=== PATIENT | male | born 1935 | race Caucasian/White ===

== ENCOUNTER → 2017-06-28 | Outpatient (CLI) | payer MEDICARE, BC ==
[2017-06-28 09:46] LABS: Blood Urea Nitrogen 25 mg/dL (9-20); Non-African American GFR(MDRD) 57 (>60 ml/min/1.73 sqM)
--- NOTE | 2017-06-28 11:33 | CT ---
EXAMINATION TYPE: CT abdomen pelvis w con DATE OF EXAM: 06/28/2017 COMPARISON: NONE HISTORY: Prostate cancer CT DLP: 738.1 mGycm Automated exposure control for dose reduction was used. TECHNIQUE: Helical acquisition of images from the lung bases through the pelvis have been completed. CONTRAST: Performed with Oral Contrast and with IV Contrast, patient injected with 80 mL of Visipaque 320. FINDINGS: The patient is post median sternotomy. Epicardial pacing leads are present. LUNG BASES: Interstitial changes are present at the right lung base greater than left.. AORTA: No significant abnormality is appreciated. LIVER/GB: No significant abnormality is appreciated within the liver. Difficult to exclude gallstone or sludge within the gallbladder. PANCREAS: No significant abnormality is seen. SPLEEN: No significant abnormality is seen. ADRENALS: No significant abnormality is seen. KIDNEYS: No significant abnormality is seen. Renal vein collar is noted. REPRODUCTIVE ORGANS: Prostate is enlarged. BOWEL: Some diverticular change noted in the sigmoid colon. FREE AIR: No Free Air visible. ASCITES: None visible. PELVIC ADENOPATHY: None visualized. RETROPERITONEAL ADENOPATHY: No Retroperitoneal Adenopathy visible. URINARY BLADDER: No significant abnormality is seen. OSSEOUS STRUCTURES: Degenerative disc changes are present within the visualized spine. There is asso ciated facet arthropathy present with some suspected spinal stenosis L4-5. Minimal anterolisthesis gr gabriella 1 L4-5. IMPRESSION: INTERSTITIAL LUNG DISEASE. Postop changes. Additional findings above.
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
== END | disposition home or self-care (01) ==
LOC: RADCTMAIN 09:06
PROVIDERS: ATTEND Urology
DX: C61 Malignant neoplasm of prostate (principal); R93.7 Abnormal findings on diagnostic imaging of other parts of musculoskeletal system; Z98.890 Other specified postprocedural states; Z88.2 Allergy status to sulfonamides
CPT/HCPCS: 82565; 84520; 74177; 36415; 78306; A9503; Q9967

== ENCOUNTER → 2019-12-04 | Outpatient (CLI) | payer MEDICARE, BC | END | disposition home or self-care (01) | CPT/HCPCS: 36415; 82565; 82947; 84520; 85027 ==

== ENCOUNTER 2019-12-06 09:44 | Day surgery (SDC) | payer MEDICARE, BC ==
[2019-12-04 11:59] VITALS: BMI 29.4
[~2019-12-06 09:44] MED LIST: ALPRAZolam 0.25 MG TAB PO PRN; ALPRAZolam 0.5 MG TAB PO PRN; ASPIRIN 325 MG TAB PO STA
[2019-12-06] MEDS ORDERED: SODIUM CHLORIDE 0.9% 1,000 ML in EMPTY BAG 1 BAG IV ONE (10:00)
[2019-12-06] MEDS ORDERED: VALSARTAN 160 MG TAB PO STA (10:15)
[2019-12-06 10:32] LABS: Glucose,Whole Blood 111 mg/dL (75-99)
[2019-12-06 11:10] LABS: Calcium 9.4 mg/dL (8.4-10.2); Potassium 4.4 mmol/L (3.5-5.1)
[2019-12-06] MEDS ORDERED: MIDAZOLAM 2 MG/2 ML VIAL IV ONE (12:22)
[2019-12-06] MEDS ORDERED: LIDOCAINE 1% INJ 10MG/ML (20 ML MDV) SQ ONE (12:24)
[2019-12-06] MEDS ORDERED: HEPARIN SODIUM 1,000 UN/ML (10ML VL) IV ONE (12:33)
[2019-12-06] MEDS ORDERED: CLOPIDOGREL 75 MG TAB PO ONE (12:48)
[2019-12-06] MEDS ORDERED: NITROGLYCERIN 1000MCG/10ML SYRINGE INTRAARTER ONE (13:14)
[2019-12-06] MEDS ORDERED: niCARdipine Syringe (1,000 mcg/10 mL) INTRAARTER ONE (13:14)
[2019-12-06] MEDS ORDERED: IOPAMIDOL-250 100ML BTL INTRAARTER ONE (13:23)
[2019-12-06] MEDS ORDERED: SODIUM CHLORIDE 0.9% 1,000 ML in EMPTY BAG 1 BAG IV SCH (13:30)
[2019-12-06] MEDS ORDERED: hydrALAZINE HCL 20 MG/ML 1 ML VIAL IVP PRN (13:33)
[2019-12-06] MEDS ORDERED: hydrALAZINE HCL 20 MG/ML 1 ML VIAL IV ONE (13:33)
--- NOTE | 2019-12-06 13:37 | P.PCN ---
Date of Procedure: 12/06/19 Operative Findings: PERCUTANEOUS PERIPHERAL ARTERIAL INTERVENTION Performing physician Osmel Lees MD, RPVI Procedure performed 1. Left lower extremity angiogram 2. 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 An atherectomy of the left popliteal using the orbital atherectomy device from [facility] 3. Balloon angioplasty of the left popliteal with inadequate angiographic results 4. Successful stenting of the left popliteal using 6.0 x 80 mm is Zilver PTX drug-coated stent with an excellent angiographic results 5. Selective right common femoral artery and Indication This is a pleasant 84-year-old gentleman who is in good physical and mental shape was experiencing bilateral lower extremities intermittent claudication and underwent an angiogram and that revealed occluded left popliteal as well as severe disease involving the right anterior tibial artery. He was brought today to undergo a HAND TRUCKER of the left popliteal Approach Right common femoral artery Complications None Level of sedation Moderate sedation length of 60 minutes Procedure description After obtaining an informed consent the patient was brought to the cardiac orthodontic lab technician. The right common femoral artery was cannulated using micropuncture technique, the micropuncture wire passed easily then I placed an 11 cm 6-Syrian sheath in the right common femoral artery. Anticoagulation at that point was initiated using heparin and the patient was given a weight-based heparin with continuous ACT monitoring throughout the procedure After that I did wire the left SFA using 5-Syrian rim catheter with 035 glide advantage wire. Subsequently I did exchange my 11 cm sheath into 70 cm 6-Syrian sheath using the 035 glide advantage wire. The sheath was advanced all the way to the distal left SFA and all the way to the hub. I did to cross the chronic total occlusion of the popliteal using 018 Gold tip Glidewire with a backup support of 018 CXI catheter. The wire was advanced all the way to the left peroneal artery. I did inject contrast through the catheter to prove that I was in the tubal lumen. After that I did exchange my 018 wire into 014 Viber wire preparing for rotational atherectomy. I did perform rotational atherectomy using 1.25 mm huy and I did atherectomy under local, medial, and high-speed. Subsequently balloon angioplasty was achieved with 4.0 x 60 mm balloon which was inflated under 16 melissa. The following angiogram showed inadequate angiographic results and because of that I decided to go with a stent. I deployed a 6.0 x 18 mm Zilver drug-coated stent where the stent was positioned under fluoroscopy guidance and deployed under fluoroscopy guidance. A postoperative the stent using 5 mm balloon. The final angiogram showed excellent angiographic results and the procedure was completed without any complications I did exchange my long sheath into short sheath using 035 glide advantage wire. By the end I did selective right common femoral artery angiogram. The procedure was completed without any complication Postprocedure management 1. Dual antiplatelet therapy 2. Risk factors modification 3. HAND TRUCKER of the right anterior tibial artery if the patient is symptomatic at the right leg 4. Follow-up with the patient
[2019-12-06 17:24] LABS: Glucose,Whole Blood 72 mg/dL (75-99)
[2019-12-06] MEDS: METOPROLOL TARTRATE 25 MG TAB PO SCH (20:34)
[2019-12-06 20:51] LABS: Glucose,Whole Blood 175 mg/dL (75-99)
[2019-12-06] MEDS: INSULIN ASPART (NovoLOG) 100 UNIT/ML VIAL SQ SCH (20:52)
[2019-12-07 06:03] LABS: Glucose,Whole Blood 151 mg/dL (75-99)
[2019-12-07] MEDS: INSULIN ASPART (NovoLOG) 100 UNIT/ML VIAL SQ SCH (06:14)
[2019-12-07 06:15] LABS: Basophils % (A) 1 %; Eosinophils # (A) 0.1 k/uL (0-0.7); Eosinophils % (A) 2 %; HCT 37.7 % (39.0-53.0); HGB 12.4 gm/dL (13.0-17.5); Lymphocytes # (A) 1.1 k/uL (1.0-4.8); Lymphocytes % (A) 21 %; MCH 32.1 pg (25.0-35.0); MCHC 32.8 g/dL (31.0-37.0); MCV 97.9 fL (80.0-100.0); Monocytes # (A) 0.3 k/uL (0-1.0); Monocytes % (A) 7 %; Neutrophils # (A) 3.5 k/uL (1.3-7.7); Neutrophils % (A) 68 %; Platelet Count 201 k/uL (150-450); RBC 3.85 m/uL (4.30-5.90); RDW 12.9 % (11.5-15.5); WBC 5.2 k/uL (3.8-10.6)
[2019-12-07 06:25] LABS: Calcium 8.5 mg/dL (8.4-10.2); Potassium 4.2 mmol/L (3.5-5.1)
--- NOTE | 2019-12-07 08:26 | IR ---
EXAMINATION TYPE: IR stent intravas non coronary DATE OF EXAM: 12/06/2019 CLINICAL HISTORY: Peripheral vascular disease. TECHNIQUE: Fluoroscopy. COMPARISON: None. FINDINGS: Fluoroscopic guidance was provided during left lower extremity angiogram procedure perform ed by Dr. Lees. A total of 15.3 minutes fluoroscopic time was utilized during the procedure and 9 c ine sequences are acquired. Images acquired show left lower extremity angiogram with subsequent stent placement popliteal level. IMPRESSION: As Above.
[2019-12-07] MEDS: METOPROLOL TARTRATE 25 MG TAB PO SCH (08:43)
[2019-12-07] MEDS ORDERED: VALSARTAN 160 MG TAB PO SCH (09:00)
[2019-12-07] MEDS ORDERED: ATORVASTATIN 80 MG TAB PO SCH (09:00)
[2019-12-07] MEDS ORDERED: CLOPIDOGREL 75 MG TAB PO SCH (09:00)
[2019-12-07] MEDS ORDERED: CALCIUM CARB-VIT D 500MG-200UN 1 EACH TAB PO SCH (09:00)
[2019-12-07] MEDS ORDERED: INSULIN DETEMIR (LEVEMIR) 100 UNIT/ML SYR SQ SCH (09:00)
[2019-12-07] MEDS ORDERED: ASPIRIN 81 MG PO SCH (09:00)
[2019-12-07 10:06] VITALS: BP 135/63; PULSE 55; RESP 16; TEMP 97.6
--- NOTE | 2019-12-07 11:56 | P.DS ---
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 He was seen this morning. The right groin is soft and nontender and without any bruises. The patient is going to be discharged home on dual antiplatelet therapy and I'll follow-up with the patient next week in the office Health Concerns: NEW PLAVIX Plan - Discharge Summary Discharge Rx Participant: No New Discharge Prescriptions: New Clopidogrel [Plavix] 75 mg PO DAILY #90 tab Continue Atorvastatin [Lipitor] 80 mg PO DAILY Aspirin [Adult Low Dose Aspirin EC] 81 mg PO DAILY Calcium Carbonate/Vitamin D3 [Calcium 600-Vit D3 400 Tablet] 1 each PO DAILY Insulin Detemir (Levemir) [Levemir] 18 unit SQ DAILY Valsartan 160 mg PO DAILY Metoprolol Tartrate [Lopressor] 25 mg PO BID Insulin Lispro Rx Scale Form [humaLOG Outpatient Scale Rx Form] 0 units SQ ACHS Discharge Medication List Aspirin [Adult Low Dose Aspirin EC] 81 mg PO DAILY 12/04/19 [History] Atorvastatin [Lipitor] 80 mg PO DAILY 12/04/19 [History] Calcium Carbonate/Vitamin D3 [Calcium 600-Vit D3 400 Tablet] 1 each PO DAILY 12/04/19 [History] Insulin Detemir (Levemir) [Levemir] 18 unit SQ DAILY 12/04/19 [History] Insulin Lispro Rx Scale Form [humaLOG Outpatient Scale Rx Form] 0 units SQ ACHS 12/04/19 [History] Metoprolol Tartrate [Lopressor] 25 mg PO BID 12/04/19 [History] Valsartan 160 mg PO DAILY 12/04/19 [History] Clopidogrel [Plavix] 75 mg PO DAILY #90 tab 12/07/19 [Rx] Follow up Appointment(s)/Referral(s): Osmel Lees MD [STAFF PHYSICIAN] - 1 Week Patient Instructions/Handouts: Heart Healthy Diet (DC), Peripheral Vascular Angioplasty (DC) Activity/Diet/Wound Care/Special Instructions: Peripheral vascular angioplasty: 1. Support your puncture site by applying firm, steady pressure whenever you cough, laugh, sneeze or bear down to have a bowel movement (2-day restriction). 2. Watch for any excessive bruising, active bleeding, a firm knot forming under your skin, extreme tenderness and signs of infection (redness, swelling, fever). 3. Shower daily, do not soak puncture in a tub bath, jacuzzi, pool, adan etc. for 1 week. This is to prevent risk of infection. 4. Drink plenty of fluids the day of and day after your procedure to flush con trast dye out of your kidneys. 5. Take all medications as directed. Never stop any new medication without your physicians OK. 6. No driving for 2 days after procedure. 7. 10- pound weight lifting restriction for 1 week. 8. Low sodium/low fat diet. 9. Activity limited until follow up appointment with your slp teacher. In case of any problems, please call [facility] [place] @ .
[2019-12-07 15:22] LABS: Hemoglobin A1C 7.7 % (4.0-6.0)
== END 2019-12-07 12:11 | disposition home or self-care (01) ==
LOC: CATHCVL 09:44 → 3SCARD 16:48 → CATHCVL 12-07 12:11
PROVIDERS: ATTEND Internal Medicine Interventional Cardiology
DX: E13.51 Other specified diabetes mellitus with diabetic peripheral angiopathy without gangrene (principal); I70.213 Atherosclerosis of native arteries of extremities with intermittent claudication, bilateral legs; I25.10 Atherosclerotic heart disease of native coronary artery without angina pectoris; I70.92 Chronic total occlusion of artery of the extremities; Z79.82 Long term (current) use of aspirin; Z79.4 Long term (current) use of insulin; Z79.899 Other long term (current) drug therapy; I10 Essential (primary) hypertension; E78.5 Hyperlipidemia, unspecified; Z95.1 Presence of aortocoronary bypass graft; Z79.84 Long term (current) use of oral hypoglycemic drugs; Z88.1 Allergy status to other antibiotic agents
CPT/HCPCS: 37227; 85347; 80048 ×2; 85025; 83036; C1894 ×2; C1769 ×7; C1714; C1725; C1753; C1874; J2250; J0360; J2001; J1644; Q9966

== ENCOUNTER 2020-02-29 16:56 | Inpatient (IN) | payer MEDICARE, BC ==
--- NOTE | 2020-02-29 18:00 | ED ---
Extremity Problem HPI <Hugo Olivarez - Last Filed: 02/29/20 18:24> - General Source: patient Mode of arrival: ambulatory Limitations: no limitations <Nereida Becker - Last Filed: 02/29/20 21:20> - General Chief complaint: Extremity Problem,Nontraumatic Stated complaint: Foot and ankle pain Time Seen by Provider: 02/29/20 17:09 - History of Present Illness Initial comments: 84-year-old male presents today for chief complaint of left ankle foot pain x 4- 5 days, decreased sensation. Patient states that he had a popliteal stent 12/[address] Marques. Patient states that after the surgery he was feeling much better than before the surgery where he frequently has numbness and pain in the foot. Patient states that he now has similar symptoms to prior to stent, decreased sensation of foot and pain from ankle to foot. Patient states appears more pale--left in comparison to right. patient has no additional complaints. Is on plavix and atorvastatin. Patient states he has been compliant. Pt sent from Dr. Marques office for evaluation. (Nereida Becker) - Related Data Home Medications Medication Instructions Recorded Confirmed Atorvastatin [Lipitor] 80 mg PO DAILY 12/04/19 02/29/20 Insulin Detemir (Levemir) [Levemir] 18 unit SQ DAILY 12/04/19 02/29/20 Metoprolol Tartrate [Lopressor] 25 mg PO BID-W/MEALS 12/04/19 02/29/20 Pioglitazone [Actos] 30 mg PO DAILY 02/29/20 02/29/20 Previous Rx's Medication Instructions Recorded Clopidogrel [Plavix] 75 mg PO DAILY #90 tab 12/07/19 Allergies Allergy/AdvReac Type Severity Reaction Status Date / Time No Known Allergies Allergy Verified 02/29/20 20:51 Review of Systems ROS Other: All systems not noted in ROS Statement are negative. <Hugo Olivarez - Last Filed: 02/29/20 18:24> ROS Other: All systems not noted in ROS Statement are negative. <Nereida Becker - Last Filed: 02/29/20 21:20> ROS Statement: Those systems with pertinent positive or pertinent negative responses have been documented in the HPI. 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 Prostate CA, gets injections. Has Constipation. Lt foot numbness. left femoral stent 12.06.2019 History of Any Multi-Drug Resistant Organisms: None Reported Past Surgical History: Coronary Bypass/CABG Additional Past Surgical History / Comment(s): "Heart surgery" Past Anesthesia/Blood Transfusion Reactions: No Reported Reaction Past Psychological History: No Psychological Hx Reported Smoking Status: Former smoker Past Drug Use History: None Reported - Past Family History Mother Family Medical History: No Reported History <Nereida Becker - Last Filed: 02/29/20 21:20> General Exam Limitations: no limitations <Nereida Becker - Last Filed: 02/29/20 21:20> - General Exam Comments Initial Comments: General: The patient is awake and alert, in no distress Eye: Pupils are equal, round and reactive to light, extra-ocular movements are intact. No nystagmus. There is normal conjunctiva bilaterally. No signs of icterus. Ears, nose, mouth and throat: There are moist mucous membranes and no oral lesions. Neck: The neck is supple, there is no tenderness or JVD. Cardiovascular: There is a regular rate and rhythm. No murmur, rub or gallop is appreciated. Respiratory: Lungs are clear to auscultation, respirations are non-labored, breath sounds are equal. No wheezes, stridor, rales, or rhonchi. Musculoskeletal: Normal ROM, no tenderness. Strength 5/5. Sensation intact proximal to mid calf, less sensation distal to mid calf of left foot. Radial pulses equal bilaterally 2+. Right DP and posterior tibial pulses present, left not palpable nor audible to doppler. Popliteal is thready but audible to auscultation with doppler. VERY sluggish capillary refill of left foot >1 min. Neurological: A&O x 3. CN II-XII intact grossly, There are no obvious motor or sensory deficits. Coordination appears grossly intact. Speech is normal. Skin: Skin is warm and dry and no rashes or lesions are noted. Psychiatric: Cooperative, appropriate mood & affect, normal judgment. (Nereida Becker) Course Vital Signs 02/29/20 02/29/20 17:16 18:37 Temperature 97.8 F Pulse Rate 60 86 Respiratory 16 16 Rate Blood Pressure 158/68 156/72 O2 Sat by Pulse 98 99 Oximetry Medical Decision Making - Lab Data Result diagrams: 02/29/20 17:52 <Hugo Olivarez - Last Filed: 02/29/20 18:24> - Lab Data Result diagrams: 02/29/20 17:52 02/29/20 17:52 <Nereida Becker - Last Filed: 02/29/20 21:20> - Medical Decision Making I, Jeison Olivarez, personally saw and examined the patient. I have reviewed and agree with the PA findings, including all diagnostic interpretations and treatment plans as written unless otherwise stated. I was present for the ferguson portions of any procedures performed and the inclusive time noted for any critical care statement. (Hugo Olivarez) Patient presents with concern for arterial occlusion. Physical exam suggestive of occlusion. Attending notified after evaluation of patient. Contacted surgeon Dr. Marques. He recommend CT, heparin and calling in livestock laborer for intervention. Patient denies blood or dark stool. Heparin initiated. Popliteal stent, SFA occluded. Patient transferred to livestock laborer for intervention. (Nereida Becker) - Lab Data Lab Results 02/29/20 02/29/20 02/29/20 Range/Units 17:52 17:52 17:52 WBC 4.5 (3.8-10.6) k/uL RBC 3.51 L (4.30-5.90) m/uL Hgb 11.1 L (13.0-17.5) gm/dL Hct 35.1 L (39.0-53.0) % MCV 100.2 H (80.0-100.0) fL MCH 31.6 (25.0-35.0) pg MCHC 31.6 (31.0-37.0) g/dL RDW 13.2 (11.5-15.5) % Plt Count 198 (150-450) k/uL Neutrophils % 63 % Lymphocytes % 26 % Monocytes % 7 % Eosinophils % 2 % Basophils % 1 % Neutrophils # 2.8 (1.3-7.7) k/uL Lymphocytes # 1.2 (1.0-4.8) k/uL Monocytes # 0.3 (0-1.0) k/uL Eosinophils # 0.1 (0-0.7) k/uL Basophils # 0.0 (0-0.2) k/uL PT 10.8 (9.0-12.0) sec INR 1.0 (<1.2) APTT 22.3 (22.0-30.0) sec Sodium 138 (137-145) mmol/L Potassium 4.6 (3.5-5.1) mmol/L Chloride 103 (98-107) mmol/L Carbon Dioxide 29 (22-30) mmol/L Anion Gap 6 mmol/L BUN 25 H (9-20) mg/dL Creatinine 1.27 H (0.66-1.25) mg/dL Est GFR (CKD-EPI)AfAm 60 (>60 ml/min/1.73 sqM) Est GFR (CKD-EPI)NonAf 52 (>60 ml/min/1.73 sqM) Glucose 172 H (74-99) mg/dL Calcium 9.2 (8.4-10.2) mg/dL Total Bilirubin 0.3 (0.2-1.3) mg/dL AST 18 (17-59) U/L ALT 11 (4-49) U/L Alkaline Phosphatase 45 (38-126) U/L Total Protein 6.5 (6.3-8.2) g/dL Albumin 3.6 (3.5-5.0) g/dL Disposition <Hugo Olivarez - Last Filed: 02/29/20 18:24> Is patient prescribed a controlled substance at d/c from ED?: No Time of Disposition: 19:00 Decision to Admit Reason: Admit from EC Decision Date: 02/29/20 Decision Time: 19:00 <Nereida Becker - Last Filed: 02/29/20 21:20> Clinical Impression: Arterial occlusion, Left foot pain Disposition: ADMITTED IP TO THIS [facility] Condition: Serious
[2020-02-29] MEDS ORDERED: HEPARIN SODIUM,PORCINE 10,000 UNIT/ML 1 ML VIAL IV ONE (18:02)
[2020-02-29] MEDS ORDERED: HEPARIN SODIUM,PORCINE 5,000 UNIT/ML 1 ML VIAL IV PRN (18:02)
[2020-02-29 18:18] LABS: Basophils % (A) 1 %; Eosinophils # (A) 0.1 k/uL (0-0.7); Eosinophils % (A) 2 %; HCT 35.1 % (39.0-53.0); HGB 11.1 gm/dL (13.0-17.5); Lymphocytes # (A) 1.2 k/uL (1.0-4.8); Lymphocytes % (A) 26 %; MCH 31.6 pg (25.0-35.0); MCHC 31.6 g/dL (31.0-37.0); MCV 100.2 fL (80.0-100.0); Mean Platelet Volume 7.7; Monocytes # (A) 0.3 k/uL (0-1.0); Monocytes % (A) 7 %; Neutrophils # (A) 2.8 k/uL (1.3-7.7); Neutrophils % (A) 63 %; Platelet Count 198 k/uL (150-450); RBC 3.51 m/uL (4.30-5.90); RDW 13.2 % (11.5-15.5); WBC 4.5 k/uL (3.8-10.6)
[2020-02-29 18:27] LABS: Albumin 3.6 g/dL (3.5-5.0); Calcium 9.2 mg/dL (8.4-10.2); Potassium 4.6 mmol/L (3.5-5.1); Total Bilirubin 0.3 mg/dL (0.2-1.3); Total Protein 6.5 g/dL (6.3-8.2)
[2020-02-29] MEDS: HEPARIN SOD,PORK IN 0.45% NACL 25,000 UNIT in 0.45% NACL 1 250ML.BAG IV SCH (18:34)
[2020-02-29 18:37] LABS: Partial Thromboplastin Time 22.3 sec (22.0-30.0); Prothrombin Time 10.8 sec (9.0-12.0)
[2020-02-29] MEDS ORDERED: NALOXONE 0.4 MG/ML 1 ML VIAL IV PRN (19:11)
[2020-02-29] MEDS ORDERED: HYDROmorphone 0.5 MG/0.5 ML SYRINGE IVP PRN (19:11)
[2020-02-29] MEDS ORDERED: ALTEPLASE BOLUS 1 MG/1 ML SYRINGE IV STA (19:26)
--- NOTE | 2020-02-29 19:29 | CT ---
EXAMINATION TYPE: CT angio abd aorta w/Runoff with contrast and with 3-D reconstructions. DATE OF EXAM: 02/29/2020 COMPARISON: 06/28/2017 HISTORY: PULSELESS LEFT FOOT CT DLP: 2455 mGycm, Automated Exposure Control for Dose Reduction was Utilized. CONTRAST: CT scan of the abdomen and pelvis is performed with oral and without and with IV Contrast, patient injected with 80 mL of Isovue 370. FINDINGS: LUNG BASES: No significant abnormality is appreciated. LIVER/GB: No significant abnormality is appreciated. PANCREAS: No significant abnormality is seen. SPLEEN: No significant abnormality is seen. ADRENALS: No significant abnormality is seen. KIDNEYS: No significant abnormality is seen. BOWEL: No significant abnormality is seen. PROSTATE/SEMINAL VESICLES: No gross abnormality seen. LYMPH NODES: No greater than 1cm abdominal or pelvic lymph nodes are appreciated. OSSEOUS STRUCTURES: No significant abnormality is seen. VASCULATURE: The aortoiliac inflow is negative for flow-limiting stenoses. On the ipsilateral left, the left external iliac, ALARM INSTALLER, and SFApliteal are widely patent down to t he adductor canal where there is an abrupt cut off consistent with occlusion of the distal SFA and th e entirety of the left popliteal artery stent. The inferior margin of the stent appears to be at the level of the femoral tibial articulation. Immediately distal to the popliteal stent there is evidence of trickle flow, which is likely more robust than can be seen on the CTA - because at the level of t he origin of the anterior tibial artery there is contrast opacification for a 3 vessel runoff to the level of the ankle, where the anterior tibial becomes nonopacified and where the posterior tibial rem ains contrast opacified on into the foot. On the contralateral right, the external, ALARM INSTALLER and SFA are widely patent as is the popliteal and t here is a 3 vessel runoff with both the posterior tibial and anterior tibial/dorsalis pedis patent on into the foot. IMPRESSION: OCCLUDED DISTAL LEFT SFA/POPLITEAL ARTERY STENT. Results discussed with the receiving surgeon at approximately 7:10 PM.
[2020-02-29] MEDS ORDERED: LIDOCAINE 1% INJ 10MG/ML (20 ML MDV) SQ ONE (19:44)
[2020-02-29] MEDS ORDERED: MIDAZOLAM 2 MG/2 ML VIAL IVP ONE (19:44)
[2020-02-29] MEDS ORDERED: IV FLUID CONTINUATION 500 ML IV ONE (19:51)
[2020-02-29] MEDS ORDERED: SODIUM CHLORIDE 0.9% 1,000 ML in EMPTY BAG 1 BAG IV SCH (20:15)
[2020-02-29] MEDS: ALTEPLASE 10 MG in SODIUM CHLORIDE 0.9% 100 ML IA ONE (20:16)
[2020-02-29] MEDS ORDERED: IOPAMIDOL-250 100ML BTL INTRAARTER ONE (20:18)
--- NOTE | 2020-02-29 20:24 | P.CRDCN ---
History of Present Illness Consult date: 02/29/20 Chief complaint: Left foot discomfort History of present illness: This is a very pleasant 85-year-old gentleman with coronary artery disease and status post coronary artery bypass grafting, peripheral arterial disease and status post percutaneous peripheral intervention on the left popliteal was performed in November 2019, diabetes, hypertension, and dyslipidemia, presented to the emergency room complaining of left ankle/left foot discomfort. The patient was in his usual state of health but about 4-5 days ago when he started experiencing discomfort involving the left ankle associated with numbness involving the left foot. The patient called our office earlier today and we asked the patient to go to the emergency department. In the emergency department the patient was found to have an absence Doppler signal from the pedal pulse in the left foot. Subsequently we did perform a CTA of the abdomen, all this, and lower extremities and that revealed what it seems to be an acute total occlusion of the distal left SFA as well as left popliteal. Subsequently the patient was brought emergently to the cardiac calibration laboratory technician where I did perform selective left popliteal and left below the knee angiogram which revealed the occlusion of the distal left SFA as well as left popliteal and the arteries below the knee reconstitutes at the level of the tibial peroneal trunk. I performed successful placement of infusion catheter in the left popliteal and TPA was initiated in to be continued for 12 hours and the patient will be brought back tomorrow morning for second look. The patient tolerated the procedure very well. The procedure was performed from the right groin. TPA would be infused along with heparin and with continuous monitoring of the hemoglobin as well as a platelet overnight. Meanwhile I will continue dual antiplatelet therapy along with statin and continue following up with the patient. Please note that the patient stated that he was compliant with his dual antiplatelet therapy. 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 Prostate CA, gets injections. Has Constipation. Lt foot numbness. left femoral stent 12.06.2019 History of Any Multi-Drug Resistant Organisms: None Reported Past Surgical History: Coronary Bypass/CABG Additional Past Surgical History / Comment(s): "Heart surgery" Past Anesthesia/Blood Transfusion Reactions: No Reported Reaction Past Psychological History: No Psychological Hx Reported Smoking Status: Former smoker Past Drug Use History: None Reported - Past Family History Mother Family Medical History: No Reported History Medications and Allergies Home Medications Medication Instructions Recorded Confirmed Type Aspirin [Adult Low Dose Aspirin EC] 81 mg PO DAILY 12/04/19 12/06/19 History Atorvastatin [Lipitor] 80 mg PO DAILY 12/04/19 12/06/19 History Calcium Carbonate/Vitamin D3 1 each PO DAILY 12/04/19 12/06/19 History [Calcium 600-Vit D3 400 Tablet] Insulin Detemir (Levemir) [Levemir] 18 unit SQ DAILY 12/04/19 12/06/19 History Insulin Lispro Rx Scale Form 0 units SQ ACHS 12/04/19 12/06/19 History [humaLOG Outpatient Scale Rx Form] Metoprolol Tartrate [Lopressor] 25 mg PO BID 12/04/19 12/06/19 History Valsartan 160 mg PO DAILY 12/04/19 12/06/19 History Clopidogrel [Plavix] 75 mg PO DAILY #90 tab 12/07/19 Rx Allergies Allergy/AdvReac Type Severity Reaction Status Date / Time No Known Allergies Allergy Verified 02/29/20 19:14 Physical Exam Vitals: Vital Signs Temp Pulse Resp BP Pulse Ox 02/29/20 18:37 86 16 156/72 99 02/29/20 17:16 97.8 F 60 16 158/68 98 Intake and Output 02/29/20 02/29/20 02/29/20 06:59 14:59 22:59 Intake Total 100 Balance 100 Intake: IV 100 Other: Weight 81.647 kg - Constitutional General appearance: no acute distress - Respiratory Respiratory: bilateral: diminished - Cardiovascular Heart sounds: normal: S1, S2 Abnormal Heart Sounds: systolic murmur Results 02/29/20 17:52 02/29/20 17:52 Cardiac Enzymes 02/29/20 Range/Units 17:52 AST 18 (17-59) U/L Coagulation 02/29/20 Range/Units 17:52 PT 10.8 (9.0-12.0) sec APTT 22.3 (22.0-30.0) sec CBC 02/29/20 Range/Units 17:52 WBC 4.5 (3.8-10.6) k/uL RBC 3.51 L (4.30-5.90) m/uL Hgb 11.1 L (13.0-17.5) gm/dL Hct 35.1 L (39.0-53.0) % Plt Count 198 (150-450) k/uL Comprehensive Metabolic Panel 02/29/20 Range/Units 17:52 Sodium 138 (137-145) mmol/L Potassium 4.6 (3.5-5.1) mmol/L Chloride 103 (98-107) mmol/L Carbon Dioxide 29 (22-30) mmol/L BUN 25 H (9-20) mg/dL Creatinine 1.27 H (0.66-1.25) mg/dL Glucose 172 H (74-99) mg/dL Calcium 9.2 (8.4-10.2) mg/dL AST 18 (17-59) U/L ALT 11 (4-49) U/L Alkaline Phosphatase 45 (38-126) U/L Total Protein 6.5 (6.3-8.2) g/dL Albumin 3.6 (3.5-5.0) g/dL Current Medications Generic Name Dose Route Start Last Admin Trade Name Freq PRN Reason Stop Dose Admin Atorvastatin Calcium 80 mg 03/01/20 09:00 Lipitor PO DAILY [facility] Calcium Carbonate 1 each 03/01/20 09:00 Oscal 500+D PO DAILY [facility] Clopidogrel Bisulfate 75 mg 03/01/20 09:00 Plavix PO DAILY [facility] Heparin Sodium (Porcine) 0 unit 02/29/20 18:02 Heparin IV PER PROTOCOL PRN Low PTT Protocol Hydromorphone HCl 0.5 mg 02/29/20 19:11 Dilaudid IVP Q3HR PRN Moderate Pain Heparin Sodium/Sodium Chloride 250 mls @ 14.696 mls/hr 02/29/20 18:15 02/29/20 18:34 25,000 unit/ Sodium Chloride IV 18 units/kg/hr .Q17H1M PEEWEE 14.696 mls/hr Administration Protocol 18 UNITS/KG/HR Sodium Chloride 1,000 mls @ 75 mls/hr 02/29/20 19:15 Saline 0.9% IV .[id number] [facility] Alteplase, Recombinant 10 mg/ 100 mls @ 10 mls/hr 02/29/20 19:25 Sodium Chloride IA 03/01/20 05:24 .Q10H ONE Protocol 1 MG/HR Insulin Detemir 18 unit 03/01/20 07:00 Levemir SQ DAILY@0700 P[facility] Metoprolol Tartrate 25 mg 02/29/20 21:00 Lopressor PO BID [facility] Naloxone HCl 0.2 mg 02/29/20 19:11 Narcan IV Q2M PRN Opioid Reversal Valsartan 160 mg 03/01/20 09:00 Diovan PO DAILY P[facility]WEE Intake and Output 02/29/20 02/29/20 02/29/20 06:59 14:59 22:59 Intake Total 100 Balance 100 Intake: IV 100 Other: Weight 81.647 kg Patient Weight 03/01/20 06:59 Weight 81.647 kg 02/29/20 17:52 02/29/20 17:52 Assessment and Plan Assessment: Assessment #1 acute ischemia of the left leg #2 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
--- NOTE | 2020-02-29 20:29 | P.PCN ---
Date of Procedure: 02/29/20 Operative Findings: PERCUTANEOUS PERIPHERAL INTERVENTION Performing physician Osmel Lees MD, RPVI Procedure performed 1. Successful placement of infusion catheter in the left popliteal artery. The infusion catheter is for TPA 2. Selective left popliteal angiogram 3. Selective left below the knee angiogram Indication This is an 84-year-old gentleman was peripheral arterial disease who underwent in November 2019 successful crossing chronic total occlusion of the left popliteal along with successful stenting of the left popliteal using the silver PTX drug- coated stent with an excellent angiographic results by the end and without any complication and with a good flow. He presented to the hospital was few days discomfort involving the left foot associated with numbness. No Doppler signal was adhered from the pedal arteries in the left foot. Because of that CTA was performed and revealed acute total occlusion of the distal left SFA and left popliteal. Because of that the patient was brought to undergo selective angiogram and placement of infusion catheter. Complication None Level of sedation Moderate to sedation length of 25 minutes Procedure description After obtaining an informed consent the patient was brought to the cardiac earth science laboratory technician. The right common femoral artery was cannulated using micro-puncture technique, the micropuncture wire passed easily then I placed a 6-Lithuanian 11 cm sheath at the right common femoral artery. Subsequently I did selective left SFA using 035 glide advantage wire with a backup support of a 5-Lithuanian rim catheter. After that I did exchange my 11 cm 6-Lithuanian sheath into 70 cm 6-Lithuanian sheath using the glide advantage wire and the tip of the sheath was positioned in the distal left SFA. Subsequently I did selective left popliteal angiogram and selective left below the knee angiogram which revealed the acute total occlusion of the left popliteal. Subsequently I did wire the acute total occlusion and the wire was advanced all the way to the left peroneal artery. After that I advanced an infusion catheter which was 135 cm with an infusion length of 20 cm over the 035 wire into the left popliteal. Subsequently the wire was pulled out and after that I did contact the infusion catheter to the tubing to start TPA infusion through the catheter and heparin infusion through the sheath. The procedure was completed without any claudication Postprocedure management 1. Standard the groin care 2. Continue TPA along with heparin 3. Platelet monitoring 4. Follow-up with the patient
[2020-02-29 20:52] LABS: Glucose,Whole Blood 111 mg/dL (75-99)
[2020-02-29] MEDS: METOPROLOL TARTRATE 25 MG TAB PO SCH (21:16)
[2020-02-29] MEDS: SODIUM CHLORIDE 0.9% 1,000 ML IV SCH (23:08)
[2020-03-01] MEDS: hydrALAZINE HCL 20 MG/ML 1 ML VIAL IVP PRN ×2 (00:36→14:10)
[2020-03-01] MEDS: ALTEPLASE 10 MG in SODIUM CHLORIDE 0.9% 100 ML IA ONE (04:58)
[2020-03-01 05:22] LABS: Basophils % (A) 0 %; Eosinophils # (A) 0.2 k/uL (0-0.7); Eosinophils % (A) 2 %; HCT 35.4 % (39.0-53.0); HGB 11.1 gm/dL (13.0-17.5); Lymphocytes # (A) 1.5 k/uL (1.0-4.8); Lymphocytes % (A) 19 %; MCH 31.6 pg (25.0-35.0); MCHC 31.3 g/dL (31.0-37.0); Macrocytosis Slight; Monocytes # (A) 0.4 k/uL (0-1.0); Monocytes % (A) 5 %; Neutrophils % (A) 73 %; Platelet Count 179 k/uL (150-450); RDW 13.4 % (11.5-15.5); WBC 8.2 k/uL (3.8-10.6)
[2020-03-01] MEDS ORDERED: ALTEPLASE 10 MG in SODIUM CHLORIDE 0.9% 100 ML IA ONE (05:25)
[2020-03-01 05:36] LABS: Calcium 8.7 mg/dL (8.4-10.2)
[2020-03-01] MEDS: CALCIUM CARB-VIT D 500MG-200UN 1 EACH TAB PO SCH (06:37)
[2020-03-01] MEDS: METOPROLOL TARTRATE 25 MG TAB PO SCH ×2 (06:37→21:18)
[2020-03-01] MEDS: VALSARTAN 160 MG TAB PO SCH (06:37)
[2020-03-01] MEDS: ATORVASTATIN 80 MG TAB PO SCH (06:37)
[2020-03-01] MEDS: ASPIRIN 325 MG TAB PO SCH (06:37)
[2020-03-01] MEDS: SODIUM CHLORIDE 0.9% 1,000 ML IV SCH ×2 (06:42→14:09)
[2020-03-01 06:44] LABS: Glucose,Whole Blood 135 mg/dL (75-99)
[2020-03-01] MEDS: INSULIN DETEMIR (LEVEMIR) 100 UNIT/ML SYR SQ SCH (07:51)
[2020-03-01] MEDS ORDERED: CLOPIDOGREL 75 MG TAB PO SCH (09:00)
--- NOTE | 2020-03-01 11:07 | IR ---
Fluoroscopy HISTORY: Popliteal artery occlusion on the left 5.3 minutes fluoroscopy time supplied to the referring clinician. 119 intraoperative C-arm images do cument the procedure. See dictated report from cardiology.
[2020-03-01 12:04] LABS: Glucose,Whole Blood 122 mg/dL (75-99)
[2020-03-01] MEDS: MIDAZOLAM 2 MG/2 ML VIAL IV ONE ×2 (12:42→12:55)
[2020-03-01] MEDS ORDERED: IV FLUID CONTINUATION 900 ML IV ONE (12:43)
[2020-03-01] MEDS ORDERED: HYDROmorphone 1 MG/ML 1 ML SYRINGE IVP ONE (12:43)
[2020-03-01] MEDS ORDERED: ZOLPIDEM 5 MG TAB PO PRN (13:17)
[2020-03-01] MEDS ORDERED: NITROGLYCERIN SL TABS 0.4 MG TAB SUBLINGUAL PRN (13:17)
[2020-03-01] MEDS ORDERED: MAG HYDROX/AL HYDROX/SIMETH 30 ML CUP PO PRN (13:17)
[2020-03-01] MEDS ORDERED: ATROPINE SULFATE 0.1 MG/ML 10ML SYRINGE IV PRN (13:17)
[2020-03-01] MEDS ORDERED: RX INFO: IV CONTRAST WAS GIVEN 1 EACH MISC MISCELLANE PRN (13:17)
[2020-03-01] MEDS ORDERED: IOPAMIDOL-250 100ML BTL INTRAARTER ONE (13:22)
[2020-03-01] MEDS ORDERED: SODIUM CHLORIDE 0.9% 1,000 ML IV SCH (13:30)
[2020-03-01] MEDS: HEPARIN SOD,PORK IN 0.45% NACL 25,000 UNIT in 0.45% NACL 1 250ML.BAG IV SCH (13:45)
[2020-03-01 14:28] VITALS: BMI 29.1
[2020-03-01 17:15] LABS: Glucose,Whole Blood 102 mg/dL (75-99)
--- NOTE | 2020-03-01 17:43 | PCN ---
PROCEDURE NOTE DATE OF SERVICE: 03/01/2020 PERFORMING PHYSICIAN: Osmel Lees M.D. PROCEDURES PERFORMED: 1. Successful stenting of the distal left superficial femoral artery using a Viabahn covered stent, which was 7.0 x 18 mm, with excellent angiographic results. 2. Selective left superficial femoral artery, left popliteal, and left [id number] angiogram. 3. Selective right common femoral artery angiogram. 4. Cessation of tPA infusion and removal of infusion catheter. INDICATION: This is an 84-year-old gentleman who presented yesterday to the hospital with acute limb ischemia and underwent an angiogram which revealed the occlusion of the left popliteal and distal left SFA. A tPA infusion catheter was placed and the patient was dripped with tPA overnight and he was brought today to undergo a second look. APPROACH: Right common femoral artery. COMPLICATIONS: None. LEVEL OF SEDATION: Moderate, with sedation length of 34 minutes. PROCEDURE DESCRIPTION: After obtaining informed consent, the patient was brought to the cardiac label pinker. I did pull the infusion catheter out of the long sheath. Subsequently I did perform an angiogram which revealed clot in the distal left SFA and proximal left popliteal with patent stent in the left popliteal and patent anterior tibial and peroneal artery. I decided to cover the clot in the distal left SFA and proximal left using Viabahn covered stent. I did wire the lesion using 0.[address] wire. I did deploy Viabahn, which was a 7.0 x 18 mm stent, and the stent was positioned under fluoroscopic guidance and deployed under fluoroscopic guidance and I post-dilated the stent using a 6 mm balloon. The final angiogram showed excellent angiographic results with good flow below the knee and without any complication. POST-PROCEDURE MANAGEMENT: 1. Continue aspirin and stop Plavix. 2. Start the patient on Eliquis 2.5 mg p.o. b.i.d. 3. Follow up with the patient. MMODL / IJN: [id number] /
[2020-03-01 20:22] LABS: Glucose,Whole Blood 162 mg/dL (75-99)
[2020-03-01] MEDS: APIXABAN 2.5 MG TABLET PO SCH (21:18)
--- NOTE | 2020-03-01 23:28 | P.HPIM ---
History of Present Illness H&P Date: 03/01/20 Chief Complaint: left leg pain Patient is a 85-year-old man with a known history of coronary artery disease status post CABG, peripheral vascular disease with history of left popliteal stent on 12/06/2019, history of CVA/TIA, history of prostate cancer currently on immunotherapy, hypertension, osteoarthritis and hearing disorder came to ER with complaints of left lower extremity pain. Pain is mainly in the left foot and ankle. Patient has been having left ankle pain associated with numbness of the left foot for the past 4 to 5 days. 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 Patient was found to have absent pedal pulses in the left foot. Subsequently patient underwent CTA of the abdomen which revealed acute total occlusion of the distal left SFA as well as left popliteal. Patient was taken to cardiac Interactive Media Project Manager and successful placement of infusion catheter in the left popliteal vein TPA was initiated. Patient was continued on TPA along with heparin overnight and was again taken to the OR this morning. CT angiogram of the abdomen showed occluded distal left SFA/popliteal artery stent. Laboratory data showed WBC 4.5, hemoglobin 11.1, MCV 100.2 and platelets 198. BUN 25 and creatinine 1.27 Review of Systems Constitutional: Patient denies any fever or chills . No generalized weakness or weight loss. Abdomen: Patient denied nausea vomiting and diarrhea and abdominal pain. Cardiovascular: Patient denies any chest pain or short of breath no palpitations. Respiratory: patient denied any cough is from production. No shortness of breath Neurologic: Patient denied any numbness or tingling headache. Musculoskeletal: Patient denies any complaints of joint swelling or deformity. left foot pain. Skin: Negative Psychiatric: Negative Endocrine: No heat or cold intolerance. No recent weight gain. Genitourinary: No dysuria or hematuria. 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 Prostate CA, gets injections. Has Constipation. Lt foot numbness. left femoral stent 12.06.2019 History of Any Multi-Drug Resistant Organisms: None Reported Past Surgical History: Coronary Bypass/CABG Additional Past Surgical History / Comment(s): "Heart surgery" Past Anesthesia/Blood Transfusion Reactions: No Reported Reaction Past Psychological History: No Psychological Hx Reported Smoking Status: Former smoker Past Drug Use History: None Reported - Past Family History Mother Family Medical History: No Reported History Medications and Allergies Home Medications Medication Instructions Recorded Confirmed Type Atorvastatin [Lipitor] 80 mg PO DAILY 12/04/19 02/29/20 History Insulin Detemir (Levemir) [Levemir] 18 unit SQ DAILY 12/04/19 02/29/20 History Metoprolol Tartrate [Lopressor] 25 mg PO BID-W/MEALS 12/04/19 02/29/20 History Clopidogrel [Plavix] 75 mg PO DAILY #90 tab 12/07/19 02/29/20 Rx Pioglitazone [Actos] 30 mg PO DAILY 02/29/20 02/29/20 History Allergies Allergy/AdvReac Type Severity Reaction Status Date / Time No Known Allergies Allergy Verified 02/29/20 20:51 Physical Exam Vitals: Vital Signs Temp Pulse Resp BP Pulse Ox 03/01/20 11:10 12 03/01/20 11:00 46 L 12 150/58 93 L 03/01/20 10:00 48 L 21 155/63 97 03/01/20 09:00 46 L 19 151/66 94 L 03/01/20 08:00 98.6 F 46 L 18 167/74 94 L 03/01/20 07:50 21 03/01/20 07:00 51 L 11 L 159/71 95 03/01/20 06:00 55 L 15 153/59 94 L 03/01/20 05:00 55 L 21 154/65 95 03/01/20 04:00 98.1 F 54 L 21 149/64 95 03/01/20 03:00 53 L 19 153/64 95 03/01/20 02:00 54 L 20 146/65 96 03/01/20 01:00 61 10 L 171/71 96 03/01/20 00:00 98.3 F 46 L 13 163/77 97 02/29/20 23:09 46 L 16 153/66 96 02/29/20 23:00 48 L 16 153/66 97 02/29/20 22:00 61 14 150/70 95 02/29/20 21:00 97.8 F 53 L 12 177/72 98 02/29/20 20:48 55 L 21 98 02/29/20 18:37 86 16 156/72 99 02/29/20 17:16 97.8 F 60 16 158/68 98 Intake and Output 02/29/20 03/01/20 03/01/20 22:59 06:59 14:59 Intake Total 190 846.341 425 Output Total 300 655 745 Balance -110 191.341 -320 Intake: IV 105 340 Alteplase 10 mg In Sodium 40 Chloride 0.9% 100 ml @ 1 MG/HR 10 mls/hr IA .Q10H ONE Rx#:[id number] Sodium Chloride 0.9% 1, 300 000 ml @ 75 mls/hr IV . [id number] [facility] Rx#:[id number] Intake, IV Titration 85 846.341 85 Amount Alteplase 10 mg In Sodium 10 80 10 Chloride 0.9% 100 ml @ 1 MG/HR 10 mls/hr IA .Q10H [facility] Rx#:[id number] Heparin Sod,Pork in 0.45% 166.341 0 NaCl 25,000 unit In 0.45 % NaCl 1 250ml.bag @ 18 UNITS/KG/HR 14.696 mls/hr IV .Q17H1M [facility] Rx#: [id number] Sodium Chloride 0.9% 1, 75 600 75 000 ml In Empty Bag 1 bag @ 75 mls/hr IV .[id number] [facility] Rx#:[id number] Output: Urine 300 655 745 Other: Voiding Method Indwelling Catheter Indwelling Catheter Weight 81.647 kg 84.5 kg PHYSICAL EXAMINATION: Patient is lying in the bed comfortably, no acute distress, awake alert and oriented.hard of hearing. HEENT: Normocephalic. Neck is supple. Pupils reactive. Nostrils clear. Oral cavity is moist. Ears reveal no drainage. Neck reveals no JVD, carotid bruits, or thyromegaly. CHEST EXAMINATION: Trachea is central. Symmetrical expansion. Lung reyes clear to auscultation and percussion. CARDIAC: Normal S1, S2 with no gallops. No murmurs ABDOMEN: Soft. Bowel sounds normal. No organomegaly. No abdominal bruits. Extremities: reveal no edema. No clubbing or cyanosis. Rt femoral surgical site intact. Neurologically awake, alert, oriented x3 with well-coordinated movements. No focal deficits noted Skin: No rash or skin lesions. Psychiatric: Coperative. Nonsuicidal Musculoskeletal: No joint swelling or deformity. Normal range of motion. Results CBC & Chem 7: 03/01/20 04:24 03/01/20 04:24 Labs: Abnormal Lab Results - Last 24 Hours (Table) 02/29/20 02/29/20 02/29/20 Range/Units 17:52 17:52 20:50 RBC 3.51 L (4.30-5.90) m/uL Hgb 11.1 L (13.0-17.5) gm/dL Hct 35.1 L (39.0-53.0) % MCV 100.2 H (80.0-100.0) fL APTT (22.0-30.0) sec Sodium (137-145) mmol/L BUN 25 H (9-20) mg/dL Creatinine 1.27 H (0.66-1.25) mg/dL Glucose 172 H (74-99) mg/dL POC Glucose (mg/dL) 111 H (75-99) mg/dL 03/01/20 03/01/20 03/01/20 Range/Units 00:01 04:24 04:24 RBC 3.50 L (4.30-5.90) m/uL Hgb 11.1 L (13.0-17.5) gm/dL Hct 35.4 L (39.0-53.0) % MCV 101.0 H (80.0-100.0) fL APTT 70.9 H (22.0-30.0) sec Sodium 134 L (137-145) mmol/L BUN 22 H (9-20) mg/dL Creatinine (0.66-1.25) mg/dL Glucose 152 H (74-99) mg/dL POC Glucose (mg/dL) (75-99) mg/dL 03/01/20 03/01/20 Range/Units 04:24 06:42 RBC (4.30-5.90) m/uL Hgb (13.0-17.5) gm/dL Hct (39.0-53.0) % MCV (80.0-100.0) fL APTT 94.1 H (22.0-30.0) sec Sodium (137-145) mmol/L BUN (9-20) mg/dL Creatinine (0.66-1.25) mg/dL Glucose (74-99) mg/dL POC Glucose (mg/dL) 135 H (75-99) mg/dL Thrombosis Risk Factor Assmnt - DVT/VTE Prophylaxis DVT/VTE Prophylaxis: Pharmacologic Prophylaxis ordered - Choose All That Apply Any of the Below Risk Factors Present?: Yes Each Factor Represents 1 point: Medical pt on bed rest, Minor surgery planned, Obesity (BMI >25) Each Risk Factor Represents 2 Points: Patient confined to bed Each Risk Factor Represents 5 Points: Elective major lower extremity arthoplasty Thrombosis Risk Factor Assessment Total Risk Factor Score: 10 Thrombosis Risk Factor Assessment Level: High Risk Assessment and Plan Assessment: Acute left foot ischemia secondary to occluded left SFA/popliteal artery stent. Left foot pain and numbness improved. 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 Coronary artery disease with history of CABG Diabetes type 2 -insulin-dependent History of CVA/TIA Hypertension Hyperlipidemia Osteoarthritis History of prostate cancer currently on immunotherapy Previous history of smoking DVT prophylaxis patient is already on full anticoagulation Plan: Patient underwent successful placement of infusion catheter in the left popliteal artery and was again taken to the OR today for left lower extremity angiogram and stent placement. TPN heparin was infused for 12 hours and currently discontinued. Continue with wound care and continue with insulin sliding scale and home medications. Patient was on dual antiplatelet therapy at home which patient states he has been taking regularly. Currently patient was started on apixaban 2.5 mg twice daily and Plavix is discontinued.. Continue with pain management and follow-up closely. Cardiology is on board. Further recommendations based on the clinical course. Prognosis guarded. Time with Patient: Greater than 30
[2020-03-02 05:54] LABS: Basophils % (A) 0 %; Eosinophils # (A) 0.1 k/uL (0-0.7); Eosinophils % (A) 2 %; HCT 36.8 % (39.0-53.0); HGB 11.8 gm/dL (13.0-17.5); Lymphocytes # (A) 0.8 k/uL (1.0-4.8); Lymphocytes % (A) 8 %; MCH 32.3 pg (25.0-35.0); Mean Platelet Volume 7.8; Monocytes # (A) 0.5 k/uL (0-1.0); Monocytes % (A) 6 %; Neutrophils # (A) 7.8 k/uL (1.3-7.7); Neutrophils % (A) 84 %; Platelet Count 190 k/uL (150-450); RBC 3.65 m/uL (4.30-5.90); RDW 13.2 % (11.5-15.5); WBC 9.3 k/uL (3.8-10.6)
[2020-03-02 07:00] LABS: Glucose,Whole Blood 193 mg/dL (75-99)
[2020-03-02] MEDS: CALCIUM CARB-VIT D 500MG-200UN 1 EACH TAB PO SCH (09:42)
[2020-03-02] MEDS: APIXABAN 2.5 MG TABLET PO SCH ×2 (09:42→22:09)
[2020-03-02] MEDS: INSULIN DETEMIR (LEVEMIR) 100 UNIT/ML SYR SQ SCH (09:42)
[2020-03-02] MEDS: VALSARTAN 160 MG TAB PO SCH (09:43)
[2020-03-02] MEDS: METOPROLOL TARTRATE 25 MG TAB PO SCH ×2 (09:43→22:09)
[2020-03-02] MEDS: ATORVASTATIN 80 MG TAB PO SCH (09:46)
[2020-03-02] MEDS: ASPIRIN 325 MG TAB PO SCH (09:46)
--- NOTE | 2020-03-02 11:25 | PN ---
PROGRESS NOTE Mr. Gillis is an 84-year-old male who presented with an acute thrombotic occlusion of the left lower extremity, underwent revascularization after tPA infusion by Dr. Lees. He is doing well this morning. He is confused but has no pain in the left leg. He denies any chest pain. There is no dizziness or palpitation. He continues to be in sinus mechanism. He underwent stenting of the distal left SFA using a covered stent. Hemodynamically, he is stable. He continues to be on Eliquis 2.5 mg twice a day, aspirin once a day, Lipitor 80 mg daily, metoprolol tartrate 25 mg twice a day, Diovan 160 mg daily. PHYSICAL EXAMINATION: Blood pressure running in the 130s to 150 with a heart rate in the 80s. LUNGS: Clear. HEART: Regular rate and rhythm, S1, S2. No S3 with systolic murmur. No diastolic murmur. ABDOMEN: Soft, nontender. EXTREMITIES: Warm, no edema with good pulse. LAB DATA: Revealed a hemoglobin of a 11.8, platelet count of 190. IMPRESSION: 1. Status post thrombotic occlusion of the left SFA, status post tPA infusion and stenting. 2. History of hypertension. 3. History of hyperlipidemia. 4. History of coronary artery disease. 5. Diabetes mellitus. RECOMMENDATION: We will continue the present therapy, increase his activity, follow his renal function closely. If he remains stable I would expect he may be able to be discharged home in the next 24 hours. MMODL / IJN: [id number] /
[2020-03-02 11:43] LABS: Glucose,Whole Blood 242 mg/dL (75-99)
[2020-03-02 16:50] LABS: Glucose,Whole Blood 167 mg/dL (75-99)
[2020-03-02 20:05] LABS: Glucose,Whole Blood 131 mg/dL (75-99)
[2020-03-02] MEDS ORDERED: ONDANSETRON 4 MG/2 ML VIAL ONE (20:34)
[2020-03-02] MEDS ORDERED: ONDANSETRON 4 MG/2 ML VIAL IVP PRN (20:38)
[2020-03-02] MEDS: hydrALAZINE HCL 20 MG/ML 1 ML VIAL IVP PRN (21:02)
[2020-03-02 21:47] LABS: Albumin 3.6 g/dL (3.5-5.0); Calcium 8.9 mg/dL (8.4-10.2); Potassium 4.2 mmol/L (3.5-5.1); Total Bilirubin 0.7 mg/dL (0.2-1.3); Total Protein 6.5 g/dL (6.3-8.2)
[2020-03-02] MEDS ORDERED: Magnesium Replacement Protocol 1 EACH MISC MISCELLANE PRN (22:25)
[2020-03-02] MEDS: MAGNESIUM SULFATE-D5W PMX 1 GM in DEXTROSE/WATER 1 100ML.BAG IVPB SCH ×2 (22:42→23:44)
[2020-03-03 04:53] LABS: Calcium 8.9 mg/dL (8.4-10.2); Magnesium 2.3 mg/dL (1.6-2.3)
[2020-03-03 05:27] LABS: Basophils % (A) 0 %; Eosinophils % (A) 0 %; HCT 37.2 % (39.0-53.0); HGB 11.9 gm/dL (13.0-17.5); Hypochromasia Slight; Lymphocytes # (A) 0.7 k/uL (1.0-4.8); Lymphocytes % (A) 7 %; MCH 33.3 pg (25.0-35.0); MCV 104.2 fL (80.0-100.0); Macrocytosis Slight; Mean Platelet Volume 7.7; Monocytes # (A) 0.4 k/uL (0-1.0); Monocytes % (A) 4 %; Neutrophils # (A) 8.7 k/uL (1.3-7.7); Neutrophils % (A) 88 %; Platelet Count 138 k/uL (150-450); RBC 3.57 m/uL (4.30-5.90); RDW 13.1 % (11.5-15.5); WBC 9.9 k/uL (3.8-10.6)
[2020-03-03] MEDS: INSULIN DETEMIR (LEVEMIR) 100 UNIT/ML SYR SQ SCH (06:40)
[2020-03-03 06:42] LABS: Glucose,Whole Blood 183 mg/dL (75-99)
[2020-03-03 07:55] VITALS: RESP 18
[2020-03-03] MEDS: ASPIRIN 325 MG TAB PO SCH (07:56)
[2020-03-03] MEDS: ATORVASTATIN 80 MG TAB PO SCH (07:56)
[2020-03-03] MEDS: VALSARTAN 160 MG TAB PO SCH (07:56)
[2020-03-03] MEDS: METOPROLOL TARTRATE 25 MG TAB PO SCH (07:56)
[2020-03-03] MEDS: CALCIUM CARB-VIT D 500MG-200UN 1 EACH TAB PO SCH (07:56)
[2020-03-03] MEDS: APIXABAN 2.5 MG TABLET PO SCH (07:56)
--- NOTE | 2020-03-03 09:50 | PN ---
PROGRESS NOTE Mr. Gillis is an 84-year-old male who presented with acute limb ischemia with total occlusion. He underwent tPA infusion by Dr. Lees and subsequently stenting. He is doing well today. His breathing is stable. He denies dizziness. No palpitation. He denies any nausea. Hemodynamically, he is stable. He continues to be in sinus mechanism. He is on Eliquis 2.5 mg twice a day, Plavix 75 mg daily, aspirin daily, Lipitor 80 mg a day, insulin, metoprolol tartrate 25 mg twice a day, valsartan 160 mg daily. PHYSICAL EXAMINATION: Blood pressure running in the 130s to 150 with a heart rate in 60s. LUNGS: Clear. HEART: Regular rate and rhythm S1, S2. No S3 with systolic murmur. No diastolic murmur, no rub. ABDOMEN: Soft, nontender. EXTREMITIES: No significant edema. Warm extremities. Pulses noted. LAB DATA: Revealed BUN and creatinine 25 and 1.19, potassium 5.0, hemoglobin of 11.9. IMPRESSION: 1. Status post thrombotic occlusion of the left lower extremity status post tPA infusion and stenting. 2. History of hypertension. 3. Hyperlipidemia. 4. History of diabetes. 5. History of coronary artery disease with coronary artery bypass grafting. RECOMMENDATION: Patient should be able to be discharged home today and follow up as an outpatient with Dr. Lees for further evaluation. MMODL / IJN: [id number] /
--- NOTE | 2020-03-03 10:47 | P.PN ---
Subjective Progress Note Date: 03/02/20 Principal diagnosis: Acute left foot ischemia secondary to occluded left SFA/popliteal artery stent. Patient is a 85-year-old man with a known history of coronary artery disease s tatus post CABG, peripheral vascular disease with history of left popliteal stent on 12/06/2019, history of CVA/TIA, history of prostate cancer currently on immunotherapy, hypertension, osteoarthritis and hearing disorder came to ER with complaints of left lower extremity pain. Pain is mainly in the left foot and ankle. Patient has been having left ankle pain associated with numbness of the left foot for the past 4 to 5 days. Patient called his cnp office and was recommended to go to ER. Patient was found to have absent pedal pulses in the left foot. Subsequently patient underwent CTA of the abdomen which revealed acute total occlusion of the distal left SFA as well as left popliteal. Patient was taken to cardiac Supervisor Sunglasses and successful placement of infusion catheter in the left popliteal vein TPA was initiated. Patient was continued on TPA along with heparin overnight and was again taken to the OR this morning. CT angiogram of the abdomen showed occluded distal left SFA/popliteal artery stent. Laboratory data showed WBC 4.5, hemoglobin 11.1, MCV 100.2 and platelets 198. BUN 25 and creatinine 1.27 03/02/2020 patient underwent successful stenting of the distal left superficial femoral artery and selective left superficial femoral artery, left popliteal and left below knee angiogram. Selective right common femoral artery angiogram. TPA and heparin drip has been discontinued.Plavix has been stopped and was started on Eliquis. Continue with aspirin. Patient is currently sitting in the chair comfortably. Still complains of left leg pain but improved.laboratory data showed [id number]. Patient has been afebrile. No complaints of chest pain or shortness of breath. Tolerating oral diet. Patient is being continued on anticoagulation with Eliquis. Cardiology is on board. Current medications reviewed. Objective - Vital Signs Vital signs: Vital Signs Temp 98.7 F 03/02/20 21:00 Pulse 80 03/02/20 21:00 Resp 20 03/02/20 21:00 BP 191/78 03/02/20 21:00 Pulse Ox 95 03/02/20 21:00 Intake & Output 03/02/20 03/02/20 03/03/20 06:59 18:59 06:59 Intake Total 240 Output Total 450 300 800 Balance -210 -300 -800 Weight 82.3 kg Intake: Oral 240 Output: Urine 450 300 200 Emesis 600 Other: Voiding Method Urinal Urinal Urinal Diaper Diaper Diaper # Voids 2 1 ABP, PAP, CO, CI - Last Documented Arterial Blood Pressure 153/42 - Exam PHYSICAL EXAMINATION: Patient is lying in the bed comfortably, no acute distress, awake alert and oriented.hard of hearing. HEENT: Normocephalic. Neck is supple. Pupils reactive. Nostrils clear. Oral cavity is moist. Ears reveal no drainage. Neck reveals no JVD, carotid bruits, or thyromegaly. CHEST EXAMINATION: Trachea is central. Symmetrical expansion. Lung reyes clear to auscultation and percussion. CARDIAC: Normal S1, S2 with no gallops. No murmurs ABDOMEN: Soft. Bowel sounds normal. No organomegaly. No abdominal bruits. Extremities: reveal no edema. No clubbing or cyanosis. Rt femoral surgical site intact. Neurologically awake, alert, oriented x3 with well-coordinated movements. No focal deficits noted Skin: No rash or skin lesions. Psychiatric: Coperative. Nonsuicidal Musculoskeletal: No joint swelling or deformity. Normal range of motion. - Labs CBC & Chem 7: 03/03/20 03:45 03/03/20 03:45 Labs: Abnormal Lab Results - Last 24 Hours (Table) 03/02/20 03/02/20 03/02/20 Range/Units 05:28 06:59 11:41 RBC 3.65 L (4.30-5.90) m/uL Hgb 11.8 L (13.0-17.5) gm/dL Hct 36.8 L (39.0-53.0) % MCV 101.0 H (80.0-100.0) fL Neutrophils # 7.8 H (1.3-7.7) k/uL Lymphocytes # 0.8 L (1.0-4.8) k/uL Sodium (137-145) mmol/L BUN (9-20) mg/dL Glucose (74-99) mg/dL POC Glucose (mg/dL) 193 H 242 H (75-99) mg/dL 03/02/20 03/02/20 03/02/20 Range/Units 16:48 20:04 21:23 RBC (4.30-5.90) m/uL Hgb (13.0-17.5) gm/dL Hct (39.0-53.0) % MCV (80.0-100.0) fL Neutrophils # (1.3-7.7) k/uL Lymphocytes # (1.0-4.8) k/uL Sodium 135 L (137-145) mmol/L BUN 24 H (9-20) mg/dL Glucose 166 H (74-99) mg/dL POC Glucose (mg/dL) 167 H 131 H (75-99) mg/dL Assessment and Plan Assessment: Acute left foot ischemia secondary to occluded left SFA/popliteal artery stent. Left foot pain and numbness improved. Recent EXCELLENCE MANAGER of left popliteal artery. Coronary artery disease with history of CABG Diabetes type 2 -insulin-dependent History of CVA/TIA Hypertension Hyperlipidemia Osteoarthritis History of prostate cancer currently on immunotherapy Previous history of smoking DVT prophylaxis patient is already on full anticoagulation Plan: Patient underwent successful placement of infusion catheter in the left popliteal artery and was again taken to the OR today for left lower extremity angiogram and stent placement. TPN heparin was infused for 12 hours and currently discontinued. Continue with wound care and continue with insulin sliding scale and home medications. Patient was on dual antiplatelet therapy at home which patient states he has been taking regularly. Currently patient was started on apixaban 2.5 mg twice daily and Plavix is discontinued.. Continue with pain management and follow-up closely. Cardiology is on board. Further recommendations based on the clinical course. Prognosis guarded. Time with Patient: Greater than 30
[2020-03-03 11:50] LABS: Glucose,Whole Blood 175 mg/dL (75-99)
[2020-03-03 12:18] VITALS: BP 112/62; PULSE 73; TEMP 98.2
--- NOTE | 2020-03-04 13:35 | IR ---
Fluoroscopy HISTORY: Pain in left leg 6.3 minutes fluoroscopy time supplied to the referring clinician. 250 intraoperative C-arm images do cument the procedure. See dictated report from cardiology.
--- NOTE | 2020-03-12 02:04 | P.DS ---
Providers Date of admission: 02/29/20 18:30 Expected date of discharge: 03/03/20 Attending physician: Joyce Shore Consults: 02/29/20 19:11 Consult Physician Stat Consulting Provider: Osmel Lees Consult Reason/Comments: arterial occlusion suspect s/p popliteal stent Do you want consulting provider notified?: Already Contacted 03/01/20 13:17 Consult Physician Routine Consulting Provider: [facility] Consult Reason/Comments: Post Interventional patient Do you want consulting provider notified?: Already Contacted Primary care physician: Leatha Henao Hospital Course: Discharge diagnosis Acute left foot ischemia secondary to occluded left SFA/popliteal artery stent. Left foot pain and numbness improved. Recent STAFF NURSE of left popliteal artery. Coronary artery disease with history of CABG Diabetes type 2 -insulin-dependent History of CVA/TIA Hypertension Hyperlipidemia Osteoarthritis History of prostate cancer currently on immunotherapy Previous history of smoking DVT prophylaxis patient is already on full anticoagulation Hospital course Patient is a 85-year-old man with a known history of coronary artery disease status post CABG, peripheral vascular disease with history of left popliteal stent on 12/06/2019, history of CVA/TIA, history of prostate cancer currently on immunotherapy, hypertension, osteoarthritis and hearing disorder came to ER with complaints of left lower extremity pain. Pain is mainly in the left foot and ankle. Patient has been having left ankle pain associated with numbness of the left foot for the past 4 to 5 days. Patient called his county agent office and was recommended to go to ER. Patient was found to have absent pedal pulses in the left foot. Subsequently patient underwent CTA of the abdomen which revealed acute total occlusion of the distal left SFA as well as left popliteal. Patient was taken to cardiac Dynamometer Mechanic and successful placement of infusion catheter in the left popliteal vein TPA was initiated. Patient was continued on TPA along with heparin overnight and was again taken to the OR this morning. CT angiogram of the abdomen showed occluded distal left SFA/popliteal artery stent. Laboratory data showed WBC 4.5, hemoglobin 11.1, MCV 100.2 and platelets 198. BUN 25 and creatinine 1.27 03/02/2020 patient underwent successful stenting of the distal left superficial femoral artery and selective left superficial femoral artery, left popliteal and left below knee angiogram. Selective right common femoral artery angiogram. TPA and heparin drip has been discontinued.Plavix has been stopped and was started on Eliquis. Continue with aspirin. Patient is currently sitting in the chair comfortably. Still complains of left leg pain but improved.laboratory data showed [id number]. Patient has been afebrile. No complaints of chest pain or shortness of breath. Tolerating oral diet. Patient is being continued on anticoagulation with Eliquis. Cardiology is on board. 03/03/2020 Patient denied any complaints of chest pain or shortness of breath today. Feels better. Denied any left leg pain. Continues to be in sinus rhythm. Patient will be continued on Eliquis 2.5 mg twice daily along with aspirin. Continue blood pressure medications. Patient is cleared from cardiology standpoint. Follow-up with Dr. Marques as an outpatient. PHYSICAL EXAMINATION: Patient is lying in the bed comfortably, no acute distress, awake alert and oriented.hard of hearing. HEENT: Normocephalic. Neck is supple. Pupils reactive. Nostrils clear. Oral cavity is moist. Ears reveal no drainage. Neck reveals no JVD, carotid bruits, or thyromegaly. CHEST EXAMINATION: Trachea is central. Symmetrical expansion. Lung reyes clear to auscultation and percussion. CARDIAC: Normal S1, S2 with no gallops. No murmurs ABDOMEN: Soft. Bowel sounds normal. No organomegaly. No abdominal bruits. Extremities: reveal no edema. No clubbing or cyanosis. Rt femoral surgical site intact. Neurologically awake, alert, oriented x3 with well-coordinated movements. No focal deficits noted Skin: No rash or skin lesions. Psychiatric: Coperative. Nonsuicidal Musculoskeletal: No joint swelling or deformity. Normal range of motion. Discharge vitals reviewed. Blood pressure 112/62, heart rate 73, respiration 18 and saturating well on room air. Temperature 98.2. Patient Condition at Discharge: Serious Plan - Discharge Summary Discharge Rx Participant: No New Discharge Prescriptions: New Aspirin 81 mg PO DAILY #0 tab Valsartan [Diovan] 160 mg PO DAILY #90 tab Apixaban [Eliquis] 2.5 mg PO BID #180 tablet Continue Atorvastatin [Lipitor] 80 mg PO DAILY Insulin Detemir (Levemir) [Levemir] 18 unit SQ DAILY Metoprolol Tartrate [Lopressor] 25 mg PO BID-W/MEALS Pioglitazone [Actos] 30 mg PO DAILY Discontinued Clopidogrel [Plavix] 75 mg PO DAILY #90 tab Discharge Medication List Atorvastatin [Lipitor] 80 mg PO DAILY 12/04/19 [History] Insulin Detemir (Levemir) [Levemir] 18 unit SQ DAILY 12/04/19 [History] Metoprolol Tartrate [Lopressor] 25 mg PO BID-W/MEALS 12/04/19 [History] Pioglitazone [Actos] 30 mg PO DAILY 02/29/20 [History] Apixaban [Eliquis] 2.5 mg PO BID #180 tablet 03/03/20 [Rx] Aspirin 81 mg PO DAILY #0 tab 03/03/20 [Rx] Valsartan [Diovan] 160 mg PO DAILY #90 tab 03/03/20 [Rx] Follow up Appointment(s)/Referral(s): Osmel Lees MD [Family Provider] - 1 Week Leatha Henao MD [Primary Care Provider] - 1-2 days Patient Instructions/Handouts: Peripheral Vascular Stent Placement (DC), Peripheral Vascular Stent Placement (GEN) Discharge Disposition: HOME SELF-CARE
== END 2020-03-03 13:40 | disposition home or self-care (01) | DRG 253 ==
LOC: EC 16:56 → 3SCARD 18:30 → 2SICU 20:17 → 3SCARD 03-03 06:54
PROVIDERS: ADMIT Internal Medicine; ATTEND Internal Medicine
PROC: 3E05317 Introduction of Other Thrombolytic into Peripheral Artery, Percutaneous Approach (ICD-10-PCS; 2020-02-29 18:57)
PROC: 04HK33Z Insertion of Infusion Device into Right Femoral Artery, Percutaneous Approach (ICD-10-PCS; 2020-02-29 18:57)
PROC: 04PYX3Z Removal of Infusion Device from Lower Artery, External Approach (ICD-10-PCS; principal; 2020-03-01 08:20)
PROC: 047L3DZ Dilation of Left Femoral Artery with Intraluminal Device, Percutaneous Approach (ICD-10-PCS; principal; 2020-03-01 08:20)
PROC: B41F1ZZ Fluoroscopy of Right Lower Extremity Arteries using Low Osmolar Contrast (ICD-10-PCS; principal; 2020-03-01 08:20)
DX: T82.898A Other specified complication of vascular prosthetic devices, implants and grafts, initial encounter (principal); I70.92 Chronic total occlusion of artery of the extremities; M19.90 Unspecified osteoarthritis, unspecified site; I25.10 Atherosclerotic heart disease of native coronary artery without angina pectoris; I10 Essential (primary) hypertension; E11.51 Type 2 diabetes mellitus with diabetic peripheral angiopathy without gangrene; E78.5 Hyperlipidemia, unspecified; H91.90 Unspecified hearing loss, unspecified ear; Z79.82 Long term (current) use of aspirin; Z79.899 Other long term (current) drug therapy; Z85.46 Personal history of malignant neoplasm of prostate; Z79.4 Long term (current) use of insulin; Z79.02 Long term (current) use of antithrombotics/antiplatelets; Z79.01 Long term (current) use of anticoagulants; Z86.73 Personal history of transient ischemic attack (TIA), and cerebral infarction without residual deficits; Z95.1 Presence of aortocoronary bypass graft; Z87.891 Personal history of nicotine dependence
CPT/HCPCS: 36247; 36415; 37211; 37214; 37226; 75635; 75710; 80048; 80053; 82565; 83735; 84153; 84403; 85025; 85610; 85730; 96365; 96376; 99291

== ENCOUNTER 2020-03-12 16:09 | Inpatient (IN) | payer MEDICARE, BC ==
--- NOTE | 2020-03-12 17:15 | ED ---
Extremity Problem HPI - General Chief complaint: Extremity Problem,Nontraumatic Stated complaint: Cold foot, admit to check stent Time Seen by Provider: 03/12/20 16:20 Source: patient Mode of arrival: ambulatory Limitations: no limitations - History of Present Illness Initial comments: The patient is an 84-year-old male who presents to the emergency room and from Dr. Marques's office. Dr. Marques does called to the emergency room and reports that he is sending the patient in. He originally had a popliteal stent placed in his left leg in November. He then had reocclusion earlier this month for which he was taken to the [facility] on February 28 for angioplasty. He has been on Eliquis and aspirin at home for which he has not missed any doses. He followed up with Dr. Marques in office today and reported that he was having left foot pain. Pain is similar in nature to when he had his reocclusion. Dr. Marques did not feel pulses and therefore he recommended that the patient come into the hospital. I did get a call from Dr. Marques saying that he would like the patient placed on heparin in admitted for an observation stay with him on consult. States that he would take the patient for angioplasty tomorrow. No CT needed. Patient denies any injuries. He denies any chest pain or shortness of breath. States he has been taking his medication as directed. There are no other alleviating, precipitating or modifying factors - Related Data Home Medications Medication Instructions Recorded Confirmed Atorvastatin [Lipitor] 80 mg PO DAILY 12/04/19 03/12/20 Insulin Detemir (Levemir) [Levemir] 18 unit SQ DAILY 12/04/19 03/12/20 Metoprolol Tartrate [Lopressor] 25 mg PO BID-W/MEALS 12/04/19 03/12/20 Pioglitazone [Actos] 30 mg PO DAILY 02/29/20 03/12/20 Aspirin EC [Ecotrin Low Dose] 81 mg PO DAILY 03/12/20 03/12/20 Irbesartan [Avapro] 150 mg PO DAILY 03/12/20 03/12/20 Previous Rx's Medication Instructions Recorded Apixaban [Eliquis] 2.5 mg PO BID #180 tablet 03/03/20 ALPRAZolam [Xanax] 0.25 mg PO TID PRN #6 tab 03/18/20 Acetaminophen Tab [Tylenol] 650 mg PO Q6HR PRN tab 03/18/20 Folic Acid 1 mg PO DAILY@1200 tab 03/18/20 HYDROcodone/APAP 5-325MG [[place] 1 each PO Q6HR PRN #10 tab 03/18/20 5-325] INSULIN ASPART (NovoLOG) [NovoLOG 0 unit SQ ACHS vial 03/18/20 (formulary)] Multivitamins, Thera [Multivitamin 1 each PO DAILY@1200 tab 03/18/20 (formulary)] Pantoprazole [Protonix] 40 mg PO [id number] tablet. 03/18/20 Thiamine [Vitamin B-1] 100 mg PO DAILY@1200 tab 03/18/20 Allergies Allergy/AdvReac Type Severity Reaction Status Date / Time No Known Allergies Allergy Verified 03/12/20 22:35 Review of Systems ROS Statement: Those systems with pertinent positive or pertinent negative responses have been documented in the HPI. ROS Other: All systems not noted in ROS Statement are negative. 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 Prostate CA, gets injections. Lt foot numbness. left femoral stent 12.06.2019 History of Any Multi-Drug Resistant Organisms: None Reported Past Surgical History: Coronary Bypass/CABG Additional Past Surgical History / Comment(s): "Heart surgery" Past Anesthesia/Blood Transfusion Reactions: No Reported Reaction Past Psychological History: No Psychological Hx Reported Smoking Status: Former smoker Past Drug Use History: None Reported - Past Family History Mother Family Medical History: No Reported History General Exam Limitations: no limitations General appearance: alert, in no apparent distress Head exam: Present: atraumatic, normocephalic, normal inspection Eye exam: Present: normal appearance, PERRL, EOMI. Absent: scleral icterus, conjunctival injection, periorbital swelling ENT exam: Present: normal exam, mucous membranes moist Neck exam: Present: normal inspection. Absent: tenderness, meningismus, lymphadenopathy Respiratory exam: Present: normal lung sounds bilaterally. Absent: respiratory distress, wheezes, rales, rhonchi, stridor Cardiovascular Exam: Present: regular rate, normal rhythm, normal heart sounds. Absent: systolic murmur, diastolic murmur, rubs, gallop, clicks GI/Abdominal exam: Present: soft, normal bowel sounds. Absent: distended, tenderness, guarding, rebound, rigid Extremities exam: Present: full ROM, other (left foot has no palpable DP or PT pulse. I am unable to find using doppler as well. Cap refill slow, 5 seconds. foot cool to the touch. Compartments soft. patient has 5/5 muscle strength. Hygeine poor as bottom of both feet are soiled. Patient right foot cool to the touch however I am able to find pulse with doppler). Absent: tenderness, pedal edema, joint swelling, calf tenderness Back exam: Present: normal inspection Neurological exam: Present: alert, oriented X3, CN II-XII intact Psychiatric exam: Present: normal affect, normal mood Skin exam: Present: warm, dry, intact, normal color. Absent: rash Course Vital Signs 03/12/20 03/12/20 16:20 19:57 Temperature 98.4 F 98.0 F Pulse Rate 56 L 67 Respiratory 18 18 Rate Blood Pressure 148/71 124/59 O2 Sat by Pulse 99 95 Oximetry Medical Decision Making - Medical Decision Making Upon arrival the patient was placed into room 21. A thorough history and physical exam is performed. I am unable to find a pulse with palpation or Doppler on the patient's left foot. I did complete laboratory studies. The patient was initiated on heparin per Dr. Marques's recommendation. He'll be made nothing by mouth midnight. I also discussed the case with Dr. Reed. Patient was in agreement with this plan and he was transferred to the floor in stable c ondition - Lab Data Result diagrams: 03/18/20 06:45 03/18/20 06:45 Lab Results 03/12/20 03/12/20 03/12/20 Range/Units 17:27 17:27 17:27 WBC 5.9 (3.8-10.6) k/uL RBC 3.15 L (4.30-5.90) m/uL Hgb 9.9 L D (13.0-17.5) gm/dL Hct 31.6 L (39.0-53.0) % MCV 100.1 H (80.0-100.0) fL MCH 31.3 (25.0-35.0) pg MCHC 31.3 (31.0-37.0) g/dL RDW 13.0 (11.5-15.5) % Plt Count 386 D (150-450) k/uL Neutrophils % 74 % Lymphocytes % 17 % Monocytes % 5 % Eosinophils % 1 % Basophils % 0 % Neutrophils # 4.3 (1.3-7.7) k/uL Lymphocytes # 1.0 (1.0-4.8) k/uL Monocytes # 0.3 (0-1.0) k/uL Eosinophils # 0.1 (0-0.7) k/uL Basophils # 0.0 (0-0.2) k/uL Hypochromasia Macrocytosis PT (9.0-12.0) sec INR (<1.2) APTT (22.0-30.0) sec Sodium 136 L (137-145) mmol/L Potassium 5.5 H (3.5-5.1) mmol/L Chloride 102 (98-107) mmol/L Carbon Dioxide 27 (22-30) mmol/L Anion Gap 7 mmol/L BUN 28 H (9-20) mg/dL Creatinine 1.29 H (0.66-1.25) mg/dL Est GFR (CKD-EPI)AfAm 59 (>60 ml/min/1.73 sqM) Est GFR (CKD-EPI)NonAf 51 (>60 ml/min/1.73 sqM) Glucose 144 H (74-99) mg/dL POC Glucose (mg/dL) (75-99) mg/dL POC Glu Play Leader ID Plasma Lactic Acid Eladio 0.9 (0.7-2.0) mmol/L Calcium 9.5 (8.4-10.2) mg/dL Total Bilirubin 0.5 (0.2-1.3) mg/dL AST 25 (17-59) U/L ALT 15 (4-49) U/L Alkaline Phosphatase 58 (38-126) U/L Total Protein 6.6 (6.3-8.2) g/dL Albumin 3.4 L (3.5-5.0) g/dL Coronavirus (PCR) (Not Detected) 03/12/20 03/12/20 03/13/20 Range/Units 17:27 19:58 01:07 WBC (3.8-10.6) k/uL RBC (4.30-5.90) m/uL Hgb (13.0-17.5) gm/dL Hct (39.0-53.0) % MCV (80.0-100.0) fL MCH (25.0-35.0) pg MCHC (31.0-37.0) g/dL RDW (11.5-15.5) % Plt Count (150-450) k/uL Neutrophils % % Lymphocytes % % Monocytes % % Eosinophils % % Basophils % % Neutrophils # (1.3-7.7) k/uL Lymphocytes # (1.0-4.8) k/uL Monocytes # (0-1.0) k/uL Eosinophils # (0-0.7) k/uL Basophils # (0-0.2) k/uL Hypochromasia Macrocytosis PT 11.0 (9.0-12.0) sec INR 1.1 (<1.2) APTT 24.3 122.2 H* (22.0-30.0) sec Sodium (137-145) mmol/L Potassium (3.5-5.1) mmol/L Chloride (98-107) mmol/L Carbon Dioxide (22-30) mmol/L Anion Gap mmol/L BUN (9-20) mg/dL Creatinine (0.66-1.25) mg/dL Est GFR (CKD-EPI)AfAm (>60 ml/min/1.73 sqM) Est GFR (CKD-EPI)NonAf (>60 ml/min/1.73 sqM) Glucose (74-99) mg/dL POC Glucose (mg/dL) (75-99) mg/dL POC Glu Play Leader ID Plasma Lactic Acid Eladio (0.7-2.0) mmol/L Calcium (8.4-10.2) mg/dL Total Bilirubin (0.2-1.3) mg/dL AST (17-59) U/L ALT (4-49) U/L Alkaline Phosphatase (38-126) U/L Total Protein (6.3-8.2) g/dL Albumin (3.5-5.0) g/dL Coronavirus (PCR) Not Detected (Not Detected) 03/13/20 03/13/20 03/13/20 Range/Units 06:27 09:30 09:30 WBC 6.4 (3.8-10.6) k/uL RBC 3.08 L (4.30-5.90) m/uL Hgb 9.8 L (13.0-17.5) gm/dL Hct 31.4 L (39.0-53.0) % MCV 101.9 H (80.0-100.0) fL MCH 31.8 (25.0-35.0) pg MCHC 31.2 (31.0-37.0) g/dL RDW 13.0 (11.5-15.5) % Plt Count 340 (150-450) k/uL Neutrophils % 75 % Lymphocytes % 17 % Monocytes % 5 % Eosinophils % 2 % Basophils % 0 % Neutrophils # 4.8 (1.3-7.7) k/uL Lymphocytes # 1.1 (1.0-4.8) k/uL Monocytes # 0.3 (0-1.0) k/uL Eosinophils # 0.1 (0-0.7) k/uL Basophils # 0.0 (0-0.2) k/uL Hypochromasia Slight Macrocytosis Slight PT (9.0-12.0) sec INR (<1.2) APTT (22.0-30.0) sec Sodium 135 L (137-145) mmol/L Potassium 4.5 (3.5-5.1) mmol/L Chloride 104 (98-107) mmol/L Carbon Dioxide 24 (22-30) mmol/L Anion Gap 7 mmol/L BUN 27 H (9-20) mg/dL Creatinine 1.18 (0.66-1.25) mg/dL Est GFR (CKD-EPI)AfAm 66 (>60 ml/min/1.73 sqM) Est GFR (CKD-EPI)NonAf 57 (>60 ml/min/1.73 sqM) Glucose 153 H (74-99) mg/dL POC Glucose (mg/dL) 147 H (75-99) mg/dL POC Glu Play Leader Mary Grace Meza Plasma Lactic Acid Eladio (0.7-2.0) mmol/L Calcium 8.8 (8.4-10.2) mg/dL Total Bilirubin (0.2-1.3) mg/dL AST (17-59) U/L ALT (4-49) U/L Alkaline Phosphatase (38-126) U/L Total Protein (6.3-8.2) g/dL Albumin (3.5-5.0) g/dL Coronavirus (PCR) (Not Detected) 03/13/20 03/13/20 Range/Units 09:30 11:31 WBC (3.8-10.6) k/uL RBC (4.30-5.90) m/uL Hgb (13.0-17.5) gm/dL Hct (39.0-53.0) % MCV (80.0-100.0) fL MCH (25.0-35.0) pg MCHC (31.0-37.0) g/dL RDW (11.5-15.5) % Plt Count (150-450) k/uL Neutrophils % % Lymphocytes % % Monocytes % % Eosinophils % % Basophils % % Neutrophils # (1.3-7.7) k/uL Lymphocytes # (1.0-4.8) k/uL Monocytes # (0-1.0) k/uL Eosinophils # (0-0.7) k/uL Basophils # (0-0.2) k/uL Hypochromasia Macrocytosis PT (9.0-12.0) sec INR (<1.2) APTT 102.7 H* (22.0-30.0) sec Sodium (137-145) mmol/L Potassium (3.5-5.1) mmol/L Chloride (98-107) mmol/L Carbon Dioxide (22-30) mmol/L Anion Gap mmol/L BUN (9-20) mg/dL Creatinine (0.66-1.25) mg/dL Est GFR (CKD-EPI)AfAm (>60 ml/min/1.73 sqM) Est GFR (CKD-EPI)NonAf (>60 ml/min/1.73 sqM) Glucose (74-99) mg/dL POC Glucose (mg/dL) 173 H (75-99) mg/dL POC Glu Play Leader ID Jacqueline Kitchen Plasma Lactic Acid Eladio (0.7-2.0) mmol/L Calcium (8.4-10.2) mg/dL Total Bilirubin (0.2-1.3) mg/dL AST (17-59) U/L ALT (4-49) U/L Alkaline Phosphatase (38-126) U/L Total Protein (6.3-8.2) g/dL Albumin (3.5-5.0) g/dL Coronavirus (PCR) (Not Detected) - EKG Data EKG Comments: EKG demonstrates a sinus bradycardia with a ventricular rate of 53. CA interval 200. QRS E4. QTC of 424. No high degree block noted. Patient has J-point elevation which in comparison to his previous EKG is the same Critical Care Time Critical Care Time: Yes Critical Care Time: 32 minutes Disposition Clinical Impression: Arterial occlusion, Left foot pain Disposition: ADMITTED IP TO THIS [facility] Condition: Stable Is patient prescribed a controlled substance at d/c from ED?: No Decision to Admit Reason: Admit from EC Decision Date: 03/12/20 Decision Time: 17:30
[2020-03-12] MEDS ORDERED: HEPARIN SODIUM,PORCINE 5,000 UNIT/ML 1 ML VIAL IV PRN (17:28)
[2020-03-12] MEDS ORDERED: HEPARIN SODIUM,PORCINE 10,000 UNIT/ML 1 ML VIAL IV ONE (17:28)
[2020-03-12] MEDS ORDERED: ACETAMINOPHEN TAB 325 MG TAB PO PRN (17:30)
[2020-03-12] MEDS ORDERED: NALOXONE 0.4 MG/ML 1 ML VIAL IV PRN (17:30)
[2020-03-12 17:47] LABS: Basophils % (A) 0 %; Eosinophils # (A) 0.1 k/uL (0-0.7); Eosinophils % (A) 1 %; HCT 31.6 % (39.0-53.0); Lymphocytes % (A) 17 %; MCH 31.3 pg (25.0-35.0); MCHC 31.3 g/dL (31.0-37.0); MCV 100.1 fL (80.0-100.0); Mean Platelet Volume 7.6; Monocytes # (A) 0.3 k/uL (0-1.0); Monocytes % (A) 5 %; Neutrophils # (A) 4.3 k/uL (1.3-7.7); Neutrophils % (A) 74 %; RBC 3.15 m/uL (4.30-5.90); WBC 5.9 k/uL (3.8-10.6)
[2020-03-12 17:53] LABS: Albumin 3.4 g/dL (3.5-5.0); Calcium 9.5 mg/dL (8.4-10.2); Potassium 5.5 mmol/L (3.5-5.1); Total Bilirubin 0.5 mg/dL (0.2-1.3); Total Protein 6.6 g/dL (6.3-8.2)
[2020-03-12 18:10] LABS: INR 1.1 (<1.2); Partial Thromboplastin Time 24.3 sec (22.0-30.0)
[2020-03-12 18:11] LABS: HGB 9.9 gm/dL (13.0-17.5); Platelet Count 386 k/uL (150-450)
[2020-03-12] MEDS ORDERED: SODIUM CHLORIDE 0.9% 500 ML 500 ML IV ONE (18:29)
[2020-03-12] MEDS: HEPARIN SOD,PORK IN 0.45% NACL 25,000 UNIT in 0.45% NACL 1 250ML.BAG IV SCH (18:41)
[2020-03-12] MEDS ORDERED: ALPRAZolam 0.25 MG TAB PO PRN (22:45)
--- NOTE | 2020-03-13 00:43 | HP ---
HISTORY AND PHYSICAL DATE OF SERVICE: 03/12/2020 CHIEF COMPLAINT: Left cold foot and pain. HISTORY OF PRESENT ILLNESS: This 84-year-old gentleman with a past medical history of multiple medical problems including CAD, history of CVA, TIA, diabetes mellitus type 2, history of deafness, hypertension, hyperlipidemia, history of CVA, prostate cancer being followed by Dr. Henao and Dr. Lees in the outpatient setting was admitted with complaints of cold foot and lt foot pain. The patient is referred from Dr. Lees's office. The patient had a popliteal stent in the left leg in November. The patient had reocclusion angioplasty. The patient was being followed by Dr. Lees in the outpatient setting because of increasing pain and diminished pulses. The patient admitted for further evaluation and treatment at this time. Patient is on IV heparin currently. There is no history of any fever or rigors. No history of headache, loss of consciousness, chest pain, palpitation at this time. PAST MEDICAL HISTORY: History of CAD, CVA, TIA, diabetes, hearing defect, hypertension, DJD, history of prostate disorder, history of old CVA. MEDICATIONS: Medications prior to admission include: 1. Avapro 150 mg p.o. daily. 2. Actos 30 mg p.o. daily. 3. Lopressor 25 mg b.i.d. with meals. 4. Levemir 18 units subcu daily. 5. Lipitor 80 mg p.o. daily. 6. Ecotrin 81 mg p.o. daily. 7. Eliquis 2.5 mg b.i.d. ALLERGIES: None. FAMILY HISTORY: No history of heart disease or strokes in the family. SOCIAL HISTORY: Previous history of smoking. No history of alcohol intake. REVIEW OF SYSTEMS: ENT: No diminished vision. CARDIOVASCULAR SYSTEM: No angina. RESPIRATORY SYSTEM: No cough or hemoptysis. GI: No nausea, vomiting. : No dysuria. NERVOUS SYSTEM: No numbness or weakness. ALLERGY/IMMUNOLOGY: No asthma or hayfever. MUSCULOSKELETAL: As mentioned earlier. HEMATOLOGY: No history of anemia. ENDOCRINE: Diabetes mellitus. CONSTITUTIONAL: As mentioned earlier. DERMATOLOGY: Negative. RHEUMATOLOGY: Negative. PSYCHIATRY: As mentioned earlier. PHYSICAL EXAMINATION: Patient is alert and oriented x3. Pulse is 67, blood pressure 124/59, respiration 18, temperature 98 degrees, pulse ox 95% on room air. HEENT: Conjunctivae normal. Oral mucosa moist. NECK: No jugular venous distention. No carotid bruit. No lymph node enlargement. CARDIOVASCULAR: S1, S2 muffled. RESPIRATORY: Breath sounds diminished at the bases. A few scattered rhonchi. ABDOMEN: Soft. Nontender. No mass palpable. LEGS: Significant pain of the foot. Otherwise pulses are diminished. NERVOUS SYSTEM: Higher function as mentioned earlier. Moves all 4 limbs. No focal motor or sensory deficits. LYMPHATICS: No lymphadenopathy of the neck, axillae or groin. SKIN: As mentioned earlier. JOINTS: No active deforming arthropathy. Pulses are diminished on the left foot. LABS: WBC 5.2, hemoglobin 9.9, sodium 136, potassium 5.5 creatinine is 1.29. ASSESSMENT: 1. Severe left foot pain, possible peripheral vascular disease. 2. Hyponatremia. 3. Hyperkalemia. 4. Increased creatinine with possible acute renal failure acute tubular necrosis. 5. Anemia macrocytic, anemia of chronic disease. 6. History of coronary artery disease. 7. History of peripheral vascular disease, recent stent and angioplasty. 8. History of cerebrovascular accident, transient ischemic attack. 9. Diabetes mellitus type 2. 10.Hearing defects. 11.Hyperlipidemia. 12.Hypertension. 13.History of degenerative joint disease. 14.History of prostate disorder. 15.History of prostate cancer. 16.History of coronary artery disease, coronary artery bypass grafting. 17.FULL CODE. RECOMMENDATIONS AND DISCUSSION: This 84-year-old gentleman who presented with multiple complex medical issues, we will monitor the patient closely. Continue the current medications. Continue symptomatic treatment. Will initiate IV heparin drip. Symptomatic treatment for the pain. Consult Dr. Lees. Otherwise, resume the home medications. Prognosis guarded because of multiple complex medical issues. Further recommendations to follow. A copy of dictation forwarded to Dr. Henao who is the primary physician. MMODL / IJN: [id number] / [facility]
[2020-03-13 06:30] LABS: Glucose,Whole Blood 147 mg/dL (75-99)
[2020-03-13] MEDS ORDERED: SODIUM CHLORIDE 0.9% 1,000 ML IV STA (07:46)
[2020-03-13] MEDS: ASPIRIN 81 MG PO SCH (08:27)
[2020-03-13] MEDS: PANTOPRAZOLE 40 MG TABLET PO SCH (08:27)
[2020-03-13] MEDS: ATORVASTATIN 80 MG TAB PO SCH (08:27)
[2020-03-13] MEDS: INSULIN ASPART (NovoLOG) 100 UNIT/ML VIAL SQ SCH ×4 (08:27→22:17)
[2020-03-13] MEDS: METOPROLOL TARTRATE 25 MG TAB PO SCH ×2 (08:28→18:29)
[2020-03-13] MEDS: PIOGLITAZONE 30 MG TAB PO SCH (08:28)
[2020-03-13] MEDS ORDERED: LOSARTAN 50 MG TAB PO SCH (09:00)
[2020-03-13] MEDS: HYDROmorphone 0.5 MG/0.5 ML SYRINGE IVP PRN ×2 (09:34→23:44)
[2020-03-13] MEDS: INSULIN DETEMIR (LEVEMIR) 100 UNIT/ML SYR SQ SCH (10:05)
--- NOTE | 2020-03-13 10:08 | P.PN ---
Subjective This is a pleasant 84-year-old male past medical history significant for peripheral arterial disease status post recent angioplasty of the left popliteal and left SFA, hypertension, dyslipidemia, diabetes mellitus, coronary artery disease status post bypass grafting and history of CVA. He follows in the office with Dr. Lees. Initially in November he underwent lower extremity angiogram revealing a total occlusion of the left popliteal artery. He underwent atherectomy, balloon angioplasty and stenting of the left popliteal artery at that time. He then returned to the hospital in February with left foot numbness. He underwent repeat angiogram revealing an acute total occlusion of the left popliteal. TPA was administered at the site via direct catheter for 24 hours. He then underwent successful stenting of the distal left SFA with resolution of thrombus. He was discharged home in stable condition on anticoagulation. According to the son his father had been noncompliant and was not taking any of his medications at home. He presented to the office yesterday to see Dr. Lees again complaining of left foot pain. He appeared to have recurrent left limb ischemia. He has seen and examined this morning resting comfortably laying flat in bed in no acute distress. He continues to have pain and discomfort of the left lower extremity with dusky appearance to the left foot. Her unable to palpate a pulse or get a Doppler pedal pulse. He denies chest pain, shortness of breath, dizziness or palpitations. Blood pressure 171/85 heart rate 63 afebrile maintaining oxygen saturation on room air. Laboratory data reviewed, WBC 5.9, hemoglobin 9.9, platelets 386, sodium 136, potassium 5.5, creatinine 1.29 and GFR 51. On arrival he was initiated on heparin infusion. He also is on aspirin 81 mg daily, atorvastatin 80 mg daily, Lopressor 25 mg twice a day and was supposed to be on Eliquis 2.5 mg twice a day at home. GENERAL: Well-appearing, well-nourished and in no acute distress. NECK: Supple without JVD or thyromegaly. LUNGS: Breath sounds clear to auscultation bilaterally. Respiration equal and unlabored. No wheezes, rales or rhonchi. HEART: Regular rate and rhythm with systolic ejection murmur at the base, he rub s or gallops. S1 and S2 heard. EXTREMITIES: Normal range of motion, no edema, left foot dusky in color with no palpable or doppler pulse. ASSESSMENT Acute ischemia of the left leg Status post CREEL CLERK of the left popliteal artery as well as tPA infusion of the left lower extremity arterial thrombosis status post stenting of the distal left SFA Coronary artery disease status post bypass grafting Diabetes mellitus Hypertension Dyslipidemia Chronic kidney disease Noncompliance with taking daily medications. PLAN Continue heparin infusion I recommend proceeding with left lower extremity angiogram this afternoon. Patient will likely require subacute rehab upon discharge. Further recommendations to follow based upon clinical course. Nurse Practitioner note has been reviewed, I agree with a documented findings and plan of care. Patient was seen and examined. Objective - Vital Signs Vital signs: Vital Signs Temp 98.3 F 03/13/20 07:52 Pulse 97 03/13/20 07:52 Resp 18 03/13/20 07:52 BP 171/85 03/13/20 07:52 Pulse Ox 98 03/13/20 03:08 Intake & Output 03/12/20 03/13/20 03/13/20 18:59 06:59 18:59 Intake Total 107.281 Balance 107.281 Weight 81.647 kg 78.4 kg Intake: Intake, IV Titration 107.281 Amount Heparin Sod,Pork in 0.45% 107.281 NaCl 25,000 unit In 0.45 % NaCl 1 250ml.bag @ 18 UNITS/KG/HR 14.696 mls/hr IV .[id number] [facility] Rx#: [id number] Other: Voiding Method Urinal Urinal # Voids 2 2 - Labs CBC & Chem 7: 03/12/20 17:27 03/12/20 17:27 Labs: Abnormal Lab Results - Last 24 Hours (Table) 03/12/20 03/12/20 03/13/20 Range/Units 17:27 17:27 01:07 RBC 3.15 L (4.30-5.90) m/uL Hgb 9.9 L D (13.0-17.5) gm/dL Hct 31.6 L (39.0-53.0) % MCV 100.1 H (80.0-100.0) fL APTT 122.2 H* (22.0-30.0) sec Sodium 136 L (137-145) mmol/L Potassium 5.5 H (3.5-5.1) mmol/L BUN 28 H (9-20) mg/dL Creatinine 1.29 H (0.66-1.25) mg/dL Glucose 144 H (74-99) mg/dL POC Glucose (mg/dL) (75-99) mg/dL Albumin 3.4 L (3.5-5.0) g/dL 03/13/20 Range/Units 06:27 RBC (4.30-5.90) m/uL Hgb (13.0-17.5) gm/dL Hct (39.0-53.0) % MCV (80.0-100.0) fL APTT (22.0-30.0) sec Sodium (137-145) mmol/L Potassium (3.5-5.1) mmol/L BUN (9-20) mg/dL Creatinine (0.66-1.25) mg/dL Glucose (74-99) mg/dL POC Glucose (mg/dL) 147 H (75-99) mg/dL Albumin (3.5-5.0) g/dL
[2020-03-13 10:43] LABS: Basophils % (A) 0 %; Eosinophils # (A) 0.1 k/uL (0-0.7); Eosinophils % (A) 2 %; HCT 31.4 % (39.0-53.0); HGB 9.8 gm/dL (13.0-17.5); Hypochromasia Slight; Lymphocytes # (A) 1.1 k/uL (1.0-4.8); Lymphocytes % (A) 17 %; MCH 31.8 pg (25.0-35.0); MCHC 31.2 g/dL (31.0-37.0); MCV 101.9 fL (80.0-100.0); Macrocytosis Slight; Mean Platelet Volume 7.8; Monocytes # (A) 0.3 k/uL (0-1.0); Monocytes % (A) 5 %; Neutrophils # (A) 4.8 k/uL (1.3-7.7); Neutrophils % (A) 75 %; Platelet Count 340 k/uL (150-450); RBC 3.08 m/uL (4.30-5.90); WBC 6.4 k/uL (3.8-10.6)
[2020-03-13 11:22] LABS: Calcium 8.8 mg/dL (8.4-10.2); Potassium 4.5 mmol/L (3.5-5.1)
[2020-03-13 11:32] LABS: Glucose,Whole Blood 173 mg/dL (75-99)
[2020-03-13] MEDS ORDERED: SODIUM CHLORIDE 0.9% 1,000 ML IV ONE (12:09)
[2020-03-13] MEDS: HEPARIN SOD,PORK IN 0.45% NACL 25,000 UNIT in 0.45% NACL 1 250ML.BAG IV SCH (12:09)
[2020-03-13] MEDS ORDERED: LIDOCAINE 1% INJ 10MG/ML (20 ML MDV) SQ ONE (12:31)
[2020-03-13] MEDS ORDERED: MIDAZOLAM 2 MG/2 ML VIAL IVP ONE (12:31)
[2020-03-13] MEDS ORDERED: HEPARIN SODIUM 1,000 UN/ML (10ML VL) IV ONE (12:50)
[2020-03-13] MEDS ORDERED: ALTEPLASE BOLUS 1 MG/1 ML SYRINGE IV STA (12:53)
[2020-03-13] MEDS ORDERED: ALTEPLASE 10 MG in SODIUM CHLORIDE 0.9% 100 ML IA ONE (13:00)
[2020-03-13] MEDS ORDERED: HYDROmorphone 1 MG/ML 1 ML SYRINGE IVP ONE (13:33)
[2020-03-13] MEDS ORDERED: ALTEPLASE BOLUS 1 MG/1 ML SYRINGE IVP ONE (13:33)
[2020-03-13] MEDS ORDERED: hydrALAZINE HCL 20 MG/ML 1 ML VIAL ONE (14:01)
--- NOTE | 2020-03-13 14:53 | IR ---
EXAMINATION TYPE: IR transcath infusion therapy DATE OF EXAM: 03/13/2020 COMPARISON: NONE HISTORY: Fluoroscopy time. Fluoroscopy was provided to the referring clinician.
[2020-03-13 16:30] LABS: Glucose,Whole Blood 144 mg/dL (75-99)
[2020-03-13] MEDS: SODIUM CHLORIDE 0.9% 1,000 ML in EMPTY BAG 1 BAG IV SCH (18:10)
[2020-03-13] MEDS: hydrALAZINE HCL 20 MG/ML 1 ML VIAL IVP PRN (18:53)
[2020-03-13 22:17] LABS: Glucose,Whole Blood 177 mg/dL (75-99)
[2020-03-13] MEDS ORDERED: HALOPERIDOL LACTATE 5 MG/ML 1 ML VIAL IVP PRN (23:15)
[2020-03-13 23:24] LABS: Glucose,Whole Blood 194 mg/dL (75-99)
--- NOTE | 2020-03-14 02:53 | AN ---
ANGIOGRAPHY REPORT DATE OF SERVICE: March 12, 2020 PERFORMING PHYSICIAN: Osmel Lees MD. PROCEDURE PERFORMED: 1. Placement of infusion catheter in the left superficial femoral artery. 2. Left lower extremity angiogram. INDICATION: This is an 84-year-old gentleman who underwent recently an angioplasty of the left SFA in the setting of acute limb ischemia. The angioplasty was preceded by tPA infusion for acute limb ischemia. Unfortunately the patient discharged from the hospital and he did not take his anticoagulation. He was seen in the office yesterday complaining of left foot discomfort and there was no Doppler signal. He was admitted to the emergency department where he was started on heparin and was brought today for angiogram. APPROACH: Right common femoral artery. COMPLICATION: None. LEVEL OF SEDATION: Moderate with sedation length of 47 minutes. PROCEDURE DESCRIPTION: After obtaining an informed consent, the patient was brought to the cardiac laborer aquatic life. The right common femoral artery was cannulated using micropuncture technique, the micropuncture wire passed easily then I placed a 6-Afghan sheath 11 cm at the right common femoral artery. At that point, anticoagulation was initiated using heparin and the patient was given weight-based heparin. I did I after that select the left SFA using 0.035 Rim catheter with 0.035 [place] Advantage wire. Subsequently I did exchange my 11 cm sheath into 65 cm sheath, which was a 6-[place]ghan sheath using all 0.035 [place] Advantage wire. The sheath was advanced all the way to the proximal left SFA. Left lower extremity angiogram was performed and showed occluded left SFA, occluded left popliteal, and I can barely see the arteries below the knee on the left side. Large thrombus was possibly the cause. Subsequently, I did wire the left SFA, left popliteal, and I advanced the wire to the tibioperoneal trunk and that was a 0.035 stiff Glidewire. After that I advanced an infusion catheter which was 135 cm infusion catheter with 50 mm infusion length. The catheter was advanced over the 0.035 wire. Subsequently I did at that point, connect the catheter to the tPA and the patient will be dripped overnight. The catheter and the sheath were both secured very well. POSTPROCEDURE MANAGEMENT: 1. ICU admission. 2. TPA infusion. 3. Follow up with the patient. MMODL / IJN: [id number] /
[2020-03-14] MEDS: HYDROmorphone 0.5 MG/0.5 ML SYRINGE IVP PRN (04:50)
[2020-03-14 05:58] LABS: Basophils % (A) 0 %; Eosinophils # (A) 0.1 k/uL (0-0.7); Eosinophils % (A) 1 %; HCT 31.8 % (39.0-53.0); HGB 10.1 gm/dL (13.0-17.5); Hypochromasia Slight; Lymphocytes % (A) 22 %; MCH 32.6 pg (25.0-35.0); MCHC 31.8 g/dL (31.0-37.0); MCV 102.5 fL (80.0-100.0); Macrocytosis Slight; Mean Platelet Volume 7.6; Monocytes # (A) 0.4 k/uL (0-1.0); Monocytes % (A) 4 %; Neutrophils # (A) 6.6 k/uL (1.3-7.7); Neutrophils % (A) 72 %; Platelet Count 380 k/uL (150-450); RDW 12.9 % (11.5-15.5); WBC 9.2 k/uL (3.8-10.6)
[2020-03-14 06:20] LABS: Calcium 8.5 mg/dL (8.4-10.2)
[2020-03-14] MEDS: PANTOPRAZOLE 40 MG TABLET PO SCH (06:39)
[2020-03-14] MEDS: METOPROLOL TARTRATE 25 MG TAB PO SCH ×2 (06:39→17:45)
[2020-03-14 06:48] LABS: Glucose,Whole Blood 149 mg/dL (75-99)
[2020-03-14] MEDS: INSULIN ASPART (NovoLOG) 100 UNIT/ML VIAL SQ SCH ×4 (06:52→20:55)
--- NOTE | 2020-03-14 07:21 | PN ---
PROGRESS NOTE DATE OF SERVICE: 03/14/2020 This 84-year-old gentleman admitted with left foot pain, ischemic leg, underwent vascular procedure by Dr. Lees. The patient is being closely monitored in ICU. The patient is confused, caused by possible acute delirium. The patient is on IV heparin. The patient will be closely monitored. PAST MEDICAL HISTORY: Reviewed. REVIEW OF SYSTEMS: Could not be taken, the patient is confused. CURRENT MEDICATIONS: 1. Tylenol. 2. [place]. 3. Xanax. 4. Aspirin. 5. Lipitor. 6. Haldol. 7. Dilaudid. 8. NovoLog. 9. Lopressor. 10.Narcan. 11.Actos. Doses are reviewed. PHYSICAL EXAMINATION: Patient is conscious, confused. Pulse 70, blood pressure 135/47, respiration 20, temperature 98.8, pulse ox 92% on room air. HEENT: Conjunctivae normal. Oral mucosa moist. NECK: No jugular venous distention. No carotid bruit. No lymph node enlargement. CARDIOVASCULAR: S1, S2 muffled. RESPIRATORY: Breath sounds are diminished at the bases. A few scattered rhonchi and crackles. ABDOMEN: Soft, nontender. LEGS: No edema. No swelling. NERVOUS SYSTEM: No focal deficits. LABS: WBC 6.4, hemoglobin 9.8, sodium 135. Accu-Cheks are noted. ASSESSMENT: 1. Severe left foot pain with ischemic limb and peripheral vascular disease. 2. Hyponatremia. 3. Hyperkalemia. 4. Increased creatinine with possible acute renal failure acute tubular necrosis. 5. Anemia macrocytic anemia of chronic disease. 6. History of coronary artery disease. 7. History of peripheral vascular disease, recent stent and angioplasty. 8. History of cerebrovascular accident, transient ischemic attack. 9. Diabetes mellitus type 2. 10.History of hearing defects. 11.Hyperlipidemia. 12.Hypertension. 13.History of degenerative joint disease. 14.History of prostate disorder, prostate cancer. 15.History of coronary artery disease, coronary artery bypass grafting. 16.FULL CODE. RECOMMENDATIONS AND DISCUSSION: Recommend to continue current medications, continue symptomatic treatment. Otherwise at this time continue the heparin, continue Haldol. Continue rest of medications. Monitor blood sugars closely. Closely follow with Dr. Lees. Guarded prognosis because of multiple complex medical issues. Further recommendations to follow. MMODL / IJN: [id number] /
[2020-03-14] MEDS: ASPIRIN 81 MG PO SCH (08:53)
[2020-03-14] MEDS: ATORVASTATIN 80 MG TAB PO SCH (08:53)
[2020-03-14 09:12] LABS: INR 1.2 (<1.2); Prothrombin Time 11.8 sec (9.0-12.0)
[2020-03-14 09:27] LABS: Partial Thromboplastin Time 113.3 sec (22.0-30.0)
[2020-03-14] MEDS: hydrALAZINE HCL 20 MG/ML 1 ML VIAL IVP PRN (09:30)
[2020-03-14] MEDS ORDERED: SODIUM CHLORIDE 0.9% 1,000 ML IV ONE ×2 (10:34→11:53)
[2020-03-14] MEDS: HYDROmorphone 1 MG/ML 1 ML SYRINGE IVP ONE ×2 (10:49→10:54)
[2020-03-14] MEDS ORDERED: MIDAZOLAM 2 MG/2 ML VIAL IV ONE (10:53)
[2020-03-14] MEDS: fentaNYL (PF) 50 MCG/ML 2 ML AMP IV ONE ×2 (11:35→11:51)
[2020-03-14] MEDS ORDERED: IOPAMIDOL-250 100ML BTL INTRAARTER ONE (11:36)
[2020-03-14] MEDS ORDERED: SODIUM CHLORIDE 0.9% 1,000 ML in EMPTY BAG 1 BAG IV SCH (11:45)
[2020-03-14 12:41] LABS: Glucose,Whole Blood 138 mg/dL (75-99)
[2020-03-14 13:53] LABS: Glucose,Whole Blood 168 mg/dL (75-99)
[2020-03-14] MEDS ORDERED: ATROPINE SULFATE 0.1 MG/ML 10ML SYRINGE ONE (14:03)
[2020-03-14] MEDS: INSULIN DETEMIR (LEVEMIR) 100 UNIT/ML SYR SQ SCH (14:25)
[2020-03-14] MEDS: PIOGLITAZONE 30 MG TAB PO SCH (14:46)
[2020-03-14] MEDS ORDERED: HALOPERIDOL LACTATE 5 MG/ML 1 ML VIAL IVP PRN (15:13)
[2020-03-14] MEDS: APIXABAN 2.5 MG TABLET PO SCH (15:17)
[2020-03-14 17:41] LABS: Glucose,Whole Blood 271 mg/dL (75-99)
--- NOTE | 2020-03-14 19:22 | P.PCN ---
Date of Procedure: 03/14/20 Operative Findings: Percutaneous peripheral arterial intervention Performing physician Osmel Lees MD, [facility] Procedure performed 1. Mechanical thrombectomy of the left SFA and left popliteal using the Penumbra device 2. Removal of infusion catheter from the left SFA and left popliteal 3. Intravascular ultrasound of the left SFA and left popliteal and left tibial peroneal chunk 4. Successful balloon angioplasty of the left popliteal and left SFA 5. Cessation of TPA infusion 6. Left lower extremity angiogram Indication This is a pleasant 84-year-old gentleman who was admitted to the hospital the da y before yesterday was acute limb ischemia of the left leg. He underwent an angiogram and was found to have large clot involving the left SFA, left popliteal, and the infrapopliteal arteries on the left side. An infusion catheter was placed and TPA was drip overnight. He was brought today for a second look. Approach Right common femoral artery Complication None Level of sedation Moderate with a sedation length of 56 minutes Procedure description After obtaining an informed consent the patient was brought to the cardiac clinical laboratory medical director. The TPA was stopped just before the patient arrived to the Enterprise Project Manager. Subsequently I place an 035 wire inside the infusion catheter and then I pulled the infusion catheter out. Placing the wire was performed after I pulled blood and I was able to aspirate blood from the infusion catheter to make sure I did not push any clot distally. Subsequently I did left lower extremity angiogram which revealed patent anterior tibial with severe disease as well as patent peroneal was subtotally occluded left posterior tibial artery. Also the angiogram revealed a hazy area in the left SFA and left popliteal. At that point I placed an intravascular ultrasound catheter over an 04 wire. I did exchange my 035 wire into a 14 wire using an 035 catheter. Subsequently I did the intravascular ultrasound which revealed tight lesion involving the distal edge of the stent in the left popliteal as well as the junction between the distal edge of the stent as well as the yocha dehe artery. Beside that we found a clot involving the left SFA. Because of that I decided to do mechanical thrombectomy. I did do mechanical thrombectomy using the Penumbra device. The following procedure was an angioplasty of the stent in the left popliteal. I did that using 6 x 40 mm balloon. The balloon was inflated under 8 melissa for 1 minute. The following angiogram showed good angiographic results. After that I did balloon angioplasty of the mid left SFA using 7.0 x 80 mm drug-coated balloon which was inflated under 16 melissa for 30 minutes. The following angiogram showed excellent angiographic results and the procedure was completed without any complication After that I did exchange my long 6-Georgian sheath into short 6-Georgian sheath. Then I did selective right common femoral artery angiogram. The procedure was completed without any complications. Postprocedure management Restart the patient back on oral anticoagulation after hemostasis in the right groin ICU monitoring Discharge to extended care facility to make sure that the patient is taking his medications every day I did discuss the case with the son as well as and I did tell him about the importance of taking the medications every day
--- NOTE | 2020-03-14 20:10 | PN ---
PROGRESS NOTE DATE OF SERVICE: 03/14/2020 This 84-year-old gentleman who was admitted with significant severe left foot pain underwent angiography and tPA by Dr. Lees today with significant results. The pulse appears to be improving at this location and the coldness is also improving. The patient is sedated. The patient was restless and disoriented yesterday. Past medical history reviewed. Review of systems could not be taken currently; the patient is sedated postoperatively. CURRENT MEDICATIONS: Reviewed. They include: 1. Tylenol p.r.n. 2. [place] 5 mg q.6 p.r.n. 3. Xanax 0.25 t.i.d. 4. Eliquis 2.5 mg b.i.d. 5. Aspirin 81 mg daily. 6. Lipitor 80 mg daily. 7. Haldol p.r.n. 8. Apresoline. 9. Dilaudid. 10.NovoLog. 11.Levemir. 12.Lopressor. 13.Narcan. 14.Protonix. 15.Actos. PHYSICAL EXAMINATION: Patient is sedated. Pulse 86, blood pressure 148/59, respiration 11, temperature 98.6, pulse ox 94% on room air. HEENT: Conjunctivae normal. NECK: No jugular venous distention. CARDIOVASCULAR SYSTEM: S1, S2 muffled. RESPIRATORY SYSTEM: Breath sounds diminished at the bases. A few scattered rhonchi and crackles. ABDOMEN: Soft, non-tender. LEGS: No edema. No swelling. NERVOUS SYSTEM: No focal deficit. LABS: INR 1.2, hemoglobin 10.1. Other labs are noted. Sodium 133. ASSESSMENT: 1. Severe left foot pain, ischemic limb and peripheral vascular disease, status post angioplasty and infusion. 2. Hyponatremia. 3. Hyperkalemia. 4. Increased creatinine with possible acute renal failure, acute tubular necrosis, present on admission. 5. Macrocytic anemia of chronic disease. 6. Change in mental status, acute metabolic encephalopathy. 7. History of coronary artery disease. 8. History of peripheral vascular disease with recent stent and angioplasty. 9. History of cerebrovascular accident, transient ischemic attack. 10.Diabetes mellitus, type 2. 11.Gait dysfunction. 12.Hearing defects. 13.History of noncompliance. 14.Hyperlipidemia. 15.Hypertension. 16.History of degenerative joint disease. 17.History of prostate disorder and prostate cancer. 18.History of coronary artery disease, coronary artery bypass grafting. 19.FULL CODE. RECOMMENDATIONS AND DISCUSSION: I recommend to continue current medications, continue with the monitoring, symptomatic treatment. Follow closely. Dr. Lees recommends ECF rehab because of the history of noncompliance and other medical issues. We will continue to monitor. PT/OT evaluation. Possible ECF. Work with the case management team. Otherwise, continue the rest of the medications. See orders. Discussed with the staff at length. Further recommendations to follow. MMODL / IJN: [id number] /
[2020-03-14 20:48] LABS: Glucose,Whole Blood 226 mg/dL (75-99)
[2020-03-14] MEDS: HYDROcodone/APAP 5-325MG 1 EACH TAB PO PRN (21:12)
[2020-03-14] MEDS ORDERED: APIXABAN 2.5 MG TABLET PO ONE (22:00)
[2020-03-15 06:30] LABS: Calcium 7.8 mg/dL (8.4-10.2); Potassium 4.3 mmol/L (3.5-5.1)
[2020-03-15] MEDS: PANTOPRAZOLE 40 MG TABLET PO SCH (06:35)
[2020-03-15] MEDS: METOPROLOL TARTRATE 25 MG TAB PO SCH ×2 (06:35→17:30)
[2020-03-15 06:36] LABS: Glucose,Whole Blood 138 mg/dL (75-99)
[2020-03-15 06:39] LABS: Basophils % (A) 0 %; Eosinophils # (A) 0.1 k/uL (0-0.7); Eosinophils % (A) 1 %; HCT 25.1 % (39.0-53.0); Hypochromasia Slight; Lymphocytes # (A) 1.3 k/uL (1.0-4.8); Lymphocytes % (A) 16 %; MCH 32.6 pg (25.0-35.0); MCHC 32.1 g/dL (31.0-37.0); MCV 101.6 fL (80.0-100.0); Macrocytosis Slight; Monocytes # (A) 0.4 k/uL (0-1.0); Monocytes % (A) 5 %; Neutrophils # (A) 6.5 k/uL (1.3-7.7); Neutrophils % (A) 77 %; Platelet Count 327 k/uL (150-450); RBC 2.47 m/uL (4.30-5.90); RDW 13.2 % (11.5-15.5); WBC 8.4 k/uL (3.8-10.6)
[2020-03-15 06:49] LABS: HGB 8.1 gm/dL (13.0-17.5)
[2020-03-15] MEDS: INSULIN ASPART (NovoLOG) 100 UNIT/ML VIAL SQ SCH ×4 (07:10→20:48)
[2020-03-15] MEDS: INSULIN DETEMIR (LEVEMIR) 100 UNIT/ML SYR SQ SCH (09:37)
[2020-03-15] MEDS: APIXABAN 2.5 MG TABLET PO SCH ×2 (09:37→20:48)
[2020-03-15] MEDS: ASPIRIN 81 MG PO SCH (09:37)
[2020-03-15] MEDS: PIOGLITAZONE 30 MG TAB PO SCH (09:37)
[2020-03-15] MEDS: ATORVASTATIN 80 MG TAB PO SCH (09:37)
--- NOTE | 2020-03-15 10:48 | IR ---
EXAMINATION TYPE: IR dredge captain femoral popliteal DATE OF EXAM: 03/14/2020 COMPARISON: NONE HISTORY: Fluoroscopy time. Fluoroscopy was provided to the referring clinician.
[2020-03-15 12:32] LABS: Glucose,Whole Blood 231 mg/dL (75-99)
--- NOTE | 2020-03-15 13:56 | PN ---
PROGRESS NOTE Mr. Gillis is an 84-year-old gentleman who is admitted to hospital with left foot pain and underwent a mechanical thrombectomy of the left superficial femoral artery and popliteal artery. This morning, he is doing well. Both his feet are warm and the Doppler shows that the he has good Doppler signals both sides. On exam, heart rate is 73 beats per minute. Blood pressure is 140/66, respiratory rate 18, O2 saturation is 94%. There is no jugular venous distention. Chest exam reveals good air entry bilaterally. Heart exam reveals first and second heart sounds. No gallop. Abdomen is soft. Exam of extremities did not reveal any edema. Not able to palpate any pulses versus Doppler, he has good pulses. ASSESSMENT: Peripheral vascular disease status post acute ischemic leg following intervention thrombectomy and tPA. The patient is doing well this morning. He will continue the Eliquis, aspirin, Lipitor, Lopressor. MMODL / IJN: [id number] /
[2020-03-15 17:23] LABS: Glucose,Whole Blood 200 mg/dL (75-99)
--- NOTE | 2020-03-15 18:19 | PN ---
PROGRESS NOTE DATE OF SERVICE: 03/15/2020 This 84-year-old gentleman who was admitted with significant severe left foot pain also had mechanical thrombectomy as well as removal of infusion catheter and balloon angioplasty of the left popliteal and left SFA and tPA infusion by Dr. Lees. The patient continues to be confused. ECF rehab is being planned at this time. The patient's left foot pain is improved and the pulsations are also improved. Past medical history reviewed. REVIEW OF SYSTEMS: CARDIOVASCULAR SYSTEM: No angina, palpitations. RESPIRATORY SYSTEM: As mentioned earlier. GI: As mentioned earlier. NERVOUS SYSTEM: As mentioned earlier. CURRENT MEDICATIONS: Reviewed. They include: 1. Tylenol p.r.n. 2. [place] 5 mg q.6 p.r.n. 3. Xanax 0.25 t.i.d. 4. Eliquis 2.5 mg b.i.d. 5. Aspirin 81 mg. 6. Lipitor 80 mg. 7. Haldol. 8. Apresoline. 9. Dilaudid. 10.Lopressor. 11.Narcan. 12.Protonix. 13.Actos. PHYSICAL EXAMINATION: Patient is alert, oriented x3. Pulse is 66, blood pressure 124/38, respiration 18, temperature normal, pulse ox 95% on room air. HEENT: Conjunctivae normal. NECK: No jugular venous distention. CARDIOVASCULAR SYSTEM: S1, S2 muffled. RESPIRATORY SYSTEM: Breath sounds diminished at the bases. A few scattered rhonchi and crackles. ABDOMEN: Soft, non-tender. No mass palpable. LEGS: No edema. No swelling. NERVOUS SYSTEM: Higher functions as mentioned earlier. Moves all 4 limbs. No focal motor or sensory deficit. SKIN: No ulcer, rash, bleeding. EXAMINATION OF THE LEFT FOOT: Minimal pulses are noted, improved much from previous. LABS: Hemoglobin 8.1, sodium 132, creatinine 1.38. ASSESSMENT: 1. Severe left foot pain with ischemic limb and peripheral vascular disease, status post angioplasty and tPA infusion. 2. Hyponatremia. 3. Hyperkalemia. 4. Change in mental status, metabolic encephalopathy, acute, multifactorial. 5. Increased creatinine with possible acute renal failure, acute tubular necrosis, present on admission. 6. Macrocytic anemia of chronic disease. 7. History of coronary artery disease. 8. Gait dysfunction. 9. History of peripheral vascular disease with recent stent angioplasty. 10.History of cerebrovascular accident, transient ischemic attack. 11.Diabetes mellitus, type 2. 12.Hearing defects. 13.History of noncompliance. 14.Hyperlipidemia. 15.Hypertension. 16.History of degenerative joint disease. 17.History of prostate disorder with prostate cancer. 18.History of coronary artery disease, coronary artery bypass grafting. 19.FULL CODE. RECOMMENDATIONS AND DISCUSSION: I recommend to continue current medications, continue with the monitoring, symptomatic treatment. Otherwise, at this time repeat the labs. The patient is on Eliquis 2.5 mg twice daily as well as antiplatelet agents. We will continue to monitor. DVT prophylaxis. Guarded prognosis because of multiple complex medical issues. Further recommendations to follow. Monitor blood sugars closely. MMMARL / IJN: [id number] /
[2020-03-15 20:11] LABS: Glucose,Whole Blood 176 mg/dL (75-99)
[2020-03-16 06:13] LABS: Glucose,Whole Blood 129 mg/dL (75-99)
[2020-03-16] MEDS: INSULIN ASPART (NovoLOG) 100 UNIT/ML VIAL SQ SCH ×4 (06:14→20:48)
[2020-03-16] MEDS: METOPROLOL TARTRATE 25 MG TAB PO SCH ×2 (06:31→17:33)
[2020-03-16] MEDS: PANTOPRAZOLE 40 MG TABLET PO SCH (06:31)
[2020-03-16] MEDS: ATORVASTATIN 80 MG TAB PO SCH (08:33)
[2020-03-16] MEDS: APIXABAN 2.5 MG TABLET PO SCH ×2 (08:33→20:48)
[2020-03-16] MEDS: ASPIRIN 81 MG PO SCH (08:33)
[2020-03-16] MEDS: PIOGLITAZONE 30 MG TAB PO SCH (08:33)
[2020-03-16] MEDS: INSULIN DETEMIR (LEVEMIR) 100 UNIT/ML SYR SQ SCH (08:33)
[2020-03-16 12:16] LABS: Glucose,Whole Blood 270 mg/dL (75-99)
--- NOTE | 2020-03-16 12:36 | P.PN ---
Subjective Progress Note Date: 03/16/20 This is a pleasant 84-year-old male past medical history significant for peripheral arterial disease status post recent angioplasty of the left popliteal and left SFA, hypertension, dyslipidemia, diabetes mellitus, coronary artery disease status post bypass grafting and history of CVA. He follows in the office with Dr. Lees. Initially in November he underwent lower extremity angiogram revealing a total occlusion of the left popliteal artery. He underwent atherectomy, balloon angioplasty and stenting of the left popliteal artery at that time. He then returned to the hospital in February with left foot numbness. He underwent repeat angiogram revealing an acute total occlusion of the left popliteal. TPA was administered at the site via direct catheter for 24 hours. He then underwent successful stenting of the distal left SFA with resolution of thrombus. He was discharged home in stable condition on anticoagulation. According to the son his father had been noncompliant and was not taking any of his medications at home. He presented to the office yesterday to see Dr. Lees again complaining of left foot pain. He appeared to have recurrent left limb ischemia. He has seen and examined this morning resting comfortably laying flat in bed in no acute distress. He continues to have pain and discomfort of the left lower extremity with dusky appearance to the left foot. Patient underwent thrombectomy of the left SFA successful balloon angioplasty of the left popliteal and left tibial, successful angioplasty left popliteal and left SFA. Blood pressure this morning 134/60 with a heart rate of 80, 98% on room air. Patient does have Doppler and mildly palpable pulsatile left lower extremity today. Objective - Vital Signs Vital signs: Vital Signs Temp 97.9 F 03/16/20 08:00 Pulse 80 03/16/20 08:00 Resp 18 03/16/20 08:00 BP 134/61 03/16/20 08:00 Pulse Ox 98 03/16/20 08:00 Intake & Output 03/15/20 03/16/20 03/16/20 18:59 06:59 18:59 Intake Total 1166 240 240 Output Total 1055 1400 Balance 111 -1160 240 Weight 80 kg Intake: IV 450 Sodium Chloride 0.9% 1, 450 000 ml In Empty Bag 1 bag @ 75 mls/hr IV .[id number] [facility] Rx#:[id number] Oral 716 240 240 Output: Urine 1055 1400 Other: Voiding Method Indwelling Catheter # Voids 1 ABP, PAP, CO, CI - Last Documented Arterial Blood Pressure 141/49 - Exam GENERAL: Well-appearing, well-nourished and in no acute distress. NECK: Supple without JVD or thyromegaly. LUNGS: Breath sounds clear to auscultation bilaterally. Respiration equal and unlabored. No wheezes, rales or rhonchi. HEART: Regular rate and rhythm with systolic ejection murmur at the base, he rubs or gallops. S1 and S2 heard. EXTREMITIES: Normal range of motion, no edema, left foot mildly palpable pulse, good Doppler pulse. Right groin is soft, mild ecchymosis no hematoma - Labs CBC & Chem 7: 03/15/20 05:35 03/15/20 05:35 Labs: Abnormal Lab Results - Last 24 Hours (Table) 03/15/20 03/15/20 03/15/20 Range/Units 12:31 17:22 20:09 POC Glucose (mg/dL) 231 H 200 H 176 H (75-99) mg/dL 03/16/20 03/16/20 Range/Units 06:11 12:05 POC Glucose (mg/dL) 129 H 270 H (75-99) mg/dL Assessment and Plan Plan: ASSESSMENT and plan #1 Acute ischemia of the left leg, status post tPA of the left popliteal artery as well as tPA infusion of the left lower extremity arterial thrombosis, status post thrombectomy of the left SFA, successful balloon angioplasty of the left popliteal and left SFA #2 Coronary artery disease status post bypass grafting #3 Diabetes mellitus #4 Hypertension #5 Dyslipidemia #6Chronic kidney disease #7Noncompliance with taking daily medications. Plan From cardiology's perspective, the patient may be able to be discharged home once cleared by primary. We will make him a follow-up appointment in the office post discharge. DNP note has been reviewed, I agree with a documented findings and plan of care. Patient was seen and examined.
[2020-03-16] MEDS: MULTIVITAMINS, THERA 1 EACH TAB PO SCH (12:38)
[2020-03-16] MEDS: FOLIC ACID 1 MG TAB PO SCH (12:38)
[2020-03-16] MEDS: THIAMINE 100 MG TAB PO SCH (12:38)
[2020-03-16 17:01] LABS: Glucose,Whole Blood 113 mg/dL (75-99)
[2020-03-16 20:16] LABS: Glucose,Whole Blood 237 mg/dL (75-99)
--- NOTE | 2020-03-16 22:44 | PN ---
PROGRESS NOTE DATE OF SERVICE: 03/16/2020 This 84-year-old gentleman who was admitted with severe left foot pain had intervention angioplasty and tPA infusion by Dr. Lees. The patient is mildly confused. ECF rehab is planned. The plan at this time is on Wednesday. No chest pain. No palpitations. Multiple consultants are following the patient. PHYSICAL EXAMINATION: Alert and oriented. Pulse 72, blood pressure 130/60, respirations 16, temperature 98.8, pulse ox 99% on room air. HEENT: Conjunctivae normal. Oral mucosa moist. NECK: No jugular venous distention. No lymph node enlargement. CARDIOVASCULAR: S1, S2, muffled. No S3, no S4, RESPIRATORY: Diminished breath sounds at the bases. Scattered rhonchi and crackles. ABDOMEN: Soft, nontender. LEGS: No edema, no swelling. NERVOUS SYSTEM: No focal deficits. LABS: Hemoglobin 8.1, sodium 132, creatinine is 1.38. ASSESSMENT: 1. Severe left foot pain with ischemic limb and as well as peripheral vascular disease status post angioplasty and tPA infusion. 2. Hyponatremia. 3. Hypokalemia. 4. Change in mental status, metabolic encephalopathy, acute, multifactorial. 5. Increased creatinine with possible acute renal failure, acute tubular necrosis, present on admission. 6. Microcytic anemia of chronic disease. 7. History of coronary artery disease. 8. Gait dysfunction. 9. History of peripheral vascular disease, recent stent and angiography. 10.History of cerebrovascular accident, transient ischemic attack. 11.Diabetes mellitus type 2. 12.Hearing defects. 13.History of noncompliance. 14.Hyperlipidemia. 15.Hypertension. 16.History of degenerative joint disease. 17.History of prostate disorder with prostate cancer. 18.History of coronary artery disease, coronary artery bypass grafting. 19.FULL CODE. RECOMMENDATIONS AND DISCUSSION: Recommend to continue to monitor, continue symptomatic treatment. Otherwise, at this time I would recommend continue the current medications. Repeat labs. Continue antiplatelet agents and as well as apixaban. PT/OT evaluation, possible ECF rehab. Guarded prognosis. Further recommendations to follow. MMODL / IJN: [id number] /
[2020-03-17 06:22] LABS: Glucose,Whole Blood 159 mg/dL (75-99)
[2020-03-17] MEDS: PANTOPRAZOLE 40 MG TABLET PO SCH (06:46)
[2020-03-17] MEDS: METOPROLOL TARTRATE 25 MG TAB PO SCH ×2 (06:46→18:11)
[2020-03-17] MEDS: INSULIN ASPART (NovoLOG) 100 UNIT/ML VIAL SQ SCH ×4 (06:46→21:21)
[2020-03-17 06:49] LABS: Basophils % (A) 0 %; Eosinophils # (A) 0.2 k/uL (0-0.7); Eosinophils % (A) 3 %; HCT 25.1 % (39.0-53.0); HGB 7.7 gm/dL (13.0-17.5); Hypochromasia Slight; Lymphocytes # (A) 1.3 k/uL (1.0-4.8); Lymphocytes % (A) 20 %; MCH 30.9 pg (25.0-35.0); MCHC 30.6 g/dL (31.0-37.0); MCV 101.1 fL (80.0-100.0); Macrocytosis Slight; Mean Platelet Volume 8.1; Monocytes # (A) 0.4 k/uL (0-1.0); Monocytes % (A) 6 %; Neutrophils # (A) 4.6 k/uL (1.3-7.7); Neutrophils % (A) 70 %; Platelet Count 341 k/uL (150-450); RBC 2.48 m/uL (4.30-5.90); RDW 13.3 % (11.5-15.5); WBC 6.6 k/uL (3.8-10.6)
[2020-03-17 07:00] LABS: Calcium 8.3 mg/dL (8.4-10.2); Potassium 4.7 mmol/L (3.5-5.1)
[2020-03-17] MEDS: APIXABAN 2.5 MG TABLET PO SCH ×2 (08:50→21:21)
[2020-03-17] MEDS: PIOGLITAZONE 30 MG TAB PO SCH (08:50)
[2020-03-17] MEDS: ASPIRIN 81 MG PO SCH (08:50)
[2020-03-17] MEDS: ATORVASTATIN 80 MG TAB PO SCH (08:50)
[2020-03-17] MEDS: INSULIN DETEMIR (LEVEMIR) 100 UNIT/ML SYR SQ SCH (08:50)
[2020-03-17] MEDS: FOLIC ACID 1 MG TAB PO SCH (11:10)
[2020-03-17] MEDS: THIAMINE 100 MG TAB PO SCH (11:10)
[2020-03-17] MEDS: MULTIVITAMINS, THERA 1 EACH TAB PO SCH (11:10)
[2020-03-17 12:04] LABS: Glucose,Whole Blood 211 mg/dL (75-99)
--- NOTE | 2020-03-17 12:26 | P.PN ---
Subjective Progress Note Date: 03/17/20 This is a pleasant 84-year-old male past medical history significant for peripheral arterial disease status post recent angioplasty of the left popliteal and left SFA, hypertension, dyslipidemia, diabetes mellitus, coronary artery disease status post bypass grafting and history of CVA. He follows in the office with Dr. Lees. Initially in November he underwent lower extremity angiogram revealing a total occlusion of the left popliteal artery. He underwent atherectomy, balloon angioplasty and stenting of the left popliteal artery at that time. He then returned to the hospital in February with left foot numbness. He underwent repeat angiogram revealing an acute total occlusion of the left popliteal. TPA was administered at the site via direct catheter for 24 hours. He then underwent successful stenting of the distal left SFA with resolution of thrombus. He was discharged home in stable condition on anticoagulation. According to the son his father had been noncompliant and was not taking any of his medications at home. He presented to the office yesterday to see Dr. Lees again complaining of left foot pain. He appeared to have recurrent left limb ischemia. He has seen and examined this morning resting comfortably laying flat in bed in no acute distress. He continues to have pain and discomfort of the left lower extremity with dusky appearance to the left foot. Patient underwent thrombectomy of the left SFA successful balloon angioplasty of the left popliteal and left tibial, successful angioplasty left popliteal and left SFA. Blood pressure this morning 134/60 with a heart rate of 80, 98% on room air. Patient does have Doppler and mildly palpable pulsatile left lower extremity today. 03/17/2020 Patient seen and examined this morning, hemodynamically stable. Blood pressure 104/50 with a heart rate in the 60s, afebrile. 96% on room air. White blood cell count 6.6, hemoglobin 7.7, platelet count 341. Sodium 135, potassium 4.7, BUN 38, creatinine 1.3. Objective - Vital Signs Vital signs: Vital Signs Temp 98 F 03/17/20 11:14 Pulse 60 03/17/20 11:14 Resp 16 03/17/20 11:14 BP 104/50 03/17/20 11:14 Pulse Ox 96 03/17/20 11:14 Intake & Output 03/16/20 03/17/20 03/17/20 18:59 06:59 18:59 Intake Total 1200 480 240 Output Total 300 775 Balance 900 -295 240 Intake: Oral 1200 480 240 Output: Urine 300 775 Other: Voiding Method Indwelling Catheter # Voids 2 # Bowel Movements 1 ABP, PAP, CO, CI - Last Documented Arterial Blood Pressure 141/49 - Exam GENERAL: Well-appearing, well-nourished and in no acute distress. NECK: Supple without JVD or thyromegaly. LUNGS: Breath sounds clear to auscultation bilaterally. Respiration equal and unlabored. No wheezes, rales or rhonchi. HEART: Regular rate and rhythm with systolic ejection murmur at the base, he rubs or gallops. S1 and S2 heard. EXTREMITIES: Normal range of motion, no edema, left foot mildly palpable pulse, good Doppler pulse. Right groin is soft, mild ecchymosis no hematoma - Labs CBC & Chem 7: 03/17/20 05:51 03/17/20 05:51 Labs: Abnormal Lab Results - Last 24 Hours (Table) 03/16/20 03/16/20 03/17/20 Range/Units 16:55 20:15 05:51 RBC 2.48 L (4.30-5.90) m/uL Hgb 7.7 L (13.0-17.5) gm/dL Hct 25.1 L (39.0-53.0) % MCV 101.1 H (80.0-100.0) fL MCHC 30.6 L (31.0-37.0) g/dL Sodium (137-145) mmol/L BUN (9-20) mg/dL Creatinine (0.66-1.25) mg/dL Glucose (74-99) mg/dL POC Glucose (mg/dL) 113 H 237 H (75-99) mg/dL Calcium (8.4-10.2) mg/dL 03/17/20 03/17/20 03/17/20 Range/Units 05:51 06:20 11:46 RBC (4.30-5.90) m/uL Hgb (13.0-17.5) gm/dL Hct (39.0-53.0) % MCV (80.0-100.0) fL MCHC (31.0-37.0) g/dL Sodium 135 L (137-145) mmol/L BUN 33 H (9-20) mg/dL Creatinine 1.38 H (0.66-1.25) mg/dL Glucose 138 H (74-99) mg/dL POC Glucose (mg/dL) 159 H 211 H (75-99) mg/dL Calcium 8.3 L (8.4-10.2) mg/dL Assessment and Plan Plan: ASSESSMENT and plan #1 Acute ischemia of the left leg, status post tPA of the left popliteal artery as well as tPA infusion of the left lower extremity arterial thrombosis, status post thrombectomy of the left SFA, successful balloon angioplasty of the left popliteal and left SFA #2 Coronary artery disease status post bypass grafting #3 Diabetes mellitus #4 Hypertension #5 Dyslipidemia #6Chronic kidney disease #7Noncompliance with taking daily medications. Plan From cardiology's perspective, the patient may be able to be discharged home once cleared by primary. We will make him a follow-up appointment in the office post discharge. DNP note has been reviewed, I agree with a documented findings and plan of care. Patient was seen and examined.
--- NOTE | 2020-03-17 16:23 | PN ---
PROGRESS NOTE DATE OF SERVICE: 03/17/2020 This 85-year-old gentleman who was admitted with severe foot pain, peripheral vascular disease, had angioplasty and tPA infusion by Dr. Lees. PT/OT is evaluating the patient for possible ECF rehab. No chest pain. No palpitations. No fever. On exam, alert and oriented x2. Pulse 60. Blood pressure 104/50, respirations 16. Temperature 98 degrees, pulse ox 98% on room air. HEENT: Conjunctivae normal. Oral mucosa moist. Neck is no jugular venous distention. No carotid bruit. No lymph node enlargement. Cardiovascular: S1, S2 muffled. Respiration: Breath sounds diminished in the bases. No rhonchi. No crackles. ABDOMEN: Soft, nontender. Legs status post surgery. NERVOUS SYSTEM: No focal deficits. LABS: WBC 7.2, hemoglobin is 11.7, sodium 135. Creatinine is 1.3. Accu-Cheks are noted. ASSESSMENT: 1. Severe left foot pain with ischemic limb as well as peripheral vascular disease, status post angioplasty and tPA infusion. 2. Hyponatremia. 3. Hypokalemia. 4. Change in mental status, metabolic encephalopathy, acute, multifactorial. 5. Increased creatinine with possible acute renal failure with acute tubular necrosis present on admission. 6. Microcytic anemia of chronic disease. 7. History of coronary artery disease. 8. Gait dysfunction. 9. History of peripheral vascular disease, recent stent and angioplasty. 10.History of cerebrovascular accident, transient ischemic attack. 11.Diabetes mellitus type 2. 12.History of hearing defects. 13.History of noncompliance. 14.Hyperlipidemia. 15.Hypertension. 16.History of degenerative joint disease. 17.History of prostate disorder, prostate cancer. 18.History of coronary artery disease, coronary artery bypass grafting. 19.FULL CODE. RECOMMENDATIONS AND DISCUSSION: Recommend to continue medications, monitoring and symptomatic treatment. Otherwise at this time I would recommend antiplatelet agents. PT/OT evaluation, possible ECF rehab. Guarded prognosis. Further recommendations to follow. MMODL / IJN: [id number] /
[2020-03-17 17:13] LABS: Glucose,Whole Blood 145 mg/dL (75-99)
[2020-03-17] MEDS: SODIUM CHLORIDE 0.9% 1,000 ML in EMPTY BAG 1 BAG IV SCH (18:09)
[2020-03-17] MEDS: HEPARIN SOD,PORK IN 0.45% NACL 25,000 UNIT in 0.45% NACL 1 250ML.BAG IV SCH (18:10)
[2020-03-17 20:16] LABS: Glucose,Whole Blood 218 mg/dL (75-99)
[2020-03-18 06:16] LABS: Glucose,Whole Blood 128 mg/dL (75-99)
[2020-03-18] MEDS: INSULIN ASPART (NovoLOG) 100 UNIT/ML VIAL SQ SCH ×2 (06:19→12:55)
[2020-03-18] MEDS: PANTOPRAZOLE 40 MG TABLET PO SCH (06:31)
[2020-03-18] MEDS: METOPROLOL TARTRATE 25 MG TAB PO SCH (06:31)
[2020-03-18 07:16] LABS: Basophils % (A) 0 %; Eosinophils # (A) 0.2 k/uL (0-0.7); Eosinophils % (A) 4 %; HCT 27.9 % (39.0-53.0); Hypochromasia Slight; Lymphocytes # (A) 1.5 k/uL (1.0-4.8); Lymphocytes % (A) 22 %; MCH 33.1 pg (25.0-35.0); MCHC 32.2 g/dL (31.0-37.0); MCV 102.6 fL (80.0-100.0); Macrocytosis Slight; Mean Platelet Volume 7.7; Monocytes # (A) 0.4 k/uL (0-1.0); Monocytes % (A) 6 %; Neutrophils # (A) 4.5 k/uL (1.3-7.7); Neutrophils % (A) 66 %; Platelet Count 361 k/uL (150-450); RBC 2.72 m/uL (4.30-5.90); RDW 13.3 % (11.5-15.5); WBC 6.8 k/uL (3.8-10.6)
[2020-03-18 07:24] LABS: Calcium 8.6 mg/dL (8.4-10.2); Potassium 4.9 mmol/L (3.5-5.1)
[2020-03-18] MEDS: ATORVASTATIN 80 MG TAB PO SCH (08:50)
[2020-03-18] MEDS: PIOGLITAZONE 30 MG TAB PO SCH (08:50)
[2020-03-18] MEDS: APIXABAN 2.5 MG TABLET PO SCH (08:50)
[2020-03-18] MEDS: INSULIN DETEMIR (LEVEMIR) 100 UNIT/ML SYR SQ SCH (08:51)
[2020-03-18] MEDS: ASPIRIN 81 MG PO SCH (08:51)
[2020-03-18] MEDS: HYDROcodone/APAP 5-325MG 1 EACH TAB PO PRN (09:04)
[2020-03-18] MEDS: FOLIC ACID 1 MG TAB PO SCH (11:23)
[2020-03-18] MEDS: THIAMINE 100 MG TAB PO SCH (11:23)
[2020-03-18] MEDS: MULTIVITAMINS, THERA 1 EACH TAB PO SCH (11:23)
[2020-03-18 11:29] VITALS: BP 138/63; PULSE 57; RESP 16; TEMP 95
--- NOTE | 2020-03-18 11:43 | P.PN ---
Subjective Progress Note Date: 03/18/20 This is a pleasant 84-year-old male past medical history significant for peripheral arterial disease status post recent angioplasty of the left popliteal and left SFA, hypertension, dyslipidemia, diabetes mellitus, coronary artery disease status post bypass grafting and history of CVA. He follows in the office with Dr. Lees. Initially in November he underwent lower extremity angiogram revealing a total occlusion of the left popliteal artery. He underwent atherectomy, balloon angioplasty and stenting of the left popliteal artery at that time. He then returned to the hospital in February with left foot numbness. He underwent repeat angiogram revealing an acute total occlusion of the left popliteal. TPA was administered at the site via direct catheter for 24 hours. He then underwent successful stenting of the distal left SFA with resolution of thrombus. He was discharged home in stable condition on anticoagulation. According to the son his father had been noncompliant and was not taking any of his medications at home. He presented to the office yesterday to see Dr. Lees again complaining of left foot pain. He appeared to have recurrent left limb ischemia. He has seen and examined this morning resting comfortably laying flat in bed in no acute distress. He continues to have pain and discomfort of the left lower extremity with dusky appearance to the left foot. Patient underwent thrombectomy of the left SFA successful balloon angioplasty of the left popliteal and left tibial, successful angioplasty left popliteal and left SFA. Blood pressure this morning 134/60 with a heart rate of 80, 98% on room air. Patient does have Doppler and mildly palpable pulsatile left lower extremity today. 03/17/2020 Patient seen and examined this morning, hemodynamically stable. Blood pressure 104/50 with a heart rate in the 60s, afebrile. 96% on room air. White blood cell count 6.6, hemoglobin 7.7, platelet count 341. Sodium 135, potassium 4.7, BUN 38, creatinine 1.3. 03/18/2020 Patient seen and examined this morning, blood pressure 138/62 with a heart rate in the 50s, afebrile. White blood cell count 6.8, hemoglobin 9, platelet count 361. Sodium 137, potassium 4.9, BUN 35, creatinine 1.2. Objective - Vital Signs Vital signs: Vital Signs Temp 95 F L 03/18/20 11:26 Pulse 57 L 06/29/20 11:26 Resp 16 03/18/20 11:26 BP 138/63 03/18/20 11:26 Pulse Ox 95 03/18/20 11:26 Intake & Output 03/17/20 03/18/20 03/18/20 18:59 06:59 18:59 Intake Total 840 480 120 Output Total 950 Balance 840 -470 120 Intake: Oral 840 480 120 Output: Urine 950 Other: Voiding Method Indwelling Catheter Indwelling Catheter # Voids 1 1 # Bowel Movements 1 ABP, PAP, CO, CI - Last Documented Arterial Blood Pressure 141/49 - Exam GENERAL: Well-appearing, well-nourished and in no acute distress. NECK: Supple without JVD or thyromegaly. LUNGS: Breath sounds clear to auscultation bilaterally. Respiration equal and unlabored. No wheezes, rales or rhonchi. HEART: Regular rate and rhythm with systolic ejection murmur at the base, he rubs or gallops. S1 and S2 heard. EXTREMITIES: Normal range of motion, no edema, left foot mildly palpable pulse, good Doppler pulse. Right groin is soft, mild ecchymosis no hematoma - Labs CBC & Chem 7: 03/18/20 06:45 03/18/20 06:45 Labs: Abnormal Lab Results - Last 24 Hours (Table) 03/17/20 03/17/20 03/17/20 Range/Units 11:46 17:03 20:12 RBC (4.30-5.90) m/uL Hgb (13.0-17.5) gm/dL Hct (39.0-53.0) % MCV (80.0-100.0) fL BUN (9-20) mg/dL Creatinine (0.66-1.25) mg/dL Glucose (74-99) mg/dL POC Glucose (mg/dL) 211 H 145 H 218 H (75-99) mg/dL 03/18/20 03/18/20 03/18/20 Range/Units 06:13 06:45 06:45 RBC 2.72 L (4.30-5.90) m/uL Hgb 9.0 L (13.0-17.5) gm/dL Hct 27.9 L (39.0-53.0) % MCV 102.6 H (80.0-100.0) fL BUN 35 H (9-20) mg/dL Creatinine 1.29 H (0.66-1.25) mg/dL Glucose 118 H (74-99) mg/dL POC Glucose (mg/dL) 128 H (75-99) mg/dL Assessment and Plan Plan: ASSESSMENT and plan #1 Acute ischemia of the left leg, status post tPA of the left popliteal artery as well as tPA infusion of the left lower extremity arterial thrombosis, status post thrombectomy of the left SFA, successful balloon angioplasty of the left popliteal and left SFA #2 Coronary artery disease status post bypass grafting #3 Diabetes mellitus #4 Hypertension #5 Dyslipidemia #6Chronic kidney disease #7Noncompliance with taking daily medications. Plan From cardiology's perspective, the patient may be able to be discharged home once cleared by primary. We will make him a follow-up appointment in the office post discharge. DNP note has been reviewed, I agree with a documented findings and plan of care. Patient was seen and examined.
[2020-03-18 11:50] LABS: Glucose,Whole Blood 208 mg/dL (75-99)
--- NOTE | 2020-03-18 14:02 | P.DS ---
Providers Date of admission: 03/13/20 12:48 Expected date of discharge: 03/18/20 Attending physician: Alonso Lozoya Consults: 03/12/20 17:31 Consult Physician Urgent Consulting Provider: Osmel Lees Consult Reason/Comments: left foot pain, hx popliteal stent Do you want consulting provider notified?: Already Contacted Primary care physician: Leatha Henao Hospital Course: Final diagnosis Severe left foot pain with ischemic limb as well as peripheral vascular disease, status post angioplasty and TPA infusion Hyponatremia Hypokalemia Change in mental status, metabolic encephalopathy, acute, multifactorial Increased creatinine with possible acute renal failure with acute tubular necrosis, present on admission Microcytic anemia of chronic disease History of coronary artery disease Gait dysfunction History of peripheral vascular disease, recent stent and angioplasty Diabetes mellitus type 2 History of CVA, TIA History of hearing defects History of noncompliance Hyperlipidemia Hypertension History of degenerative joint disease History of prostate disorder, prostate cancer History of coronary artery, CABG Full code Discharge disposition Patient is being discharged in a stable condition with guarded prognosis to [facility] for continued PT/OT therapy. Patient will follow-up with Dr. Henao upon discharge. Total time taken is greater than 35 minutes. History of present illness This is an 84-year-old male who was recently admitted with severe foot pain, peripheral vascular disease, had angioplasty and TPA infusion by Dr. Lees and was being closely monitored. Patient was seen and evaluated by PT/OT recommending rehab for strength and mobility. Patient continues to have gait dysfunction requiring continued PT/OT therapy at an ECF. Patient will be going to F today for continued strength and mobility. Currently no reports of chest pain, shortness of breath, or palpitations. Patient is afebrile. No reports of nausea or vomiting and patient is tolerating diet. Patient will be going to ECF for continued PT/OT therapy for strength and mobility today. Guarded prognosis. On exam vital signs are stable. Temp is 98.0F, pulse is 63, respirations are 16, blood pressure is 123/56, oxygen saturation is 96% on room air. Cardio S1, S2 are muffled. Respiratory shows diminished breath sounds at the bases with no wheezing or rhonchi noted. Abdomen is soft and nontender. Nervous system shows mild diffuse weakness. Please refer to medication reconciliation sheet for a list of medications. Patient Condition at Discharge: Stable Plan - Discharge Summary Discharge Rx Participant: No New Discharge Prescriptions: New Folic Acid 1 mg PO DAILY@1200 tab Multivitamins, Thera [Multivitamin (formulary)] 1 each PO DAILY@1200 tab HYDROcodone/APAP 5-325MG [Solsberry 5-325] 1 each PO Q6HR PRN #10 tab PRN Reason: Pain INSULIN ASPART (NovoLOG) [NovoLOG (formulary)] 0 unit SQ ACHS vial Pantoprazole [Protonix] 40 mg PO AC-BRKFST tablet. Acetaminophen Tab [Tylenol] 650 mg PO Q6HR PRN tab PRN Reason: Mild Pain Or Fever > 100.5 Thiamine [Vitamin B-1] 100 mg PO DAILY@1200 tab ALPRAZolam [Xanax] 0.25 mg PO TID PRN #6 tab PRN Reason: Anxiety Continue Atorvastatin [Lipitor] 80 mg PO DAILY Insulin Detemir (Levemir) [Levemir] 18 unit SQ DAILY Metoprolol Tartrate [Lopressor] 25 mg PO BID-W/MEALS Pioglitazone [Actos] 30 mg PO DAILY Apixaban [Eliquis] 2.5 mg PO BID #180 tablet Aspirin EC [Ecotrin Low Dose] 81 mg PO DAILY Irbesartan [Avapro] 150 mg PO DAILY Discharge Medication List Atorvastatin [Lipitor] 80 mg PO DAILY 12/04/19 [History] Insulin Detemir (Levemir) [Levemir] 18 unit SQ DAILY 12/04/19 [History] Metoprolol Tartrate [Lopressor] 25 mg PO BID-W/MEALS 12/04/19 [History] Pioglitazone [Actos] 30 mg PO DAILY 02/29/20 [History] Apixaban [Eliquis] 2.5 mg PO BID #180 tablet 03/03/20 [Rx] Aspirin EC [Ecotrin Low Dose] 81 mg PO DAILY 03/12/20 [History] Irbesartan [Avapro] 150 mg PO DAILY 03/12/20 [History] ALPRAZolam [Xanax] 0.25 mg PO TID PRN #6 tab 03/18/20 [Rx] Acetaminophen Tab [Tylenol] 650 mg PO Q6HR PRN tab 03/18/20 [Rx] Folic Acid 1 mg PO DAILY@1200 tab 03/18/20 [Rx] HYDROcodone/APAP 5-325MG [Solsberry 5-325] 1 each PO Q6HR PRN #10 tab 03/18/20 [Rx] INSULIN ASPART (NovoLOG) [NovoLOG (formulary)] 0 unit SQ ACHS vial 03/18/20 [Rx] Multivitamins, Thera [Multivitamin (formulary)] 1 each PO DAILY@1200 tab 03/18/20 [Rx] Pantoprazole [Protonix] 40 mg PO AC-BRKFST tablet. 03/18/20 [Rx] Thiamine [Vitamin B-1] 100 mg PO DAILY@1200 tab 03/18/20 [Rx] Follow up Appointment(s)/Referral(s): Leatha Henao MD [Primary Care Provider] - 1-2 days Ambulatory/Diagnostic Orders: Basic Metabolic Panel [LAB.AMB] Time Frame: 2 Days, Location: None Selected Activity/Diet/Wound Care/Special Instructions: Patient is going to ECF Activity as tolerated Continue monitoring blood sugars before meals and at bedtime and treat accordingly with sliding scale Continue heart healthy diet Repeat labs in 2-3 days to monitor kidney functions Follow-up with cardiology in the outpatient setting Discharge Disposition: TRANSFER TO SNF/ECF
== END 2020-03-18 15:51 | DRG 270 ==
LOC: EC 16:09 → 1SOBS 17:30 → OBSVTOIN 03-13 12:48 → 2SICU 03-13 16:04 → 3SCARD 03-15 13:21
PROVIDERS: ADMIT Hospitalist; ATTEND Hospitalist
PROC: B42G1ZZ Computerized Tomography (CT Scan) of Left Lower Extremity Arteries using Low Osmolar Contrast (ICD-10-PCS; 2020-03-13)
PROC: 04HL33Z Insertion of Infusion Device into Left Femoral Artery, Percutaneous Approach (ICD-10-PCS; 2020-03-13 08:25)
PROC: 3E05317 Introduction of Other Thrombolytic into Peripheral Artery, Percutaneous Approach (ICD-10-PCS; 2020-03-13 08:25)
PROC: 04CL3ZZ Extirpation of Matter from Left Femoral Artery, Percutaneous Approach (ICD-10-PCS; principal; 2020-03-14 10:30)
PROC: 04CN3ZZ Extirpation of Matter from Left Popliteal Artery, Percutaneous Approach (ICD-10-PCS; principal; 2020-03-14 10:30)
PROC: 0JPW3XZ Removal of Tunneled Vascular Access Device from Lower Extremity Subcutaneous Tissue and Fascia, Percutaneous Approach (ICD-10-PCS; principal; 2020-03-14 10:30)
PROC: 047L3Z1 Dilation of Left Femoral Artery using Drug-Coated Balloon, Percutaneous Approach (ICD-10-PCS; principal; 2020-03-14 10:30)
PROC: 047N3ZZ Dilation of Left Popliteal Artery, Percutaneous Approach (ICD-10-PCS; principal; 2020-03-14 10:30)
DX: I74.3 Embolism and thrombosis of arteries of the lower extremities (principal); G93.41 Metabolic encephalopathy; N17.0 Acute kidney failure with tubular necrosis; E87.1 Hypo-osmolality and hyponatremia; T82.856A Stenosis of peripheral vascular stent, initial encounter; E11.51 Type 2 diabetes mellitus with diabetic peripheral angiopathy without gangrene; D50.9 Iron deficiency anemia, unspecified; D53.9 Nutritional anemia, unspecified; D63.8 Anemia in other chronic diseases classified elsewhere; E78.5 Hyperlipidemia, unspecified; E87.5 Hyperkalemia; H91.90 Unspecified hearing loss, unspecified ear; E11.22 Type 2 diabetes mellitus with diabetic chronic kidney disease; I12.9 Hypertensive chronic kidney disease with stage 1 through stage 4 chronic kidney disease, or unspecified chronic kidney disease; I25.10 Atherosclerotic heart disease of native coronary artery without angina pectoris; I99.8 Other disorder of circulatory system; N18.9 Chronic kidney disease, unspecified; Z79.01 Long term (current) use of anticoagulants; Z79.4 Long term (current) use of insulin; Z79.82 Long term (current) use of aspirin; Z11.59 Encounter for screening for other viral diseases; Z79.899 Other long term (current) drug therapy; Z85.46 Personal history of malignant neoplasm of prostate; Z86.73 Personal history of transient ischemic attack (TIA), and cerebral infarction without residual deficits; Z87.891 Personal history of nicotine dependence; Z91.19 Patient's noncompliance with other medical treatment and regimen; T45.516A Underdosing of anticoagulants, initial encounter; Z95.1 Presence of aortocoronary bypass graft; M19.90 Unspecified osteoarthritis, unspecified site; Z95.820 Peripheral vascular angioplasty status with implants and grafts; R26.9 Unspecified abnormalities of gait and mobility; I70.202 Unspecified atherosclerosis of native arteries of extremities, left leg
CPT/HCPCS: 36415; 37184; 37211; 37214; 37224; 37252; 75710; 80048; 80053; 83605; 85025; 85347; 85610; 85730; 93005; 96365; 96366; 96376; 99285

== ENCOUNTER 2020-04-16 19:23 | Emergency (ER) | payer MEDICARE, BC ==
[2020-04-16 19:44] VITALS: BP 131/59; PULSE 56; RESP 20; TEMP 98.8
--- NOTE | 2020-04-16 20:47 | ED ---
General Adult HPI - General Chief complaint: Extremity Problem,Nontraumatic Stated complaint: R Knee Pain Time Seen by Provider: 04/16/20 19:45 Source: patient, RN notes reviewed, old records reviewed Mode of arrival: wheelchair Limitations: physical limitation - History of Present Illness Initial comments: Timmy is a 84-year-old male present his current state of left foot and ankle pain with shooting pain up the leg. He is having progressive pain. 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 PAtient reports that pain on the lateral L ankle and pain is worse with movement. Family was concerned for R leg occlusion and wanted him evaluated. - Related Data Home Medications Medication Instructions Recorded Confirmed Atorvastatin [Lipitor] 80 mg PO DAILY 12/04/19 03/12/20 Insulin Detemir (Levemir) [Levemir] 18 unit SQ DAILY 12/04/19 03/12/20 Metoprolol Tartrate [Lopressor] 25 mg PO BID-W/MEALS 12/04/19 03/12/20 Pioglitazone [Actos] 30 mg PO DAILY 02/29/20 03/12/20 Aspirin EC [Ecotrin Low Dose] 81 mg PO DAILY 03/12/20 03/12/20 Irbesartan [Avapro] 150 mg PO DAILY 03/12/20 03/12/20 Previous Rx's Medication Instructions Recorded Apixaban [Eliquis] 2.5 mg PO BID #180 tablet 03/03/20 ALPRAZolam [Xanax] 0.25 mg PO TID PRN #6 tab 03/18/20 Acetaminophen Tab [Tylenol] 650 mg PO Q6HR PRN tab 03/18/20 Folic Acid 1 mg PO DAILY@1200 tab 03/18/20 HYDROcodone/APAP 5-325MG [Underwood 1 each PO Q6HR PRN #10 tab 03/18/20 5-325] INSULIN ASPART (NovoLOG) [NovoLOG 0 unit SQ ACHS vial 03/18/20 (formulary)] Multivitamins, Thera [Multivitamin 1 each PO DAILY@1200 tab 03/18/20 (formulary)] Pantoprazole [Protonix] 40 mg PO AC-BRKFST tablet. 03/18/20 Thiamine [Vitamin B-1] 100 mg PO DAILY@1200 tab 03/18/20 Allergies Allergy/AdvReac Type Severity Reaction Status Date / Time No Known Allergies Allergy Verified 04/16/20 19:44 Review of Systems ROS Statement: Those systems with pertinent positive or pertinent negative responses have been documented in the HPI. ROS Other: All systems not noted in ROS Statement are negative. 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 Prostate CA, gets injections. Has Constipation. Lt foot numbness. left femoral stent 12.06.2019 History of Any Multi-Drug Resistant Organisms: None Reported Past Surgical History: Coronary Bypass/CABG Additional Past Surgical History / Comment(s): "Heart surgery" Past Anesthesia/Blood Transfusion Reactions: No Reported Reaction Past Psychological History: No Psychological Hx Reported Smoking Status: Never smoker Past Alcohol Use History: None Reported Past Drug Use History: None Reported - Past Family History Mother Family Medical History: No Reported History General Exam - General Exam Comments Initial Comments: 84 year old male, no distress. Limitations: physical limitation General appearance: alert, in no apparent distress Head exam: Present: atraumatic, normocephalic, normal inspection Eye exam: Present: normal appearance, PERRL, EOMI. Absent: scleral icterus, co njunctival injection, periorbital swelling ENT exam: Present: normal exam, mucous membranes moist Neck exam: Present: normal inspection. Absent: tenderness, meningismus, lymphadenopathy Respiratory exam: Present: normal lung sounds bilaterally. Absent: respiratory distress, wheezes, rales, rhonchi, stridor Cardiovascular Exam: Present: regular rate, normal rhythm, normal heart sounds. Absent: systolic murmur, diastolic murmur, rubs, gallop, clicks GI/Abdominal exam: Present: soft, normal bowel sounds. Absent: distended, tenderness, guarding, rebound, rigid Extremities exam: Present: normal inspection, full ROM, normal capillary refill. Absent: tenderness, pedal edema, joint swelling, calf tenderness Right Knee exam: Present: normal inspection, full ROM Lower Leg exam: Present: normal inspection, full ROM Ankle exam: Present: full ROM, tenderness (swelling over lateral malleolus). Absent: normal inspection Foot/Toe exam: Present: normal inspection, full ROM Neurovascular tendon exam: Present: no vascular compromise Gait: observed and normal Back exam: Present: normal inspection Neurological exam: Present: alert, oriented X3, CN II-XII intact Psychiatric exam: Present: normal affect, normal mood Skin exam: Present: warm, dry, intact, normal color. Absent: rash Course Vital Signs 04/16/20 19:39 Temperature 98.8 F Pulse Rate 56 L Respiratory 20 Rate Blood Pressure 131/59 O2 Sat by Pulse 99 Oximetry Medical Decision Making - Medical Decision Making 84 year old male with R ankle and foot pain. Patient presents today for pain with movement or stepping on the foot. He has normal pulses in R foot and Normal sensation distally. Patient xray shows soft tissue swelling. No fractures. Patient pain seems to be musculoskeletal, and will be in an CARLOS wrap adn ankle stirrup splint. Discussed return parameters . - Radiology Data Radiology results: report reviewed Mild lateral ankle soft tissue swelling. No acute osseous abnormality. Degenerative changes of the ankle and foot. Pes plants and plantar spur. Disposition Clinical Impression: Right ankle pain Disposition: HOME SELF-CARE Condition: Good Instructions (If sedation given, give patient instructions): Heel Spur (ED), Swollen Ankle Joint (ED) Additional Instructions: Patient is a follow-up with your PCP and primary care doctor. He can take prescribed pain medicines. Follow-up with your dairy specialist and also vascular surgeon as well. Is patient prescribed a controlled substance at d/c from ED?: No Referrals: Leatha Henao MD [Primary Care Provider] - 1-2 days Time of Disposition: 21:53
--- NOTE | 2020-04-16 21:04 | XR ---
EXAMINATION TYPE: XR ankle complete RT, XR foot limited RT DATE OF EXAM: 04/16/2020 CLINICAL HISTORY: Pain and swelling for 5 days TECHNIQUE: Frontal, lateral and oblique images of the right ankle obtained. Frontal and lateral imag es of the right foot obtained. COMPARISON: None. FINDINGS: There is no acute fracture/dislocation evident in the right foot for ankle. The ankle mor tise appears within normal limits. Mild soft tissue swelling about the lateral malleolus. There is pe s planus. Calcaneal enthesophyte. There are degenerative changes of the hindfoot and forefoot. First digit distal phalanx exostosis. IMPRESSION: 1. Mild lateral ankle soft tissue swelling. No acute osseous abnormality. 2. Degenerative changes of the ankle and foot. 3. Pes planus and plantar spur.
== END 2020-04-16 22:10 | disposition home or self-care (01) ==
LOC: EC 19:23
DX: M25.571 Pain in right ankle and joints of right foot (principal); Z79.82 Long term (current) use of aspirin; Z95.1 Presence of aortocoronary bypass graft; Z86.73 Personal history of transient ischemic attack (TIA), and cerebral infarction without residual deficits; Z85.46 Personal history of malignant neoplasm of prostate
CPT/HCPCS: 99284

== ENCOUNTER → 2020-05-30 | Outpatient (CLI) | payer MEDICARE, BC ==
[2020-05-31 01:26] LABS: Prostate Specific Antigen 1.8 ng/mL (0.0-6.5)
== END | disposition home or self-care (01) ==
LOC: LABWHC1 15:31
PROVIDERS: ATTEND Urology
DX: C61 Malignant neoplasm of prostate (principal)
CPT/HCPCS: 36415; 84153; 84403

== ENCOUNTER 2021-08-17 16:14 | Inpatient (IN) | payer MEDICARE, BC ==
--- NOTE | 2021-08-17 16:58 | ED ---
General Adult HPI - General Source: RN notes reviewed <Best Morales - Last Filed: 08/17/21 16:54> <Ezekiel Bates - Last Filed: 08/17/21 20:38> - General Stated complaint: weakness, back pain - History of Present Illness Initial comments: Patient seen for advanced triage purposes: Patient is here for weakness for 3 days or so. Has had trouble getting around at home because he hasn't been able to walk well. He did have a mechanical fall the other day and his son had it get him up off the floor. No injuries. Patient also having back aches and pains in his back feels cold. States pain in his back worsens with movement. No fevers. No cough congestion. He does have slight chest pain which started to day. Patient lives with his son. Patient has no other complaints at this time including shortness of breath, abdominal pain, nausea or vomiting, headache, or visual changes. (Best Morales) Patient is a 85-year-old male with past medical history remarkable for cancer, prior CVA/TIA, recurrent dehydration and presents emergency department after being brought by his son over concern for increased weakness for the last 2 days. Patient is also complaining of body aches, and overall weakness. There was a recent fall as described above. No acute injuries. Mild shortness of breath as well as mild chest discomfort was described in triage. However the patient denies any chest pain or shortness of breath. He does have a cardiac history of coronary bypass. He does endorse a mildly productive cough. Denies any nausea, vomiting. Denies any change in urinary habits. Denies any diarrhea. Denies any history of blood clots in himself or family members. Patient was not vaccinated for COVID-19. Patient is progressively getting more confused over the years, however patient's son is not concerning for any new altered mental status. His primary complaint was weakness, which patient has had before and on prior workups revealed that he had dehydration as the cause. Patient was initially evaluated by an ED MLP. I evaluated the patient when he was placed in a room. Patient's primary complaint at this time is chronic lower back pain without any acute injuries. Denies any saddle anesthesias, lower extremity weakness. Denies any urinary incontinence or retention.Patient's son is at bedside and assists in the history and patient's baseline. (Ezekiel Garcia) - Related Data Home Medications Medication Instructions Recorded Confirmed Atorvastatin [Lipitor] 80 mg PO DAILY 12/04/19 08/17/21 Insulin Detemir (Levemir) [Levemir] 18 unit SQ DAILY 12/04/19 08/17/21 Aspirin EC [Ecotrin Low Dose] 81 mg PO DAILY 03/12/20 08/17/21 Apixaban [Eliquis] 2.5 mg PO DAILY 08/17/21 08/17/21 Folic Acid 1 mg PO DAILY 08/17/21 08/17/21 HYDROcodone/APAP 5-325MG [[place]pler 1 tab PO DAILY PRN 08/17/21 08/17/21 5-325] Losartan Potassium 100 mg PO DAILY 08/17/21 08/17/21 Marquand-3 Fatty Acids/Fish Oil [Fish 1 tab PO DAILY 08/17/21 08/17/21 Oil 1,000 mg Softgel] Pantoprazole [Protonix] 40 mg PO DAILY 08/17/21 08/17/21 Pioglitazone [Actos] 15 mg PO DAILY 08/17/21 08/17/21 amLODIPine [Norvasc] 5 mg PO DAILY 08/17/21 08/17/21 Allergies Allergy/AdvReac Type Severity Reaction Status Date / Time No Known Allergies Allergy Verified 08/17/21 19:15 Review of Systems ROS Other: All systems not noted in ROS Statement are negative. <Best Morales - Last Filed: 08/17/21 16:54> ROS Other: All systems not noted in ROS Statement are negative. <Ezekiel Bates - Last Filed: 08/17/21 20:38> ROS Statement: Those systems with pertinent positive or pertinent negative responses have been documented in the HPI. Review of Systems: CONST: Denies fever EYES: Denies blurry vision ENT: Denies nasal congestion C/V: Denies Chest pain RESP: Endorses cough GI: Denies abdominal pain : Denies dysuria SKIN: Denies rash. 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 Prostate CA, gets injections. Has Constipation. Lt foot numbness. left femoral stent 12.06.2019 History of Any Multi-Drug Resistant Organisms: None Reported Past Surgical History: Coronary Bypass/CABG Additional Past Surgical History / Comment(s): "Heart surgery" Past Anesthesia/Blood Transfusion Reactions: No Reported Reaction Past Psychological History: No Psychological Hx Reported Smoking Status: Never smoker Past Alcohol Use History: None Reported Past Drug Use History: None Reported - Past Family History Mother Family Medical History: No Reported History <Best Morales - Last Filed: 08/17/21 16:54> General Exam <Ezekiel Bates - Last Filed: 08/17/21 20:38> - General Exam Comments Initial Comments: General: Appears in no acute distress. HEAD: Normal with no signs of head trauma. EYES: PERRLA, EOMI, conjunctiva normal, no discharge. Pupils are 3 mm and equal bilaterally. ENT: Hearing grossly intact, normal oropharynx. Patient is a history of being hard of hearing. RESPIRATORY: Clear breath sounds bilaterally. No wheezes, rales, or rhonchi. Mild nonproductive cough at bedside. C/V: Regular rate and rhythm. S1 and S2 auscultated, no edema, peripheral pulses 2+ and intact throughout ABD: Abd is soft, nontender, nondistended EXT: Normal range of motion, no obvious deformity SKIN: No rashes or lesions observed on exposed skin. NEURO: Alert and oriented x 4. Cranial nerves II-XII intact. No focal sensory or strength deficits. NIH is 0. GCS is 15. No focal deficits. Chronic tremor. (Ezekiel Bates) Course Vital Signs 08/17/21 08/17/21 16:53 17:55 Temperature 97.9 F Pulse Rate 78 72 Respiratory 18 20 Rate Blood Pressure 102/67 142/76 O2 Sat by Pulse 96 98 Oximetry Medical Decision Making - Lab Data Result diagrams: 08/17/21 18:12 08/17/21 18:12 - EKG Data -: EKG Interpreted by Me <Ezekiel Bates - Last Filed: 08/17/21 20:38> - Medical Decision Making Based on the patient's presentation and physical exam, I'm concerned for possib le electrolyte abnormalities, infectious etiology, cardiac etiology in this patient complaining of worsening weakness over the last 2 days. Therefore we will obtain a cardiac workup in addition to basic labs, chest x-ray, Covid swab, EKG. We will also obtain x-rays of the lower spine over concern for acute on chronic pain. Patient was in agreement this plan. He'll be admission 1 L fluid bolus as well as a lidocaine patch for his back. Patient's EKG revealed no signs of acute ischemia.Chest x-ray shows minimal pleural reaction lateral right lung base, normal heart, no pulmonary consolidati on or heart failure, no adverse change. Laboratory studies were remarkable for a d-dimer that was negative. Troponin is mildly elevated to 0.064 without any chest pain. Patient does have an AK eye on CK D with creatinine elevated to 1.94. Is mildly hyponatremic 20 and 34. Patient is Covid positive. CRP is minimally elevated to 2 and LDH is normal at 600. I discussed results with the patient as well as his son. Urinalysis is still pending at this time. I do believe it is best to admit the patient to telemetry bed for further cardiac monitoring. They were in agreement this plan. He'll be administered further IV fluid boluses. He is saturating well on room air and chest x-ray shows no signs of COVID-19 pneumonia. Cardiology was consulted to evaluate the patient and the morning, as the patient's troponin is likely secondary to his AK I and the absence of chest pain. We will hold heparin drip at this time. Patient is already Eliquis and this will be continued. On reevaluation, patient's back pain is improved. I spoke with the admitting team under Dr. Grewal who accepted the patient. Patient was admitted in serious condition. Pulmonology was consulted to evaluate the patient in the morning. (Ezekiel Bates) - Lab Data Lab Results 08/17/21 08/17/21 08/17/21 Range/Units 18:12 18:12 18:12 WBC 5.1 (3.8-10.6) k/uL RBC 4.14 L (4.30-5.90) m/uL Hgb 13.5 (13.0-17.5) gm/dL Hct 39.3 (39.0-53.0) % MCV 95.0 (80.0-100.0) fL MCH 32.5 (25.0-35.0) pg MCHC 34.2 (31.0-37.0) g/dL RDW 12.6 (11.5-15.5) % Plt Count 210 (150-450) k/uL MPV 8.2 Neutrophils % 68 % Lymphocytes % 21 % Monocytes % 8 % Eosinophils % 0 % Basophils % 0 % Neutrophils # 3.5 (1.3-7.7) k/uL Lymphocytes # 1.1 (1.0-4.8) k/uL Monocytes # 0.4 (0-1.0) k/uL Eosinophils # 0.0 (0-0.7) k/uL Basophils # 0.0 (0-0.2) k/uL PT 10.8 (9.0-12.0) sec INR 1.0 (<1.2) APTT 23.6 (22.0-30.0) sec Sodium 134 L (137-145) mmol/L Potassium 5.0 (3.5-5.1) mmol/L Chloride 100 (98-107) mmol/L Carbon Dioxide 21 L (22-30) mmol/L Anion Gap 13 mmol/L BUN 54 H (9-20) mg/dL Creatinine 1.94 H (0.66-1.25) mg/dL Est GFR (CKD-EPI)AfAm 36 (>60 ml/min/1.73 sqM) Est GFR (CKD-EPI)NonAf 31 (>60 ml/min/1.73 sqM) Glucose 199 H (74-99) mg/dL Calcium 9.3 (8.4-10.2) mg/dL Magnesium 1.9 (1.6-2.3) mg/dL Total Bilirubin 0.4 (0.2-1.3) mg/dL AST 65 H (17-59) U/L ALT 27 (4-49) U/L Alkaline Phosphatase 49 (38-126) U/L Troponin I (0.000-0.034) ng/mL Total Protein 7.8 (6.3-8.2) g/dL Albumin 4.3 (3.5-5.0) g/dL Coronavirus (PCR) (Not Detectd) 08/17/21 08/17/21 Range/Units 18:12 18:12 WBC (3.8-10.6) k/uL RBC (4.30-5.90) m/uL Hgb (13.0-17.5) gm/dL Hct (39.0-53.0) % MCV (80.0-100.0) fL MCH (25.0-35.0) pg MCHC (31.0-37.0) g/dL RDW (11.5-15.5) % Plt Count (150-450) k/uL MPV Neutrophils % % Lymphocytes % % Monocytes % % Eosinophils % % Basophils % % Neutrophils # (1.3-7.7) k/uL Lymphocytes # (1.0-4.8) k/uL Monocytes # (0-1.0) k/uL Eosinophils # (0-0.7) k/uL Basophils # (0-0.2) k/uL PT (9.0-12.0) sec INR (<1.2) APTT (22.0-30.0) sec Sodium (137-145) mmol/L Potassium (3.5-5.1) mmol/L Chloride (98-107) mmol/L Carbon Dioxide (22-30) mmol/L Anion Gap mmol/L BUN (9-20) mg/dL Creatinine (0.66-1.25) mg/dL Est GFR (CKD-EPI)AfAm (>60 ml/min/1.73 sqM) Est GFR (CKD-EPI)NonAf (>60 ml/min/1.73 sqM) Glucose (74-99) mg/dL Calcium (8.4-10.2) mg/dL Magnesium (1.6-2.3) mg/dL Total Bilirubin (0.2-1.3) mg/dL AST (17-59) U/L ALT (4-49) U/L Alkaline Phosphatase (38-126) U/L Troponin I 0.064 H* (0.000-0.034) ng/mL Total Protein (6.3-8.2) g/dL Albumin (3.5-5.0) g/dL Coronavirus (PCR) Detected A (Not Detectd) - EKG Data EKG Comments: 12-lead Electrocardiogram Interpretation Note EKG was reviewed and interpreted by myself. 12-lead ECG performed at 1703 is interpreted by me as revealing normal sinus rhythm at a rate of 83 beats per minute. Carr[place]le is normal. MT interval is 172 ms, QRS duration is 90 ms, QTc is 437 ms.. There were no ST or T wave abnormalities to suggest myocardial ischemia or injury. R wave progression across the precordium was satisfactory. By my interpretation this EKG is non-diagnostic for acute ischemia. (Ezekiel Bates) Disposition <Best Morales - Last Filed: 08/17/21 16:54> <Ezekiel Bates - Last Filed: 08/17/21 20:38> Clinical Impression: COVID-19 virus infection, VINCENZO (acute kidney injury), Dehydration, Elevated troponin Disposition: ADMITTED IP TO THIS HOSP Condition: Serious
[2021-08-17] MEDS ORDERED: SODIUM CHLORIDE 0.9% 1,000 ML IV STA (18:07)
[2021-08-17] MEDS ORDERED: LIDOCAINE 5% PATCH TOPICAL STA (18:11)
[2021-08-17 18:28] LABS: Basophils % (A) 0 %; Eosinophils % (A) 0 %; HCT 39.3 % (39.0-53.0); HGB 13.5 gm/dL (13.0-17.5); Lymphocytes # (A) 1.1 k/uL (1.0-4.8); Lymphocytes % (A) 21 %; MCH 32.5 pg (25.0-35.0); MCHC 34.2 g/dL (31.0-37.0); Mean Platelet Volume 8.2; Monocytes # (A) 0.4 k/uL (0-1.0); Monocytes % (A) 8 %; Neutrophils # (A) 3.5 k/uL (1.3-7.7); Neutrophils % (A) 68 %; Platelet Count 210 k/uL (150-450); RBC 4.14 m/uL (4.30-5.90); RDW 12.6 % (11.5-15.5); WBC 5.1 k/uL (3.8-10.6)
[2021-08-17 18:30] LABS: Albumin 4.3 g/dL (3.5-5.0); Calcium 9.3 mg/dL (8.4-10.2); Magnesium 1.9 mg/dL (1.6-2.3); Total Bilirubin 0.4 mg/dL (0.2-1.3); Total Protein 7.8 g/dL (6.3-8.2)
[2021-08-17 18:33] LABS: Partial Thromboplastin Time 23.6 sec (22.0-30.0); Prothrombin Time 10.8 sec (9.0-12.0)
--- NOTE | 2021-08-17 18:45 | XR ---
EXAMINATION TYPE: XR thoracic spine 2V DATE OF EXAM: 08/17/2021 COMPARISON: NONE HISTORY: Weakness TECHNIQUE: 3 views FINDINGS: Thoracic vertebra have normal alignment. There is no compression fracture. Posterior elemen ts are intact. There is no paraspinal mass. There are sternal wires. There is anterior mild spur form ation throughout the thoracic spine. IMPRESSION: No acute abnormality of the thoracic spine. No fracture.
--- NOTE | 2021-08-17 18:46 | XR ---
EXAMINATION TYPE: XR lumbar spine 2 or 3V DATE OF EXAM: 08/17/2021 COMPARISON: 11/11/2011 HISTORY: Back pain TECHNIQUE: 3 views FINDINGS: There is 5 mm anterior subluxation of L4 in relation L5. There is no significant disc space narrowing. There is no compression fracture. There is osteopenia. Abdominal aorta is atheromatous. S acroiliac joints are intact. IMPRESSION: There is mild degenerative first-degree L4-5 spondylolisthesis. No change compared to old exam. No fracture.
--- NOTE | 2021-08-17 18:48 | XR ---
EXAMINATION TYPE: XR chest 2V DATE OF EXAM: 08/17/2021 COMPARISON: NONE HISTORY: Weakness TECHNIQUE: 2 views FINDINGS: There is slight blunting right costophrenic angle. Heart size is normal. There are sternal wires. There are no hilar masses. Bony thorax is intact. IMPRESSION: Minimal pleural reaction lateral right lung base. Normal heart. No pulmonary consolidatio n or heart failure. No adverse change.
[2021-08-17] MEDS ORDERED: ALBUTEROL NEBULIZED 2.5 MG/3 ML INHALATION PRN (19:35)
[2021-08-17] MEDS ORDERED: HYDROcodone/APAP 5-325MG 1 EACH TAB PO PRN (19:37)
[2021-08-17] MEDS ORDERED: ASPIRIN 81 MG PO STA (19:41)
[2021-08-17] MEDS: SODIUM CHLORIDE 0.9% 1,000 ML IV SCH (19:57)
[2021-08-17 20:29] LABS: Partial Thromboplastin Time 24.6 sec (22.0-30.0); Prothrombin Time 10.6 sec (9.0-12.0)
[2021-08-17 20:30] LABS: C Reactive Protein 2.7 mg/dL (<1.0)
[2021-08-17 20:56] LABS: Appearance,Urine Clear (Clear); Bilirubin,Urine Negative (Negative); Blood,Urine Small (Negative); Color,Urine Yellow; Glucose,Urine (UA) Negative (Negative); Hyaline Casts,Urine 5 /lpf (0-2); Ketones,Urine Negative (Negative); Leukocyte Esterase,Urine Negative (Negative); Mucus,Urine Rare /hpf; Nitrite,Urine Negative (Negative); PH, Urine 5.5 (5.0-8.0); Protein,Urine 2+ (Negative); Squamous Epithelial Cell,Urine <1 /hpf (0-4); Urobilinogen,Urine <2.0 mg/dL (<2.0); WBC,Urine 1 /hpf (0-5)
[2021-08-17 23:39] LABS: Glucose,Whole Blood 175 mg/dL (75-99)
[2021-08-18] MEDS: ACETAMINOPHEN TAB 325 MG TAB PO PRN (04:49)
[2021-08-18 06:47] LABS: Basophils % (A) 0 %; Eosinophils % (A) 0 %; HCT 30.8 % (39.0-53.0); HGB 10.6 gm/dL (13.0-17.5); Lymphocytes # (A) 0.7 k/uL (1.0-4.8); Lymphocytes % (A) 21 %; MCH 33.1 pg (25.0-35.0); MCHC 34.6 g/dL (31.0-37.0); MCV 95.7 fL (80.0-100.0); Monocytes # (A) 0.2 k/uL (0-1.0); Monocytes % (A) 5 %; Neutrophils # (A) 2.3 k/uL (1.3-7.7); Neutrophils % (A) 72 %; Platelet Count 170 k/uL (150-450); RBC 3.22 m/uL (4.30-5.90); RDW 12.7 % (11.5-15.5); WBC 3.2 k/uL (3.8-10.6)
[2021-08-18 07:17] LABS: Calcium 7.8 mg/dL (8.4-10.2); Magnesium 1.6 mg/dL (1.6-2.3); Potassium 3.9 mmol/L (3.5-5.1)
[2021-08-18] MEDS ORDERED: ENOXAPARIN 30 MG/0.3 ML SYRINGE SQ SCH (09:00)
[2021-08-18] MEDS: LOSARTAN 50 MG TAB PO SCH (09:29)
[2021-08-18] MEDS: APIXABAN 2.5 MG TABLET PO SCH (09:30)
[2021-08-18] MEDS: ASPIRIN 81 MG PO SCH (09:30)
[2021-08-18] MEDS: FOLIC ACID 1 MG TAB PO SCH (09:30)
[2021-08-18] MEDS: ATORVASTATIN 80 MG TAB PO SCH (09:30)
[2021-08-18] MEDS: PANTOPRAZOLE 40 MG TABLET PO SCH (09:30)
[2021-08-18] MEDS: amLODIPine 5 MG TAB PO SCH (09:30)
[2021-08-18] MEDS: INSULIN ASPART (NovoLOG) 100 UNIT/ML VIAL SQ SCH ×4 (09:30→22:45)
[2021-08-18] MEDS: SODIUM CHLORIDE 0.9% 1,000 ML IV SCH ×2 (09:31→15:38)
[2021-08-18] MEDS: PIOGLITAZONE 15 MG TAB PO SCH (09:35)
--- NOTE | 2021-08-18 10:53 | CONS ---
CONSULTATION CHIEF COMPLAINT: Elevated troponin. HISTORY OF PRESENT ILLNESS: Timmy is an 85-year-old gentleman with history of hypertension, [id number]-[id number] diabetes, peripheral arterial disease, dyslipidemia, coronary artery disease, status post CABG, who was admitted to the hospital with the symptoms of feeling tired, fatigued, not feeling well and having had a fall at home. His predominant symptom during this hospitalization is just not feeling well and musculoskeletal pain. He underwent extensive evaluation in the emergency room. An EKG did not reveal any ischemic changes. He is in sinus rhythm. Troponin is mildly elevated. He has renal insufficiency with a creatinine of 1.9 on his initial admission and his Covid tests have come back positive. Chest x-ray reveals mild pulmonary effusions. He is saturating well on room air and Cardiology has been consulted because of elevated troponin. The patient is [id number], hemodynamically stable and in no apparent distress. The patient has known coronary artery disease for which he underwent bypass surgery. He has known peripheral arterial disease for which he underwent stenting of the left superficial femoral artery that was subsequently occluded and he received thrombolytics, has hypertension, diabetes and dyslipidemia. MEDICATIONS: Medications at home include Norvasc 5 daily, Actos, Protonix, losartan, insulin, Lipitor, aspirin and Eliquis. ALLERGIES: There are no known drug allergies. FAMILY HISTORY: Negative for premature coronary artery disease. SOCIAL HISTORY: Negative for smoking, EtOH abuse or drug abuse. REVIEW OF SYSTEMS: Significant for confusion, musculoskeletal pains, not feeling well and falls. Negative for shortness of breath, chest pain, focal neurological deficits and rest of the system review is not relevant. PHYSICAL EXAM: Patient is comfortable, comfortable at rest. T-max is 100.3, heart rate is 71 beats per minute, blood pressure is 123/81, respirations 18, O2 saturation is 96% on room air. A detailed physical exam has not been performed on this patient who has Covid infection. He has already been evaluated by the emergency room physician. LABORATORY DATA: His lab show a hemoglobin of 10.6, platelet count is 170, potassium is 3.9. BUN is 41, creatinine is 1.6. Troponins are 0.07 and 0.07. EKG does not reveal acute ischemic changes. ASSESSMENT: 1. Elevated troponin secondary to acute renal insufficiency. 2. Coronavirus infection. 3. Coronary artery disease, status post coronary artery bypass grafting. 4. Peripheral arterial disease status post prior revascularization. 5. Hypertension. 6. Diabetes. PLAN: I will obtain a 2D echo to document his LV function. He does not require any further evaluation for the elevated troponin at this time. However, upon discharge, the patient will follow up with his security flex utility officer and if necessary we will undergo noninvasive testing for the elevated troponin. We will follow the patient throughout his hospitalization with great interest. Thank you for giving us the privilege of participating in the care of this pleasant gentleman. RAJWINDER / TYRA: [id number] /
[2021-08-18 12:10] LABS: Glucose,Whole Blood 249 mg/dL (75-99)
[2021-08-18] MEDS: ASCORBIC ACID 500 MG TAB PO SCH (12:17)
[2021-08-18] MEDS: CHOLECALCIFEROL 25 MCG (1000 IU) TABLET PO SCH (12:18)
[2021-08-18] MEDS: INSULIN DETEMIR (LEVEMIR) 100 UNIT/ML SYR SQ SCH (12:18)
[2021-08-18] MEDS: ZINC SULFATE 220 MG CAP PO SCH (12:20)
--- NOTE | 2021-08-18 13:14 | P.HPIM ---
History of Present Illness This is a pleasant 85 years old male with past medical history of CVA/TIA, prostate cancer, peripheral vascular disease status post left femoral stent, coronary artery disease status post CABG. He is patient of Dr. 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 Patient presents because of difficulty walking and weakness for about a week as he states. Patient denies falling to me however on reviewing the note from emergency room physician note looks like the patient fell a few days ago and his son helped him sitting up. He states the last time he was able to walk about a week ago. Also while talking to mehe has some urinary incontinence. It looks like his left leg is weaker than the right one, however his weakness could be due to limitation from his left hip pain. He denies chest pain, he denies dyspnea. No coughing. No abdominal pain. No diarrhea. He denies any urinary complaints. No headache, no blurred vision, no swallowing difficulty or choking. The patient has has good appetite He looks generally weak. He denies smoking, alcohol or illicit drugs On admission patient has low-grade fever and blood pressure is 99/96 Labs shows leukopenia of 3.2, anemia hemoglobin 10.6 and normal platelet count 170. D-dimer -0.27, INR is 1.0. Creatinine 1.9 came down to 1.6. Sodium 133, troponin is elevated 0.06, 0.07 and 0.07. Liver enzymes not significantly elevated EKG showing normal sinus rhythm at 83, with no significant ST-T changes Chest x-ray showing minimal pleural reaction on the lateral right lung base.no pulmonary consolidation. Lumbar spine x-ray: No fracture, mild degenerative disc disease Thoracic spine x-ray: No acute fracture Urine analysis is not suspicious for infection Coronavirus detected Patient received intravenous fluids, and continued on home dose of Eliquis and aspirin 81 mg Review of Systems CONSTITUTIONAL: No fever, no malaise, no fatigue. HEENT: No recent visual problems or hearing problems. Denied any sore throat. CARDIOVASCULAR: No orthopnea, PND, no palpitations, no syncope. PULMONARY: No shortness of breath, no cough, no hemoptysis. GASTROINTESTINAL: No diarrhea, no nausea, no vomiting, no abdominal pain. Normoactive bowel sounds. NEUROLOGICAL: No headaches, no numbness. HEMATOLOGICAL: Denies any bleeding or petechiae. GENITOURINARY: Denies any burning micturition, frequency, or urgency. MUSCULOSKELETAL/RHEUMATOLOGICAL: Denies any joint pain, swelling, or any muscle pain. ENDOCRINE: Denies any polyuria or polydipsia. 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 Prostate CA, gets injections. Has Constipation. Lt foot numbness. left femoral stent 12.06.2019 History of Any Multi-Drug Resistant Organisms: None Reported Past Surgical History: Coronary Bypass/CABG Additional Past Surgical History / Comment(s): "Heart surgery" Past Anesthesia/Blood Transfusion Reactions: No Reported Reaction Past Psychological History: No Psychological Hx Reported Smoking Status: Never smoker Past Alcohol Use History: None Reported Additional Past Alcohol Use History / Comment(s): Smoked 6 months years ago. Past Drug Use History: None Reported - Past Family History Mother Family Medical History: No Reported History Medications and Allergies Home Medications Medication Instructions Recorded Confirmed Type Atorvastatin [Lipitor] 80 mg PO DAILY 12/04/19 08/17/21 History Insulin Detemir (Levemir) [Levemir] 18 unit SQ DAILY 12/04/19 08/17/21 History Aspirin EC [Ecotrin Low Dose] 81 mg PO DAILY 03/12/20 08/17/21 History Apixaban [Eliquis] 2.5 mg PO DAILY 08/17/21 08/17/21 History Folic Acid 1 mg PO DAILY 08/17/21 08/17/21 History HYDROcodone/APAP 5-325MG [[place] 1 tab PO DAILY PRN 08/17/21 08/17/21 History 5-325] Losartan Potassium 100 mg PO DAILY 08/17/21 08/17/21 History [place]-3 Fatty Acids/Fish Oil [Fish 1 tab PO DAILY 08/17/21 08/17/21 History Oil 1,000 mg Softgel] Pantoprazole [Protonix] 40 mg PO DAILY 08/17/21 08/17/21 History Pioglitazone [Actos] 15 mg PO DAILY 08/17/21 08/17/21 History amLODIPine [Norvasc] 5 mg PO DAILY 08/17/21 08/17/21 History Allergies Allergy/AdvReac Type Severity Reaction Status Date / Time No Known Allergies Allergy Verified 08/17/21 19:15 Physical Exam Vitals: Vital Signs Temp Pulse Pulse Resp BP BP Pulse Ox 08/18/21 09:41 64 08/18/21 03:46 100.3 F H 71 18 99/96 96 08/18/21 00:00 98.6 F 64 18 123/81 98 08/17/21 17:55 72 20 142/76 98 08/17/21 16:53 97.9 F 78 18 102/67 96 Intake and Output 08/17/21 08/18/21 08/18/21 22:59 06:59 14:59 Intake Total 240 10 Balance 240 10 Intake: IV 10 Invasive Line 1 10 Oral 240 Other: Voiding Method Toilet Bedside Commode Urinal # Voids 1 Weight 81.647 kg 81.647 kg -GENERAL: The patient is alert and oriented x3, not in any acute distress. Generally weak HEENT: Pupils are round and equally reacting to light. EOMI. No scleral icterus. No conjunctival pallor. Normocephalic, atraumatic. No pharyngeal erythema. No thyromegaly. CARDIOVASCULAR: S1 and S2 present. No murmurs, rubs, or gallops. PULMONARY: Chest is clear to auscultation, no wheezing or crackles. ABDOMEN: Soft, nontender, nondistended, normoactive bowel sounds. No palpable organomegaly. MUSCULOSKELETAL: No joint swelling or deformity. EXTREMITIES: No cyanosis, clubbing, or pedal edema. Cranial nerves are grossly intact -Neuro: Gross neurological examination did not reveal any focal deficits. Left leg weaker than right leg but this couldn't be limited by left hip pain. Sensation is intact. SKIN: No rashes. No petechiae Results CBC & Chem 7: 08/18/21 06:01 08/18/21 06:01 Labs: Abnormal Lab Results - Last 24 Hours (Table) 08/17/21 08/17/21 08/17/21 Range/Units 18:12 18:12 18:12 WBC (3.8-10.6) k/uL RBC 4.14 L (4.30-5.90) m/uL Hgb (13.0-17.5) gm/dL Hct (39.0-53.0) % Lymphocytes # (1.0-4.8) k/uL Sodium 134 L (137-145) mmol/L Carbon Dioxide 21 L (22-30) mmol/L BUN 54 H (9-20) mg/dL Creatinine 1.94 H (0.66-1.25) mg/dL Glucose 199 H (74-99) mg/dL POC Glucose (mg/dL) (75-99) mg/dL Calcium (8.4-10.2) mg/dL AST 65 H (17-59) U/L Troponin I 0.064 H* (0.000-0.034) ng/mL C-Reactive Protein (<1.0) mg/dL Urine Protein (Negative) Urine Blood (Negative) Hyaline Casts (0-2) /lpf Urine Mucus (None) /hpf Coronavirus (PCR) (Not Detectd) 08/17/21 08/17/21 08/17/21 Range/Units 18:12 19:38 20:42 WBC (3.8-10.6) k/uL RBC (4.30-5.90) m/uL Hgb (13.0-17.5) gm/dL Hct (39.0-53.0) % Lymphocytes # (1.0-4.8) k/uL Sodium (137-145) mmol/L Carbon Dioxide (22-30) mmol/L BUN (9-20) mg/dL Creatinine (0.66-1.25) mg/dL Glucose (74-99) mg/dL POC Glucose (mg/dL) (75-99) mg/dL Calcium (8.4-10.2) mg/dL AST (17-59) U/L Troponin I (0.000-0.034) ng/mL C-Reactive Protein 2.7 H (<1.0) mg/dL Urine Protein 2+ H (Negative) Urine Blood Small H (Negative) Hyaline Casts 5 H (0-2) /lpf Urine Mucus Rare H (None) /hpf Coronavirus (PCR) Detected A (Not Detectd) 08/17/21 08/17/21 08/18/21 Range/Units 21:41 23:38 00:23 WBC (3.8-10.6) k/uL RBC (4.30-5.90) m/uL Hgb (13.0-17.5) gm/dL Hct (39.0-53.0) % Lymphocytes # (1.0-4.8) k/uL Sodium (137-145) mmol/L Carbon Dioxide (22-30) mmol/L BUN (9-20) mg/dL Creatinine (0.66-1.25) mg/dL Glucose (74-99) mg/dL POC Glucose (mg/dL) 175 H (75-99) mg/dL Calcium (8.4-10.2) mg/dL AST (17-59) U/L Troponin I 0.075 H* 0.078 H* (0.000-0.034) ng/mL C-Reactive Protein (<1.0) mg/dL Urine Protein (Negative) Urine Blood (Negative) Hyaline Casts (0-2) /lpf Urine Mucus (None) /hpf Coronavirus (PCR) (Not Detectd) 08/18/21 08/18/21 Range/Units 06:01 06:01 WBC 3.2 L (3.8-10.6) k/uL RBC 3.22 L (4.30-5.90) m/uL Hgb 10.6 L (13.0-17.5) gm/dL Hct 30.8 L (39.0-53.0) % Lymphocytes # 0.7 L (1.0-4.8) k/uL Sodium 133 L (137-145) mmol/L Carbon Dioxide 21 L (22-30) mmol/L BUN 41 H (9-20) mg/dL Creatinine 1.60 H (0.66-1.25) mg/dL Glucose 160 H (74-99) mg/dL POC Glucose (mg/dL) (75-99) mg/dL Calcium 7.8 L (8.4-10.2) mg/dL AST (17-59) U/L Troponin I (0.000-0.034) ng/mL C-Reactive Protein (<1.0) mg/dL Urine Protein (Negative) Urine Blood (Negative) Hyaline Casts (0-2) /lpf Urine Mucus (None) /hpf Coronavirus (PCR) (Not Detectd) Thrombosis Risk Factor Assmnt - Choose All That Apply Each Risk Factor Represents 3 Points: Age 75 years or older Thrombosis Risk Factor Assessment Total Risk Factor Score: 3 Thrombosis Risk Factor Assessment Level: Moderate Risk Assessment and Plan Assessment: COVID-19 infection, with mild fever and no evidence of pneumonia on the chest x-ray Bilateral leg weakness and bilateral hip pain. acute kidney injury, improving Elevated troponin, rule out cardiac causes History of CVA History of prostate cancer History of peripheral vascular disease status post left femoral stent History of coronary artery disease status post CABG Plan: This is a pleasant 85 years old male presents with covid, no pneumonia. Elevated troponin Start multiple vitamins, vitamin C, vitamin D and zinc Pulmonary team consult check echocardiogram and cardiology consult We will check hip and pelvis x-ray, if negative will consider neurology consult Labs and medication were reviewed.. Continue same treatment. Continue with symptomatic treatment. Resume home medication. Monitor lytes and vitals. DVT and GI prophylaxis. Further recommendations depends on the clinical course of the patient DVT prophylaxis:Eliquis GI Prophylaxis: Ppi PT/OT: Pending Prognosis is guarded
--- NOTE | 2021-08-18 14:06 | XR ---
EXAMINATION TYPE: XR Hip Bilateral and AP pelvis DATE OF EXAM: 08/18/2021 CLINICAL HISTORY: pain TECHNIQUE: Single view the pelvis is submitted. 2 views of the bilateral hips are also submitted. FINDINGS: No evidence for fracture, dislocation or bony lesion. Joint spaces are mildly narrowed. SI joints appear symmetric. IMPRESSION: 1. No acute fracture or dislocation seen. ICD 10 NO FRACTURE, INITIAL EVALUATION
--- NOTE | 2021-08-18 15:33 | P.CNPUL ---
History of Present Illness Consult date: 08/18/21 History of present illness: 85-year-old male patient, came into the emergency department because of the difficulties and walk 10 and weakness for almost a week. Patient had no falls. He also noted some left leg being weaker compared to the right. He mentioned that he had hip pain and this preferential weakness could be related to his chronic hip arthritis. He is known to have CVA and this occurred approximately 10 years ago and the patient always reported some weakness of left lower extremity,, prostate cancer, peripheral vascular disease and the patient under gone previous vascular intervention and insertion of a left femoral stent, coronary artery disease and the patient has undergone previous bypass surgery. I was consulted on this patient knowing that the patient had a positive COVID 19 infection by PCR. His white cell count was at 3.2. His hemoglobin is at 10.6 with a platelet count of 170. D-dimer was at 0.2. Creatinine was at 1.9 at time of admission and came down to 1.6. Troponins were 0.06 and 0.0757 respectively and LFTs were nonelevated. Chest x-ray showed no acute abnormalities. X-ray of the lumbar spine showed no fracture. X-ray of the thoracic spine showed no fracture. UA was negative. Patient is currently on room air oxygen. Pulse ox is 97% on room air oxygen.. The patient is awake and alert and his communicating. In general, he is a poor historian. He is on room air oxygen. Does not show any signs of any breathing difficulties and his breathing is nonlabored at this point in time. No swelling in lower extremi ties. No observed cough. No pleurisy. No hemoptysis. Review of Systems Constitutional: Reports weakness Eyes: denies as per HPI, denies blurred vision, denies bulging eye, denies decreased vision, denies diplopia, denies discharge, denies dry eye, denies irritation, denies itching, denies pain, denies photophobia, denies loss of p eripheral vision, denies loss of vision, denies tunnel vision/blind spots Ears: deny: decreased hearing, ear discharge, earache, tinnitus Ears, nose, mouth and throat: Reports as per HPI Breasts: absent: as per HPI, gynecomastia Cardiovascular: Reports as per HPI Respiratory: Reports as per HPI Gastrointestinal: Reports as per HPI Genitourinary: Reports incontinence Musculoskeletal: absent: ankle pain, ankle stiffness, ankle swelling, as per HPI, elbow pain, elbow stiffness, elbow swelling, foot pain, foot stiffness, foot swelling, hand pain, hand stiffness, hand swelling, hip pain, hip stiffn ess, hip swelling, knee pain, knee stiffness, knee swelling, shoulder pain, shoulder stiffness, shoulder swelling, wrist pain, wrist stiffness, wrist swelling Integumentary: Reports as per HPI Neurological: Reports as per HPI, Reports weakness Psychiatric: Reports as per HPI Endocrine: Reports as per HPI, Reports fatigue Hematologic/Lymphatic: Reports as per HPI Allergic/Immunologic: Reports as per HPI Past Medical History Past Medical History: Cancer, CVA/TIA Additional Past Medical History / Comment(s): Old hx CVA, recovered. Prostate CA, gets injections. Has Constipation. Lt foot numbness. left femoral stent 12.06.2019 History of Any Multi-Drug Resistant Organisms: None Reported Past Surgical History: Coronary Bypass/CABG Additional Past Surgical History / Comment(s): "Heart surgery" Past Anesthesia/Blood Transfusion Reactions: No Reported Reaction Past Psychological History: No Psychological Hx Reported Smoking Status: Never smoker Past Alcohol Use History: None Reported Additional Past Alcohol Use History / Comment(s): Smoked 6 months years ago. Past Drug Use History: None Reported - Past Family History Mother Family Medical History: No Reported History Medications and Allergies Home Medications Medication Instructions Recorded Confirmed Type Atorvastatin [Lipitor] 80 mg PO DAILY 12/04/19 08/17/21 History Insulin Detemir (Levemir) [Levemir] 18 unit SQ DAILY 12/04/19 08/17/21 History Aspirin EC [Ecotrin Low Dose] 81 mg PO DAILY 03/12/20 08/17/21 History Apixaban [Eliquis] 2.5 mg PO DAILY 08/17/21 08/17/21 History Folic Acid 1 mg PO DAILY 08/17/21 08/17/21 History HYDROcodone/APAP 5-325MG [[place] 1 tab PO DAILY PRN 08/17/21 08/17/21 History 5-325] Losartan Potassium 100 mg PO DAILY 08/17/21 08/17/21 History [place]-3 Fatty Acids/Fish Oil [Fish 1 tab PO DAILY 08/17/21 08/17/21 History Oil 1,000 mg Softgel] Pantoprazole [Protonix] 40 mg PO DAILY 08/17/21 08/17/21 History Pioglitazone [Actos] 15 mg PO DAILY 08/17/21 08/17/21 History amLODIPine [Norvasc] 5 mg PO DAILY 08/17/21 08/17/21 History Allergies Allergy/AdvReac Type Severity Reaction Status Date / Time No Known Allergies Allergy Verified 08/17/21 19:15 Physical Exam Vitals: Vital Signs Temp Pulse Pulse Resp BP BP Pulse Ox 08/18/21 12:52 98.3 F 75 18 124/80 97 08/18/21 09:41 64 08/18/21 03:46 100.3 F H 71 18 99/96 96 08/18/21 00:00 98.6 F 64 18 123/81 98 08/17/21 17:55 72 20 142/76 98 08/17/21 16:53 97.9 F 78 18 102/67 96 Intake and Output 08/18/21 08/18/21 08/18/21 06:59 14:59 22:59 Intake Total 1510 Balance 1510 Intake: IV 10 Invasive Line 1 10 Intake, IV Titration 1200 Amount Sodium Chloride 0.9% 1, 1200 000 ml @ 100 mls/hr IV . Q10H [facility] Rx#:[id number] Oral 300 Other: Voiding Method Toilet Bedside Commode Urinal Weight 81.647 kg -GENERAL: The patient is alert and oriented x3, not in any acute distress. Generally weak, his breathing is nonlabored at this point in time Head exam was generally normal. There was no scleral icterus or corneal arcus. Mucous membranes were moist. HEENT: Pupils are round and equally reacting to light. EOMI. No scleral icterus. No conjunctival pallor. Normocephalic, atraumatic. No pharyngeal erythema. No t hyromegaly. CARDIOVASCULAR: S1 and S2 present. No murmurs, rubs, or gallops. PULMONARY: Chest is clear to auscultation, no wheezing or crackles. ABDOMEN: Soft, nontender, nondistended, normoactive bowel sounds. No palpable organomegaly. MUSCULOSKELETAL: No joint swelling or deformity. The patient diminished pulses in lower extremity is bilaterally EXTREMITIES: No cyanosis, clubbing, or pedal edema. Cranial nerves are grossly intact -Neuro: Gross neurological examination did not reveal any focal deficits. Left leg weaker than right leg but this couldn't be limited by left hip pain. Sen sation is intact. The patient also states that his left lower extremity isn't always weak compared to right following his previous CVA that occurred more than 10 years ago. SKIN: No rashes. No petechiae Results - Laboratory Findings CBC and BMP: 08/18/21 06:01 08/18/21 06:01 PT/INR, D-dimer PT 10.6 sec (9.0-12.0) 08/17/21 20:05 INR 1.0 (<1.2) 08/17/21 20:05 D-Dimer 0.27 mg/L FEU (<0.60) 08/17/21 20:05 Abnormal lab findings: Abnormal Labs 08/17/21 08/17/21 08/17/21 18:12 18:12 18:12 WBC RBC 4.14 L Hgb Hct Lymphocytes # Sodium 134 L Carbon Dioxide 21 L BUN 54 H Creatinine 1.94 H Glucose 199 H POC Glucose (mg/dL) Hemoglobin A1c Calcium Ferritin AST 65 H Troponin I 0.064 H* C-Reactive Protein Procalcitonin Urine Protein Urine Blood Hyaline Casts Urine Mucus Coronavirus (PCR) 08/17/21 08/17/21 08/17/21 18:12 19:38 19:38 WBC RBC Hgb Hct Lymphocytes # Sodium Carbon Dioxide BUN Creatinine Glucose POC Glucose (mg/dL) Hemoglobin A1c Calcium Ferritin 646.0 H AST Troponin I C-Reactive Protein 2.7 H Procalcitonin 0.18 H Urine Protein Urine Blood Hyaline Casts Urine Mucus Coronavirus (PCR) Detected A 08/17/21 08/17/21 08/17/21 20:42 21:41 23:38 WBC RBC Hgb Hct Lymphocytes # Sodium Carbon Dioxide BUN Creatinine Glucose POC Glucose (mg/dL) 175 H Hemoglobin A1c Calcium Ferritin AST Troponin I 0.075 H* C-Reactive Protein Procalcitonin Urine Protein 2+ H Urine Blood Small H Hyaline Casts 5 H Urine Mucus Rare H Coronavirus (PCR) 08/18/21 08/18/21 08/18/21 00:23 06:01 06:01 WBC 3.2 L RBC 3.22 L Hgb 10.6 L Hct 30.8 L Lymphocytes # 0.7 L Sodium 133 L Carbon Dioxide 21 L BUN 41 H Creatinine 1.60 H Glucose 160 H POC Glucose (mg/dL) Hemoglobin A1c Calcium 7.8 L Ferritin AST Troponin I 0.078 H* C-Reactive Protein Procalcitonin Urine Protein Urine Blood Hyaline Casts Urine Mucus Coronavirus (PCR) 08/18/21 08/18/21 06:01 12:07 WBC RBC Hgb Hct Lymphocytes # Sodium Carbon Dioxide BUN Creatinine Glucose POC Glucose (mg/dL) 249 H Hemoglobin A1c 7.9 H Calcium Ferritin AST Troponin I C-Reactive Protein Procalcitonin Urine Protein Urine Blood Hyaline Casts Urine Mucus Coronavirus (PCR) - Diagnostic Findings Chest x-ray: image reviewed Assessment and Plan Plan: 1 acute COVID 19 infection with generalized weakness and constitutions symptoms. No signs of any pneumonia. The patient is actually eating normally and the chest x-rays essentially within normal limits. Inflammatory markers are checked and the patient has a LDH level of 600, and a CRP level of 2.7. This is a on the vaccinated individual. 2 generalized weakness, falls without any new onset focal neurological deficit. The patient's chronic weakness and left lower extremity related to previous CVA and degenerative arthritis. 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 No need for oxygen therapy. No need for Decadron. No need for repeat Remdesivir. No indication for pneumonia. Generalized weakness and constitutions symptoms related to COVID 19 infection that needs to be treated supportively. The patient is receiving IV fluids and his a acute kidney injury is improved. He does have some mild troponin leak, checked this with cardiology. Inflammatory markers and generalized low. We'll see him on an as-needed basis.
--- NOTE | 2021-08-18 16:47 | ECHOF ---
Referral Reason:elevated troponin MEASUREMENTS -------- HEIGHT: 175.3 cm WEIGHT: 81.6 kg BP: 128/52 RVIDd: 3.0 cm (< 3.3) IVSd: 1.2 cm (0.6 - 1.1) LVIDd: 4.9 cm (3.9 - 5.3) LVPWd: 1.2 cm (0.6 - 1.1) IVSs: 1.9 cm LVIDs: 3.0 cm LVPWs: 1.5 cm LA Diam: 3.7 cm (2.7 - 3.8) LAESV Index (A-L): 31.67 ml/m Ao Diam: 4.2 cm (2.0 - 3.7) AV Cusp: 2.3 cm (1.5 - 2.6) MV EXCURSION: 7.809 mm (> 18.000) MV EF SLOPE: 42 mm/s (70 - 150) EPSS: 1.2 cm MV E Colin: 1.11 m/s MV DecT: 284 ms MV A Colin: 0.97 m/s MV E/A Ratio: 1.14 RAP: 5.00 mmHg RVSP: 38.29 mmHg FINDINGS -------- Sinus rhythm. This was a technically adequate study. The left ventricular size is normal. There is borderline concentric left ventricular hypertrophy. Overall left ventricular systolic function is normal with, an EF between 60 - 65 %. The right ventricle is normal in size. LA is midly dilated 29-33ml/m2. The right atrium is normal in size. Interatrial and interventricular septum intact. There is mild aortic valve sclerosis. Mild mitral annular calcification present. Mild mitral regurgitation is present. Mild tricuspid regurgitation present. There is mild pulmonary hypertension. The right ventricular systolic pressure, as measured by Doppler, is 38.29mmHg. Trace/mild (physiologic) pulmonic regurgitation. The aortic root is dilated measuring 4.2cm. IVC Not well visulized. There is no pericardial effusion. CONCLUSIONS -------- 1. The left ventricular size is normal. 2. There is borderline concentric left ventricular hypertrophy. 3. Overall left ventricular systolic function is normal with, an EF between 60 - 65 %. 4. LA is midly dilated 29-33ml/m2. 5. There is mild aortic valve sclerosis. 6. Mild mitral annular calcification present. 7. Mild mitral regurgitation is present. 8. Mild tricuspid regurgitation present. 9. There is mild pulmonary hypertension. 10. The right ventricular systolic pressure, as measured by Doppler, is 38.29mmHg. 11. Trace/mild (physiologic) pulmonic regurgitation. 12. The aortic root is dilated measuring 4.2cm. 13. There is no pericardial effusion. L[employer] ARM[employer]ED [employer]HICLE OFFICER: Leyla Banuelos RDCS
[2021-08-18 16:48] LABS: Glucose,Whole Blood 91 mg/dL (75-99)
[2021-08-18 20:01] LABS: Glucose,Whole Blood 185 mg/dL (75-99)
[2021-08-18 22:40] LABS: Glucose,Whole Blood 264 mg/dL (75-99)
[2021-08-18] MEDS ORDERED: INSULIN ASPART (NovoLOG) 100 UNIT/ML VIAL SQ SCH (23:45)
[2021-08-19] MEDS: ACETAMINOPHEN TAB 325 MG TAB PO PRN (01:10)
[2021-08-19 06:03] LABS: Glucose,Whole Blood 153 mg/dL (75-99)
[2021-08-19] MEDS: SODIUM CHLORIDE 0.9% 1,000 ML IV SCH ×2 (06:22→18:08)
[2021-08-19] MEDS: INSULIN ASPART (NovoLOG) 100 UNIT/ML VIAL SQ SCH ×4 (06:22→20:35)
[2021-08-19] MEDS: INSULIN DETEMIR (LEVEMIR) 100 UNIT/ML SYR SQ SCH (06:25)
[2021-08-19] MEDS: ALBUTEROL HFA INHALER INHALATION PRN (08:49)
[2021-08-19] MEDS: CHOLECALCIFEROL 25 MCG (1000 IU) TABLET PO SCH (08:58)
[2021-08-19] MEDS: APIXABAN 2.5 MG TABLET PO SCH (08:59)
[2021-08-19] MEDS: LOSARTAN 50 MG TAB PO SCH (08:59)
[2021-08-19] MEDS: PANTOPRAZOLE 40 MG TABLET PO SCH (08:59)
[2021-08-19] MEDS: ASPIRIN 81 MG PO SCH (08:59)
[2021-08-19] MEDS: ZINC SULFATE 220 MG CAP PO SCH (08:59)
[2021-08-19] MEDS: amLODIPine 5 MG TAB PO SCH (08:59)
[2021-08-19] MEDS: ASCORBIC ACID 500 MG TAB PO SCH (08:59)
[2021-08-19] MEDS: ATORVASTATIN 80 MG TAB PO SCH (08:59)
[2021-08-19] MEDS: PIOGLITAZONE 15 MG TAB PO SCH (08:59)
[2021-08-19] MEDS: FOLIC ACID 1 MG TAB PO SCH (08:59)
[2021-08-19] MEDS ORDERED: amLODIPine 5 MG TAB PO STA (10:39)
[2021-08-19 10:54] LABS: Basophils % (A) 0 %; Eosinophils % (A) 1 %; HCT 35.5 % (39.0-53.0); HGB 12.3 gm/dL (13.0-17.5); Lymphocytes # (A) 0.7 k/uL (1.0-4.8); Lymphocytes % (A) 21 %; MCHC 34.5 g/dL (31.0-37.0); MCV 95.8 fL (80.0-100.0); Mean Platelet Volume 8.1; Monocytes # (A) 0.1 k/uL (0-1.0); Monocytes % (A) 5 %; Neutrophils # (A) 2.2 k/uL (1.3-7.7); Neutrophils % (A) 73 %; Platelet Count 154 k/uL (150-450); RBC 3.71 m/uL (4.30-5.90); RDW 12.7 % (11.5-15.5); WBC 3.1 k/uL (3.8-10.6)
[2021-08-19 11:07] LABS: Calcium 8.2 mg/dL (8.4-10.2); Potassium 3.9 mmol/L (3.5-5.1)
--- NOTE | 2021-08-19 11:09 | P.PN ---
Subjective Progress Note Date: 08/19/21 85-year-old male patient, came into the emergency department because of the difficulties and walk 10 and weakness for almost a week. Patient had no falls. He also noted some left leg being weaker compared to the right. He mentioned that he had hip pain and this preferential weakness could be related to his chronic hip arthritis. He is known to have CVA and this occurred approximately 10 years ago and the patient always reported some weakness of left lower extremity,, prostate cancer, peripheral vascular disease and the patient undergone previous vascular intervention and insertion of a left femoral stent, coronary artery disease and the patient has undergone previous bypass surgery. I was consulted on this patient knowing that the patient had a positive COVID 19 infection by PCR. His white cell count was at 3.2. His hemoglobin is at 10.6 with a platelet count of 170. D-dimer was at 0.2. Creatinine was at 1.9 at time of admission and came down to 1.6. Troponins were 0.06 and 0.0757 respectively and LFTs were nonelevated. Chest x-ray showed no acute abnormalities. X-ray of the lumbar spine showed no fracture. X-ray of the thoracic spine showed no fracture. UA was negative. Patient is currently on room air oxygen. Pulse ox is 97% on room air oxygen.. The patient is awake and alert and his communicating. In general, he is a poor historian. He is on room air oxygen. Does not show any signs of any breathing difficulties and his breathing is nonlabored at this point in time. No swelling in lower extremities. No observed cough. No pleurisy. No hemoptysis. On today's evaluation of 08/19/2021, the patient remains on room air oxygen. Pulse ox is 95-97%. Breathing is nonlabored. He is still feeling weak and debilitated. Follow-up labs are still pending for now. The patient is a poor historian. He is alert and he is able to communicate although his ability to provide history is quite limited. The patient had a low-grade fever overnight with a T-max of 100.9. No significant cough or sputum production. Creatinine was up to 1.9. Down to 1.6 and repeat creatinine is pending for now. The patient is on IV fluids with 0.9 at the rate of 100 mL an hour. Objective - Vital Signs Vital signs: Vital Signs Temp 98.9 F 08/19/21 08:00 Pulse 71 08/19/21 08:00 Resp 18 08/19/21 08:00 BP 185/77 08/19/21 08:00 Pulse Ox 95 08/19/21 08:50 Intake & Output 08/18/21 08/19/21 08/19/21 18:59 06:59 18:59 Intake Total 2160 10 120 Output Total 500 Balance 2160 -490 120 Weight 65 kg Intake: IV 10 10 Invasive Line 1 10 10 Intake, IV Titration 1200 Amount Sodium Chloride 0.9% 1, 1200 000 ml @ 100 mls/hr IV . Q10H [facility] Rx#:[id number] Oral 950 120 Output: Urine 500 Other: Voiding Method Toilet Bedside Commode Bedside Commode Diaper Urinal # Voids 3 - Exam -GENERAL: The patient is alert and oriented x3, not in any acute distress. Generally weak, his breathing is nonlabored at this point in time Head exam was generally normal. There was no scleral icterus or corneal arcus. Mucous membranes were moist. HEENT: Pupils are round and equally reacting to light. EOMI. No scleral icterus. No conjunctival pallor. Normocephalic, atraumatic. No pharyngeal erythema. No thyromegaly. CARDIOVASCULAR: S1 and S2 present. No murmurs, rubs, or gallops. PULMONARY: Chest is clear to auscultation, no wheezing or crackles. ABDOMEN: Soft, nontender, nondistended, normoactive bowel sounds. No palpable organomegaly. MUSCULOSKELETAL: No joint swelling or deformity. The patient diminished pulses in lower extremity is bilaterally EXTREMITIES: No cyanosis, clubbing, or pedal edema. Cranial nerves are grossly intact -Neuro: Gross neurological examination did not reveal any focal deficits. Left leg weaker than right leg but this couldn't be limited by left hip pain. Sensation is intact. The patient also states that his left lower extremity isn't always weak compared to right following his previous CVA that occurred more than 10 years ago. SKIN: No rashes. No petechiae - Labs CBC & Chem 7: 08/19/21 10:37 08/19/21 10:37 Labs: Abnormal Lab Results - Last 24 Hours (Table) 08/18/21 08/18/21 08/18/21 Range/Units 06:01 12:07 20:00 WBC (3.8-10.6) k/uL RBC (4.30-5.90) m/uL Hgb (13.0-17.5) gm/dL Hct (39.0-53.0) % Lymphocytes # (1.0-4.8) k/uL POC Glucose (mg/dL) 249 H 185 H (75-99) mg/dL Hemoglobin A1c 7.9 H (4.0-6.0) % 08/18/21 08/19/21 08/19/21 Range/Units 22:38 06:02 10:37 WBC 3.1 L (3.8-10.6) k/uL RBC 3.71 L (4.30-5.90) m/uL Hgb 12.3 L (13.0-17.5) gm/dL Hct 35.5 L (39.0-53.0) % Lymphocytes # 0.7 L (1.0-4.8) k/uL POC Glucose (mg/dL) 264 H 153 H (75-99) mg/dL Hemoglobin A1c (4.0-6.0) % Assessment and Plan Plan: 1 acute COVID 19 infection with generalized weakness and constitutions symptoms. No signs of any pneumonia. The patient is actually eating normally and the chest x-rays essentially within normal limits. Inflammatory markers are checked and the patient has a LDH level of 600, and a CRP level of 2.7. This is a vaccinated individual. The patient is stable in terms of oxygenation. No interval worsening in her respiratory status. The patient is still complaining of generalized weakness. 2 generalized weakness, falls without any new onset focal neurological deficit. The patient's chronic weakness and left lower extremity related to previous CVA and degenerative arthritis. 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 No need for oxygen therapy. No need for Decadron. No need for repeat Remdesivir. No indication for pneumonia. IV fluids Repeat electrolytes including renal function Generalized weakness and constitutions symptoms related to COVID 19 infection that needs to be treated supportively. The patient is receiving IV fluids and his a acute kidney injury is improved. He does have some mild troponin leak, check this with cardiology. Inflammatory markers and generalized low. We'll see him on an as-needed basis.
[2021-08-19 11:56] LABS: Glucose,Whole Blood 172 mg/dL (75-99)
--- NOTE | 2021-08-19 13:46 | P.PN ---
Subjective Progress Note Date: 08/19/21 CHIEF COMPLAINT: Elevated Troponin HISTORY OF PRESENT ILLNESS: This is a 85-year-old male who follows in the office with Dr. Marques. The patient is currently admitted to the hospital secondary to Covid. Echocardiogram completed revealed ejection fraction 60-65%, mild mitral regurgitation, mild tricuspid regurgitation, and mild pulmonary hypertension. Patient's blood pressures are elevated this morning with a systolic ranging between 150 and 180. PHYSICAL EXAM: Thorough physical exam not completed secondary to limited evaluation/examination due to Covid19 ASSESSMENT: Covid 19 Abnormal troponins, not suggestive of ACS, likely secondary to Covid/[facility] Coronary artery disease with previous CABG Peripheral vascular disease Hypertension Hyperlipidemia Diabetes Acute kidney injury PLAN: Continue current cardiac medications Increase amlodipine to 10 mg daily Continue to monitor blood pressure Further recommendations pending patient's course Nurse practitioner note has been reviewed by physician. Signing provider agrees with the documented findings, assessment, and plan of care. Objective - Vital Signs Vital signs: Vital Signs Temp 98.9 F 08/19/21 12:00 Pulse 78 08/19/21 12:00 Resp 18 08/19/21 12:00 BP 124/76 08/19/21 12:00 Pulse Ox 95 08/19/21 08:50 Intake & Output 08/18/21 08/19/21 08/19/21 18:59 06:59 18:59 Intake Total 2160 10 120 Output Total 500 Balance 2160 -490 120 Weight 65 kg Intake: IV 10 10 Invasive Line 1 10 10 Intake, IV Titration 1200 Amount Sodium Chloride 0.9% 1, 1200 000 ml @ 100 mls/hr IV . Q10H [facility] Rx#:[id number] Oral 950 120 Output: Urine 500 Other: Voiding Method Toilet Bedside Commode Bedside Commode Diaper Urinal # Voids 3 - Labs CBC & Chem 7: 08/19/21 10:37 08/19/21 10:37 Labs: Abnormal Lab Results - Last 24 Hours (Table) 08/18/21 08/18/21 08/18/21 Range/Units 06:01 20:00 22:38 WBC (3.8-10.6) k/uL RBC (4.30-5.90) m/uL Hgb (13.0-17.5) gm/dL Hct (39.0-53.0) % Lymphocytes # (1.0-4.8) k/uL Sodium (137-145) mmol/L BUN (9-20) mg/dL Creatinine (0.66-1.25) mg/dL Glucose (74-99) mg/dL POC Glucose (mg/dL) 185 H 264 H (75-99) mg/dL Hemoglobin A1c 7.9 H (4.0-6.0) % Calcium (8.4-10.2) mg/dL 08/19/21 08/19/21 08/19/21 Range/Units 06:02 10:37 10:37 WBC 3.1 L (3.8-10.6) k/uL RBC 3.71 L (4.30-5.90) m/uL Hgb 12.3 L (13.0-17.5) gm/dL Hct 35.5 L (39.0-53.0) % Lymphocytes # 0.7 L (1.0-4.8) k/uL Sodium 132 L (137-145) mmol/L BUN 32 H (9-20) mg/dL Creatinine 1.43 H (0.66-1.25) mg/dL Glucose 145 H (74-99) mg/dL POC Glucose (mg/dL) 153 H (75-99) mg/dL Hemoglobin A1c (4.0-6.0) % Calcium 8.2 L (8.4-10.2) mg/dL 08/19/21 Range/Units 11:54 WBC (3.8-10.6) k/uL RBC (4.30-5.90) m/uL Hgb (13.0-17.5) gm/dL Hct (39.0-53.0) % Lymphocytes # (1.0-4.8) k/uL Sodium (137-145) mmol/L BUN (9-20) mg/dL Creatinine (0.66-1.25) mg/dL Glucose (74-99) mg/dL POC Glucose (mg/dL) 172 H (75-99) mg/dL Hemoglobin A1c (4.0-6.0) % Calcium (8.4-10.2) mg/dL
--- NOTE | 2021-08-19 15:59 | P.CNNES ---
History of Present Illness Consult date: 08/19/21 Requesting physician: Ge Doyle Reason for Consult: b/l leg weakness, more on the left side History of Present Illness: Patient is a 85-year-old male, who came to the hospital for leg weakness. Patient's symptoms started acutely on 08/16/2021. Patient apparently fell down yesterday. He couldn't get up, couldn't take steps. Patient is very hard of hearing. Not able to provide any history. Because of leg weakness, he was brought to the hospital on 08/17/2021 at 4:16 PM. Patient's vitals on arrival blood pressure 102/67, pulse rate 78, temperature 97.9. 2-D echo revealed normal left ventricular size. Borderline concentric LVH. EF is between 60-65%. Left atrium is mildly dilated. Mild aortic valve sclerosis. X-ray of the hip shows no acute fracture or dislocation. X-ray of the lumbar spine showed mild degenerative first-degree L4 5 spondylolisthesis. No change compared to old exam from 11/11/2011. X-ray of the thoracic spine negative. No fracture. Chest x-ray shows minimal pleural reaction lateral right lung base. Normal heart. No pulmonary consolidation or heart failure. Patient's blood test shows WBC 3.2 hemoglobin 10.6, platelets 170. Sodium 133 potassium 3.9, BUN 41, creatinine 1.60. Hemoglobin A1c 7.9. Troponin is borderline 0.078. Drake virus PCR positive. Patient is very very hard of hearing. After repeated attempts, he was able to tell that he does not have a headache. Per nurse, he spaces out, has difficulty with standing, not able to take any step. Patient does have dementia as well. Apparently he does not use any assistive device. Patient has history of strokes in the past. Review of Systems Denies headache. Extremely hard of hearing. ROS unobtainable: due to mental status Past Medical History Past Medical History: Cancer, CVA/TIA Additional Past Medical History / Comment(s): Old hx CVA, recovered. Prostate CA, gets injections. Has Constipation. Lt foot numbness. left femoral stent 12.06.2019 History of Any Multi-Drug Resistant Organisms: None Reported Past Surgical History: Coronary Bypass/CABG Additional Past Surgical History / Comment(s): "Heart surgery" Past Anesthesia/Blood Transfusion Reactions: No Reported Reaction Past Psychological History: No Psychological Hx Reported Smoking Status: Never smoker Past Alcohol Use History: None Reported Additional Past Alcohol Use History / Comment(s): Smoked 6 months years ago. Past Drug Use History: None Reported - Past Family History Mother Family Medical History: No Reported History Medications and Allergies Home Medications Medication Instructions Recorded Confirmed Type Atorvastatin [Lipitor] 80 mg PO DAILY 12/04/19 08/17/21 History Insulin Detemir (Levemir) [Levemir] 18 unit SQ DAILY 12/04/19 08/17/21 History Aspirin EC [Ecotrin Low Dose] 81 mg PO DAILY 03/12/20 08/17/21 History Apixaban [Eliquis] 2.5 mg PO DAILY 08/17/21 08/17/21 History Folic Acid 1 mg PO DAILY 08/17/21 08/17/21 History HYDROcodone/APAP 5-325MG [[place] 1 tab PO DAILY PRN 08/17/21 08/17/21 History 5-325] Losartan Potassium 100 mg PO DAILY 08/17/21 08/17/21 History [place]-3 Fatty Acids/Fish Oil [Fish 1 tab PO DAILY 08/17/21 08/17/21 History Oil 1,000 mg Softgel] Pantoprazole [Protonix] 40 mg PO DAILY 08/17/21 08/17/21 History Pioglitazone [Actos] 15 mg PO DAILY 08/17/21 08/17/21 History Ascorbic Acid [Vitamin C] 1,000 mg PO DAILY #30 tab 08/20/21 Rx Cholecalciferol [Vitamin D3 (25 50 mcg PO DAILY #30 tablet 08/20/21 Rx Mcg = 1000 Iu)] Zinc Sulfate [Orazinc] 220 mg PO DAILY #30 cap 08/20/21 Rx amLODIPine [Norvasc] 10 mg PO DAILY #30 tab 08/20/21 Rx Allergies Allergy/AdvReac Type Severity Reaction Status Date / Time No Known Allergies Allergy Verified 08/17/21 19:15 Physical Examination - Vital Signs Vital Signs: Vital Signs Temp Pulse Pulse Resp BP BP Pulse Ox 08/18/21 15:31 98.3 F 86 18 128/68 96 08/18/21 12:52 98.3 F 75 18 124/80 97 08/18/21 09:41 64 08/18/21 03:46 100.3 F H 71 18 99/96 96 08/18/21 00:00 98.6 F 64 18 123/81 98 Intake and Output 08/18/21 08/18/21 08/18/21 06:59 14:59 22:59 Intake Total 1810 Balance 1810 Intake: IV 10 Invasive Line 1 10 Intake, IV Titration 1200 Amount Sodium Chloride 0.9% 1, 1200 000 ml @ 100 mls/hr IV . Q10H [facility] Rx#:[id number] Oral 600 Other: Voiding Method Toilet Toilet Bedside Commode Bedside Commode Urinal Urinal Weight 81.647 kg Patient is an elderly male, who is in no acute distress. He is laying comfortably in the bed. Patient is alert awake, appears slightly encephalopathic. Very slow mentation. Patient is extremely hard of hearing. I could not assess for orientation. Speech and language functions appears normal. Patient could name objects like fingers, thumb, knuckles, ears. Attention, concentration and fund of knowledge is limited. On cranial examination, pupils are round and reacting to light, visual reyes could not be tested although he does blink to visual threat, extraocular muscles are intact with no nystagmus. Face is symmetric, tongue protrudes to the midline. Palatal elevation and sensation could not be checked. His hearing is severely decreased and shoulder shrug normal, facial sensation normal. On muscle strength testing, there is no pronator drift and the strength is normal in arms distally and proximally. Patient appears weak in the legs, not able to lift the legs up. When I manually lifted the legs, he would drop it down. Deep tendon reflexes are diminished and plantar is downgoing on the right, and upgoing on the left. Sensory to touch was not able to be assessed because of mentation and decreased hearing. Cerebellar function showed no ataxia for [id number] testing. Patient appears tremulous. Gait not able to be checked. On general examination, there is no carotid bruit or murmur, S1-S2 audible. Abdomen is soft nontender. Chest is clear. Peripheral pulses are present. No edema. Results - Laboratory Findings CBC and BMP: 08/20/21 08:21 08/20/21 08:21 Abnormal Lab Findings: Abnormal Labs 08/17/21 08/17/21 08/17/21 18:12 18:12 18:12 WBC RBC 4.14 L Hgb Hct Lymphocytes # Sodium 134 L Carbon Dioxide 21 L BUN 54 H Creatinine 1.94 H Glucose 199 H POC Glucose (mg/dL) Hemoglobin A1c Calcium Ferritin AST 65 H Troponin I 0.064 H* C-Reactive Protein Procalcitonin Urine Protein Urine Blood Hyaline Casts Urine Mucus Coronavirus (PCR) 08/17/21 08/17/21 08/17/21 18:12 19:38 19:38 WBC RBC Hgb Hct Lymphocytes # Sodium Carbon Dioxide BUN Creatinine Glucose POC Glucose (mg/dL) Hemoglobin A1c Calcium Ferritin 646.0 H AST Troponin I C-Reactive Protein 2.7 H Procalcitonin 0.18 H Urine Protein Urine Blood Hyaline Casts Urine Mucus Coronavirus (PCR) Detected A 08/17/21 08/17/21 08/17/21 20:42 21:41 23:38 WBC RBC Hgb Hct Lymphocytes # Sodium Carbon Dioxide BUN Creatinine Glucose POC Glucose (mg/dL) 175 H Hemoglobin A1c Calcium Ferritin AST Troponin I 0.075 H* C-Reactive Protein Procalcitonin Urine Protein 2+ H Urine Blood Small H Hyaline Casts 5 H Urine Mucus Rare H Coronavirus (PCR) 08/18/21 08/18/21 08/18/21 00:23 06:01 06:01 WBC 3.2 L RBC 3.22 L Hgb 10.6 L Hct 30.8 L Lymphocytes # 0.7 L Sodium 133 L Carbon Dioxide 21 L BUN 41 H Creatinine 1.60 H Glucose 160 H POC Glucose (mg/dL) Hemoglobin A1c Calcium 7.8 L Ferritin AST Troponin I 0.078 H* C-Reactive Protein Procalcitonin Urine Protein Urine Blood Hyaline Casts Urine Mucus Coronavirus (PCR) 08/18/21 08/18/21 06:01 12:07 WBC RBC Hgb Hct Lymphocytes # Sodium Carbon Dioxide BUN Creatinine Glucose POC Glucose (mg/dL) 249 H Hemoglobin A1c 7.9 H Calcium Ferritin AST Troponin I C-Reactive Protein Procalcitonin Urine Protein Urine Blood Hyaline Casts Urine Mucus Coronavirus (PCR) Assessment and Plan Assessment: * Altered mental status, possible toxic metabolic encephalopathy. Patient has acute Covid-19 infection, likely the cause of encephalopathy. * Bilateral lower extremity weakness, unclear cause. Possibly related to encephalopathy, rule out central cause (CVA/bleed). * Mild dehydration * Diabetes, not well controlled * Coronary artery disease * History of prostate cancer Plan: * Computed tomography scan of head, rule out bleed or other structural abnormality. * B12, folate, MMA, B6. * Continue Eliquis 2.5 mg twice a day for stroke prevention related to hypercoagulable state from Covid-19 infection. * EEG evaluate for encephalopathy, rule out epileptiform activity. * We will try to obtain collateral history from patient's family members. * We will follow. Addendum: I spoke to patient's son on the phone. He states that patient at baseline does not use any assistive device. He walks on his own. On 08/15/2021, he rolled out of the bed on one knee and couldn't get up, required help. The next day on 08/16/2021 patient son noticed that he was walking very slow, taking breaks, stating that his "back is killing me", pointing to the low back region. Patient's son asked him to go to the hospital but he declined. On Wednesday he got worse, and at that point patient agreed to come to the hospital. Patient son agreed that he does have some memory loss for last 2 years. He has diabetes. He never smoked, does not drink alcohol. He is very very hard of hearing. Patient's son was concerned that he was just dehydrated from not drinking enough fluids. He is not sure how patient contacted coronavirus. We will check x-ray of the lumbar and thoracic spine to rule out any compression fracture. If his leg weakness persists, will consider MRI. CT head revealed moderate diffuse age-related cerebral atrophy and moderate to severe chronic small vessel ischemic change along with old infarct right frontal and high posterior right frontal infarcts. Patient's son states that he had the strokes about 10 years ago. He has very mild left leg weakness, but he still walks without any device.
--- NOTE | 2021-08-19 16:36 | CT ---
EXAMINATION TYPE: CT brain wo con DATE OF EXAM: 08/19/2021 HISTORY: altered mental status CT DLP: 1098.4 mGycm. Automated Exposure Control for Dose Reduction was Utilized. TECHNIQUE: CT scan of the head is performed without contrast. COMPARISON: CT brain January 28, 2011. MRI brain January 29, 2011.. FINDINGS: There is no acute intracranial hemorrhage or midline shift identified. Moderate ventricul ar and sulcal prominence is now present. Moderate to severe low-attenuation in the deep and periventr icular white matter now seen. Old infarct inferior left frontal lobe on current study is new from 201 1. Additional old infarct high right posterior frontal region seen on current study new from 2010. Mo derate Mucosal thickening in the paranasal sinuses bilaterally. Additional dependent fluid left maxil toni sinus and sphenoid sinus anteroinferior left frontal sinus along with opacification of the ethmo id sinuses bilaterally on current study. The globes are intact bilaterally. IMPRESSION: There is moderate diffuse age-related cerebral atrophy and moderate to severe chronic sma ll vessel ischemic change along with old inferior right frontal and high posterior right frontal infa rcts now all identified. Acute on chronic paranasal sinusitis noted as detailed above.
[2021-08-19 16:55] LABS: Glucose,Whole Blood 237 mg/dL (75-99)
[2021-08-19 20:20] LABS: Glucose,Whole Blood 152 mg/dL (75-99)
[2021-08-20 05:01] LABS: Folate, Serum >20.00 ng/mL (4.40-31.00)
[2021-08-20 06:01] LABS: Glucose,Whole Blood 155 mg/dL (75-99)
[2021-08-20] MEDS: SODIUM CHLORIDE 0.9% 1,000 ML IV SCH ×3 (06:25→18:46)
[2021-08-20] MEDS: INSULIN ASPART (NovoLOG) 100 UNIT/ML VIAL SQ SCH ×4 (07:01→22:11)
[2021-08-20] MEDS: INSULIN DETEMIR (LEVEMIR) 100 UNIT/ML SYR SQ SCH (07:02)
[2021-08-20 08:32] LABS: Basophils % (A) 0 %; Eosinophils % (A) 0 %; HCT 40.3 % (39.0-53.0); HGB 13.3 gm/dL (13.0-17.5); Lymphocytes % (A) 25 %; MCH 31.7 pg (25.0-35.0); MCHC 32.9 g/dL (31.0-37.0); MCV 96.3 fL (80.0-100.0); Mean Platelet Volume 8.5; Monocytes # (A) 0.2 k/uL (0-1.0); Monocytes % (A) 4 %; Neutrophils # (A) 2.7 k/uL (1.3-7.7); Neutrophils % (A) 70 %; Platelet Count 182 k/uL (150-450); RBC 4.19 m/uL (4.30-5.90); RDW 12.9 % (11.5-15.5); WBC 3.9 k/uL (3.8-10.6)
[2021-08-20 08:47] LABS: Calcium 8.3 mg/dL (8.4-10.2); Potassium 3.8 mmol/L (3.5-5.1)
[2021-08-20] MEDS: ASPIRIN 81 MG PO SCH (09:34)
[2021-08-20] MEDS: ZINC SULFATE 220 MG CAP PO SCH (09:34)
[2021-08-20] MEDS: ATORVASTATIN 80 MG TAB PO SCH (09:35)
[2021-08-20] MEDS: LOSARTAN 50 MG TAB PO SCH (09:35)
[2021-08-20] MEDS: FOLIC ACID 1 MG TAB PO SCH (09:35)
[2021-08-20] MEDS: CHOLECALCIFEROL 25 MCG (1000 IU) TABLET PO SCH (09:35)
[2021-08-20] MEDS: APIXABAN 2.5 MG TABLET PO SCH (09:35)
[2021-08-20] MEDS: amLODIPine 10 MG TAB PO SCH (09:35)
[2021-08-20] MEDS: ASCORBIC ACID 500 MG TAB PO SCH (09:35)
[2021-08-20] MEDS: PANTOPRAZOLE 40 MG TABLET PO SCH (09:35)
--- NOTE | 2021-08-20 10:30 | P.PN ---
Subjective Progress Note Date: 08/19/21 Principal diagnosis: Acute COVID-19 infection Acute kidney injury Generalized weakness This is a pleasant 85 years old male with past medical history of CVA/TIA, prostate cancer, peripheral vascular disease status post left femoral stent, coronary artery disease status post CABG. He is patient of Dr. 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 Patient presents because of difficulty walking and weakness for about a week as he states. Patient denies falling to me however on reviewing the note from emergency room physician note looks like the patient fell a few days ago and his son helped him sitting up. He states the last time he was able to walk about a week ago. Also while talking to mehe has some urinary incontinence. It looks like his left leg is weaker than the right one, however his weakness could be due to limitation from his left hip pain. He denies chest pain, he denies dyspnea. No coughing. No abdominal pain. No diarrhea. He denies any urinary complaints. No headache, no blurred vision, no swallowing difficulty or choking. The patient has has good appetite He looks generally weak. He denies smoking, alcohol or illicit drugs On admission patient has low-grade fever and blood pressure is 99/96 Labs shows leukopenia of 3.2, anemia hemoglobin 10.6 and normal platelet count 170. D-dimer -0.27, INR is 1.0. Creatinine 1.9 came down to 1.6. Sodium 133, troponin is elevated 0.06, 0.07 and 0.07. Liver enzymes not significantly elevated EKG showing normal sinus rhythm at 83, with no significant ST-T changes Chest x-ray showing minimal pleural reaction on the lateral right lung base.no pulmonary consolidation. Lumbar spine x-ray: No fracture, mild degenerative disc disease Thoracic spine x-ray: No acute fracture Urine analysis is not suspicious for infection Coronavirus detected Patient received intravenous fluids, and continued on home dose of Eliquis and aspirin 81 mg 08/19/2021 Patient is currently sitting up in the bed. Lethargic and generally weak. Patient is on room air. No complaints of chest pain or shortness breath. 2-D echo cardiac exam showed his ejection fraction 60-65% and mild MR and mild TR and mild pulmonary hypertension. Cardiology is following due to elevated troponin levels. No fever no chills. No cough or sputum production. Patient does not need any steroids at this time. Increase metoprolol to 10 mg daily. Uncontrolled blood pressure. Neurology was consulted to metabolic encephalopathy and bilateral lower e xtremity weakness. Current medications reviewed. Objective - Vital Signs Vital signs: Vital Signs Temp 98.9 F 08/19/21 12:00 Pulse 78 08/19/21 12:00 Resp 18 08/19/21 12:00 BP 124/76 08/19/21 12:00 Pulse Ox 95 08/19/21 08:50 Intake & Output 08/18/21 08/19/21 08/19/21 18:59 06:59 18:59 Intake Total 2160 10 120 Output Total 500 Balance 2160 -490 120 Weight 65 kg Intake: IV 10 10 Invasive Line 1 10 10 Intake, IV Titration 1200 Amount Sodium Chloride 0.9% 1, 1200 000 ml @ 100 mls/hr IV . Q10H [facility] Rx#:[id number] Oral 950 120 Output: Urine 500 Other: Voiding Method Toilet Bedside Commode Diaper Bedside Commode Diaper Urinal # Voids 3 - Exam -GENERAL: The patient is alert and oriented x3, not in any acute distress. Generally weak HEENT: Pupils are round and equally reacting to light. EOMI. No scleral icterus. No conjunctival pallor. Normocephalic, atraumatic. No pharyngeal erythema. No thyromegaly. CARDIOVASCULAR: S1 and S2 present. No murmurs, rubs, or gallops. PULMONARY: Chest is clear to auscultation, no wheezing or crackles. ABDOMEN: Soft, nontender, nondistended, normoactive bowel sounds. No palpable organomegaly. MUSCULOSKELETAL: No joint swelling or deformity. EXTREMITIES: No cyanosis, clubbing, or pedal edema. Cranial nerves are grossly intact -Neuro: Gross neurological examination did not reveal any focal deficits. Left leg weaker than right leg but this couldn't be limited by left hip pain. Sensation is intact. SKIN: No rashes. No petechiae - Labs CBC & Chem 7: 08/20/21 08:21 08/20/21 08:21 Labs: Abnormal Lab Results - Last 24 Hours (Table) 08/18/21 08/18/21 08/19/21 Range/Units 20:00 22:38 06:02 WBC (3.8-10.6) k/uL RBC (4.30-5.90) m/uL Hgb (13.0-17.5) gm/dL Hct (39.0-53.0) % Lymphocytes # (1.0-4.8) k/uL Sodium (137-145) mmol/L BUN (9-20) mg/dL Creatinine (0.66-1.25) mg/dL Glucose (74-99) mg/dL POC Glucose (mg/dL) 185 H 264 H 153 H (75-99) mg/dL Calcium (8.4-10.2) mg/dL 08/19/21 08/19/21 08/19/21 Range/Units 10:37 10:37 11:54 WBC 3.1 L (3.8-10.6) k/uL RBC 3.71 L (4.30-5.90) m/uL Hgb 12.3 L (13.0-17.5) gm/dL Hct 35.5 L (39.0-53.0) % Lymphocytes # 0.7 L (1.0-4.8) k/uL Sodium 132 L (137-145) mmol/L BUN 32 H (9-20) mg/dL Creatinine 1.43 H (0.66-1.25) mg/dL Glucose 145 H (74-99) mg/dL POC Glucose (mg/dL) 172 H (75-99) mg/dL Calcium 8.2 L (8.4-10.2) mg/dL Assessment and Plan Assessment: Acute COVID-19 infection, with mild fever and no evidence of pneumonia on the chest x-ray Possible metabolic/sick encephalopathy due to COVID-19 infection Bilateral leg weakness and bilateral hip pain. acute kidney injury, improving Diabetes type 2 not well controlled. Elevated troponin, rule out cardiac causes History of CVA History of prostate cancer History of peripheral vascular disease status post left femoral stent History of coronary artery disease status post CABG Plan: This is a pleasant 85 years old male presents with covid, no pneumonia. Elevated troponin Start multiple vitamins, vitamin C, vitamin D and zinc Continue Eliquis 2.5 mg twice daily for stroke prevention Pulmonary evaluated the patient. Patient does not need needs steroids at this time. 2-D echocardiogram showed normal EF. Labs and medication were reviewed. Continue with symptomatic treatment. Monitor lytes and vitals. DVT and GI prophylaxis. DVT prophylaxis:Eliquis GI Prophylaxis: Ppi PT/OT: Pending Prognosis is guarded Time with Patient: Greater than 30
--- NOTE | 2021-08-20 10:52 | P.PN ---
Subjective Progress Note Date: 08/20/21 85-year-old male patient, came into the emergency department because of the difficulties and walk 10 and weakness for almost a week. Patient had no falls. He also noted some left leg being weaker compared to the right. He mentioned that he had hip pain and this preferential weakness could be related to his chronic hip arthritis. He is known to have CVA and this occurred approximately 10 years ago and the patient always reported some weakness of left lower extremity,, prostate cancer, peripheral vascular disease and the patient undergone previous vascular intervention and insertion of a left femoral stent, coronary artery disease and the patient has undergone previous bypass surgery. I was consulted on this patient knowing that the patient had a positive COVID 19 infection by PCR. His white cell count was at 3.2. His hemoglobin is at 10.6 with a platelet count of 170. D-dimer was at 0.2. Creatinine was at 1.9 at time of admission and came down to 1.6. Troponins were 0.06 and 0.0757 respectively and LFTs were nonelevated. Chest x-ray showed no acute abnormalities. X-ray of the lumbar spine showed no fracture. X-ray of the thoracic spine showed no fracture. UA was negative. Patient is currently on room air oxygen. Pulse ox is 97% on room air oxygen.. The patient is awake and alert and his communicating. In general, he is a poor historian. He is on room air oxygen. Does not show any signs of any breathing difficulties and his breathing is nonlabored at this point in time. No swelling in lower extremities. No observed cough. No pleurisy. No hemoptysis. On today's evaluation of 08/19/2021, the patient remains on room air oxygen. Pulse ox is 95-97%. Breathing is nonlabored. He is still feeling weak and debilitated. Follow-up labs are still pending for now. The patient is a poor historian. He is alert and he is able to communicate although his ability to provide history is quite limited. The patient had a low-grade fever overnight with a T-max of 100.9. No significant cough or sputum production. Creatinine was up to 1.9. Down to 1.6 and repeat creatinine is pending for now. The patient is on IV fluids with 0.9 at the rate of 100 mL an hour. 08/20/2021, the patient remains essentially unchanged. His breathing is nonlabored and the patient is resting comfortably in bed. He remains on room air oxygen. Pulse ox today is essentially within normal limits. He was having a low-grade fever yesterday and today he is afebrile. Pulse ox is 96% on room air oxygen. He remains on IV fluids and the patient is receiving normal saline at the rate of 100 mL an hour. He is on medications have been resumed. The patient is also on long-term anticoagulation with Eliquis. He has multiple medical problems including previous history of CVA, chronic weakness in his left lower extremity, prostate cancer, peripheral vascular disease and coronary artery disease with a previous bypass surgery. Blood work from today shows a white cell count 3.0 with a hemoglobin of 13.3, sodium is at 133, creatinine is at 1.4 which is improved compared to admission and a BUN is at 36, electrolytes are all within normal limits, and there are no significant events overnight. Objective - Vital Signs Vital signs: Vital Signs Temp 98.8 F 08/20/21 04:00 Pulse 76 08/20/21 04:00 Resp 18 08/20/21 04:00 BP 164/72 08/20/21 04:00 Pulse Ox 96 08/20/21 04:00 Intake & Output 08/19/21 08/20/21 08/20/21 18:59 06:59 18:59 Intake Total 520 118 Output Total 350 Balance 520 -232 Weight 67 kg Intake: Intake, IV Titration 400 Amount Sodium Chloride 0.9% 1, 400 000 ml @ 100 mls/hr IV . Q10H [facility] Rx#:[id number] Oral 120 118 Output: Urine 350 Other: Voiding Method Diaper Diaper # Voids 2 1 - Exam -GENERAL: The patient is alert and oriented x3, not in any acute distress. Generally weak, his breathing is nonlabored at this point in time Head exam was generally normal. There was no scleral icterus or corneal arcus. Mucous membranes were moist. HEENT: Pupils are round and equally reacting to light. EOMI. No scleral icterus. No conjunctival pallor. Normocephalic, atraumatic. No pharyngeal erythema. No thyromegaly. CARDIOVASCULAR: S1 and S2 present. No murmurs, rubs, or gallops. PULMONARY: Chest is clear to auscultation, no wheezing or crackles. ABDOMEN: Soft, nontender, nondistended, normoactive bowel sounds. No palpable organomegaly. MUSCULOSKELETAL: No joint swelling or deformity. The patient diminished pulses in lower extremity is bilaterally EXTREMITIES: No cyanosis, clubbing, or pedal edema. Cranial nerves are grossly intact -Neuro: Gross neurological examination did not reveal any focal deficits. Left leg weaker than right leg but this couldn't be limited by left hip pain. Sensation is intact. The patient also states that his left lower extremity isn't always weak compared to right following his previous CVA that occurred more than 10 years ago. SKIN: No rashes. No petechiae - Labs CBC & Chem 7: 08/20/21 08:21 08/20/21 08:21 Labs: Abnormal Lab Results - Last 24 Hours (Table) 08/19/21 08/19/21 08/19/21 Range/Units 10:37 10:37 11:54 WBC 3.1 L (3.8-10.6) k/uL RBC 3.71 L (4.30-5.90) m/uL Hgb 12.3 L (13.0-17.5) gm/dL Hct 35.5 L (39.0-53.0) % Lymphocytes # 0.7 L (1.0-4.8) k/uL Sodium 132 L (137-145) mmol/L BUN 32 H (9-20) mg/dL Creatinine 1.43 H (0.66-1.25) mg/dL Glucose 145 H (74-99) mg/dL POC Glucose (mg/dL) 172 H (75-99) mg/dL Calcium 8.2 L (8.4-10.2) mg/dL 08/19/21 08/19/21 08/20/21 Range/Units 16:53 20:17 06:00 WBC (3.8-10.6) k/uL RBC (4.30-5.90) m/uL Hgb (13.0-17.5) gm/dL Hct (39.0-53.0) % Lymphocytes # (1.0-4.8) k/uL Sodium (137-145) mmol/L BUN (9-20) mg/dL Creatinine (0.66-1.25) mg/dL Glucose (74-99) mg/dL POC Glucose (mg/dL) 237 H 152 H 155 H (75-99) mg/dL Calcium (8.4-10.2) mg/dL 08/20/21 08/20/21 Range/Units 08:21 08:21 WBC (3.8-10.6) k/uL RBC 4.19 L (4.30-5.90) m/uL Hgb (13.0-17.5) gm/dL Hct (39.0-53.0) % Lymphocytes # (1.0-4.8) k/uL Sodium 133 L (137-145) mmol/L BUN 36 H (9-20) mg/dL Creatinine 1.47 H (0.66-1.25) mg/dL Glucose 150 H (74-99) mg/dL POC Glucose (mg/dL) (75-99) mg/dL Calcium 8.3 L (8.4-10.2) mg/dL Assessment and Plan Plan: 1 acute COVID 19 infection with generalized weakness and constitutions symptoms. No signs of any pneumonia. The patient is actually eating normally and the chest x-rays essentially within normal limits. Inflammatory markers are checked and the patient has a LDH level of 600, and a CRP level of 2.7. This is a vaccinated individual. The patient is stable in terms of oxygenation. No interval worsening in her respiratory status. The patient is still complaining of generalized weakness. The patient remains on room air oxygen. Breathing is nonlabored. No interval worsening in his breathing. He has some occasional cough which is noncongested. 2 generalized weakness, falls without any new onset focal neurological deficit. The patient's chronic weakness and left lower extremity related to previous CVA and degenerative arthritis. A repeat CAT scan of the brain was done and showed moderate to diffuse age-related cerebral atrophy and moderate to severe chronic small vessel ischemic changes. There are also old inferior right frontal and high posterior right frontal infarct identified. 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 No need for oxygen therapy. No need for Decadron. No need for repeat Remdesivir. No indication for pneumonia. IV fluids at the rate of 100 mL an hour Repeat electrolytes including renal function , renal function is improved Generalized weakness and constitutions symptoms related to COVID 19 infection that needs to be treated supportively. The patient is receiving IV fluids and his a acute kidney injury is improved. He does have some mild troponin leak, check this with cardiology. Inflammatory markers and generalized low. We'll see him on an as-needed basis.
[2021-08-20 11:57] LABS: Glucose,Whole Blood 380 mg/dL (75-99)
--- NOTE | 2021-08-20 12:49 | P.PN ---
Subjective Progress Note Date: 08/20/21 CHIEF COMPLAINT: Elevated Troponin HISTORY OF PRESENT ILLNESS: This is a 85-year-old male who follows in the office with Dr. Marques. The patient is currently admitted to the hospital secondary to Covid. Echocardiogram completed revealed ejection fraction 60-65%, mild mitral regurgitation, mild tricuspid regurgitation, and mild pulmonary hypertension. Patient's blood pressures are elevated this morning with a systolic ranging between 150 and 180. 08/20/2021 Patient remains hospitalized on the selective care unit. Patient underwent CT of the brain yesterday revealing moderate diffuse age-related cerebral atrophy and moderate to severe chronic small vessel ischemic changes along with old inferior right frontal and high posterior right frontal infarcts now all identified. Acute on chronic paranasal sinusitis noted as detailed above. Patient's blood pressure this morning 142/66. His Norvasc was increased yesterday. PHYSICAL EXAM: Thorough physical exam not completed secondary to limited evaluation/examination due to Covid19 ASSESSMENT: Covid 19 Abnormal troponins, not suggestive of ACS, likely secondary to Covid/[facility] Coronary artery disease with previous CABG Peripheral vascular disease Hypertension Hyperlipidemia Diabetes Acute kidney injury PLAN: Continue current cardiac medications Continue to monitor blood pressure Patient is stable for discharge home today from a cardiac standpoint Further recommendations pending patient's course Nurse practitioner note has been reviewed by physician. Signing provider agrees with the documented findings, assessment, and plan of care. Objective - Vital Signs Vital signs: Vital Signs Temp 98.9 F 08/20/21 08:00 Pulse 86 08/20/21 08:00 Resp 16 08/20/21 08:00 BP 142/66 08/20/21 08:00 Pulse Ox 94 L 08/20/21 08:00 Intake & Output 08/19/21 08/20/21 08/20/21 18:59 06:59 18:59 Intake Total 520 118 Output Total 350 Balance 520 -232 Weight 67 kg Intake: Intake, IV Titration 400 Amount Sodium Chloride 0.9% 1, 400 000 ml @ 100 mls/hr IV . Q10H [facility] Rx#:[id number] Oral 120 118 Output: Urine 350 Other: Voiding Method Diaper Diaper # Voids 2 1 - Labs CBC & Chem 7: 08/20/21 08:21 08/20/21 08:21 Labs: Abnormal Lab Results - Last 24 Hours (Table) 08/19/21 08/19/2121 Range/Units 10:37 10:37 11:54 WBC 3.1 L (3.8-10.6) k/uL RBC 3.71 L (4.30-5.90) m/uL Hgb 12.3 L (13.0-17.5) gm/dL Hct 35.5 L (39.0-53.0) % Lymphocytes # 0.7 L (1.0-4.8) k/uL Sodium 132 L (137-145) mmol/L BUN 32 H (9-20) mg/dL Creatinine 1.43 H (0.66-1.25) mg/dL Glucose 145 H (74-99) mg/dL POC Glucose (mg/dL) 172 H (75-99) mg/dL Calcium 8.2 L (8.4-10.2) mg/dL 08/19/21 08/19/21 08/20/21 Range/Units 16:53 20:17 06:00 WBC (3.8-10.6) k/uL RBC (4.30-5.90) m/uL Hgb (13.0-17.5) gm/dL Hct (39.0-53.0) % Lymphocytes # (1.0-4.8) k/uL Sodium (137-145) mmol/L BUN (9-20) mg/dL Creatinine (0.66-1.25) mg/dL Glucose (74-99) mg/dL POC Glucose (mg/dL) 237 H 152 H 155 H (75-99) mg/dL Calcium (8.4-10.2) mg/dL 08/20/21 08/20/21 Range/Units 08:21 08:21 WBC (3.8-10.6) k/uL RBC 4.19 L (4.30-5.90) m/uL Hgb (13.0-17.5) gm/dL Hct (39.0-53.0) % Lymphocytes # (1.0-4.8) k/uL Sodium 133 L (137-145) mmol/L BUN 36 H (9-20) mg/dL Creatinine 1.47 H (0.66-1.25) mg/dL Glucose 150 H (74-99) mg/dL POC Glucose (mg/dL) (75-99) mg/dL Calcium 8.3 L (8.4-10.2) mg/dL
[2021-08-20] MEDS: PIOGLITAZONE 15 MG TAB PO SCH (13:40)
--- NOTE | 2021-08-20 14:46 | P.PN ---
Subjective Progress Note Date: 08/20/21 Patient was seen for a follow-up. Patient denies headache. Patient continues to be somewhat encephalopathic. Otherwise laying comfortably in the bed. Telemetry monitoring showing sinus rhythm with a heart rate in 80s, some PVCs and PSVT. Objective - Vital Signs Vital signs: Vital Signs Temp 98.2 F 08/20/21 12:00 Pulse 71 08/20/21 12:00 Resp 18 08/20/21 12:00 BP 140/63 08/20/21 12:00 Pulse Ox 94 L 08/20/21 12:00 Intake & Output 08/19/21 08/20/21 08/20/21 18:59 06:59 18:59 Intake Total 520 118 Output Total 350 Balance 520 -232 Weight 67 kg Intake: Intake, IV Titration 400 Amount Sodium Chloride 0.9% 1, 400 000 ml @ 100 mls/hr IV . Q10H [facility] Rx#:[id number] Oral 120 118 Output: Urine 350 Other: Voiding Method Diaper Diaper Diaper # Voids 2 1 - Exam Patient is alert awake, but slow mentation. Patient is very hard of hearing. Speech and language functions appear normal. Pupils are round and reacting, visual reyes appears full and face is symmetric and tongue protrudes the midline. On muscle strength testing his deltoids are weak, possiblyfromarthritis. Biceps, triceps and express clerk are normal bilaterally. Hip flexion is 3. Knee extension 4+ right, 5-left. Ankle dorsiflexion 4+ on the right, 3+ to 4 on the left. Reflexes are trace in the upper limbs, 1+ at bilateral knees and bilateral ankles and plantars are upgoing bilaterally. - Labs CBC & Chem 7: 08/20/21 08:21 08/20/21 08:21 Labs: Abnormal Lab Results - Last 24 Hours (Table) 08/19/21 08/19/21 08/20/21 Range/Units 16:53 20:17 06:00 RBC (4.30-5.90) m/uL Sodium (137-145) mmol/L BUN (9-20) mg/dL Creatinine (0.66-1.25) mg/dL Glucose (74-99) mg/dL POC Glucose (mg/dL) 237 H 152 H 155 H (75-99) mg/dL Calcium (8.4-10.2) mg/dL 08/20/21 08/20/21 08/20/21 Range/Units 08:21 08:21 11:56 RBC 4.19 L (4.30-5.90) m/uL Sodium 133 L (137-145) mmol/L BUN 36 H (9-20) mg/dL Creatinine 1.47 H (0.66-1.25) mg/dL Glucose 150 H (74-99) mg/dL POC Glucose (mg/dL) 380 H (75-99) mg/dL Calcium 8.3 L (8.4-10.2) mg/dL Assessment and Plan Assessment: * Altered mental status, possible toxic metabolic encephalopathy. Patient has acute Covid-19 infection, likely the cause of encephalopathy. * Acute bilateral lower extremity weakness/paraparesis, due to severe lumbar spinal stenosis at L4 5. No evidence of CVA on CAT scan of head. 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 Patient's son states that he had the strokes about 10 years ago. He has very mild left leg weakness, but he still walks without any device. * B12 506, folate > 20, MMA, B6 still pending. * Continue Eliquis 2.5 mg twice a day for stroke prevention related to hypercoagulable state from Covid-19 infection. * EEG completed, will review. * MRI of the lumbar spine performed today. On my review, there is severe spinal stenosis at L4 5. We will consult orthopedic spine.
--- NOTE | 2021-08-20 15:02 | MR ---
EXAMINATION TYPE: MR lumbar spine wo con DATE OF EXAM: 08/20/2021 2:18 PM COMPARISON: NONE HISTORY: leg weakness, low back pain Multiplanar, MultiSpin echo imaging of the lumbar spine was performed. L1-L2: Mild decreased signal ossified compatible degenerative disc disease. Posterior disc bulge with mild effacement ventral thecal sac. No evidence for central stenosis or foraminal encroachment. L2-L3: Mild decreased signal ossified compatible degenerative disc disease. Posterior disc bulge with mild effacement ventral thecal sac. No evidence for central stenosis or foraminal encroachment. L3-L4: Mild decreased signal ossified compatible degenerative disc disease. Posterior disc bulge with mild effacement ventral thecal sac. No evidence for central stenosis or foraminal encroachment. L4-L5: Moderate decreased signal ossified compatible degenerative disc disease. Moderate posterior di sc bulge resulting in moderate central stenosis. Grade 1 anterolisthesis L4 and L5 of 3 mm. L5-S1: Normal disc appearance without desiccation. No herniation, protrusion or disc bulging. No ca nal stenosis is present. Foramina are patent bilaterally. Lumbar segments are intact. No paraspinal masses are identified. Conus medullaris has a normal appe arance. IMPRESSION: 1. Multilevel degenerative disc disease. 2. Central stenosis L4-5.
--- NOTE | 2021-08-20 15:54 | EEG ---
ELECTROENCEPHALOGRAM REPORT DATE OF SERVICE: 08/20/2021 PREAMBLE: This is an 85-year-old male with altered mental status. EEG FINDINGS: This is a 21-channel digital EEG recorded with video component, utilizing 10/20 international system with referential and bipolar montages. Background consists of moderately well-developed and poorly regulated, mixed frequencies of 4-6 hertz theta seen in bihemispheric region. Background does not seem to be reactive to eye opening and closing. Frequent movement or myogenic artifacts were seen in early part of the study. Photic stimulation and hyperventilation were not performed. Different stages of sleep were not seen. No focal or generalized epileptiform activity was seen. IMPRESSION: This is an abnormal EEG due to background slowing of moderate degree. This is suggestive of generalized cerebral dysfunction as can be seen with toxic metabolic encephalopathy or related to diffuse structural brain abnormality. No epileptiform activity was seen. MMMARL / LAZARON: [id number] /
[2021-08-20 16:52] LABS: Glucose,Whole Blood 198 mg/dL (75-99)
[2021-08-20 21:07] LABS: Glucose,Whole Blood 134 mg/dL (75-99)
--- NOTE | 2021-08-20 23:03 | P.PN ---
Subjective Progress Note Date: 08/20/21 Principal diagnosis: Acute COVID-19 infection Acute kidney injury Generalized weakness This is a pleasant 85 years old male with past medical history of CVA/TIA, prostate cancer, peripheral vascular disease status post left femoral stent, coronary artery disease status post CABG. 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 Patient presents because of difficulty walking and weakness for about a week as he states. Patient denies falling to me however on reviewing the note from emergency room physician note looks like the patient fell a few days ago and his son helped him sitting up. He states the last time he was able to walk about a week ago. Also while talking to mehe has some urinary incontinence. It looks like his left leg is weaker than the right one, however his weakness could be due to limitation from his left hip pain. He denies chest pain, he denies dyspnea. No coughing. No abdominal pain. No diarrhea. He denies any urinary complaints. No headache, no blurred vision, no swallowing difficulty or choking. The patient has has good appetite He looks generally weak. He denies smoking, alcohol or illicit drugs On admission patient has low-grade fever and blood pressure is 99/96 Labs shows leukopenia of 3.2, anemia hemoglobin 10.6 and normal platelet count 170. D-dimer -0.27, INR is 1.0. Creatinine 1.9 came down to 1.6. Sodium 133, troponin is elevated 0.06, 0.07 and 0.07. Liver enzymes not significantly elevated EKG showing normal sinus rhythm at 83, with no significant ST-T changes Chest x-ray showing minimal pleural reaction on the lateral right lung base.no pulmonary consolidation. Lumbar spine x-ray: No fracture, mild degenerative disc disease Thoracic spine x-ray: No acute fracture Urine analysis is not suspicious for infection Coronavirus detected Patient received intravenous fluids, and continued on home dose of Eliquis and aspirin 81 mg 08/19/2021 Patient is currently sitting up in the bed. Lethargic and generally weak. Patient is on room air. No complaints of chest pain or shortness breath. 2-D echo cardiac exam showed his ejection fraction 60-65% and mild MR and mild TR and mild pulmonary hypertension. Cardiology is following due to elevated troponin levels. No fever no chills. No cough or sputum production. Patient does not need any steroids at this time. Increase metoprolol to 10 mg daily. Uncontrolled blood pressure. Neurology was consulted to metabolic encephalopathy and bilateral lower e xtremity weakness. 08/20/2021 Patient is currently in the select care unit. Patient appears to be lethargic and drowsy. Still having bilateral lower extremity weakness. MRI of the lumbar spine was ordered as per neurology recommendations. Patient underwent CT head showed moderate diffuse age-related cerebral atrophy and severe chronic small vessel ischemic changes and old infarcts. Cardiology and neurology is following. Laboratory data showed sodium 133 potassium 3.8 BUN 36 and creatinine 1.47 and blood sugar is 150 today morning. Patient is being continued on IV hydration with normal saline at 75 cc/h. Currently saturating at 94% on room air. Current medications reviewed. Objective - Vital Signs Vital signs: Vital Signs Temp 98.7 F 08/20/21 16:00 Pulse 84 08/20/21 16:00 Resp 16 08/20/21 16:00 BP 138/84 08/20/21 16:00 Pulse Ox 95 08/20/21 16:00 Intake & Output 08/20/21 08/20/21 08/21/21 06:59 18:59 06:59 Intake Total 236 Output Total 350 Balance -114 Weight 67 kg Intake: Oral 236 Output: Urine 350 Other: Voiding Method Diaper Diaper # Voids 1 3 - Exam -GENERAL: The patient is alert and oriented x3, not in any acute distress. Generally weak HEENT: Pupils are round and equally reacting to light. EOMI. No scleral icterus. No conjunctival pallor. Normocephalic, atraumatic. No pharyngeal erythema. No thyromegaly. CARDIOVASCULAR: S1 and S2 present. No murmurs, rubs, or gallops. PULMONARY: Chest is clear to auscultation, no wheezing or crackles. ABDOMEN: Soft, nontender, nondistended, normoactive bowel sounds. No palpable organomegaly. MUSCULOSKELETAL: No joint swelling or deformity. EXTREMITIES: No cyanosis, clubbing, or pedal edema. Cranial nerves are grossly intact -Neuro: Gross neurological examination did not reveal any focal deficits. Left leg weaker than right leg but this couldn't be limited by left hip pain. Sensation is intact. SKIN: No rashes. No petechiae - Labs CBC & Chem 7: 08/20/21 08:21 08/20/21 08:21 Labs: Abnormal Lab Results - Last 24 Hours (Table) 08/20/21 08/20/21 08/20/21 Range/Units 06:00 08:21 08:21 RBC 4.19 L (4.30-5.90) m/uL Sodium 133 L (137-145) mmol/L BUN 36 H (9-20) mg/dL Creatinine 1.47 H (0.66-1.25) mg/dL Glucose 150 H (74-99) mg/dL POC Glucose (mg/dL) 155 H (75-99) mg/dL Calcium 8.3 L (8.4-10.2) mg/dL 08/20/21 08/20/21 08/20/21 Range/Units 11:56 16:51 21:06 RBC (4.30-5.90) m/uL Sodium (137-145) mmol/L BUN (9-20) mg/dL Creatinine (0.66-1.25) mg/dL Glucose (74-99) mg/dL POC Glucose (mg/dL) 380 H 198 H 134 H (75-99) mg/dL Calcium (8.4-10.2) mg/dL Assessment and Plan Assessment: Acute COVID-19 infection, with mild fever and no evidence of pneumonia on the chest x-ray Possible metabolic/sick encephalopathy due to COVID-19 infection Bilateral leg weakness and bilateral hip pain. acute kidney injury, improving Diabetes type 2 not well controlled. Elevated troponin not suggestive of ACS, likely secondary to Covid/VINCENZO History of CVA History of prostate cancer History of peripheral vascular disease status post left femoral stent History of coronary artery disease status post CABG Plan: This is a pleasant 85 years old male presents with covid, no pneumonia. Latonya vated troponin Start multiple vitamins, vitamin C, vitamin D and zinc Continue Eliquis 2.5 mg twice daily for stroke prevention Pulmonary evaluated the patient. Patient does not need needs steroids at this time. 2-D echocardiogram showed normal EF. MRI of the lumbar spine was ordered due to bilateral lower extremity profound weakness. Labs and medication were reviewed. Continue with symptomatic treatment. Monitor lytes and vitals. DVT and GI prophylaxis. DVT prophylaxis:Eliquis GI Prophylaxis: Ppi PT/OT: Pending Prognosis is guarded Time with Patient: Greater than 30
[2021-08-21 06:30] LABS: Glucose,Whole Blood 180 mg/dL (75-99)
[2021-08-21] MEDS: INSULIN ASPART (NovoLOG) 100 UNIT/ML VIAL SQ SCH ×4 (06:45→21:39)
[2021-08-21] MEDS: SODIUM CHLORIDE 0.9% 1,000 ML IV SCH ×2 (06:45→21:40)
[2021-08-21] MEDS: INSULIN DETEMIR (LEVEMIR) 100 UNIT/ML SYR SQ SCH (06:45)
[2021-08-21] MEDS: ALBUTEROL HFA INHALER INHALATION PRN ×2 (08:02→12:11)
[2021-08-21] MEDS: ASPIRIN 81 MG PO SCH (08:49)
[2021-08-21] MEDS: ATORVASTATIN 80 MG TAB PO SCH (08:49)
[2021-08-21] MEDS: ZINC SULFATE 220 MG CAP PO SCH (08:49)
[2021-08-21] MEDS: CHOLECALCIFEROL 25 MCG (1000 IU) TABLET PO SCH (08:49)
[2021-08-21] MEDS: PIOGLITAZONE 15 MG TAB PO SCH (08:49)
[2021-08-21] MEDS: APIXABAN 2.5 MG TABLET PO SCH (08:49)
[2021-08-21] MEDS: amLODIPine 10 MG TAB PO SCH (08:49)
[2021-08-21] MEDS: PANTOPRAZOLE 40 MG TABLET PO SCH (08:49)
[2021-08-21] MEDS: ASCORBIC ACID 500 MG TAB PO SCH (08:50)
[2021-08-21] MEDS: FOLIC ACID 1 MG TAB PO SCH (08:50)
[2021-08-21] MEDS: LOSARTAN 50 MG TAB PO SCH (08:50)
--- NOTE | 2021-08-21 10:21 | P.CNOR ---
History of Present Illness - [facility] Consult date: 08/21/21 Consult reason: low back pain History of present illness: Patient is seen and examined at bedside. Apparently he has a Covid +85-year-old male who has been having pain in his lower back and across his bilateral gluteus over the past several months. He says it affects his walking. His history is limited but he is able answer some of his questions and cooperate with some of the exam. He is admitted regards to his shortness of breath and is positive CODE STATUS. He has been complaining of back pain and lower extremity pain. He says it is primarily at his "ass" when asked multiple times. He says it does extend down his legs to some degree but is mainly at his gluteus area. He denies any specific injury or trauma. He denies abdominal pain or nausea or vomiting. He says he is feeling lousy overall and has fatigue generally with some shortness of breath when he tries to do activities. He denies any prior treatment in his lower back. He denies any physical therapy medical management or torrential pain management for his back. Review of Systems As per HPI. He denies any changes in bowel bladder function. Denies any new weakness in his lower extremity. The pain is primarily at his gluteus area and across his lower back. 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 Prostate CA, gets injections. Has Constipation. Lt foot numbness. left femoral stent 12.06.2019 History of Any Multi-Drug Resistant Organisms: None Reported Past Surgical History: Coronary Bypass/CABG Additional Past Surgical History / Comment(s): "Heart surgery" Past Anesthesia/Blood Transfusion Reactions: No Reported Reaction Past Psychological History: No Psychological Hx Reported Smoking Status: Never smoker Past Alcohol Use History: None Reported Additional Past Alcohol Use History / Comment(s): Smoked 6 months years ago. Past Drug Use History: None Reported - Past Family History Mother Family Medical History: No Reported History Medications and Allergies Home Medications Medication Instructions Recorded Confirmed Type Atorvastatin [Lipitor] 80 mg PO DAILY 12/04/19 08/17/21 History Insulin Detemir (Levemir) [Levemir] 18 unit SQ DAILY 12/04/19 08/17/21 History Aspirin EC [Ecotrin Low Dose] 81 mg PO DAILY 03/12/20 08/17/21 History Apixaban [Eliquis] 2.5 mg PO DAILY 08/17/21 08/17/21 History Folic Acid 1 mg PO DAILY 08/17/21 08/17/21 History HYDROcodone/APAP 5-325MG [[place] 1 tab PO DAILY PRN 08/17/21 08/17/21 History 5-325] Losartan Potassium 100 mg PO DAILY 08/17/21 08/17/21 History [place]-3 Fatty Acids/Fish Oil [Fish 1 tab PO DAILY 08/17/21 08/17/21 History Oil 1,000 mg Softgel] Pantoprazole [Protonix] 40 mg PO DAILY 08/17/21 08/17/21 History Pioglitazone [Actos] 15 mg PO DAILY 08/17/21 08/17/21 History Ascorbic Acid [Vitamin C] 1,000 mg PO DAILY #30 tab 08/20/21 Rx Cholecalciferol [Vitamin D3 (25 50 mcg PO DAILY #30 tablet 08/20/21 Rx Mcg = 1000 Iu)] Zinc Sulfate [Orazinc] 220 mg PO DAILY #30 cap 08/20/21 Rx amLODIPine [Norvasc] 10 mg PO DAILY #30 tab 08/20/21 Rx Allergies Allergy/AdvReac Type Severity Reaction Status Date / Time No Known Allergies Allergy Verified 08/17/21 19:15 Physical Examination Osteopathic Statement: *. No significant issues noted on an osteopathic structural exam other than those noted in the History and Physical/Consult. - L Spine: dermatomal strength & reflexes bilateral Strength: hip flexion: 4/5 (At his lower extremities he is able to flex his knees and extend his hips. There is some global weakness with this. He has sustained dorsal flexion plantar flexion and EHL with global weakness about 4 out of 5) Strength: knee flexion: 4/5 (His calves and thighs are soft and nontender. He does not have a specific focal deficit in his lower extremities with generalized weakness of 4 out of 5 globally. There is no hyperreflexia. Capillary refill is less than 2 seconds. No clonus. No saddle paresthesia) Results - Labs Labs: Abnormal Lab Results - Last 24 Hours (Table) 08/20/21 08/20/21 08/20/21 Range/Units 11:56 16:51 21:06 POC Glucose (mg/dL) 380 H 198 H 134 H (75-99) mg/dL 08/21/21 Range/Units 06:29 POC Glucose (mg/dL) 180 H (75-99) mg/dL H & H 08/17/21 08/18/21 08/19/21 Range/Units 18:12 06:01 10:37 Hgb 13.5 10.6 L 12.3 L (13.0-17.5) gm/dL Hct 39.3 30.8 L 35.5 L (39.0-53.0) % 08/20/21 Range/Units 08:21 Hgb 13.3 (13.0-17.5) gm/dL Hct 40.3 (39.0-53.0) % Coagulation 08/17/21 08/17/21 Range/Units 18:12 20:05 INR 1.0 1.0 (<1.2) Result Diagrams: 08/20/21 08:21 08/20/21 08:21 - Diagnostic results Lumbar AP/lateral x-ray: report reviewed, image reviewed Lumbar MRI with contrast: report reviewed Lumbar MRI with/without contrast: report reviewed, image reviewed (X-rays and lumbar MRI reveal spondylolisthesis L4 5. There is central and bilateral foraminal stenosis severely at the L4 5 level. There is some diffuse facet arthrosis at L5-S1 and L3 4.) Assessment and Plan Assessment: Low back pain with lower extremity radiculopathy Spondylolisthesis grade 2 L4 5 Severe central and bilateral foraminal stenosis L4 5 Degenerative disc disease Global malaise and deconditioning Plan: Low back pain with lower extremity radiculopathy Spondylolisthesis grade 2 L4 5 Severe central and bilateral foraminal stenosis L4 5 Degenerative disc disease Global malaise and deconditioning The patient has a number of symptoms at his low back and lower extremities extending from his spinal listhesis with spinal stenosis L4 5. In his current state I don't think that he is a good candidate for surgical intervention and he has not been through any conservative treatment specifically for his lower back. We'll see if therapy can help him to mobilize better and help alleviate some of his pain. He should continue with pain control as well. He may have some benefit with interventional pain management and we'll consult them as well for the possibility of epidural steroid injections targeting L4 5 level. The patient is a number of medical issues currently and is continuing treatment with medicine appropriately. He is somewhat reluctant to pursue any treatment and he is somewhat reluctant to cooperate with his exam and interview today. I tried to explain with to him that he could have some benefit with directed treatment his lumbar spine particularly with medication or interventional pain management. He seems to agree. He is not interested in any surgical intervention and I think that is reasonable as currently he is quite frail and we would not plan any acute surgery. We will have pain management see him as well to consider the possibility of epidural steroid injections to see if that can help some of his pain across his lower back and into his gluteal area and lower extremity is.
[2021-08-21 11:44] LABS: Glucose,Whole Blood 197 mg/dL (75-99)
[2021-08-21 13:04] VITALS: BMI 20.7
--- NOTE | 2021-08-21 13:45 | P.PN ---
Subjective Progress Note Date: 08/21/21 CHIEF COMPLAINT: Elevated Troponin HISTORY OF PRESENT ILLNESS: This is a 85-year-old male who follows in the office with Dr. Marques. The patient is currently admitted to the hospital secondary to Covid. Echocardiogram completed revealed ejection fraction 60-65%, mild mitral regurgitation, mild tricuspid regurgitation, and mild pulmonary hypertension. Patient's blood pressures are elevated this morning with a systolic ranging between 150 and 180. 08/20/2021 Patient remains hospitalized on the selective care unit. Patient underwent CT of the brain yesterday revealing moderate diffuse age-related cerebral atrophy and moderate to severe chronic small vessel ischemic changes along with old inferior right frontal and high posterior right frontal infarcts now all identified. Acute on chronic paranasal sinusitis noted as detailed above. Patient's blood pressure this morning 142/66. His Norvasc was increased yesterday. 08/21/2021 Patient remains hospitalized on the selective care unit. He is on room air with oxygen saturations greater than 90%. Telemetry reveals sinus mechanism with heart rate in 70s. Blood pressure remained stable. Most recent reading 130/61. PHYSICAL EXAM: Thorough physical exam not completed secondary to limited evaluation/examination due to Covid19 ASSESSMENT: Covid 19 Abnormal troponins, not suggestive of ACS, likely secondary to Covid/VINCENZO Coronary artery disease with previous CABG Peripheral vascular disease Hypertension Hyperlipidemia Diabetes Acute kidney injury PLAN: Continue current cardiac medications Continue to monitor blood pressure Patient is stable for discharge home today from a cardiac standpoint We will sign off. Please reconsult if needed Nurse practitioner note has been reviewed by physician. Signing provider agrees with the documented findings, assessment, and plan of care. Objective - Vital Signs Vital signs: Vital Signs Temp 98.5 F 08/21/21 12:30 Pulse 78 08/21/21 12:30 Resp 18 08/21/21 12:30 BP 130/61 08/21/21 12:30 Pulse Ox 90 L 08/21/21 12:30 Intake & Output 08/20/21 08/21/21 08/21/21 18:59 06:59 18:59 Intake Total 236 600 660 Output Total 350 600 Balance -114 600 60 Weight 63.5 kg 63.5 kg Intake: Intake, IV Titration 600 Amount Sodium Chloride 0.9% 1, 600 000 ml @ 75 mls/hr IV . [id number] [id number] Rx#:[id number] Oral 236 660 Output: Urine 350 600 Other: Voiding Method Diaper Diaper Diaper # Voids 3 1 - Labs CBC & Chem 7: 08/20/21 08:21 08/20/21 08:21 Labs: Abnormal Lab Results - Last 24 Hours (Table) 08/20/21 08/20/21 08/21/21 Range/Units 16:51 21:06 06:29 POC Glucose (mg/dL) 198 H 134 H 180 H (75-99) mg/dL 08/21/21 Range/Units 11:43 POC Glucose (mg/dL) 197 H (75-99) mg/dL
--- NOTE | 2021-08-21 14:52 | P.PAINCN ---
History of Present Illness - Reason for Consult Consult date: 08/21/21 - Chief Complaint Lumbar back pain - History of Present Illness Mr. Gillis is a 85 -year-old pleasant male consulted for lumbar back pain. Patient is responding to questions very slowly but appropriately. Patient is recently positive for COVID, currently under isolation. Patient has ongoing pain for many years. Patient describes pain is aching, throbbing, constant type of pain. Pain is radiating to lower extremity sometimes. Patient rated pain levels are 3-4 out of 10 in severity. With the help of medications pain levels are 3-4 out of 10 in severity. Activities making pain worse. Medications, resting, physical therapy helping in relieving patient's pain to some extent. Denied any side effects with the medications. Denied any bowel or bladder problems at this time. Patient denied any red flag symptoms related to pain. Review of Systems All systems: negative Constitutional: Denies chills, Denies fever Eyes: denies blurred vision, denies pain Ears, nose, mouth and throat: Denies headache, Denies sore throat Cardiovascular: Denies chest pain, Denies shortness of breath Respiratory: Denies cough Musculoskeletal: Reports low back pain, Reports muscle weakness, Reports myalgias Integumentary: Denies pruritus, Denies rash Neurological: Reports weakness, Denies numbness Psychiatric: Denies anxiety, Denies depression Endocrine: Denies weight change Past Medical History Past Medical History: Cancer, CVA/TIA Additional Past Medical History / Comment(s): Old hx CVA, recovered. Prostate C A, gets injections. Has Constipation. Lt foot numbness. left femoral stent 12.06.2019 History of Any Multi-Drug Resistant Organisms: None Reported Past Surgical History: Coronary Bypass/CABG Additional Past Surgical History / Comment(s): "Heart surgery" Past Anesthesia/Blood Transfusion Reactions: No Reported Reaction Past Psychological History: No Psychological Hx Reported Smoking Status: Never smoker Past Alcohol Use History: None Reported Additional Past Alcohol Use History / Comment(s): Smoked 6 months years ago. Past Drug Use History: None Reported - Past Family History Mother Family Medical History: No Reported History Medications and Allergies Home Medications Medication Instructions Recorded Confirmed Type Atorvastatin [Lipitor] 80 mg PO DAILY 12/04/19 08/17/21 History Insulin Detemir (Levemir) [Levemir] 18 unit SQ DAILY 12/04/19 08/17/21 History Aspirin EC [Ecotrin Low Dose] 81 mg PO DAILY 03/12/20 08/17/21 History Apixaban [Eliquis] 2.5 mg PO DAILY 08/17/21 08/17/21 History Folic Acid 1 mg PO DAILY 08/17/21 08/17/21 History HYDROcodone/APAP 5-325MG [[place] 1 tab PO DAILY PRN 08/17/21 08/17/21 History 5-325] Losartan Potassium 100 mg PO DAILY 08/17/21 08/17/21 History [place]-3 Fatty Acids/Fish Oil [Fish 1 tab PO DAILY 08/17/21 08/17/21 History Oil 1,000 mg Softgel] Pantoprazole [Protonix] 40 mg PO DAILY 08/17/21 08/17/21 History Pioglitazone [Actos] 15 mg PO DAILY 08/17/21 08/17/21 History Ascorbic Acid [Vitamin C] 1,000 mg PO DAILY #30 tab 08/20/21 Rx Cholecalciferol [Vitamin D3 (25 50 mcg PO DAILY #30 tablet 08/20/21 Rx Mcg = 1000 Iu)] Zinc Sulfate [Orazinc] 220 mg PO DAILY #30 cap 08/20/21 Rx amLODIPine [Norvasc] 10 mg PO DAILY #30 tab 08/20/21 Rx Allergies Allergy/AdvReac Type Severity Reaction Status Date / Time No Known Allergies Allergy Verified 08/17/21 19:15 Physical Exam Vitals: Vital Signs Temp Pulse Resp BP Pulse Ox 08/21/21 08:45 97.4 F L 87 18 139/67 92 L 08/21/21 03:34 97.9 F 82 18 136/76 92 L 08/21/21 02:00 16 08/21/21 00:00 99.0 F 78 16 135/60 93 L 08/20/21 20:00 99.7 F H 86 19 141/65 94 L 08/20/21 16:00 98.7 F 84 16 138/84 95 08/20/21 15:47 90 L 08/20/21 14:00 71 18 Intake and Output 08/20/21 08/21/21 08/21/21 22:59 06:59 14:59 Intake Total 118 600 660 Output Total 600 Balance 118 600 60 Intake: Intake, IV Titration 600 Amount Sodium Chloride 0.9% 1, 600 000 ml @ 75 mls/hr IV . [id number] Rx#:[id number] Oral 118 660 Output: Urine 600 Other: Voiding Method Diaper Diaper # Voids 3 1 Weight 63.5 kg General: Well-developed, well-nourished, no acute distress HEENT: Normocephalic, and atraumatic Neck: Supple, no neck swelling Psychiatric: Responding to the questions slowly, and appropriately [employer]: No noticeable focal neurological deficits Musculoskeletal: Upper extremity: Decreased strength, and range of motion Lower extremity: Decreased Normal strength, and decreased range of motion secondary to pain Lumbar spine: Paravertebral tenderness: positive Lumbar facet load test : positive Sacroiliac joint tenderness: Positive Thigh thrust test: Unable to perform SI joint compression test: Unable to perform [place] test: Unable to perform as patient is not cooperative SLR test unable to perform as patient is not cooperative Results CBC & Chem 7: 08/20/21 08:21 08/20/21 08:21 Labs: Abnormal Lab Results - Last 24 Hours (Table) 08/20/21 08/20/21 08/21/21 Range/Units 16:51 21:06 06:29 POC Glucose (mg/dL) 198 H 134 H 180 H (75-99) mg/dL 08/21/21 Range/Units 11:43 POC Glucose (mg/dL) 197 H (75-99) mg/dL Comments: MRI of the lumbar spine done on 08/20/2021 reviewed Assessment and Plan Assessment: Lumbar spondylosis without myelopathy Lumbar spinal canal stenosis at L4-L5 Joni-Spondylolisthesis L4 on L5 Sacroiliac joint dysfunction Myofascial pain syndrome, and chronic pain syndrome Plan: #1 Diagnoses, prognosis, and multiple treatment options including but not limited to physical therapy, interventional therapy, adjunct medication therapy, narcotic medication were discussed with the patient. # 2 Patient was counseled on importance of regular exercise. #3 consultation : Physical therapy, patient may benefit from physical therapy at this time #4 interventional procedures: L4-L5 epidural procedure. Patient may get benefit from epidural steroid injection but patient is currently taking Eliquis , and positive for COVID. #5 medications #1 [place] 5/325 by mouth every 6 hours as needed for pain, but currently patient feeling drowsy. #2 Tylenol 500 mg by mouth every 12 hours to every 8 hours as needed. Total dose of Tylenol not more than 2 g per day #3 Zanaflex 2 mg by mouth every 12 hours as needed for muscle spasm after patient is not feeling drowsy #6 disposition: Patient can follow up with the pain clinic as needed in future if needed any interventional procedures.. Time with Patient: Less than 30 PQRS Measure Charge Sheet PQRS Narrative: Smoking Status Former smoker Do You Want the Pneumonia No Vaccine AT THIS TIME? Blood Pressure [Right Arm] 139/67 Blood Pressure 177/73 Pain Intensity [None] 0 Pain Intensity 0 Pain Scale Used Numeric (1 - 10) Scale Used Numeric (1 - 10) Home Medications: Ambulatory Orders Atorvastatin [Lipitor] 80 mg PO DAILY 12/04/19 Insulin Detemir (Levemir) [Levemir] 18 unit SQ DAILY 12/04/19 Aspirin EC [Ecotrin Low Dose] 81 mg PO DAILY 03/12/20 Apixaban [Eliquis] 2.5 mg PO DAILY 08/17/21 Folic Acid 1 mg PO DAILY 08/17/21 HYDROcodone/APAP 5-325MG [[place] 5-325] 1 tab PO DAILY PRN 08/17/21 Losartan Potassium 100 mg PO DAILY 08/17/21 [place]-3 Fatty Acids/Fish Oil [Fish Oil 1,000 mg Softgel] 1 tab PO DAILY 08/17/21 Pantoprazole [Protonix] 40 mg PO DAILY 08/17/21 Pioglitazone [Actos] 15 mg PO DAILY 08/17/21 Ascorbic Acid [Vitamin C] 1,000 mg PO DAILY #30 tab 08/20/21 Cholecalciferol [Vitamin D3 (25 Mcg = 1000 Iu)] 50 mcg PO DAILY #30 tablet 08/20/21 Zinc Sulfate [Orazinc] 220 mg PO DAILY #30 cap 08/20/21 amLODIPine [Norvasc] 10 mg PO DAILY #30 tab 08/20/21
--- NOTE | 2021-08-21 15:15 | P.PN ---
Subjective Progress Note Date: 08/21/21 Patient was seen for a follow-up. Patient continues to be encephalopathic. Denies headache. Patient is laying comfortably in the bed. States the back pain is getting better. Telemetry monitoring in the last 24 hour showing sinus rhythm with some PACs. Objective - Vital Signs Vital signs: Vital Signs Temp 98.5 F 08/21/21 12:30 Pulse 78 08/21/21 12:30 Resp 18 08/21/21 12:30 BP 130/61 08/21/21 12:30 Pulse Ox 90 L 08/21/21 12:30 Intake & Output 08/20/21 08/21/21 08/21/21 18:59 06:59 18:59 Intake Total 236 600 660 Output Total 350 600 Balance -114 600 60 Weight 63.5 kg 63.5 kg Intake: Intake, IV Titration 600 Amount Sodium Chloride 0.9% 1, 600 000 ml @ 75 mls/hr IV . [id number] [facility] Rx#:[id number] Oral 236 660 Output: Urine 350 600 Other: Voiding Method Diaper Diaper Diaper # Voids 3 1 - Exam 08/21/2021: Mental status as above. Detail examination deferred. 08/20/2021: Patient is alert awake, but slow mentation. Patient is very hard of hearing. Speech and language functions appear normal. Pupils are round and reacting, visual reyes appears full and face is symmetric and tongue protrudes the midline. On muscle strength testing his deltoids are weak, possiblyfromarthritis. Biceps, triceps and finishing machine tender are normal bilaterally. Hip flexion is 3. Knee extension 4+ right, 5-left. Ankle dorsiflexion 4+ on the right, 3+ to 4 on the left. Reflexes are trace in the upper limbs, 1+ at bilateral knees and bilateral ankles and plantars are upgoing bilaterally. - Labs CBC & Chem 7: 08/20/21 08:21 08/20/21 08:21 Labs: Abnormal Lab Results - Last 24 Hours (Table) 08/20/21 08/20/21 08/21/21 Range/Units 16:51 21:06 06:29 POC Glucose (mg/dL) 198 H 134 H 180 H (75-99) mg/dL 08/21/21 Range/Units 11:43 POC Glucose (mg/dL) 197 H (75-99) mg/dL Assessment and Plan Assessment: * Altered mental status, possible toxic metabolic encephalopathy. Patient has acute Covid-19 infection, likely the cause of encephalopathy. * Acute bilateral lower extremity weakness, due to severe lumbar spinal stenosis at L4 5. No evidence of CVA on CAT scan of head. 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 Patient's son states that he had the strokes about 10 years ago. He has very mild left leg weakness, but he still walks without any device. * B12 506, folate > 20, MMA 0.32 normal, B6 still pending. * Continue Eliquis 2.5 mg twice a day for stroke prevention related to hypercoagulable state from Covid-19 infection. * EEG revealed background slowing of moderate degree. This is suggestive of generalized cerebral dysfunction as can be seen with toxic metabolic encephalopathy or related to diffuse structural brain abnormality. No epileptiform activity was seen. * MRI of the lumbar spine revealed severe spinal stenosis at L4 5. Orthopedic spine input appreciated. Pain consult initiated. Patient may benefit from epidural steroid injection, but patient is on Eliquis and also has Covid. Patient started on [place], Tylenol and Zanaflex. * We will follow.
[2021-08-21 16:31] LABS: Glucose,Whole Blood 168 mg/dL (75-99)
[2021-08-21 20:42] LABS: Glucose,Whole Blood 228 mg/dL (75-99)
[2021-08-22 06:59] LABS: Glucose,Whole Blood 147 mg/dL (75-99)
[2021-08-22] MEDS: ALBUTEROL HFA INHALER INHALATION PRN ×2 (08:20→12:11)
[2021-08-22] MEDS: ATORVASTATIN 80 MG TAB PO SCH (09:15)
[2021-08-22] MEDS: INSULIN DETEMIR (LEVEMIR) 100 UNIT/ML SYR SQ SCH (09:15)
[2021-08-22] MEDS: ZINC SULFATE 220 MG CAP PO SCH (09:15)
[2021-08-22] MEDS: INSULIN ASPART (NovoLOG) 100 UNIT/ML VIAL SQ SCH ×2 (09:16→11:35)
[2021-08-22] MEDS: amLODIPine 10 MG TAB PO SCH (09:16)
[2021-08-22] MEDS: ASPIRIN 81 MG PO SCH (09:16)
[2021-08-22] MEDS: CHOLECALCIFEROL 25 MCG (1000 IU) TABLET PO SCH (09:16)
[2021-08-22] MEDS: FOLIC ACID 1 MG TAB PO SCH (09:16)
[2021-08-22] MEDS: PANTOPRAZOLE 40 MG TABLET PO SCH (09:17)
[2021-08-22] MEDS: LOSARTAN 50 MG TAB PO SCH (09:17)
[2021-08-22] MEDS: APIXABAN 2.5 MG TABLET PO SCH (09:17)
[2021-08-22] MEDS: PIOGLITAZONE 15 MG TAB PO SCH (09:17)
[2021-08-22] MEDS: SODIUM CHLORIDE 0.9% 1,000 ML IV SCH (09:18)
[2021-08-22] MEDS: ASCORBIC ACID 500 MG TAB PO SCH (09:20)
--- NOTE | 2021-08-22 09:51 | P.PN ---
Subjective Progress Note Date: 08/21/21 Principal diagnosis: Acute COVID-19 infection Acute kidney injury Generalized weakness This is a pleasant 85 years old male with past medical history of CVA/TIA, prostate cancer, peripheral vascular disease status post left femoral stent, coronary artery disease status post CABG. 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 Patient presents because of difficulty walking and weakness for about a week as he states. Patient denies falling to me however on reviewing the note from emergency room physician note looks like the patient fell a few days ago and his son helped him sitting up. He states the last time he was able to walk about a week ago. Also while talking to mehe has some urinary incontinence. It looks like his left leg is weaker than the right one, however his weakness could be due to limitation from his left hip pain. He denies chest pain, he denies dyspnea. No coughing. No abdominal pain. No diarrhea. He denies any urinary complaints. No headache, no blurred vision, no swallowing difficulty or choking. The patient has has good appetite He looks generally weak. He denies smoking, alcohol or illicit drugs On admission patient has low-grade fever and blood pressure is 99/96 Labs shows leukopenia of 3.2, anemia hemoglobin 10.6 and normal platelet count 170. D-dimer -0.27, INR is 1.0. Creatinine 1.9 came down to 1.6. Sodium 133, troponin is elevated 0.06, 0.07 and 0.07. Liver enzymes not significantly elevated EKG showing normal sinus rhythm at 83, with no significant ST-T changes Chest x-ray showing minimal pleural reaction on the lateral right lung base.no pulmonary consolidation. Lumbar spine x-ray: No fracture, mild degenerative disc disease Thoracic spine x-ray: No acute fracture Urine analysis is not suspicious for infection Coronavirus detected Patient received intravenous fluids, and continued on home dose of Eliquis and aspirin 81 mg 08/19/2021 Patient is currently sitting up in the bed. Lethargic and generally weak. Patient is on room air. No complaints of chest pain or shortness breath. 2-D echo cardiac exam showed his ejection fraction 60-65% and mild MR and mild TR and mild pulmonary hypertension. Cardiology is following due to elevated troponin levels. No fever no chills. No cough or sputum production. Patient does not need any steroids at this time. Increase metoprolol to 10 mg daily. Uncontrolled blood pressure. Neurology was consulted to metabolic encephalopathy and bilateral lower e xtremity weakness. 08/20/2021 Patient is currently in the select care unit. Patient appears to be lethargic and drowsy. Still having bilateral lower extremity weakness. MRI of the lumbar spine was ordered as per neurology recommendations. Patient underwent CT head showed moderate diffuse age-related cerebral atrophy and severe chronic small vessel ischemic changes and old infarcts. Cardiology and neurology is following. Laboratory data showed sodium 133 potassium 3.8 BUN 36 and creatinine 1.47 and blood sugar is 150 today morning. Patient is being continued on IV hydration with normal saline at 75 cc/h. Currently saturating at 94% on room air. 08/21/2021 Patient is currently resting in the bed. Awake alert and seems to be more oriented today. But still encephalopathic. No complaints of leg pain. Patient says that leg weakness is better. MRI of the lumbar spine showed central stenosis L4-L5. Orthopedic surgery and pain management service was consulted. Patient may benefit from epidural injection but he is on Eliquis and also coronary positive. Currently being continued on [place] and Tylenol and Zanaflex. Laboratory data showed sodium 133 potassium 3.8 BUN 36 and creatinine 1.47 and blood sugar is 150. Current medications reviewed. Objective - Vital Signs Vital signs: Vital Signs Temp 98.5 F 08/21/21 12:30 Pulse 78 08/21/21 12:30 Resp 18 08/21/21 12:30 BP 130/61 08/21/21 12:30 Pulse Ox 90 L 08/21/21 12:30 Intake & Output 08/20/21 08/21/21 08/21/21 18:59 06:59 18:59 Intake Total 236 600 480 Output Total 350 Balance -114 600 480 Weight 63.5 kg 63.5 kg Intake: Intake, IV Titration 600 Amount Sodium Chloride 0.9% 1, 600 000 ml @ 75 mls/hr IV . [id number] [facility] Rx#:[id number] Oral 236 480 Output: Urine 350 Other: Voiding Method Diaper Diaper Diaper # Voids 3 1 2 # Bowel Movements 1 - Exam -GENERAL: The patient is alert and oriented x3, not in any acute distress. Generally weak HEENT: Pupils are round and equally reacting to light. EOMI. No scleral icterus. No conjunctival pallor. Normocephalic, atraumatic. No pharyngeal erythema. No thyromegaly. CARDIOVASCULAR: S1 and S2 present. No murmurs, rubs, or gallops. PULMONARY: Chest is clear to auscultation, no wheezing or crackles. ABDOMEN: Soft, nontender, nondistended, normoactive bowel sounds. No palpable organomegaly. MUSCULOSKELETAL: No joint swelling or deformity. EXTREMITIES: No cyanosis, clubbing, or pedal edema. Cranial nerves are grossly intact -Neuro: Gross neurological examination did not reveal any focal deficits. Left leg weaker than right leg but this couldn't be limited by left hip pain. Sensation is intact. SKIN: No rashes. No petechiae - Labs CBC & Chem 7: 08/20/21 08:21 08/20/21 08:21 Labs: Abnormal Lab Results - Last 24 Hours (Table) 08/20/21 08/20/21 08/21/21 Range/Units 16:51 21:06 06:29 POC Glucose (mg/dL) 198 H 134 H 180 H (75-99) mg/dL 08/21/21 Range/Units 11:43 POC Glucose (mg/dL) 197 H (75-99) mg/dL Assessment and Plan Assessment: Acute COVID-19 infection, with mild fever and no evidence of pneumonia on the chest x-ray Possible metabolic/toxic encephalopathy due to COVID-19 infection Bilateral leg weakness and bilateral hip pain. MRI of the lumbar spine showed spinal stenosis. Seen by orthopedic surgery. No evidence of CVA on CT head. acute kidney injury, improving Diabetes type 2 not well controlled. Elevated troponin not suggestive of ACS, likely secondary to Covid/VINC[place] History of CVA History of prostate cancer History of peripheral vascular disease status post left femoral stent History of coronary artery disease status post CABG Plan: This is a pleasant 85 years old male presents with covid, no pneumonia. Elevated troponin Start multiple vitamins, vitamin C, vitamin D and zinc Continue Eliquis 2.5 mg twice daily for stroke prevention Pulmonary evaluated the patient. Patient does not need needs steroids at this time. 2-D echocardiogram showed normal EF. Cardiology is on board. MRI of the lumbar spine was ordered due to bilateral lower extremity profound weakness. Showed central stenosis. Seen by orthopedic surgery and pain management consult. Patient may be from epidural steroid injection but the patient is on Eliquis and also Covid positive. Currently being continued on [place], Tylenol and Zanaflex. Labs and medication were reviewed. Continue with symptomatic treatment. Monitor lytes and vitals. DVT and GI prophylaxis. DVT prophylaxis:Eliquis GI Prophylaxis: Ppi PT/OT: Pending Prognosis is guarded Time with Patient: Greater than 30
[2021-08-22 09:59] VITALS: RESP 17
[2021-08-22 11:03] LABS: Basophils # (A) 0.01 X 10*3/uL (0.00-0.10); Basophils % (A) 0.2 %; Eosinophils # (A) 0 X 10*3/uL (0.04-0.35); Eosinophils % (A) 0 %; HCT 38.2 % (39.6-50.0); HGB 12.3 g/dL (13.0-17.0); Lymphocytes # (A) 0.92 X 10*3/uL (0.90-5.00); Lymphocytes % (A) 16.6 %; MCH 31.6 pg (27.0-32.0); MCHC 32.2 g/dL (32.0-37.0); MCV 98.2 fL (80.0-97.0); Mean Platelet Volume 10.8 fL (9.5-12.2); Monocytes # (A) 0.25 X 10*3/uL (0.20-1.00); Monocytes % (A) 4.5 %; Neutrophils # (A) 4.33 X 10*3/uL (1.80-7.70); Platelet Count 179 X 10*3/uL (140-440); RBC 3.89 X 10*6/uL (4.40-5.60); RDW 13.6 % (11.5-14.5); WBC 5.55 X 10*3/uL (4.50-10.00)
[2021-08-22 11:24] LABS: Glucose,Whole Blood 172 mg/dL (75-99)
[2021-08-22 11:33] LABS: African American GFR (CKD) 53.5 (60.0-200.0); Anion Gap 11.6 mmol/L (10.00-18.00); BUN/Creat Ratio 25.64 Ratio (12.00-20.00); Blood Urea Nitrogen 35.9 mg/dL (9.0-27.0); Calcium 8.3 mg/dL (8.7-10.3); Carbon Dioxide 23.4 mmol/L (20.0-27.5); Non-African American GFR(CKD) 46.1 (60.0-200.0)
--- NOTE | 2021-08-22 11:34 | P.DS ---
Providers Date of admission: 08/17/21 19:25 Expected date of discharge: 08/22/21 Attending physician: Isaiah Grewal MD Consults: 08/17/21 19:35 Consult Physician Routine Consulting Provider: Chip Mueller Consult Reason/Comments: covid 19 positive Do you want consulting provider notified?: Yes 08/18/21 14:27 Consult Physician Urgent Consulting Provider: Tracey Cruz Consult Reason/Comments: b/l leg weakness, more on the left side Do you want consulting provider notified?: Yes 08/20/21 14:42 Consult Physician Stat Consulting Provider: Joon Hernandez Consult Reason/Comments: Severe back pain, bilateral LE weakness, severe spinal stenosis L4 5 on MRI Do you want consulting provider notified?: Yes 08/21/21 10:13 Consult Physician Routine Consulting Provider: Roman Galindo Consult Reason/Comments: Spinal stenosis L4 5 with lower extremity radiculopathy Do you want consulting provider notified?: Yes Primary care physician: Leatha Henao Hospital Course: Discharge diagnosis Acute COVID-19 infection, with mild fever and no evidence of pneumonia on the chest x-ray Possible metabolic/toxic encephalopathy due to COVID-19 infection. Improving. Bilateral leg weakness and bilateral hip pain. MRI of the lumbar spine showed spinal stenosis. Seen by orthopedic surgery. No evidence of CVA on CT head. acute kidney injury, improving Diabetes type 2 not well controlled. Elevated troponin not suggestive of ACS, likely secondary to Covid/[place] History of CVA History of prostate cancer History of peripheral vascular disease status post left femoral stent History of coronary artery disease status post CABG Hospital course This is a pleasant 85 years old male with past medical history of CVA/TIA, prostate cancer, peripheral vascular disease status post left femoral stent, coronary artery disease status post CABG. 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 Patient presents because of difficulty walking and weakness for about a week as he states. Patient denies falling to me however on reviewing the note from emergency room physician note looks like the patient fell a few days ago and his son helped him sitting up. He states the last time he was able to walk about a week ago. Also while talking to mehe has some urinary incontinence. It looks like his left leg is weaker than the right one, however his weakness could be due to limitation from his left hip pain. He denies chest pain, he denies dyspnea. No coughing. No abdominal pain. No diarrhea. He denies any urinary complaints. No headache, no blurred vision, no swallowing difficulty or choking. The patient has has good appetite He looks generally weak. He denies smoking, alcohol or illicit drugs On admission patient has low-grade fever and blood pressure is 99/96 Labs shows leukopenia of 3.2, anemia hemoglobin 10.6 and normal platelet count 170. D-dimer -0.27, INR is 1.0. Creatinine 1.9 came down to 1.6. Sodium 133, troponin is elevated 0.06, 0.07 and 0.07. Liver enzymes not significantly elevated EKG showing normal sinus rhythm at 83, with no significant ST-T changes Chest x-ray showing minimal pleural reaction on the lateral right lung base.no pulmonary consolidation. Lumbar spine x-ray: No fracture, mild degenerative disc disease Thoracic spine x-ray: No acute fracture Urine analysis is not suspicious for infection Coronavirus detected Patient received intravenous fluids, and continued on home dose of Eliquis and aspirin 81 mg 08/19/2021 Patient is currently sitting up in the bed. Lethargic and generally weak. Patient is on room air. No complaints of chest pain or shortness breath. 2-D echo cardiac exam showed his ejection fraction 60-65% and mild MR and mild TR and mild pulmonary hypertension. Cardiology is following due to elevated troponin levels. No fever no chills. No cough or sputum production. Patient does not need any steroids at this time. Increase metoprolol to 10 mg daily. Uncontrolled blood pressure. Neurology was consulted to metabolic encephalopathy and bilateral lower extremity weakness. 08/20/2021 Patient is currently in the select care unit. Patient appears to be lethargic and drowsy. Still having bilateral lower extremity weakness. MRI of the lumbar spine was ordered as per neurology recommendations. Patient underwent CT head showed moderate diffuse age-related cerebral atrophy and severe chronic small vessel ischemic changes and old infarcts. Cardiology and neurology is following. Laboratory data showed sodium 133 potassium 3.8 BUN 36 and creatinine 1.47 and blood sugar is 150 today morning. Patient is being continued on IV hydration with normal saline at 75 cc/h. Currently saturating at 94% on room air. 08/21/2021 Patient is currently resting in the bed. Awake alert and seems to be more oriented today. But still encephalopathic. No complaints of leg pain. Patient says that leg weakness is better. MRI of the lumbar spine showed central stenosis L4-L5. Orthopedic surgery and pain management service was consulted. Patient may benefit from epidural injection but he is on Eliquis and also coronary positive. Currently being con tinued on [place] and Tylenol and Zanaflex. Laboratory data showed sodium 133 potassium 3.8 BUN 36 and creatinine 1.47 and blood sugar is 150. 08/22/2021 Patient is currently resting in the bed. Admitted to the hospital due to acute COVID-19 infection without evidence of pneumonia and bilateral lower extremity weakness and metabolic/toxic encephalopathy likely due to infection. Patient had workup including CT head, EEG and MRI of the lumbar spine. Currently Awake alert and oriented 3. Less encephalopathic today. Able to move his legs while in the bed. Denied any complaints of pain. Patient is currently on room air and saturating at 91%. Will be continued on Eliquis for stroke prophylaxis. Also on multivitamins and does not need dexamethasone at this time. Patient is being transferred to rehab. PT OT will be continued. Laboratory data showed WBC 5.4 hemoglobin 12.3 and platelets 179 and blood sugar is 147 - Exam -GENERAL: The patient is alert and oriented x3, not in any acute distress. Generally weak HEENT: Pupils are round and equally reacting to light. EOMI. No scleral icterus. No conjunctival pallor. Normocephalic, atraumatic. No pharyngeal erythema. No thyromegaly. CARDIOVASCULAR: S1 and S2 present. No murmurs, rubs, or gallops. PULMONARY: Chest is clear to auscultation, no wheezing or crackles. ABDOMEN: Soft, nontender, nondistended, normoactive bowel sounds. No palpable organomegaly. MUSCULOSKELETAL: No joint swelling or deformity. EXTREMITIES: No cyanosis, clubbing, or pedal edema. Cranial nerves are grossly intact -Neuro: Gross neurological examination did not reveal any focal deficits. Able to move extremities. Sensation is intact. SKIN: No rashes. No petechiae Vital Signs 08/22/21 08/22/21 05:55 08:53 Temperature 98.4 F 98.9 F Pulse Rate [ 89 66 Pulse Oximetery ] Respiratory 18 17 Rate Blood Pressure 181/70 126/66 [Right Arm] O2 Sat by Pulse 88 L 91 L Oximetry Total time taken greater than 35 minutes including 18 minutes for counseling and coordination of care. Patient Condition at Discharge: Serious Plan - Discharge Summary Discharge Rx Participant: No New Discharge Prescriptions: Continue Atorvastatin [Lipitor] 80 mg PO HS@2100 Aspirin EC [Ecotrin Low Dose] 81 mg PO DAILY@0900 Apixaban [Eliquis] 2.5 mg PO HS@2100 Pioglitazone [Actos] 15 mg PO DAILY@0900 Pantoprazole [Protonix] 40 mg PO DAILY@0600 Losartan Potassium 100 mg PO DAILY@0900 Folic Acid 1 mg PO DAILY@0900 [place]rae [place]-3 Fatty Acids/Fish Oil [Fish Oil 1,000 mg Softgel] 1 tab PO DAILY@0900 Changed HYDROcodone/APAP 5-325MG [[place] 5-325] 1 tab PO DAILY PRN #6 tab PRN Reason: Severe Pain Discontinued amLODIPine [Norvasc] 5 mg PO DAILY No Action amLODIPine [Norvasc] 10 mg PO DAILY@0900 Insulin Glargine,Hum.rec.anlog [Lantus Solostar Pen] 18 unit SQ DAILY@09 Ascorbic Acid [Vitamin C] 1,000 mg PO DAILY@09 Cholecalciferol [Vitamin D3 (25 Mcg = 1000 Iu)] 50 mcg PO DAILY@0900 Zinc 50 mg PO DAILY@0900 Discharge Medication List Atorvastatin [Lipitor] 80 mg PO HS@209912/04/19 [History] Aspirin EC [Ecotrin Low Dose] 81 mg PO DAILY@0900 03/12/20 [History] Apixaban [Eliquis] 2.5 mg PO HS@209908/17/21 [History] Folic Acid 1 mg PO DAILY@0908/17/21 [History] Losartan Potassium 100 mg PO DAILY@0908/17/21 [History] [place]rae [place]-3 Fatty Acids/Fish Oil [Fish Oil 1,000 mg Softgel] 1 tab PO DAILY@0908/17/21 [History] Pantoprazole [Protonix] 40 mg PO DAILY@0608/17/21 [History] Pioglitazone [Actos] 15 mg PO DAILY@0908/17/21 [History] HYDROcodone/APAP 5-325MG [[place] 5-325] 1 tab PO DAILY PRN #6 tab 08/22/21 [Rx] Ascorbic Acid [Vitamin C] 1,000 mg PO DAILY@89908/26/21 [History] Cholecalciferol [Vitamin D3 (25 Mcg = 1000 Iu)] 50 mcg PO DAILY@89908/26/21 [History] Insulin Glargine,Hum.rec.anlog [Lantus Solostar Pen] 18 unit SQ DAILY@89908/26/21 [History] Zinc 50 mg PO DAILY@89908/26/21 [History] amLODIPine [Norvasc] 10 mg PO DAILY@89908/26/21 [History] Follow up Appointment(s)/Referral(s): Joon Hernandez DO [Doctor of Osteopathic Medicine] - As Needed (Patient may follow-up with Dr. Vincent Hernandez at [facility] on an as needed basis following discharge. ) Leatha Henao MD [Primary Care Provider] - 1-2 days (ECF) Discharge Disposition: TRANSFER TO SNF/ECF
[2021-08-22 15:08] VITALS: BP 128/67; PULSE 68; TEMP 98.2
== END 2021-08-22 15:20 | DRG 177 ==
LOC: EC 16:14 → 3SCARD 19:25 → 4SSUR 08-21 19:18
PROVIDERS: ADMIT Internal Medicine; ATTEND Internal Medicine
DX: U07.1 COVID-19 (principal); G92.8 Other toxic encephalopathy; E87.1 Hypo-osmolality and hyponatremia; G82.20 Paraplegia, unspecified; J90 Pleural effusion, not elsewhere classified; N17.9 Acute kidney failure, unspecified; I69.354 Hemiplegia and hemiparesis following cerebral infarction affecting left non-dominant side; M48.061 Spinal stenosis, lumbar region without neurogenic claudication; D64.9 Anemia, unspecified; D72.819 Decreased white blood cell count, unspecified; E11.51 Type 2 diabetes mellitus with diabetic peripheral angiopathy without gangrene; E78.5 Hyperlipidemia, unspecified; E86.0 Dehydration; F03.90 Unspecified dementia, unspecified severity, without behavioral disturbance, psychotic disturbance, mood disturbance, and anxiety; H91.90 Unspecified hearing loss, unspecified ear; I10 Essential (primary) hypertension; I25.10 Atherosclerotic heart disease of native coronary artery without angina pectoris; I27.20 Pulmonary hypertension, unspecified; I49.3 Ventricular premature depolarization; M16.10 Unilateral primary osteoarthritis, unspecified hip; R32 Unspecified urinary incontinence; I08.1 Rheumatic disorders of both mitral and tricuspid valves; Z79.4 Long term (current) use of insulin; W06.XXXA Fall from bed, initial encounter; M47.26 Other spondylosis with radiculopathy, lumbar region; M51.16 Intervertebral disc disorders with radiculopathy, lumbar region; Z79.01 Long term (current) use of anticoagulants; Z79.82 Long term (current) use of aspirin; Z79.899 Other long term (current) drug therapy; Z85.46 Personal history of malignant neoplasm of prostate; Z95.1 Presence of aortocoronary bypass graft; Z95.820 Peripheral vascular angioplasty status with implants and grafts; R77.8 Other specified abnormalities of plasma proteins; G89.4 Chronic pain syndrome
CPT/HCPCS: 36415; 70450; 71046; 72070; 72100; 72148; 73521; 80048; 80053; 81001; 82607; 82728; 82746; 83036; 83615; 83735; 83921; 84145; 84207; 84484; 85025; 85379; 85610; 85730; 86140; 87635; 93005; 93306; 94640; 94760; 95816; 96360; 99285

== ENCOUNTER 2021-08-26 06:13 | Inpatient (IN) | payer MEDICARE, BC ==
[2021-08-26 06:59] LABS: Basophils % (A) 0 %; Eosinophils % (A) 0 %; HCT 43.9 % (39.0-53.0); HGB 14.8 gm/dL (13.0-17.5); Lymphocytes # (A) 0.8 k/uL (1.0-4.8); Lymphocytes % (A) 7 %; MCH 32.5 pg (25.0-35.0); MCHC 33.8 g/dL (31.0-37.0); Mean Platelet Volume 9.2; Monocytes # (A) 0.3 k/uL (0-1.0); Monocytes % (A) 2 %; Neutrophils # (A) 11.2 k/uL (1.3-7.7); Neutrophils % (A) 90 %; Platelet Count 278 k/uL (150-450); RBC 4.56 m/uL (4.30-5.90); RDW 13.4 % (11.5-15.5); WBC 12.5 k/uL (3.8-10.6)
--- NOTE | 2021-08-26 07:05 | XR ---
EXAMINATION TYPE: XR chest 1V portable DATE OF EXAM: 08/26/2021 COMPARISON: Chest x-ray August 17, 2021 HISTORY: Cough and fever. TECHNIQUE: Single AP portable frontal upright view of the chest is obtained. FINDINGS: There are new bilateral increased reticular opacities greater in the lower lungs and in th e periphery. Overlying sternal wires and mediastinal clips redemonstrated. The cardiac silhouette si ze remains within normal limits. The osseous structures are somewhat demineralized. Overlying EKG l jeannette now seen. IMPRESSION: New bilateral reticular increased opacities greatest in the lower lungs and in the perip lane consistent with covid-19 infection.
[2021-08-26] MEDS ORDERED: SODIUM CHLORIDE 0.9% 500 ML 500 ML IV STA ×2 (07:06→08:09)
[2021-08-26 07:07] LABS: INR 1.4 (<1.2); Partial Thromboplastin Time 25.4 sec (22.0-30.0); Prothrombin Time 13.8 sec (9.0-12.0)
--- NOTE | 2021-08-26 07:08 | ED ---
General Adult HPI - General Chief complaint: Shortness of Breath Stated complaint: covid+, low O2 Time Seen by Provider: 08/26/21 06:15 Source: patient, EMS Mode of arrival: EMS Limitations: no limitations - History of Present Illness Initial comments: 85-year-old male with a past medical history of CVA, prostate cancer, presents to the emergency room for a chief complaint of low oxygen. Patient was diagnosed with coronavirus on August 17. He has been maintained on 4 L of O2 at [facility]. Apparently today and his oxygen was 92% so [facility] called 911. When EMS arrived patient was not on his oxygen. This was applied and patient was satting at 94%. Nurses at [facility] were also concerned his legs look mottled. Patient is nonverbal and has no complaints. Patient has no other complaints at this time including shortness of breath, chest pain, abdominal pain, nausea or vomiting, headache, or visual changes. - Related Data Home Medications Medication Instructions Recorded Confirmed Atorvastatin [Lipitor] 80 mg PO HS@209912/04/19 08/26/21 Aspirin EC [Ecotrin Low Dose] 81 mg PO DAILY@0903/12/20 08/26/21 Apixaban [Eliquis] 2.5 mg PO HS@209908/17/21 08/26/21 Folic Acid 1 mg PO DAILY@89908/17/21 08/26/21 Losartan Potassium 100 mg PO DAILY@89908/17/21 08/26/21 [place]-3 Fatty Acids/Fish Oil [Fish 1 tab PO DAILY@89908/17/21 08/26/21 Oil 1,000 mg Softgel] Pantoprazole [Protonix] 40 mg PO DAILY@59908/17/21 08/26/21 Pioglitazone [Actos] 15 mg PO DAILY@89908/17/21 08/26/21 Ascorbic Acid [Vitamin C] 1,000 mg PO DAILY@89908/26/21 08/26/21 Cholecalciferol [Vitamin D3 (25 50 mcg PO DAILY@89908/26/21 08/26/21 Mcg = 1000 Iu)] Insulin Glargine,Hum.rec.anlog 18 unit SQ DAILY@89908/26/21 08/26/21 [Lantus Solostar Pen] Zinc 50 mg PO DAILY@0900 08/26/21 08/26/21 amLODIPine [Norvasc] 10 mg PO DAILY@0900 08/26/21 08/26/21 Previous Rx's Medication Instructions Recorded HYDROcodone/APAP 5-325MG [[place] 1 tab PO DAILY PRN #6 tab 08/22/21 5-325] Allergies Allergy/AdvReac Type Severity Reaction Status Date / Time No Known Allergies Allergy Verified 08/26/21 07:05 Review of Systems ROS Statement: Those systems with pertinent positive or pertinent negative responses have been documented in the HPI. ROS Other: All systems not noted in ROS Statement are negative. 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 Prostate CA, gets injections. Has Constipation. Lt foot numbness. left femoral stent 12.06.2019 History of Any Multi-Drug Resistant Organisms: None Reported Past Surgical History: Coronary Bypass/CABG Additional Past Surgical History / Comment(s): "Heart surgery" Past Anesthesia/Blood Transfusion Reactions: No Reported Reaction Past Psychological History: No Psychological Hx Reported Smoking Status: Never smoker Past Alcohol Use History: None Reported Past Drug Use History: None Reported - Past Family History Mother Family Medical History: No Reported History General Exam Limitations: no limitations General appearance: alert, in no apparent distress Head exam: Present: atraumatic Eye exam: Present: normal appearance, PERRL, EOMI. Absent: scleral icterus, conjunctival injection ENT exam: Present: normal exam, mucous membranes moist Neck exam: Present: normal inspection, full ROM. Absent: tenderness Respiratory exam: Present: normal lung sounds bilaterally. Absent: respiratory distress, wheezes Cardiovascular Exam: Present: regular rate, normal rhythm, normal heart sounds GI/Abdominal exam: Present: soft, normal bowel sounds. Absent: distended, tenderness Course Vital Signs 08/26/21 08/26/21 06:14 06:24 Temperature 97 F L Pulse Rate 112 H Respiratory 26 H 34 H Rate Blood Pressure 104/68 O2 Sat by Pulse 94 L Oximetry EKG Findings - EKG Comments: EKG Findings:: Sinus tachycardia with PACs, ventricular rate 123, DC interval 160, QTc 509 Medical Decision Making - Medical Decision Making Vitals are stable. Patient is on 4 L nasal cannula which she is supposed to be on at [facility] secondary to COVID-19. He is mildly tachycardic at 112. Suspect this is secondary to significant dehydration. CBC is unremarkable. However CMP does show a care with hypernatremia. Also lactic acidosis likely secondary to dehydration. Inflammatory markers and pneumonia on chest x-ray are worsening. Patient will be admitted for profound dehydration and IV rehydration - Lab Data Result diagrams: 08/26/21 06:45 08/26/21 06:45 Lab Results 08/26/21 08/26/21 08/26/21 Range/Units 06:45 06:45 06:45 WBC 12.5 H (3.8-10.6) k/uL RBC 4.56 (4.30-5.90) m/uL Hgb 14.8 (13.0-17.5) gm/dL Hct 43.9 (39.0-53.0) % MCV 96.3 D (80.0-100.0) fL MCH 32.5 (25.0-35.0) pg MCHC 33.8 (31.0-37.0) g/dL RDW 13.4 (11.5-15.5) % Plt Count 278 (150-450) k/uL MPV 9.2 Neutrophils % 90 % Lymphocytes % 7 % Monocytes % 2 % Eosinophils % 0 % Basophils % 0 % Neutrophils # 11.2 H (1.3-7.7) k/uL Lymphocytes # 0.8 L (1.0-4.8) k/uL Monocytes # 0.3 (0-1.0) k/uL Eosinophils # 0.0 (0-0.7) k/uL Basophils # 0.0 (0-0.2) k/uL PT 13.8 H (9.0-12.0) sec INR 1.4 H (<1.2) APTT 25.4 (22.0-30.0) sec Sodium 151 H (137-145) mmol/L Potassium 4.4 (3.5-5.1) mmol/L Chloride 117 H (98-107) mmol/L Carbon Dioxide 20 L (22-30) mmol/L Anion Gap 14 mmol/L BUN 90 H (9-20) mg/dL Creatinine 2.92 H (0.66-1.25) mg/dL Est GFR (CKD-EPI)AfAm 22 (>60 ml/min/1.73 sqM) Est GFR (CKD-EPI)NonAf 19 (>60 ml/min/1.73 sqM) Glucose 190 H (74-99) mg/dL Plasma Lactic Acid Eladio (0.7-2.0) mmol/L Calcium 9.2 (8.4-10.2) mg/dL Magnesium 2.9 H (1.6-2.3) mg/dL Total Bilirubin 0.8 (0.2-1.3) mg/dL AST 205 H (17-59) U/L ALT 67 H (4-49) U/L Alkaline Phosphatase 94 (38-126) U/L Lactate Dehydrogenase 2096 H (313-618) U/L C-Reactive Protein 21.3 H (<1.0) mg/dL Total Protein 6.6 (6.3-8.2) g/dL Albumin 3.1 L (3.5-5.0) g/dL 08/26/21 Range/Units 06:45 WBC (3.8-10.6) k/uL RBC (4.30-5.90) m/uL Hgb (13.0-17.5) gm/dL Hct (39.0-53.0) % MCV (80.0-100.0) fL MCH (25.0-35.0) pg MCHC (31.0-37.0) g/dL RDW (11.5-15.5) % Plt Count (150-450) k/uL MPV Neutrophils % % Lymphocytes % % Monocytes % % Eosinophils % % Basophils % % Neutrophils # (1.3-7.7) k/uL Lymphocytes # (1.0-4.8) k/uL Monocytes # (0-1.0) k/uL Eosinophils # (0-0.7) k/uL Basophils # (0-0.2) k/uL PT (9.0-12.0) sec INR (<1.2) APTT (22.0-30.0) sec Sodium (137-145) mmol/L Potassium (3.5-5.1) mmol/L Chloride (98-107) mmol/L Carbon Dioxide (22-30) mmol/L Anion Gap mmol/L BUN (9-20) mg/dL Creatinine (0.66-1.25) mg/dL Est GFR (CKD-EPI)AfAm (>60 ml/min/1.73 sqM) Est GFR (CKD-EPI)NonAf (>60 ml/min/1.73 sqM) Glucose (74-99) mg/dL Plasma Lactic Acid Eladio 3.1 H* (0.7-2.0) mmol/L Calcium (8.4-10.2) mg/dL Magnesium (1.6-2.3) mg/dL Total Bilirubin (0.2-1.3) mg/dL AST (17-59) U/L ALT (4-49) U/L Alkaline Phosphatase (38-126) U/L Lactate Dehydrogenase (313-618) U/L C-Reactive Protein (<1.0) mg/dL Total Protein (6.3-8.2) g/dL Albumin (3.5-5.0) g/dL Disposition Clinical Impression: COVID-19, VINCENZO (acute kidney injury), Dehydration, Hypernatremia Disposition: ADMITTED IP TO THIS HOSP Is patient prescribed a controlled substance at d/c from ED?: No Referrals: Leatha Henao MD [Primary Care Provider] - 1-2 days Time of Disposition: 08:08
[2021-08-26 07:09] LABS: Albumin 3.1 g/dL (3.5-5.0); Calcium 9.2 mg/dL (8.4-10.2); Magnesium 2.9 mg/dL (1.6-2.3); Potassium 4.4 mmol/L (3.5-5.1); Total Bilirubin 0.8 mg/dL (0.2-1.3); Total Protein 6.6 g/dL (6.3-8.2)
[2021-08-26 07:39] LABS: MCV 96.3 fL (80.0-100.0)
[2021-08-26 07:55] LABS: C Reactive Protein 21.3 mg/dL (<1.0)
[2021-08-26] MEDS ORDERED: ACETAMINOPHEN TAB 500 MG TAB PO STA (08:02)
[2021-08-26] MEDS ORDERED: NALOXONE 0.4 MG/ML 1 ML VIAL IV PRN (08:08)
[2021-08-26] MEDS ORDERED: SODIUM CHLORIDE 0.9% 1,000 ML IV SCH (08:15)
[2021-08-26] MEDS ORDERED: NON FORMULARY DRUG (Omega-3 Fatty Acids/Fish Oil [Fish Oil 1,000 Mg Softgel] 1 EACH Capsul PO SCH (09:00)
[2021-08-26 09:07] LABS: Glucose,Whole Blood 195 mg/dL (75-99)
[2021-08-26] MEDS: ASCORBIC ACID 500 MG TAB PO SCH (10:11)
[2021-08-26] MEDS: CHOLECALCIFEROL 25 MCG (1000 IU) TABLET PO SCH (10:11)
[2021-08-26] MEDS: FOLIC ACID 1 MG TAB PO SCH (10:11)
[2021-08-26] MEDS: LOSARTAN 50 MG TAB PO SCH (10:11)
[2021-08-26] MEDS: amLODIPine 10 MG TAB PO SCH (10:12)
[2021-08-26] MEDS: ZINC SULFATE 220 MG CAP PO SCH (10:12)
[2021-08-26] MEDS: ASPIRIN 81 MG PO SCH (10:12)
[2021-08-26] MEDS: DEXAMETHASONE SOD PHOSPHATE 10 MG/ML 1 ML VIAL IVP SCH (10:12)
[2021-08-26] MEDS: SODIUM CHLORIDE 0.45% 1,000 ML IV SCH ×2 (10:27→18:06)
[2021-08-26 13:38] LABS: Glucose,Whole Blood 224 mg/dL (75-99)
--- NOTE | 2021-08-26 14:15 | P.HPIM ---
History of Present Illness H&P Date: 08/26/21 Chief Complaint: Hypoxia Patient is a 85-year-old male with a known history of recently diagnosed covid 19 infection on 08/17/2021, history of CVA/TIA, prostate cancer, peripheral vascular disease status post left femoral stent, coronary artery disease with history of CABG Patient was sent to Hospital from [facility] due to hypoxia requiring 4 L via nasal cannula. Pulse ox was 92% on 4 L. EMS was called. [facility] was also concerned about his legs look monitored. Patient otherwise very weak and cannot provide much history. Denied any complaints of chest pain or shortness of breath. No nausea vomiting or diarrhea. No abdominal pain. Patient was admitted to the hospital recently due to bilateral lower extremity weakness and generalized weakness. Patient was also found have elevated troponin level. 2-D echocardiogram showed normal ejection fraction and mild pulmonary hypertension. Neurology has seen the patient due to metabolic encephalopathy and bilateral lower extremity weakness. Patient underwent CT head which showed moderate diffuse age-related cerebral atrophy and chronic severe small resid ischemic changes. Patient had MRI of the lumbar spine due to bilateral lower extremity weakness. MRI of the lumbar spine showed central stenosis L4-L5 region. Orthopedic surgery recommends pain management and epidural injection. Epidural injection could not be done due to Covid 19 infection also patient being on Eliquis for stroke prophylaxis. Patient was continued on pain management and was sent to [facility] on 08/22/2021 During previous admission patient was not hypoxic and did not require dexamethasone. Patient was also seen by pulmonary at the time. Chest x-ray showed new bilateral reticular increased opacities greatest in the lower lungs and in the periphery consistent with Covid 19 infection. EKG showed sinus tachycardia with PACs. Laboratory data showed WBC 12.5, hemoglobin 14.8, platelets 278 INR 1.4 Sodium 151 potassium 4.4 chloride 117 bicarb is 20 BUN 90 and creatinine 2.92. Baseline creatinine around 1.2 Lactic acid level was 3.1 admission Ferritin 3203, AST 205 ALT 67, alk phos 94 CRP 21.3 and LDH 2096 Pro calcitonin level 0.66 Review of Systems Review of systems could not be obtained from the patient. 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 Prostate CA, gets injections. Has Constipation. Lt foot numbness. left femoral stent 12.06.2019 History of Any Multi-Drug Resistant Organisms: None Reported Past Surgical History: Coronary Bypass/CABG Additional Past Surgical History / Comment(s): "Heart surgery" Past Anesthesia/Blood Transfusion Reactions: No Reported Reaction Past Psychological History: No Psychological Hx Reported Smoking Status: Never smoker Past Alcohol Use History: None Reported Past Drug Use History: None Reported - Past Family History Mother Family Medical History: No Reported History Medications and Allergies Home Medications Medication Instructions Recorded Confirmed Type Atorvastatin [Lipitor] 80 mg PO HS@209912/04/19 08/26/21 History Aspirin EC [Ecotrin Low Dose] 81 mg PO DAILY@89903/12/20 08/26/21 History Apixaban [Eliquis] 2.5 mg PO HS@209908/17/21 08/26/21 History Folic Acid 1 mg PO DAILY@89908/17/21 08/26/21 History Losartan Potassium 100 mg PO DAILY@89908/17/21 08/26/21 History [place]-3 Fatty Acids/Fish Oil [Fish 1 tab PO DAILY@89908/17/21 08/26/21 History Oil 1,000 mg Softgel] Pantoprazole [Protonix] 40 mg PO DAILY@59908/17/21 08/26/21 History Pioglitazone [Actos] 15 mg PO DAILY@89908/17/21 08/26/21 History HYDROcodone/APAP 5-325MG [[place] 1 tab PO DAILY PRN #6 tab 08/22/21 08/26/21 Rx 5-325] Ascorbic Acid [Vitamin C] 1,000 mg PO DAILY@89908/26/21 08/26/21 History Cholecalciferol [Vitamin D3 (25 50 mcg PO DAILY@89908/26/21 08/26/21 History Mcg = 1000 Iu)] Insulin Glargine,Hum.rec.anlog 18 unit SQ DAILY@89908/26/21 08/26/21 History [Lantus Solostar Pen] Zinc 50 mg PO DAILY@89908/26/21 08/26/21 History amLODIPine [Norvasc] 10 mg PO DAILY@0900 08/26/21 08/26/21 History Allergies Allergy/AdvReac Type Severity Reaction Status Date / Time No Known Allergies Allergy Verified 08/26/21 07:05 Physical Exam Vitals: Vital Signs Temp Pulse Resp BP Pulse Ox 08/26/21 11:29 93 20 99/45 95 08/26/21 09:18 100 20 110/52 95 08/26/21 06:24 34 H 08/26/21 06:14 97 F L 112 H 26 H 104/68 94 L Intake and Output 08/25/21 08/26/21 08/26/21 22:59 06:59 14:59 Other: Weight 99.79 kg PHYSICAL EXAMINATION: Patient is lying in the bed comfortably, no acute distress, awake alert . Could not communicate. Lethargic and weak... HEENT: Normocephalic. Neck is supple. Pupils reactive. Nostrils clear. Oral cavity is moist. Neck reveals no JVD, carotid bruits, or thyromegaly. CHEST EXAMINATION: Trachea is central. Symmetrical expansion. Lung reyes clear to auscultation and percussion. CARDIAC: Normal S1, S2 with no gallops. No murmurs ABDOMEN: Soft. Bowel sounds normal. No organomegaly. No abdominal bruits. Extremities: reveal no edema. No clubbing or cyanosis Neurologically awake, alert, oriented 1 . Generalized weakness. Lethargic. No gross focal deficits noted Skin: No rash or skin lesions. Psychiatric: Coperative. Could not be assessed completely. Musculoskeletal: No joint swelling or deformity. Results CBC & Chem 7: 08/26/21 06:45 08/26/21 06:45 Labs: Abnormal Lab Results - Last 24 Hours (Table) 08/26/21 08/26/21 08/26/21 Range/Units 06:45 06:45 06:45 WBC 12.5 H (3.8-10.6) k/uL Neutrophils # 11.2 H (1.3-7.7) k/uL Lymphocytes # 0.8 L (1.0-4.8) k/uL PT 13.8 H (9.0-12.0) sec INR 1.4 H (<1.2) Sodium 151 H (137-145) mmol/L Chloride 117 H (98-107) mmol/L Carbon Dioxide 20 L (22-30) mmol/L BUN 90 H (9-20) mg/dL Creatinine 2.92 H (0.66-1.25) mg/dL Glucose 190 H (74-99) mg/dL POC Glucose (mg/dL) (75-99) mg/dL Plasma Lactic Acid Eladio (0.7-2.0) mmol/L Magnesium 2.9 H (1.6-2.3) mg/dL AST 205 H (17-59) U/L ALT 67 H (4-49) U/L Lactate Dehydrogenase 2096 H (313-618) U/L C-Reactive Protein 21.3 H (<1.0) mg/dL Albumin 3.1 L (3.5-5.0) g/dL 08/26/21 08/26/21 08/26/21 Range/Units 06:45 09:05 09:58 WBC (3.8-10.6) k/uL Neutrophils # (1.3-7.7) k/uL Lymphocytes # (1.0-4.8) k/uL PT (9.0-12.0) sec INR (<1.2) Sodium (137-145) mmol/L Chloride (98-107) mmol/L Carbon Dioxide (22-30) mmol/L BUN (9-20) mg/dL Creatinine (0.66-1.25) mg/dL Glucose (74-99) mg/dL POC Glucose (mg/dL) 195 H (75-99) mg/dL Plasma Lactic Acid Eladio 3.1 H* 2.7 H* (0.7-2.0) mmol/L Magnesium (1.6-2.3) mg/dL AST (17-59) U/L ALT (4-49) U/L Lactate Dehydrogenase (313-618) U/L C-Reactive Protein (<1.0) mg/dL Albumin (3.5-5.0) g/dL Thrombosis Risk Factor Assmnt - DVT/VTE Prophylaxis DVT/VTE Prophylaxis: Pharmacologic Prophylaxis ordered Assessment and Plan Assessment: Acute hypoxic respiratory failure secondary to covid 19 pneumonia. Patient is on 4 L oxygen. Diagnoses on 08/17/2021 Acute Covid 19 pneumonia Metabolic encephalopathy due to infection Elevated inflammatory markers Acute kidney injury likely prerenal. Hypernatremia with sodium level 159 due to dehydration and volume depletion and poor oral intake. Lactic acidosis due to tissue hypoperfusion. 3.1 on admission Elevated liver enzymes Bilateral lower extremity weakness and generalized weakness. MRI of the lumbar spine recently showed L4-L5 spinal stenosis. Was seen by orthopedic surgery Diabetes type 2 [id number] History of CVA/TIA with no residual weakness History of prostate cancer Peripheral vascular disease status post left femoral stent placement Coronary artery disease with history of CABG DVT prophylaxis patient is on Eliquis Plan: Patient will be continued on IV hydration with half-normal saline and monitor sodium level closely. Encourage oral intake. Bedside swallow evaluation. Patient was started on dexamethasone 6 mg daily and continue with Eliquis. Patient is on prophylaxis for stroke prophylaxis. Continue with oxygen supplementation current at 4 L via nasal cannula. Pulmonary consultation. Patient was started on ascorbic acid, zinc sulfate and vitamin D. Continue to follow closely. Prognosis is guarded at this time. Time with Patient: Greater than 30
[2021-08-26] MEDS: INSULIN ASPART (NovoLOG) 100 UNIT/ML VIAL SQ SCH ×3 (16:37→20:49)
[2021-08-26 20:18] LABS: Glucose,Whole Blood 298 mg/dL (75-99)
[2021-08-26] MEDS: ATORVASTATIN 80 MG TAB PO SCH (20:49)
[2021-08-26] MEDS: APIXABAN 2.5 MG TABLET PO SCH (20:49)
[2021-08-26] MEDS: HYDROcodone/APAP 5-325MG 1 EACH TAB PO PRN (22:37)
[2021-08-27] MEDS: PANTOPRAZOLE 40 MG TABLET PO SCH (05:16)
[2021-08-27] MEDS: SODIUM CHLORIDE 0.45% 1,000 ML IV SCH ×2 (05:16→13:19)
[2021-08-27 07:22] LABS: Glucose,Whole Blood 281 mg/dL (75-99)
[2021-08-27] MEDS: INSULIN ASPART (NovoLOG) 100 UNIT/ML VIAL SQ SCH ×4 (08:53→21:01)
[2021-08-27] MEDS: ASCORBIC ACID 500 MG TAB PO SCH (08:53)
[2021-08-27] MEDS: FOLIC ACID 1 MG TAB PO SCH (08:53)
[2021-08-27] MEDS: LOSARTAN 50 MG TAB PO SCH (08:53)
[2021-08-27] MEDS: ZINC SULFATE 220 MG CAP PO SCH (08:53)
[2021-08-27] MEDS: amLODIPine 10 MG TAB PO SCH (08:54)
[2021-08-27] MEDS: CHOLECALCIFEROL 25 MCG (1000 IU) TABLET PO SCH (08:54)
[2021-08-27] MEDS: DEXAMETHASONE SOD PHOSPHATE 10 MG/ML 1 ML VIAL IVP SCH (08:54)
[2021-08-27] MEDS: ASPIRIN 81 MG PO SCH (08:54)
[2021-08-27 09:45] LABS: Basophils # (A) 0.03 X 10*3/uL (0.00-0.10); Basophils % (A) 0.2 %; Eosinophils # (A) 0 X 10*3/uL (0.04-0.35); Eosinophils % (A) 0 %; HGB 11.7 g/dL (13.0-17.0); Lymphocytes # (A) 0.73 X 10*3/uL (0.90-5.00); Lymphocytes % (A) 5.2 %; MCHC 30.8 g/dL (32.0-37.0); MCV 100.5 fL (80.0-97.0); Mean Platelet Volume 11.8 fL (9.5-12.2); Monocytes % (A) 2.1 %; Neutrophils # (A) 12.98 X 10*3/uL (1.80-7.70); Neutrophils % (A) 91.8 %; Platelet Count 252 X 10*3/uL (140-440); RBC 3.78 X 10*6/uL (4.40-5.60); WBC 14.14 X 10*3/uL (4.50-10.00)
[2021-08-27 11:43] LABS: Glucose,Whole Blood 335 mg/dL (75-99)
--- NOTE | 2021-08-27 12:38 | P.CNPUL ---
History of Present Illness Consult date: 08/27/21 Reason for consult: dyspnea, hypoxemia Chief complaint: Dyspnea, hypoxia, altered mental status History of present illness: 85-year-old white male patient with multiple chronic medical problems including diabetes mellitus type 2, hypertension, peripheral vascular disease with previous history of intervention in November 2019, previous history of CVA with slight left-sided residual weakness, history of prostate cancer who was recently hospitalized for generalized weakness, falls, and at that time patient was found to have an acute COVID-19 infection. However chest x-ray during that admission showed no evidence of pneumonia, patient was on room air, he had a mild cough, and it was felt that the COVID 19 infection was more of a incidental finding. Patient was treated supportively, he was not given any Decadron or Remdesivir. He was given IV hydration, he was found to be encephalopathic during that admission, he was seen by neurology in consultation who felt that this was related to toxic metabolic encephalopathy. CT of the brain showed moderate to severe chronic small vessel ischemic changes with evidence of old infarct in the right frontal and high posterior right frontal infarcts. EEG showed slowing of moderate degree but no evidence of seizure. Patient had MRI of the lumbar spine showing severe spinal stenosis at L4 and L5. He was seen in consultation by orthopedic surgery and pain services. Please refer to their consultation notes. Patient continued to be weak, and continued to have difficulty walking, and he was discharged to subacute rehab on 08/22/2021. Patient was brought back to the emergency department per EMS on 08[facility] for evaluation of hypoxia. His initial diagnosis of COVID-19 was established on 08/17/2021. He was on 4 L of oxygen at the [facility] on the [facility]. Normally patient is not on any oxygen. The nurses at the [facility] noted that his extremities or looking mottled, and patient was having more trouble breathing. No documented fever or chills, patient has a congested cough, he remained confused, he is only oriented to person. No documented fevers, no complaints of chest pain, no nausea vomiting, no headaches. EKG showed sinus tachycardia with PACs, it was felt that patient was dehydrated, there was evidence of acute kidney injury on his labs, chest x-ray showed new bilateral reticular increased opacities greatest in the lower lungs and in the periphery consistent with COVID-19 infection. His admission labs reveal white blood cell, 12.5, hemoglobin of 14.8, INR is 1.4, sodium was 151, potassium was 4.4, chloride was 117, CO2 was 20, BUN was 90, and creatinine is 2.9 to significantly increased since his discharge, lactic acid was 3.1, ferritin level was 3203, AST was 205, ALT was 67, his LDH was 2096, CRP was 21.3, pro-calcitonin level was 0.36. Patient has been afebrile while in the hospital, he is currently on 10 L of oxygen pulse ox is 88%. He has a congested cough, he was felt to be intermittently aspirating, he was seen by speech therapy who recommended pured diet. Patient was given IV hydration, he has 0.9 at 75 which will be switched over to 0.45 at 75. Lactiq acid has improved with IV hydration and is currently at 1.7. Review of Systems All systems: negative Constitutional: Reports weakness, Denies chills, Denies fever Eyes: denies blurred vision, denies pain Ears, nose, mouth and throat: Denies headache, Denies sore throat Cardiovascular: Denies chest pain, Denies shortness of breath Respiratory: Reports congestion, Reports dyspnea, Reports respiratory infections, Denies cough Gastrointestinal: Denies abdominal pain, Denies diarrhea, Denies nausea, Denies vomiting Musculoskeletal: Denies myalgias Integumentary: Denies pruritus, Denies rash Neurological: Reports change in mentation, Reports confusion, Denies numbness, D enies weakness Psychiatric: Denies anxiety, Denies depression Endocrine: Denies fatigue, Denies weight change Past Medical History Past Medical History: Coronary Artery Disease (CAD), Cancer, CVA/TIA, Diabetes Mellitus, GERD/Reflux, Hyperlipidemia, Hypertension, Pneumonia, Vascular Disorder Additional Past Medical History / Comment(s): Pt recently admitted to [facility] on 08/17/21 with covid/possible metabolic toxic encephalopathy/bilateral leg weakness/bilateral hip pain/spinal stenosis/acute kidney injury and son states since that admission pt has been nonverbal. Other hX: IDDM type II, 2010 CVA without residual, prostate cancer with injections every few months, L foot numbness, PVD, vitamin D deficiency, incontinence lately. History of Any Multi-Drug Resistant Organisms: None Reported Past Surgical History: Coronary Bypass/CABG, Heart Catheterization, Hernia Repair Additional Past Surgical History / Comment(s): Angiograms. L fempop PTBA/thrombectomy, L SFA stent, aotagrams with runoffs, 2004 CABG 3 vesel, R caratid endartectomy, L inguinal hernia repair, bilateral cataract removals. Past Anesthesia/Blood Transfusion Reactions: No Reported Reaction Past Psychological History: No Psychological Hx Reported Additional Psychological History / Comment(s): Pt currently at [facility]. Son states pt has been in bed. Smoking Status: Former smoker Past Alcohol Use History: None Reported Additional Past Alcohol Use History / Comment(s): Pt smoked for about 6 months in 1959 Past Drug Use History: None Reported - Past Family History Mother Family Medical History: Diabetes Mellitus Father History Unknown: Yes Medications and Allergies Home Medications Medication Instructions Recorded Confirmed Type Atorvastatin [Lipitor] 80 mg PO HS@2100 12/04/19 08/26/21 History Aspirin EC [Ecotrin Low Dose] 81 mg PO DAILY@0903/12/20 08/26/21 History Apixaban [Eliquis] 2.5 mg PO HS@209908/17/21 08/26/21 History Folic Acid 1 mg PO DAILY@89908/17/21 08/26/21 History Losartan Potassium 100 mg PO DAILY@89908/17/21 08/26/21 History Guild-3 Fatty Acids/Fish Oil [Fish 1 tab PO DAILY@0908/17/21 08/26/21 History Oil 1,000 mg Softgel] Pantoprazole [Protonix] 40 mg PO DAILY@0608/17/21 08/26/21 History Pioglitazone [Actos] 15 mg PO DAILY@89908/17/21 08/26/21 History HYDROcodone/APAP 5-325MG [[place] 1 tab PO DAILY PRN #6 tab 08/22/21 08/26/21 Rx 5-325] Ascorbic Acid [Vitamin C] 1,000 mg PO DAILY@89908/26/21 08/26/21 History Cholecalciferol [Vitamin D3 (25 50 mcg PO DAILY@0900 08/26/21 08/26/21 History Mcg = 1000 Iu)] Insulin Glargine,Hum.rec.anlog 18 unit SQ DAILY@89908/26/21 08/26/21 History [Lantus Solostar Pen] Zinc 50 mg PO DAILY@0900 08/26/21 08/26/21 History amLODIPine [Norvasc] 10 mg PO DAILY@0900 08/26/21 08/26/21 History Allergies Allergy/AdvReac Type Severity Reaction Status Date / Time No Known Allergies Allergy Verified 08/26/21 07:05 Physical Exam Vitals: Vital Signs Temp Pulse Pulse Pulse Resp BP BP 08/27/21 10:20 60 17 144/62 08/27/21 06:00 97.6 F 84 19 117/67 08/27/21 03:26 08/27/21 02:00 98.4 F 77 20 124/55 08/26/21 22:00 98.7 F 82 19 114/64 08/26/21 18:46 97.5 F L 78 18 118/61 08/26/21 17:00 84 24 121/63 08/26/21 16:00 88 22 110/49 08/26/21 15:00 98.4 F 82 22 120/81 08/26/21 14:21 85 22 108/66 Pulse Ox 08/27/21 10:20 88 L 08/27/21 06:00 91 L 08/27/21 03:26 95 08/27/21 02:00 91 L 08/26/21 22:00 91 L 08/26/21 18:46 98 08/26/21 17:00 95 08/26/21 16:00 94 L 08/26/21 15:00 93 L 08/26/21 14:21 93 L Intake and Output 08/26/21 08/27/21 08/27/21 22:59 06:59 14:59 Other: Voiding Method Diaper Incontinent Incontinent # Voids 2 4 Weight 99.79 kg GENERAL EXAM: Alert, confused, oriented only to person, disoriented to time and place, has a enforcement safety officer at the bedside, currently on 10 L of oxygen with a pulse ox of 88%. Has a frequent congested cough, but appears to be in no respiratory distress HEAD: Normocephalic/atraumatic. EYES: Normal reaction of pupils, equal size. Conjunctiva pink, sclera white. NOSE: Clear with pink turbinates. THROAT: No erythema or exudates. NECK: No masses, no JVD, no thyroid enlargement, no adenopathy. CHEST: No chest wall deformity. Symmetrical expansion. LUNGS: Equal air entry with diffuse crackles CVS: Regular rate and rhythm, normal S1 and S2, no gallops, no murmurs, no rubs ABDOMEN: Soft, nontender. No hepatosplenomegaly, normal bowel sounds, no guardi ng or rigidity. EXTREMITIES: No clubbing, no edema, no cyanosis, 2+ pulses and upper and lower extremities. MUSCULOSKELETAL: Muscle strength and tone normal. SPINE: No scoliosis or deformity SKIN: No rashes CENTRAL NERVOUS SYSTEM: Alert and oriented -. No focal deficits, tone is normal in all 4 extremities. PSYCHIATRIC: Alert and oriented -. Confused Results - Laboratory Findings CBC and BMP: 08/27/21 07:00 08/26/21 06:45 PT/INR, D-dimer PT 13.8 sec (9.0-12.0) H 08/26/21 06:45 INR 1.4 (<1.2) H 08/26/21 06:45 Abnormal lab findings: Abnormal Labs 08/26/21 08/26/21 08/26/21 06:45 06:45 06:45 WBC 12.5 H RBC Hgb Hct MCV MCHC Immature Gran # Neutrophils # 11.2 H Lymphocytes # 0.8 L Eosinophils # PT 13.8 H INR 1.4 H Sodium 151 H Chloride 117 H Carbon Dioxide 20 L BUN 90 H Creatinine 2.92 H Glucose 190 H POC Glucose (mg/dL) Plasma Lactic Acid Eladio Magnesium 2.9 H Ferritin 3203.0 H AST 205 H ALT 67 H Lactate Dehydrogenase 2096 H C-Reactive Protein 21.3 H Albumin 3.1 L Procalcitonin 08/26/21 08/26/21 08/26/21 06:45 06:45 09:05 WBC RBC Hgb Hct MCV MCHC Immature Gran # Neutrophils # Lymphocytes # Eosinophils # PT INR Sodium Chloride Carbon Dioxide BUN Creatinine Glucose POC Glucose (mg/dL) 195 H Plasma Lactic Acid Eladio 3.1 H* Magnesium Ferritin AST ALT Lactate Dehydrogenase C-Reactive Protein Albumin Procalcitonin 0.36 H 08/26/21 08/26/21 08/26/21 09:58 13:37 20:17 WBC RBC Hgb Hct MCV MCHC Immature Gran # Neutrophils # Lymphocytes # Eosinophils # PT INR Sodium Chloride Carbon Dioxide BUN Creatinine Glucose POC Glucose (mg/dL) 224 H 298 H Plasma Lactic Acid Eladio 2.7 H* Magnesium Ferritin AST ALT Lactate Dehydrogenase C-Reactive Protein Albumin Procalcitonin 08/27/21 08/27/21 08/27/21 07:00 07:21 11:41 WBC 14.14 H RBC 3.78 L Hgb 11.7 L Hct 38.0 L MCV 100.5 H MCHC 30.8 L Immature Gran # 0.10 H Neutrophils # 12.98 H Lymphocytes # 0.73 L Eosinophils # 0 L PT INR Sodium Chloride Carbon Dioxide BUN Creatinine Glucose POC Glucose (mg/dL) 281 H 335 H Plasma Lactic Acid Eladio Magnesium Ferritin AST ALT Lactate Dehydrogenase C-Reactive Protein Albumin Procalcitonin - Diagnostic Findings Chest x-ray: report reviewed, image reviewed Assessment and Plan Plan: Assessment: #1. Acute hypoxic respiratory failure related to acute COVID-19 pneumonia, with initial diagnosis on 08/17/2021, patient is outside the window for Remdesivir, she is being treated supportively with Decadron, he is on Eliquis 2.5 mg at bedtime for previous history of CVA and severe PVD. #2. Recent hospitalization for altered mental status, toxic metabolic encephalopathy, COVID-19 infection without pneumonia, and patient was discharged to the [facility] on the [place] on 08/22/2021 #3. Acute kidney injury related to dehydration #4. Lactic acidosis related to dehydration, improved with IV hydration #5. Acute hypernatremia related to free water deficit, and dehydration #6. Elevated inflammatory markers related to COVID-19 #7. Previous history of CVA 10 years ago with mild left-sided weakness #8. Acute metabolic encephalopathy, ongoing, multifactorial, related to hypoxic encephalopathy, in addition to metabolic encephalopathy #9. Diabetes mellitus type 2 #10. History of prostate cancer #11. History of peripheral vascular disease with previous history of left fem oral stent #12. L4-L5 spinal stenosis with bilateral leg weakness and bilateral hip pain, patient was seen by orthopedic surgery and pain services during his last admission #13. No evidence of CVA on the CT had from previous admission #14. Coronary artery disease status post coronary artery bypass grafting Plan: Patient is outside the window for Remdesivir Continue Decadron Continue IV hydration, we'll switch the IV fluids 2.45 at 75 ML per hour Continue home dose Eliquis at 2.5 mg at bedtime We will obtain baseline d-dimer Inflammatory markers are significantly elevated since last admission Chest x-ray showing new bilateral reticular increased opacities consistent with COVID-19 pneumonia Maintain aspiration precautions Maintain safety precautions, patient has a 60 sitter at the bedside to prevent him from removing his oxygen mask We'll continue supportive treatment Recommend addressing CODE STATUS Overall prognosis is guarded I performed a history & physical examination of the patient and discussed their management with my nurse practitioner, Ciarra Lloyd. I reviewed the nurse practitioner's note and agree with the documented findings and plan of care. Lung sounds are positive for diffuse crackles throughout the lung reyes. The findings and the impression was discussed with the patient. I attest to the documentation by the nurse practitioner. Time with Patient: Greater than 30
[2021-08-27] MEDS: INSULIN DETEMIR (LEVEMIR) 100 UNIT/ML SYR SQ SCH (13:13)
--- NOTE | 2021-08-27 14:23 | US ---
EXAMINATION TYPE: US venous doppler duplex LE BI DATE OF EXAM: 08/27/2021 2:08 PM COMPARISON: NONE CLINICAL HISTORY: elevated d-dimer. COVID-19 SIDE PERFORMED: Bilateral TECHNIQUE: The lower extremity deep venous system is examined utilizing real time linear array sonog mona with graded compression, doppler sonography and color-flow sonography. VESSELS IMAGED: Common Femoral Vein Deep Femoral Vein Greater Saphenous Vein * Femoral Vein Popliteal Vein Small Saphenous Vein * Proximal Calf Veins (* superficial vessels) Right Leg: Negative for DVT Left Leg: Negative for DVT IMPRESSION: 1. Bilateral lower extremities ultrasound negative for deep venous thrombosis.
[2021-08-27 14:25] VITALS: BMI 29.0
[2021-08-27 16:43] LABS: Glucose,Whole Blood 266 mg/dL (75-99)
[2021-08-27 20:55] LABS: Glucose,Whole Blood 195 mg/dL (75-99)
[2021-08-27] MEDS: ATORVASTATIN 80 MG TAB PO SCH (21:01)
[2021-08-27] MEDS: APIXABAN 2.5 MG TABLET PO SCH (21:01)
[2021-08-27 21:37] LABS: African American GFR (CKD) 23.1 (60.0-200.0); Anion Gap 16.8 mmol/L (10.00-18.00); BUN/Creat Ratio 35.71 Ratio (12.00-20.00); Calcium 8.3 mg/dL (8.7-10.3); Carbon Dioxide 17.2 mmol/L (20.0-27.5)
[2021-08-27 21:56] LABS: C Reactive Protein 15.7 mg/dL (0.00-0.80)
[2021-08-28] MEDS: SODIUM CHLORIDE 0.45% 1,000 ML IV SCH (03:50)
[2021-08-28] MEDS: PANTOPRAZOLE 40 MG TABLET PO SCH (05:19)
[2021-08-28] MEDS: HYDROcodone/APAP 5-325MG 1 EACH TAB PO PRN (05:19)
[2021-08-28 07:21] LABS: Glucose,Whole Blood 143 mg/dL (75-99)
[2021-08-28] MEDS: DEXAMETHASONE SOD PHOSPHATE 10 MG/ML 1 ML VIAL IVP SCH (08:40)
[2021-08-28] MEDS: INSULIN ASPART (NovoLOG) 100 UNIT/ML VIAL SQ SCH ×4 (08:41→20:25)
[2021-08-28] MEDS: INSULIN DETEMIR (LEVEMIR) 100 UNIT/ML SYR SQ SCH (08:41)
[2021-08-28] MEDS: amLODIPine 10 MG TAB PO SCH (08:42)
[2021-08-28] MEDS: CHOLECALCIFEROL 25 MCG (1000 IU) TABLET PO SCH (08:42)
[2021-08-28] MEDS: FOLIC ACID 1 MG TAB PO SCH (08:42)
[2021-08-28] MEDS: LOSARTAN 50 MG TAB PO SCH (08:42)
[2021-08-28] MEDS: ZINC SULFATE 220 MG CAP PO SCH (08:42)
[2021-08-28] MEDS: ASPIRIN 81 MG PO SCH (08:42)
[2021-08-28] MEDS: ASCORBIC ACID 500 MG TAB PO SCH (08:42)
[2021-08-28 11:14] LABS: HCT 33.4 % (39.6-50.0); HGB 10.3 g/dL (13.0-17.0); MCHC 30.8 g/dL (32.0-37.0); MCV 100.6 fL (80.0-97.0); Platelet Count 238 X 10*3/uL (140-440); RBC 3.32 X 10*6/uL (4.40-5.60); RDW 13.9 % (11.5-14.5); WBC 13.09 X 10*3/uL (4.50-10.00)
[2021-08-28 12:12] LABS: Glucose,Whole Blood 190 mg/dL (75-99)
[2021-08-28 12:31] LABS: African American GFR (CKD) 33.9 (60.0-200.0); Anion Gap 14.5 mmol/L (10.00-18.00); BUN/Creat Ratio 46.47 Ratio (12.00-20.00); Blood Urea Nitrogen 94.8 mg/dL (9.0-27.0); Calcium 8.2 mg/dL (8.7-10.3); Non-African American GFR(CKD) 29.3 (60.0-200.0); Potassium 4.1 mmol/L (3.5-5.5)
[2021-08-28 13:30] LABS: Acanthocytes 2+; Basophils # (A) 0.02 X 10*3/uL (0.00-0.10); Basophils % (A) 0.2 %; Eosinophils # (A) 0 X 10*3/uL (0.04-0.35); Eosinophils % (A) 0 %; Lymphocytes # (A) 0.56 X 10*3/uL (0.90-5.00); Lymphocytes % (A) 4.3 %; Monocytes # (A) 0.25 X 10*3/uL (0.20-1.00); Monocytes % (A) 1.9 %; Neutrophils % (A) 92.4 %
--- NOTE | 2021-08-28 13:55 | P.PN ---
Subjective Progress Note Date: 08/28/21 Principal diagnosis: Dyspnea, hypoxia, altered mental status 85-year-old white male patient with multiple chronic medical problems including diabetes mellitus type 2, hypertension, peripheral vascular disease with previous history of intervention in November 2019, previous history of CVA with slight left-sided residual weakness, history of prostate cancer who was recently hospitalized for generalized weakness, falls, and at that time patient was found to have an acute COVID-19 infection. However chest x-ray during that admission showed no evidence of pneumonia, patient was on room air, he had a mild cough, and it was felt that the COVID 19 infection was more of a incidental finding. Patient was treated supportively, he was not given any Decadron or Remdesivir. He was given IV hydration, he was found to be encephalopathic during that admission, he was seen by neurology in consultation who felt that this was related to toxic metabolic encephalopathy. CT of the brain showed moderate to severe chronic small vessel ischemic changes with evidence of old infarct in the right frontal and high posterior right frontal infarcts. EEG showed slowing of moderate degree but no evidence of seizure. Patient had MRI of the lumbar spine showing severe spinal stenosis at L4 and L5. He was seen in consultation by orthopedic surgery and pain services. Please refer to their consultation notes. Patient continued to be weak, and continued to have difficulty walking, and he was discharged to subacute rehab on 08/22/2021. Patient was brought back to the emergency department per EMS on 08/26/2021 from the senior care for evaluation of hypoxia. His initial diagnosis of COVID-19 was established on 08/17/2021. He was on 4 L of oxygen at the [facility] on the [facility]. Normally patient is not on any oxygen. The nurses at the [facility] noted that his extremities or looking mo ttled, and patient was having more trouble breathing. No documented fever or chills, patient has a congested cough, he remained confused, he is only oriented to person. No documented fevers, no complaints of chest pain, no nausea vomiting, no headaches. EKG showed sinus tachycardia with PACs, it was felt that patient was dehydrated, there was evidence of acute kidney injury on his labs, chest x-ray showed new bilateral reticular increased opacities greatest in the lower lungs and in the periphery consistent with COVID-19 infection. His admission labs reveal white blood cell, 12.5, hemoglobin of 14.8, INR is 1.4, sodium was 151, potassium was 4.4, chloride was 117, CO2 was 20, BUN was 90, and creatinine is 2.9 to significantly increased since his discharge, lactic acid was 3.1, ferritin level was 3203, AST was 205, ALT was 67, his LDH was 2096, CRP was 21.3, pro-calcitonin level was 0.36. Patient has been afebrile while in the hospital, he is currently on 10 L of oxygen pulse ox is 88%. He has a congested cough, he was felt to be intermittently aspirating, he was seen by speech therapy who recommended pured diet. Patient was given IV hydration, he has 0.9 at 75 which will be switched over to 0.45 at 75. Lactiq acid has improved with IV hydration and is currently at 1.7. On 08/28/2021 patient seen in follow-up on medical surgical floor. He is resting comfortably in bed, he remains on 10 L of oxygen, does not appear to be in any distress, no evidence of worsening dyspnea, no cough, overall he seems much more awake, more conversant, and more appropriate today. he is still confused, and at times he is restless and removes his oxygen off. On 10 L of oxygen his pulse ox is 95%, his been afebrile, hemodynamically has been stable, lung sounds reveal a few scattered rales, no rhonchi or wheezing, no complaints of chest pain. He is currently receiving Decadron 6 mg daily, he is on Eliquis 2.5 mg for history of PVD, and previous history of stroke, he is on 0.9 normal saline at a rate of 75 ML per hour, his lower extremity Dopplers were negative for DVT. Today's labs have been reviewed, his white blood cell count is 13, hemoglobin is 10.3, his serum sodium slightly improved however still elevated at 150, potassium is 4.1, chloride is 117, CO2 is 18, BUN of 94, creatinine is 2.0, improving, his inflammatory markers were improving on yesterday's labs, today's levels are pending. Objective - Vital Signs Vital signs: Vital Signs Temp 97.6 F 08/28/21 02:00 Pulse 75 08/28/21 06:00 Resp 19 08/28/21 02:00 BP 150/77 08/28/21 06:00 Pulse Ox 95 08/28/21 06:00 Intake & Output 08/27/21 08/28/21 08/28/21 18:59 06:59 18:59 Weight 99.79 kg Other: Voiding Method Incontinent Incontinent Incontinent # Voids 1 5 - Exam GENERAL EXAM: Alert, confused, oriented only to person, disoriented to time and place, has a safety admin assistant at the bedside, currently on 10 L of oxygen with a pulse ox of 88%. Has a frequent congested cough, but appears to be in no respiratory distress HEAD: Normocephalic/atraumatic. EYES: Normal reaction of pupils, equal size. Conjunctiva pink, sclera white. NOSE: Clear with pink turbinates. THROAT: No erythema or exudates. NECK: No masses, no JVD, no thyroid enlargement, no adenopathy. CHEST: No chest wall deformity. Symmetrical expansion. LUNGS: Equal air entry with diffuse crackles CVS: Regular rate and rhythm, normal S1 and S2, no gallops, no murmurs, no rubs ABDOMEN: Soft, nontender. No hepatosplenomegaly, normal bowel sounds, no guarding or rigidity. EXTREMITIES: No clubbing, no edema, no cyanosis, 2+ pulses and upper and lower extremities. MUSCULOSKELETAL: Muscle strength and tone normal. SPINE: No scoliosis or deformity SKIN: No rashes CENTRAL NERVOUS SYSTEM: Alert and oriented -1 No focal deficits, tone is normal in all 4 extremities. PSYCHIATRIC: Alert and oriented -. Confused - Labs CBC & Chem 7: 08/28/21 06:45 08/28/21 06:45 Labs: Abnormal Lab Results - Last 24 Hours (Table) 08/27/21 08/27/21 08/27/21 Range/Units 07:00 16:39 20:54 WBC (4.50-10.00) X 10*3/uL RBC (4.40-5.60) X 10*6/uL Hgb (13.0-17.0) g/dL Hct (39.6-50.0) % MCV (80.0-97.0) fL MCHC (32.0-37.0) g/dL Immature Gran # (0.00-0.04) X 10*3/uL Neutrophils # (1.80-7.70) X 10*3/uL Lymphocytes # (0.90-5.00) X 10*3/uL Eosinophils # (0.04-0.35) X 10*3/uL Sodium 151 H (135-145) mmol/L Chloride 117 H (96-109) mmol/L Carbon Dioxide 17.2 L (20.0-27.5) mmol/L BUN 100.0 H (9.0-27.0) mg/dL Creatinine 2.8 H (0.6-1.5) mg/dL Est GFR (CKD-EPI)AfAm 23.1 L (60.0-200.0) Est GFR (CKD-EPI)NonAf 20.0 L (60.0-200.0) BUN/Creatinine Ratio 35.71 H (12.00-20.00) Ratio Glucose 277 H (70-110) mg/dL POC Glucose (mg/dL) 266 H 195 H (75-99) mg/dL Calcium 8.3 L (8.7-10.3) mg/dL Lactate Dehydrogenase 830 H (120-246) U/L C-Reactive Protein 15.70 H (0.00-0.80) mg/dL 08/28/21 08/28/21 08/28/21 Range/Units 06:45 06:45 07:19 WBC 13.09 H (4.50-10.00) X 10*3/uL RBC 3.32 L (4.40-5.60) X 10*6/uL Hgb 10.3 L (13.0-17.0) g/dL Hct 33.4 L (39.6-50.0) % MCV 100.6 H (80.0-97.0) fL MCHC 30.8 L (32.0-37.0) g/dL Immature Gran # 0.16 H (0.00-0.04) X 10*3/uL Neutrophils # 12.10 H (1.80-7.70) X 10*3/uL Lymphocytes # 0.56 L (0.90-5.00) X 10*3/uL Eosinophils # 0 L (0.04-0.35) X 10*3/uL Sodium 150 H (135-145) mmol/L Chloride 117 H (96-109) mmol/L Carbon Dioxide 18.0 L (20.0-27.5) mmol/L BUN 94.8 H (9.0-27.0) mg/dL Creatinine 2.0 H (0.6-1.5) mg/dL Est GFR (CKD-EPI)AfAm 33.9 L (60.0-200.0) Est GFR (CKD-EPI)NonAf 29.3 L (60.0-200.0) BUN/Creatinine Ratio 46.47 H (12.00-20.00) Ratio Glucose 158 H (70-110) mg/dL POC Glucose (mg/dL) 143 H (75-99) mg/dL Calcium 8.2 L (8.7-10.3) mg/dL Lactate Dehydrogenase (120-246) U/L C-Reactive Protein (0.00-0.80) mg/dL 08/28/21 Range/Units 12:11 WBC (4.50-10.00) X 10*3/uL RBC (4.40-5.60) X 10*6/uL Hgb (13.0-17.0) g/dL Hct (39.6-50.0) % MCV (80.0-97.0) fL MCHC (32.0-37.0) g/dL Immature Gran # (0.00-0.04) X 10*3/uL Neutrophils # (1.80-7.70) X 10*3/uL Lymphocytes # (0.90-5.00) X 10*3/uL Eosinophils # (0.04-0.35) X 10*3/uL Sodium (135-145) mmol/L Chloride (96-109) mmol/L Carbon Dioxide (20.0-27.5) mmol/L BUN (9.0-27.0) mg/dL Creatinine (0.6-1.5) mg/dL Est GFR (CKD-EPI)AfAm (60.0-200.0) Est GFR (CKD-EPI)NonAf (60.0-200.0) BUN/Creatinine Ratio (12.00-20.00) Ratio Glucose (70-110) mg/dL POC Glucose (mg/dL) 190 H (75-99) mg/dL Calcium (8.7-10.3) mg/dL Lactate Dehydrogenase (120-246) U/L C-Reactive Protein (0.00-0.80) mg/dL Assessment and Plan Plan: Assessment: #1. Acute hypoxic respiratory failure related to acute COVID-19 pneumonia, with initial diagnosis on 08/17/2021, patient is outside the window for Remdesivir, she is being treated supportively with Decadron, he is on Eliquis 2.5 mg at bedtime for previous history of CVA and severe PVD. #2. Recent hospitalization for altered mental status, toxic metabolic encephalopathy, COVID-19 infection without pneumonia, and patient was discharged to the [facility] on the [place] on 08/22/2021 #3. Acute kidney injury related to dehydration #4. Lactic acidosis related to dehydration, improved with IV hydration #5. Acute hypernatremia related to free water deficit, and dehydration #6. Elevated inflammatory markers related to COVID-19 #7. Previous history of CVA 10 years ago with mild left-sided weakness #8. Acute metabolic encephalopathy, ongoing, multifactorial, related to hypoxic encephalopathy, in addition to metabolic encephalopathy #9. Diabetes mellitus type 2 #10. History of prostate cancer #11. History of peripheral vascular disease with previous history of left femoral stent #12. L4-L5 spinal stenosis with bilateral leg weakness and bilateral hip pain, patient was seen by orthopedic surgery and pain services during his last admission #13. No evidence of CVA on the CT had from previous admission #14. Coronary artery disease status post coronary artery bypass grafting Plan: Continue current medical treatment Continue IV hydration, maintain aspiration precautions Continue Decadron Continue home dose Eliquis at 2.5 mg at bedtime We will obtain baseline d-dimer Inflammatory markers are significantly elevated since last admission Chest x-ray showing new bilateral reticular increased opacities consistent with COVID-19 pneumonia We'll continue supportive treatment Recommend addressing CODE STATUS Overall prognosis is guarded I performed a history & physical examination of the patient and discussed their management with my nurse practitioner, Ciarra Lloyd. I reviewed the nurse practitioner's note and agree with the documented findings and plan of care. Lung sounds are positive for diffuse crackles throughout the lung reyes. The findings and the impression was discussed with the patient. I attest to the documentation by the nurse practitioner. Time with Patient: Less than 30
[2021-08-28] MEDS ORDERED: DEXTROSE 5% IN WATER 1,000 ML IV ONE (15:28)
[2021-08-28 16:54] LABS: Glucose,Whole Blood 259 mg/dL (75-99)
[2021-08-28 19:59] LABS: Glucose,Whole Blood 296 mg/dL (75-99)
[2021-08-28] MEDS: APIXABAN 2.5 MG TABLET PO SCH (20:24)
[2021-08-28] MEDS: ATORVASTATIN 80 MG TAB PO SCH (20:24)
--- NOTE | 2021-08-28 23:30 | P.PN ---
Subjective Progress Note Date: 08/27/21 Patient is a 85-year-old male with a known history of recently diagnosed covid 19 infection on 08/17/2021, history of CVA/TIA, prostate cancer, peripheral vascular disease status post left femoral stent, coronary artery disease with history of CABG Patient was sent to Hospital from [facility] due to hypoxia requiring 4 L via nasal cannula. Pulse ox was 92% on 4 L. EMS was called. Staph was also concerned about his legs look monitored. Patient otherwise very weak and cannot provide much history. Denied any complaints of chest pain or shortness of breath. No nausea vomiting or diarrhea. No abdominal pain. Patient was admitted to the hospital recently due to bilateral lower extremity weakness and generalized weakness. Patient was also found have elevated troponin level. 2-D echocardiogram showed normal ejection fraction and mild pulmonary hypertension. Neurology has seen the patient due to metabolic encephalopathy and bilateral lower extremity weakness. Patient underwent CT head which showed moderate diffuse age-related cerebral atrophy and chronic severe small resid ischemic changes. Patient had MRI of the lumbar spine due to bilateral lower extremity weakness. MRI of the lumbar spine showed central stenosis L4-L5 region. Orthopedic surgery recommends pain management and epidu ral injection. Epidural injection could not be done due to Covid 19 infection also patient being on Eliquis for stroke prophylaxis. Patient was continued on pain management and was sent to [facility] on 08/22/2021 During previous admission patient was not hypoxic and did not require dexamethasone. Patient was also seen by pulmonary at the time. Chest x-ray showed new bilateral reticular increased opacities greatest in the lower lungs and in the periphery consistent with Covid 19 infection. EKG showed sinus tachycardia with PACs. Laboratory data showed WBC 12.5, hemoglobin 14.8, platelets 278 INR 1.4 Sodium 151 potassium 4.4 chloride 117 bicarb is 20 BUN 90 and creatinine 2.92. Baseline creatinine around 1.2 Lactic acid level was 3.1 admission Ferritin 3203, AST 205 ALT 67, alk phos 94 CRP 21.3 and LDH 2096 Pro calcitonin level 0.66 08/27/2021 Patient is currently resting in the bed. Patient is awake alert but seems to be mildly confused. No complaints of chest pain. Generalized weakness. Currently on oxygen at 10 L high flow via nasal cannula. Patient has been afebrile. Laboratory data showed D-dimer level is 1.46, WBC 14.1 hemoglobin 11.7 and platelets 252 sodium 151 potassium 4.09 BUN 100 and creatinine 2.8 blood sugar is 277, LDH 830 and CRP 15.7 Patient is being current dexamethasone and Eliquis and multivitamins. Pulmonary has seen the patient. Current medications reviewed. Objective - Vital Signs Vital signs: Vital Signs Temp 97.5 F L 08/27/21 17:00 Pulse 81 08/27/21 17:00 Resp 19 08/27/21 17:00 BP 133/63 08/27/21 17:00 Pulse Ox 91 L 08/27/21 21:09 Intake & Output 08/27/21 08/27/21 08/28/21 06:59 18:59 06:59 Weight 99.79 kg Other: Voiding Method Diaper Incontinent Incontinent # Voids 4 1 - Exam PHYSICAL EXAMINATION: Patient is lying in the bed comfortably, no acute distress, awake alert . Could not communicate. Lethargic and weak... HEENT: Normocephalic. Neck is supple. Pupils reactive. Nostrils clear. Oral cavity is moist. Neck reveals no JVD, carotid bruits, or thyromegaly. CHEST EXAMINATION: Trachea is central. Symmetrical expansion. Lung reyes clear to auscultation and percussion. CARDIAC: Normal S1, S2 with no gallops. No murmurs ABDOMEN: Soft. Bowel sounds normal. No organomegaly. No abdominal bruits. Extremities: reveal no edema. No clubbing or cyanosis Neurologically awake, alert, oriented 1 . Generalized weakness. Lethargic. No gross focal deficits noted Skin: No rash or skin lesions. Psychiatric: Coperative. Could not be assessed completely. Musculoskeletal: No joint swelling or deformity. - Labs CBC & Chem 7: 08/28/21 06:45 08/28/21 06:45 Labs: Abnormal Lab Results - Last 24 Hours (Table) 08/27/21 08/27/21 08/27/21 Range/Units 07:00 07:21 11:41 WBC 14.14 H (4.50-10.00) X 10*3/uL RBC 3.78 L (4.40-5.60) X 10*6/uL Hgb 11.7 L (13.0-17.0) g/dL Hct 38.0 L (39.6-50.0) % MCV 100.5 H (80.0-97.0) fL MCHC 30.8 L (32.0-37.0) g/dL Immature Gran # 0.10 H (0.00-0.04) X 10*3/uL Neutrophils # 12.98 H (1.80-7.70) X 10*3/uL Lymphocytes # 0.73 L (0.90-5.00) X 10*3/uL Eosinophils # 0 L (0.04-0.35) X 10*3/uL D-Dimer (<0.60) mg/L FEU POC Glucose (mg/dL) 281 H 335 H (75-99) mg/dL 08/27/21 08/27/21 08/27/21 Range/Units 12:49 16:39 20:54 WBC (4.50-10.00) X 10*3/uL RBC (4.40-5.60) X 10*6/uL Hgb (13.0-17.0) g/dL Hct (39.6-50.0) % MCV (80.0-97.0) fL MCHC (32.0-37.0) g/dL Immature Gran # (0.00-0.04) X 10*3/uL Neutrophils # (1.80-7.70) X 10*3/uL Lymphocytes # (0.90-5.00) X 10*3/uL Eosinophils # (0.04-0.35) X 10*3/uL D-Dimer 1.46 H (<0.60) mg/L FEU POC Glucose (mg/dL) 266 H 195 H (75-99) mg/dL Assessment and Plan Assessment: Acute hypoxic respiratory failure secondary to covid 19 pneumonia. Patient is on 10L oxygen. Diagnosed on 08/17/2021 Acute Covid 19 pneumonia Metabolic encephalopathy due to infection Hypernatremia due to dehydration and volume depletion. Elevated inflammatory markers Acute kidney injury likely prerenal. Hypernatremia with sodium level 159 due to dehydration and volume depletion and poor oral intake. Lactic acidosis due to tissue hypoperfusion. 3.1 on admission Elevated liver enzymes Bilateral lower extremity weakness and generalized weakness. MRI of the lumbar spine recently showed L4-L5 spinal stenosis. Was seen by orthopedic surgery Diabetes type 2 [id number] History of CVA/TIA with no residual weakness History of prostate cancer Peripheral vascular disease status post left femoral stent placement Coronary artery disease with history of CABG DVT prophylaxis patient is on Eliquis Plan: Patient will be continued on IV hydration with half-normal saline and monitor sodium level closely. Encourage oral intake. Bedside swallow evaluation. Patient was started on dexamethasone 6 mg daily and continue with Eliquis. Patient is on prophylaxis for stroke prophylaxis. Continue with oxygen supplementation current at 10 L via nasal cannula. Pulmonary is following. Patient was started on ascorbic acid, zinc sulfate and vitamin D. Continue to follow closely. Prognosis is guarded at this time. Time with Patient: Greater than 30
--- NOTE | 2021-08-28 23:34 | P.PN ---
Subjective Progress Note Date: 08/28/21 Principal diagnosis: Acute hypoxic respiratory failure secondary to COVID-19 pneumonia Patient is a 85-year-old male with a known history of recently diagnosed covid 19 infection on 08/17/2021, history of CVA/TIA, prostate cancer, peripheral vascular disease status post left femoral stent, coronary artery disease with history of CABG Patient was sent to Hospital from [facility] due to hypoxia requiring 4 L via nasal cannula. Pulse ox was 92% on 4 L. EMS was called. [facility] was also concerned about his legs look monitored. Patient otherwise very weak and cannot provide much history. Denied any complaints of chest pain or shortness of breath. No nausea vomiting or diarrhea. No abdominal pain. Patient was admitted to the hospital recently due to bilateral lower extremity weakness and generalized weakness. Patient was also found have elevated troponin level. 2-D echocardiogram showed normal ejection fraction and mild pulmonary hypertension. Neurology has seen the patient due to metabolic encephalopathy and bilateral lower extremity weakness. Patient underwent CT head which showed moderate diffuse age-related cerebral atrophy and chronic severe small resid ischemic changes. Patient had MRI of the lumbar spine due to bilateral lower extremity weakness. MRI of the lumbar spine showed central stenosis L4-L5 region. Orthopedic surgery recommends pain management and epidural injection. Epidural injection could not be done due to Covid 19 infection also patient being on Eliquis for stroke prophylaxis. Patient was continued on pain management and was sent to [facility] on 08/22/2021 During previous admission patient was not hypoxic and did not require dex amethasone. Patient was also seen by pulmonary at the time. Chest x-ray showed new bilateral reticular increased opacities greatest in the lower lungs and in the periphery consistent with Covid 19 infection. EKG showed sinus tachycardia with PACs. Laboratory data showed WBC 12.5, hemoglobin 14.8, platelets 278 INR 1.4 Sodium 151 potassium 4.4 chloride 117 bicarb is 20 BUN 90 and creatinine 2.92. Baseline creatinine around 1.2 Lactic acid level was 3.1 admission Ferritin 3203, AST 205 ALT 67, alk phos 94 CRP 21.3 and LDH 2096 Pro calcitonin level 0.66 08/27/2021 Patient is currently resting in the bed. Patient is awake alert but seems to be mildly confused. No complaints of chest pain. Generalized weakness. Currently on oxygen at 10 L high flow via nasal cannula. Patient has been afebrile. Laboratory data showed D-dimer level is 1.46, WBC 14.1 hemoglobin 11.7 and platelets 252 sodium 151 potassium 4.09 BUN 100 and creatinine 2.8 blood sugar is 277, LDH 830 and CRP 15.7 Patient is being current dexamethasone and Eliquis and multivitamins. Pulmonary has seen the patient. 08/28/2021 Patient is on the medical floor. Lying in the bed comfortably. Seems to be more awake and oriented today. Able to tolerate oral diet minimally. Otherwise patient is 10 L oxygen high flow. Denies any complaints of cough or worsening shortness of breath. Hemodynamically stable. Patient is being continued on dexamethasone, Eliquis and IV fluids changed to D5 water due to hypernatremia. Laboratory showed WBC 13.0 hemoglobin 10.3 and platelets 238 Sodium 150 potassium 4.1 chloride 117 bicarb is 18.0 BUN 94.8 creatinine 2.0 blood sugar is 158 Current medications reviewed. Objective - Vital Signs Vital signs: Vital Signs Temp 97.3 F L 08/28/21 14:00 Pulse 85 08/28/21 14:00 Resp 14 08/28/21 14:00 BP 135/70 08/28/21 14:00 Pulse Ox 91 L 08/28/21 14:00 Intake & Output 08/27/21 08/28/21 08/28/21 18:59 06:59 18:59 Weight 99.79 kg Other: Voiding Method Incontinent Incontinent Incontinent # Voids 1 5 - Exam PHYSICAL EXAMINATION: Patient is lying in the bed comfortably, no acute distress, awake alert . Could not communicate. Lethargic and weak... HEENT: Normocephalic. Neck is supple. Pupils reactive. Nostrils clear. Oral cavity is moist. Neck reveals no JVD, carotid bruits, or thyromegaly. CHEST EXAMINATION: Trachea is central. Symmetrical expansion. Lung reyes clear to auscultation and percussion. CARDIAC: Normal S1, S2 with no gallops. No murmurs ABDOMEN: Soft. Bowel sounds normal. No organomegaly. No abdominal bruits. Extremities: reveal no edema. No clubbing or cyanosis Neurologically awake, alert, oriented 1 . Generalized weakness. Lethargic. No gross focal deficits noted Skin: No rash or skin lesions. Psychiatric: Coperative. Could not be assessed completely. Musculoskeletal: No joint swelling or deformity. - Labs CBC & Chem 7: 08/28/21 06:45 08/28/21 06:45 Labs: Abnormal Lab Results - Last 24 Hours (Table) 08/27/21 08/27/21 08/27/21 Range/Units 07:00 16:39 20:54 WBC (4.50-10.00) X 10*3/uL RBC (4.40-5.60) X 10*6/uL Hgb (13.0-17.0) g/dL Hct (39.6-50.0) % MCV (80.0-97.0) fL MCHC (32.0-37.0) g/dL Immature Gran # (0.00-0.04) X 10*3/uL Neutrophils # (1.80-7.70) X 10*3/uL Lymphocytes # (0.90-5.00) X 10*3/uL Eosinophils # (0.04-0.35) X 10*3/uL Sodium 151 H (135-145) mmol/L Chloride 117 H (96-109) mmol/L Carbon Dioxide 17.2 L (20.0-27.5) mmol/L BUN 100.0 H (9.0-27.0) mg/dL Creatinine 2.8 H (0.6-1.5) mg/dL Est GFR (CKD-EPI)AfAm 23.1 L (60.0-200.0) Est GFR (CKD-EPI)NonAf 20.0 L (60.0-200.0) BUN/Creatinine Ratio 35.71 H (12.00-20.00) Ratio Glucose 277 H (70-110) mg/dL POC Glucose (mg/dL) 266 H 195 H (75-99) mg/dL Calcium 8.3 L (8.7-10.3) mg/dL Lactate Dehydrogenase 830 H (120-246) U/L C-Reactive Protein 15.70 H (0.00-0.80) mg/dL 08/28/21 08/28/21 08/28/21 Range/Units 06:45 06:45 07:19 WBC 13.09 H (4.50-10.00) X 10*3/uL RBC 3.32 L (4.40-5.60) X 10*6/uL Hgb 10.3 L (13.0-17.0) g/dL Hct 33.4 L (39.6-50.0) % MCV 100.6 H (80.0-97.0) fL MCHC 30.8 L (32.0-37.0) g/dL Immature Gran # 0.16 H (0.00-0.04) X 10*3/uL Neutrophils # 12.10 H (1.80-7.70) X 10*3/uL Lymphocytes # 0.56 L (0.90-5.00) X 10*3/uL Eosinophils # 0 L (0.04-0.35) X 10*3/uL Sodium 150 H (135-145) mmol/L Chloride 117 H (96-109) mmol/L Carbon Dioxide 18.0 L (20.0-27.5) mmol/L BUN 94.8 H (9.0-27.0) mg/dL Creatinine 2.0 H (0.6-1.5) mg/dL Est GFR (CKD-EPI)AfAm 33.9 L (60.0-200.0) Est GFR (CKD-EPI)NonAf 29.3 L (60.0-200.0) BUN/Creatinine Ratio 46.47 H (12.00-20.00) Ratio Glucose 158 H (70-110) mg/dL POC Glucose (mg/dL) 143 H (75-99) mg/dL Calcium 8.2 L (8.7-10.3) mg/dL Lactate Dehydrogenase (120-246) U/L C-Reactive Protein (0.00-0.80) mg/dL 08/28/21 Range/Units 12:11 WBC (4.50-10.00) X 10*3/uL RBC (4.40-5.60) X 10*6/uL Hgb (13.0-17.0) g/dL Hct (39.6-50.0) % MCV (80.0-97.0) fL MCHC (32.0-37.0) g/dL Immature Gran # (0.00-0.04) X 10*3/uL Neutrophils # (1.80-7.70) X 10*3/uL Lymphocytes # (0.90-5.00) X 10*3/uL Eosinophils # (0.04-0.35) X 10*3/uL Sodium (135-145) mmol/L Chloride (96-109) mmol/L Carbon Dioxide (20.0-27.5) mmol/L BUN (9.0-27.0) mg/dL Creatinine (0.6-1.5) mg/dL Est GFR (CKD-EPI)AfAm (60.0-200.0) Est GFR (CKD-EPI)NonAf (60.0-200.0) BUN/Creatinine Ratio (12.00-20.00) Ratio Glucose (70-110) mg/dL POC Glucose (mg/dL) 190 H (75-99) mg/dL Calcium (8.7-10.3) mg/dL Lactate Dehydrogenase (120-246) U/L C-Reactive Protein (0.00-0.80) mg/dL Assessment and Plan Assessment: Acute hypoxic respiratory failure secondary to covid 19 pneumonia. Patient is on 10L oxygen. Diagnosed on 08/17/2021 Acute Covid 19 pneumonia Metabolic encephalopathy due to infection Hypernatremia due to dehydration and volume depletion. Elevated inflammatory markers Acute kidney injury likely prerenal. improving Hypernatremia with sodium level 159 due to dehydration and volume depletion and poor oral intake. Lactic acidosis due to tissue hypoperfusion. 3.1 on admission Elevated liver enzymes Bilateral lower extremity weakness and generalized weakness. MRI of the lumbar spine recently showed L4-L5 spinal stenosis. Was seen by orthopedic surgery Diabetes type 2 [id number] History of CVA/TIA with no residual weakness History of prostate cancer Peripheral vascular disease status post left femoral stent placement Coronary artery disease with history of CABG DVT prophylaxis patient is on Eliquis Plan: Patient will be continued on IV hydration with half-normal saline and monitor sodium level closely. Encourage oral intake. Bedside swallow evaluation. Patient was started on dexamethasone 6 mg daily and continue with Eliquis. Patient is on prophylaxis for stroke prophylaxis. Continue with oxygen supplementation current at 10 L via nasal cannula. Pulmonary is following. Patient was started on ascorbic acid, zinc sulfate and vitamin D. Continue to follow closely. Prognosis is guarded at this time. Time with Patient: Greater than 30
[2021-08-29] MEDS: PANTOPRAZOLE 40 MG TABLET PO SCH (05:34)
[2021-08-29] MEDS: DEXAMETHASONE SOD PHOSPHATE 10 MG/ML 1 ML VIAL IVP SCH (07:43)
[2021-08-29] MEDS: INSULIN DETEMIR (LEVEMIR) 100 UNIT/ML SYR SQ SCH (07:43)
[2021-08-29] MEDS: ZINC SULFATE 220 MG CAP PO SCH (07:44)
[2021-08-29] MEDS: amLODIPine 10 MG TAB PO SCH (07:44)
[2021-08-29] MEDS: FOLIC ACID 1 MG TAB PO SCH (07:44)
[2021-08-29] MEDS: LOSARTAN 50 MG TAB PO SCH (07:44)
[2021-08-29] MEDS: ASCORBIC ACID 500 MG TAB PO SCH (07:44)
[2021-08-29] MEDS: CHOLECALCIFEROL 25 MCG (1000 IU) TABLET PO SCH (07:44)
[2021-08-29] MEDS: ASPIRIN 81 MG PO SCH (07:45)
[2021-08-29] MEDS: INSULIN ASPART (NovoLOG) 100 UNIT/ML VIAL SQ SCH ×4 (07:45→22:19)
[2021-08-29 07:51] LABS: Glucose,Whole Blood 295 mg/dL (75-99)
[2021-08-29 08:17] LABS: Basophils # (A) 0.1 k/uL (0-0.2); Basophils % (A) 1 %; Eosinophils % (A) 0 %; HCT 46.6 % (39.0-53.0); HGB 14.8 gm/dL (13.0-17.5); Hypochromasia Moderate; Lymphocytes # (A) 0.6 k/uL (1.0-4.8); Lymphocytes % (A) 4 %; MCH 33.1 pg (25.0-35.0); MCHC 31.8 g/dL (31.0-37.0); Macrocytosis Slight; Mean Platelet Volume 10.1; Monocytes # (A) 0.5 k/uL (0-1.0); Monocytes % (A) 4 %; Neutrophils # (A) 13.4 k/uL (1.3-7.7); Neutrophils % (A) 91 %; Platelet Count 225 k/uL (150-450); RBC 4.48 m/uL (4.30-5.90); RDW 13.2 % (11.5-15.5); WBC 14.7 k/uL (3.8-10.6)
[2021-08-29 08:23] LABS: African American GFR (CKD) 43 (>60 ml/min/1.73 sqM); Anion Gap 10 mmol/L; Blood Urea Nitrogen 87 mg/dL (9-20); C Reactive Protein 5.8 mg/dL (<1.0); Calcium 8.9 mg/dL (8.4-10.2); Carbon Dioxide 19 mmol/L (22-30); Chloride 116 mmol/L (98-107); Glucose 289 mg/dL (74-99); Non-African American GFR(CKD) 37 (>60 ml/min/1.73 sqM); Potassium 4.6 mmol/L (3.5-5.1); Sodium 145 mmol/L (137-145)
[2021-08-29 08:24] LABS: MCV 104.1 fL (80.0-100.0)
[2021-08-29 08:32] LABS: LDH 3089 U/L (313-618)
--- NOTE | 2021-08-29 11:45 | P.PN ---
Subjective Progress Note Date: 08/29/21 Principal diagnosis: Dyspnea, hypoxia, altered mental status 85-year-old white male patient with multiple chronic medical problems including diabetes mellitus type 2, hypertension, peripheral vascular disease with previous history of intervention in November 2019, previous history of CVA with slight left-sided residual weakness, history of prostate cancer who was recently hospitalized for generalized weakness, falls, and at that time patient was found to have an acute COVID-19 infection. However chest x-ray during that admission showed no evidence of pneumonia, patient was on room air, he had a mild cough, and it was felt that the COVID 19 infection was more of a incidental finding. Patient was treated supportively, he was not given any Decadron or Remdesivir. He was given IV hydration, he was found to be encephalopathic during that admission, he was seen by neurology in consultation who felt that this was related to toxic metabolic encephalopathy. CT of the brain showed moderate to severe chronic small vessel ischemic changes with evidence of old infarct in the right frontal and high posterior right frontal infarcts. EEG showed slowing of moderate degree but no evidence of seizure. Patient had MRI of the lumbar spine showing severe spinal stenosis at L4 and L5. He was seen in consultation by orthopedic surgery and pain services. Please refer to their consultation notes. Patient continued to be weak, and continued to have difficulty walking, and he was discharged to subacute rehab on 08/22/2021. Patient was brought back to the emergency department per EMS on 08/26/2021 from the residential for evaluation of hypoxia. His initial diagnosis of COVID-19 was established on 08/17/2021. He was on 4 L of oxygen at the [facility] on the [facility]. Normally patient is not on any oxygen. The nurses at the [facility] noted that his extremities or looking mo ttled, and patient was having more trouble breathing. No documented fever or chills, patient has a congested cough, he remained confused, he is only oriented to person. No documented fevers, no complaints of chest pain, no nausea vomiting, no headaches. EKG showed sinus tachycardia with PACs, it was felt that patient was dehydrated, there was evidence of acute kidney injury on his labs, chest x-ray showed new bilateral reticular increased opacities greatest in the lower lungs and in the periphery consistent with COVID-19 infection. His admission labs reveal white blood cell, 12.5, hemoglobin of 14.8, INR is 1.4, sodium was 151, potassium was 4.4, chloride was 117, CO2 was 20, BUN was 90, and creatinine is 2.9 to significantly increased since his discharge, lactic acid was 3.1, ferritin level was 3203, AST was 205, ALT was 67, his LDH was 2096, CRP was 21.3, pro-calcitonin level was 0.36. Patient has been afebrile while in the hospital, he is currently on 10 L of oxygen pulse ox is 88%. He has a congested cough, he was felt to be intermittently aspirating, he was seen by speech therapy who recommended pured diet. Patient was given IV hydration, he has 0.9 at 75 which will be switched over to 0.45 at 75. Lactiq acid has improved with IV hydration and is currently at 1.7. On 08/28/2021 patient seen in follow-up on medical surgical floor. He is resting comfortably in bed, he remains on 10 L of oxygen, does not appear to be in any distress, no evidence of worsening dyspnea, no cough, overall he seems much more awake, more conversant, and more appropriate today. he is still confused, and at times he is restless and removes his oxygen off. On 10 L of oxygen his pulse ox is 95%, his been afebrile, hemodynamically has been stable, lung sounds reveal a few scattered rales, no rhonchi or wheezing, no complaints of chest pain. He is currently receiving Decadron 6 mg daily, he is on Eliquis 2.5 mg for history of PVD, and previous history of stroke, he is on 0.9 normal saline at a rate of 75 ML per hour, his lower extremity Dopplers were negative for DVT. Today's labs have been reviewed, his white blood cell count is 13, hemoglobin is 10.3, his serum sodium slightly improved however still elevated at 150, potassium is 4.1, chloride is 117, CO2 is 18, BUN of 94, creatinine is 2.0, improving, his inflammatory markers were improving on yesterday's labs, today's levels are pending. On 08/29/2021 patient seen in follow-up on medical surgical floor, he is plea santly confused, she repeatedly removes his oxygen, he is currently on 8 L of oxygen his pulse ox is 88-95%, his been afebrile overnight, vital signs have been stable, he does not appear to be in any acute distress, she does have occasional dry cough, lung sounds reveal diffuse coarse crackles bilaterally, his mentation seems to be more awake and alert, interactive, he denies any specific complaints. No nausea vomiting or diarrhea. Today's labs have been reviewed, his white count is relatively stable at 14.7, hemoglobin is 14.8, his platelet count is 225, his serum sodium is 145, potassium is 4.6, his BUN is 87, creatinine is 1.68, his D5W infusion has been turned down to KVO, patient is t olerating oral intake, his renal function is improving. LDH has significantly increased and is up to 3089, and CRP is improved and is down to 5.8. Patient continues on Decadron 6 mg daily, she is on home dose Eliquis 2.5 mg, his lower extremity Dopplers were negative for DVT, follow-up d-dimer is pending. He is on COVID-19 vitamins. Objective - Vital Signs Vital signs: Vital Signs Temp 98.4 F 08/29/21 08:00 Pulse 79 08/29/21 08:00 Resp 20 08/29/21 08:00 BP 153/77 08/29/21 08:00 Pulse Ox 95 08/29/21 09:15 Intake & Output 08/28/21 08/29/21 08/29/21 18:59 06:59 18:59 Output Total 2 Balance -2 Weight 99.79 kg Output: Urine 2 Other: Voiding Method Incontinent Incontinent Diaper Incontinent # Voids 1 - Exam GENERAL EXAM: Alert, confused, oriented only to person, disoriented to time and place, currently on 8 L of oxygen with a pulse ox of 88-95%. His cough has improved, HEAD: Normocephalic/atraumatic. EYES: Normal reaction of pupils, equal size. Conjunctiva pink, sclera white. NOSE: Clear with pink turbinates. THROAT: No erythema or exudates. NECK: No masses, no JVD, no thyroid enlargement, no adenopathy. CHEST: No chest wall deformity. Symmetrical expansion. LUNGS: Equal air entry with diffuse crackles CVS: Regular rate and rhythm, normal S1 and S2, no gallops, no murmurs, no rubs ABDOMEN: Soft, nontender. No hepatosplenomegaly, normal bowel sounds, no guarding or rigidity. EXTREMITIES: No clubbing, no edema, no cyanosis, 2+ pulses and upper and lower extremities. MUSCULOSKELETAL: Muscle strength and tone normal. SPINE: No scoliosis or deformity SKIN: No rashes CENTRAL NERVOUS SYSTEM: Alert and oriented -1 No focal deficits, tone is normal in all 4 extremities. PSYCHIATRIC: Alert and oriented -. Confused - Labs CBC & Chem 7: 08/29/21 07:43 08/29/21 07:43 Labs: Abnormal Lab Results - Last 24 Hours (Table) 08/28/21 08/28/21 08/28/21 Range/Units 06:45 06:45 12:11 WBC (3.8-10.6) k/uL MCV (80.0-100.0) fL Immature Gran # 0.16 H (0.00-0.04) X 10*3/uL Neutrophils # 12.10 H (1.80-7.70) X 10*3/uL Lymphocytes # 0.56 L (0.90-5.00) X 10*3/uL Eosinophils # 0 L (0.04-0.35) X 10*3/uL Sodium 150 H (135-145) mmol/L Chloride 117 H (96-109) mmol/L Carbon Dioxide 18.0 L (20.0-27.5) mmol/L BUN 94.8 H (9.0-27.0) mg/dL Creatinine 2.0 H (0.6-1.5) mg/dL Est GFR (CKD-EPI)AfAm 33.9 L (60.0-200.0) Est GFR (CKD-EPI)NonAf 29.3 L (60.0-200.0) BUN/Creatinine Ratio 46.47 H (12.00-20.00) Ratio Glucose 158 H (70-110) mg/dL POC Glucose (mg/dL) 190 H (75-99) mg/dL Calcium 8.2 L (8.7-10.3) mg/dL Lactate Dehydrogenase (313-618) U/L C-Reactive Protein (<1.0) mg/dL 08/28/21 08/28/21 08/29/21 Range/Units 16:53 19:58 07:43 WBC 14.7 H (3.8-10.6) k/uL MCV 104.1 H D (80.0-100.0) fL Immature Gran # (0.00-0.04) X 10*3/uL Neutrophils # 13.4 H (1.80-7.70) X 10*3/uL Lymphocytes # 0.6 L (0.90-5.00) X 10*3/uL Eosinophils # (0.04-0.35) X 10*3/uL Sodium (135-145) mmol/L Chloride (96-109) mmol/L Carbon Dioxide (20.0-27.5) mmol/L BUN (9.0-27.0) mg/dL Creatinine (0.6-1.5) mg/dL Est GFR (CKD-EPI)AfAm (60.0-200.0) Est GFR (CKD-EPI)NonAf (60.0-200.0) BUN/Creatinine Ratio (12.00-20.00) Ratio Glucose (70-110) mg/dL POC Glucose (mg/dL) 259 H 296 H (75-99) mg/dL Calcium (8.7-10.3) mg/dL Lactate Dehydrogenase (313-618) U/L C-Reactive Protein (<1.0) mg/dL 08/29/21 08/29/21 Range/Units 07:43 07:49 WBC (3.8-10.6) k/uL MCV (80.0-100.0) fL Immature Gran # (0.00-0.04) X 10*3/uL Neutrophils # (1.80-7.70) X 10*3/uL Lymphocytes # (0.90-5.00) X 10*3/uL Eosinophils # (0.04-0.35) X 10*3/uL Sodium (135-145) mmol/L Chloride 116 H (96-109) mmol/L Carbon Dioxide 19 L (20.0-27.5) mmol/L BUN 87 H (9.0-27.0) mg/dL Creatinine 1.68 H (0.6-1.5) mg/dL Est GFR (CKD-EPI)AfAm (60.0-200.0) Est GFR (CKD-EPI)NonAf (60.0-200.0) BUN/Creatinine Ratio (12.00-20.00) Ratio Glucose 289 H (70-110) mg/dL POC Glucose (mg/dL) 295 H (75-99) mg/dL Calcium (8.7-10.3) mg/dL Lactate Dehydrogenase 3089 H (313-618) U/L C-Reactive Protein 5.8 H (<1.0) mg/dL Assessment and Plan Plan: Assessment: #1. Acute hypoxic respiratory failure related to acute COVID-19 pneumonia, with initial diagnosis on 08/17/2021, patient is outside the window for Remdesivir, she is being treated supportively with Decadron, he is on Eliquis 2.5 mg at bedtime for previous history of CVA and severe PVD. #2. Recent hospitalization for altered mental status, toxic metabolic encephalopathy, COVID-19 infection without pneumonia, and patient was discharged to the [facility] on the [place] on 08/22/2021 #3. Acute kidney injury related to dehydration, improving #4. Lactic acidosis related to dehydration, improved with IV hydration #5. Acute hypernatremia related to free water deficit, and dehydration, improving with IV hydration #6. Elevated inflammatory markers related to COVID-19 #7. Previous history of CVA 10 years ago with mild left-sided weakness #8. Acute metabolic encephalopathy, ongoing, multifactorial, related to hypoxic encephalopathy, in addition to metabolic encephalopathy #9. Diabetes mellitus type 2 #10. History of prostate cancer #11. History of peripheral vascular disease with previous history of left femoral stent #12. L4-L5 spinal stenosis with bilateral leg weakness and bilateral hip pain, patient was seen by orthopedic surgery and pain services during his last admission #13. No evidence of CVA on the CT had from previous admission #14. Coronary artery disease status post coronary artery bypass grafting Plan: Continue current medical treatment Maintain aspiration precautions Seems to be breathing comfortably, his cough has improved Continue Decadron Continue home dose Eliquis at 2.5 mg at bedtime Yesterday's d-dimer has been noted, lower extremity Dopplers were negative for DVT, will continue with home dose Eliquis Labs have been reviewed, his chemistries including serum sodium levels and renal profile are improved Encourage oral intake, D5W has been cut down to KVO We'll continue supportive care I performed a history & physical examination of the patient and discussed their management with my nurse practitioner, Ciarra Lloyd. I reviewed the nurse practitioner's note and agree with the documented findings and plan of care. Lung sounds are positive for diffuse crackles throughout the lung reyes. The findings and the impression was discussed with the patient. I attest to the documentation by the nurse practitioner. Time with Patient: Less than 30
[2021-08-29 11:59] LABS: Glucose,Whole Blood 322 mg/dL (75-99)
[2021-08-29 16:57] LABS: Glucose,Whole Blood 411 mg/dL (75-99)
[2021-08-29] MEDS ORDERED: INSULIN ASPART (NovoLOG) 100 UNIT/ML VIAL SQ ONE (17:21)
--- NOTE | 2021-08-29 19:56 | P.PN ---
Subjective Patient is a 85-year-old male with a known history of recently diagnosed covid 19 infection on 08/17/2021, history of CVA/TIA, prostate cancer, peripheral vascular disease status post left femoral stent, coronary artery disease with history of CABG Patient was sent to Hospital from [facility] due to hypoxia requiring 4 L via nasal cannula. Pulse ox was 92% on 4 L. EMS was called. Staph was also concerned about his legs look monitored. Patient otherwise very weak and cannot provide much history. Denied any complaints of chest pain or shortness of breath. No nausea vomiting or diarrhea. No abdominal pain. Patient was admitted to the hospital recently due to bilateral lower extremity weakness and generalized weakness. Patient was also found have elevated troponin level. 2-D echocardiogram showed normal ejection fraction and mild pulmonary hypertension. Neurology has seen the patient due to metabolic encephalopathy and bilateral lower extremity weakness. Patient underwent CT head which showed moderate diffuse age-related cerebral atrophy and chronic severe small resid ischemic changes. Patient had MRI of the lumbar spine due to bilateral lower extremity weakness. MRI of the lumbar spine showed central stenosis L4-L5 region. Orthopedic surgery recommends pain management and epidural injection. Epidural injection could not be done due to Covid 19 infection also patient being on Eliquis for stroke prophylaxis. Patient was continued on pain management and was sent to [facility] on 08/22/2021 During previous admission patient was not hypoxic and did not require dexamethasone. Patient was also seen by pulmonary at the time. Chest x-ray showed new bilateral reticular increased opacities greatest in the lower lungs and in the periphery consistent with Covid 19 infection. EKG showed sinus tachycardia with PACs. Laboratory data showed WBC 12.5, hemoglobin 14.8, platelets 278 INR 1.4 Sodium 151 potassium 4.4 chloride 117 bicarb is 20 BUN 90 and creatinine 2.92. Baseline creatinine around 1.2 Lactic acid level was 3.1 admission Ferritin 3203, AST 205 ALT 67, alk phos 94 CRP 21.3 and LDH 2096 Pro calcitonin level 0.66 08/27/2021 Patient is currently resting in the bed. Patient is awake alert but seems to be mildly confused. No complaints of chest pain. Generalized weakness. Currently on oxygen at 10 L high flow via nasal cannula. Patient has been afebrile. Laboratory data showed D-dimer level is 1.46, WBC 14.1 hemoglobin 11.7 and platelets 252 sodium 151 potassium 4.09 BUN 100 and creatinine 2.8 blood sugar is 277, LDH 830 and CRP 15.7 Patient is being current dexamethasone and Eliquis and multivitamins. Pulmonary has seen the patient. 08/28/2021 Patient is on the medical floor. Lying in the bed comfortably. Seems to be more awake and oriented today. Able to tolerate oral diet minimally. Otherwise patient is 10 L oxygen high flow. Denies any complaints of cough or worsening shortness of breath. Hemodynamically stable. Patient is being continued on dexamethasone, Eliquis and IV fluids changed to D5 water due to hypernatremia. Laboratory showed WBC 13.0 hemoglobin 10.3 and platelets 238 Sodium 150 potassium 4.1 chloride 117 bicarb is 18.0 BUN 94.8 creatinine 2.0 blood sugar is 158 Subjective: 08/29/2021 Patient is awake but is lethargic and tired. Distal hypoxic on telemetry to her oxygen with saturation of 90%. Hypernatremia improved with sodium 145 daily and D5W was discontinued. Patient is able to eat and drink well today. Creatinine improved down to 1.6. Baseline creatinine 1.1-1.4 Leukocytosis of 14.7 while on steroids. Increased inflammatory markers with LDH 3089 and CRP 5.8. He still on dexamethasone, multiple vitamins, Eliquis, Levemir. His dose increased 10 units up to 20 units tomorrow because of high glucose at 411 Objective - Vital Signs Vital signs: Vital Signs Temp 98.4 F 08/29/21 08:00 Pulse 79 08/29/21 08:00 Resp 20 08/29/21 08:00 BP 153/77 08/29/21 08:00 Pulse Ox 95 08/29/21 09:15 Intake & Output 08/28/21 08/29/21 08/29/21 18:59 06:59 18:59 Output Total 2 Balance -2 Weight 99.79 kg Output: Urine 2 Other: Voiding Method Incontinent Incontinent Diaper Incontinent # Voids 1 - Exam GENERAL: The patient is alert and oriented x3, not in any acute distress. Well developed, well nourished. HEENT: Pupils are round and equally reacting to light. EOMI. No scleral icterus. No conjunctival pallor. Normocephalic, atraumatic. No pharyngeal erythema. No thyromegaly. CARDIOVASCULAR: S1 and S2 present. No murmurs, rubs, or gallops. -PULMONARY: Chest is clear to auscultation, no wheezing . Bilateral crepitation ABDOMEN: Soft, nontender, nondistended, normoactive bowel sounds. No palpable organomegaly. MUSCULOSKELETAL: No joint swelling or deformity. EXTREMITIES: No cyanosis, clubbing, or pedal edema. NEUROLOGICAL: Gross neurological examination did not reveal any focal deficits. SKIN: No rashes. no petechiae. - Labs CBC & Chem 7: 08/29/21 07:43 08/29/21 07:43 Labs: Abnormal Lab Results - Last 24 Hours (Table) 08/28/21 08/28/21 08/28/21 Range/Units 06:45 06:45 16:53 WBC (3.8-10.6) k/uL MCV (80.0-100.0) fL Immature Gran # 0.16 H (0.00-0.04) X 10*3/uL Neutrophils # 12.10 H (1.80-7.70) X 10*3/uL Lymphocytes # 0.56 L (0.90-5.00) X 10*3/uL Eosinophils # 0 L (0.04-0.35) X 10*3/uL Sodium 150 H (135-145) mmol/L Chloride 117 H (96-109) mmol/L Carbon Dioxide 18.0 L (20.0-27.5) mmol/L BUN 94.8 H (9.0-27.0) mg/dL Creatinine 2.0 H (0.6-1.5) mg/dL Est GFR (CKD-EPI)AfAm 33.9 L (60.0-200.0) Est GFR (CKD-EPI)NonAf 29.3 L (60.0-200.0) BUN/Creatinine Ratio 46.47 H (12.00-20.00) Ratio Glucose 158 H (70-110) mg/dL POC Glucose (mg/dL) 259 H (75-99) mg/dL Calcium 8.2 L (8.7-10.3) mg/dL Lactate Dehydrogenase (313-618) U/L C-Reactive Protein (<1.0) mg/dL 08/28/21 08/29/21 08/29/21 Range/Units 19:58 07:43 07:43 WBC 14.7 H (3.8-10.6) k/uL MCV 104.1 H D (80.0-100.0) fL Immature Gran # (0.00-0.04) X 10*3/uL Neutrophils # 13.4 H (1.80-7.70) X 10*3/uL Lymphocytes # 0.6 L (0.90-5.00) X 10*3/uL Eosinophils # (0.04-0.35) X 10*3/uL Sodium (135-145) mmol/L Chloride 116 H (96-109) mmol/L Carbon Dioxide 19 L (20.0-27.5) mmol/L BUN 87 H (9.0-27.0) mg/dL Creatinine 1.68 H (0.6-1.5) mg/dL Est GFR (CKD-EPI)AfAm (60.0-200.0) Est GFR (CKD-EPI)NonAf (60.0-200.0) BUN/Creatinine Ratio (12.00-20.00) Ratio Glucose 289 H (70-110) mg/dL POC Glucose (mg/dL) 296 H (75-99) mg/dL Calcium (8.7-10.3) mg/dL Lactate Dehydrogenase 3089 H (313-618) U/L C-Reactive Protein 5.8 H (<1.0) mg/dL 08/29/21 08/29/21 Range/Units 07:49 11:57 WBC (3.8-10.6) k/uL MCV (80.0-100.0) fL Immature Gran # (0.00-0.04) X 10*3/uL Neutrophils # (1.80-7.70) X 10*3/uL Lymphocytes # (0.90-5.00) X 10*3/uL Eosinophils # (0.04-0.35) X 10*3/uL Sodium (135-145) mmol/L Chloride (96-109) mmol/L Carbon Dioxide (20.0-27.5) mmol/L BUN (9.0-27.0) mg/dL Creatinine (0.6-1.5) mg/dL Est GFR (CKD-EPI)AfAm (60.0-200.0) Est GFR (CKD-EPI)NonAf (60.0-200.0) BUN/Creatinine Ratio (12.00-20.00) Ratio Glucose (70-110) mg/dL POC Glucose (mg/dL) 295 H 322 H (75-99) mg/dL Calcium (8.7-10.3) mg/dL Lactate Dehydrogenase (313-618) U/L C-Reactive Protein (<1.0) mg/dL Assessment and Plan Assessment: Acute hypoxic respiratory failure secondary to covid 19 pneumonia. Acute Covid 19 pneumonia Metabolic encephalopathy due to infection Hypernatremia due to dehydration and volume depletion. Improved Elevated inflammatory markers Acute kidney injury likely prerenal. improving Elevated liver enzymes, mild. Secondary to Covid infection Bilateral lower extremity weakness and generalized weakness. MRI of the lumbar spine recently showed L4-L5 spinal stenosis. Was seen by orthopedic surgery Diabetes type 2 [id number] History of CVA/TIA with no residual weakness History of prostate cancer Peripheral vascular disease status post left femoral stent placement Coronary artery disease with history of CABG Plan: This is a pleasant 85 years old male who presents with cold pneumonia. Continue with vitamin C, vitamin D and zinc. Ulcers on dexamethasone. Continue with home dose of liquids 2.5 mg twice a day Continue with Levemir and insulin sliding scale while monitoring glucose closely. Labs and medication were reviewed.. Continue same treatment. Continue with symptomatic treatment. Resume home medication. Monitor lytes and vitals. DVT and GI prophylaxis. Further recommendationsas per clinical course of the patient DVT prophylaxis: Eliquis GI Prophylaxis: Ppi PT/OT: Pending Prognosis is guarded
[2021-08-29 20:30] LABS: Glucose,Whole Blood >600 mg/dL (75-99)
[2021-08-29 20:33] LABS: Glucose,Whole Blood 377 mg/dL (75-99)
[2021-08-29] MEDS: ATORVASTATIN 80 MG TAB PO SCH (22:19)
[2021-08-29] MEDS: APIXABAN 2.5 MG TABLET PO SCH (22:19)
[2021-08-30] MEDS: PANTOPRAZOLE 40 MG TABLET PO SCH (05:32)
[2021-08-30 06:55] LABS: Glucose,Whole Blood 252 mg/dL (75-99)
[2021-08-30] MEDS: INSULIN ASPART (NovoLOG) 100 UNIT/ML VIAL SQ SCH ×4 (08:07→20:59)
[2021-08-30] MEDS: DEXAMETHASONE SOD PHOSPHATE 10 MG/ML 1 ML VIAL IVP SCH (08:08)
[2021-08-30] MEDS: ZINC SULFATE 220 MG CAP PO SCH (08:08)
[2021-08-30] MEDS: ASCORBIC ACID 500 MG TAB PO SCH (08:08)
[2021-08-30] MEDS: ASPIRIN 81 MG PO SCH (08:08)
[2021-08-30] MEDS: INSULIN DETEMIR (LEVEMIR) 100 UNIT/ML SYR SQ SCH (08:08)
[2021-08-30] MEDS: LOSARTAN 50 MG TAB PO SCH (08:09)
[2021-08-30] MEDS: amLODIPine 10 MG TAB PO SCH (08:09)
[2021-08-30] MEDS: FOLIC ACID 1 MG TAB PO SCH (08:09)
[2021-08-30] MEDS: CHOLECALCIFEROL 25 MCG (1000 IU) TABLET PO SCH (08:09)
[2021-08-30 11:14] LABS: African American GFR (CKD) 41 (>60 ml/min/1.73 sqM); Anion Gap 9 mmol/L; Blood Urea Nitrogen 85 mg/dL (9-20); Calcium 8.7 mg/dL (8.4-10.2); Carbon Dioxide 19 mmol/L (22-30); Chloride 120 mmol/L (98-107); Glucose 300 mg/dL (74-99); Non-African American GFR(CKD) 35 (>60 ml/min/1.73 sqM); Potassium 4.4 mmol/L (3.5-5.1); Sodium 148 mmol/L (137-145)
[2021-08-30 11:51] LABS: Glucose,Whole Blood 269 mg/dL (75-99)
--- NOTE | 2021-08-30 15:32 | P.PN ---
Subjective Patient is a 85-year-old male with a known history of recently diagnosed covid 19 infection on 08/17/2021, history of CVA/TIA, prostate cancer, peripheral vascular disease status post left femoral stent, coronary artery disease with history of CABG Patient was sent to Hospital from [facility] due to hypoxia requiring 4 L via nasal cannula. Pulse ox was 92% on 4 L. EMS was called. Staph was also concerned about his legs look monitored. Patient otherwise very weak and cannot provide much history. Denied any complaints of chest pain or shortness of breath. No nausea vomiting or diarrhea. No abdominal pain. Patient was admitted to the hospital recently due to bilateral lower extremity weakness and generalized weakness. Patient was also found have elevated troponin level. 2-D echocardiogram showed normal ejection fraction and mild pulmonary hypertension. Neurology has seen the patient due to metabolic encephalopathy and bilateral lower extremity weakness. Patient underwent CT head which showed moderate diffuse age-related cerebral atrophy and chronic severe small resid ischemic changes. Patient had MRI of the lumbar spine due to bilateral lower extremity weakness. MRI of the lumbar spine showed central stenosis L4-L5 region. Orthopedic surgery recommends pain management and epidural injection. Epidural injection could not be done due to Covid 19 infection also patient being on Eliquis for stroke prophylaxis. Patient was continued on pain management and was sent to [facility] on 08/22/2021 During previous admission patient was not hypoxic and did not require dexamethasone. Patient was also seen by pulmonary at the time. Chest x-ray showed new bilateral reticular increased opacities greatest in the lower lungs and in the periphery consistent with Covid 19 infection. EKG showed sinus tachycardia with PACs. Laboratory data showed WBC 12.5, hemoglobin 14.8, platelets 278 INR 1.4 Sodium 151 potassium 4.4 chloride 117 bicarb is 20 BUN 90 and creatinine 2.92. Baseline creatinine around 1.2 Lactic acid level was 3.1 admission Ferritin 3203, AST 205 ALT 67, alk phos 94 CRP 21.3 and LDH 2096 Pro calcitonin level 0.66 08/27/2021 Patient is currently resting in the bed. Patient is awake alert but seems to be mildly confused. No complaints of chest pain. Generalized weakness. Currently on oxygen at 10 L high flow via nasal cannula. Patient has been afebrile. Laboratory data showed D-dimer level is 1.46, WBC 14.1 hemoglobin 11.7 and platelets 252 sodium 151 potassium 4.09 BUN 100 and creatinine 2.8 blood sugar is 277, LDH 830 and CRP 15.7 Patient is being current dexamethasone and Eliquis and multivitamins. Pulmonary has seen the patient. 08/28/2021 Patient is on the medical floor. Lying in the bed comfortably. Seems to be more awake and oriented today. Able to tolerate oral diet minimally. Otherwise patient is 10 L oxygen high flow. Denies any complaints of cough or worsening shortness of breath. Hemodynamically stable. Patient is being continued on dexamethasone, Eliquis and IV fluids changed to D5 water due to hypernatremia. Laboratory showed WBC 13.0 hemoglobin 10.3 and platelets 238 Sodium 150 potassium 4.1 chloride 117 bicarb is 18.0 BUN 94.8 creatinine 2.0 blood sugar is 158 Subjective: 08/29/2021 Patient is awake but is lethargic and tired. Distal hypoxic on telemetry to her oxygen with saturation of 90%. Hypernatremia improved with sodium 145 daily and D5W was discontinued. Patient is able to eat and drink well today. Creatinine improved down to 1.6. Baseline creatinine 1.1-1.4 Leukocytosis of 14.7 while on steroids. Increased inflammatory markers with LDH 3089 and CRP 5.8. He still on dexamethasone, multiple vitamins, Eliquis, Levemir. His dose increased 10 units up to 20 units tomorrow because of high glucose at 411 08/30/2021 Patient is awake but slightly confused today, he denies any chest pain. Also he denies any back pain. He is able to tolerate diet well and he is eating 100% of his diet, even better than yesterday However he still tachypnea which is mild while at rest but oxygen requirement went up to 15 L/m compared to 10 yesterday. His sodium is 148 which is slightly elevated, also creatinine is slightly elevated 1.7 compared to baseline of 1.1- 1.4. We will order labs tomorrow. Also we will check chest x-ray Objective - Vital Signs Vital signs: Vital Signs Temp 97 F L 08/30/21 08:57 Pulse 86 08/30/21 08:57 Resp 17 08/30/21 08:57 BP 150/72 08/30/21 08:57 Pulse Ox 89 L 08/30/21 08:57 Intake & Output 08/29/21 08/30/2108/30/21 18:59 06:59 18:59 Weight 99.79 kg Other: Voiding Method Diaper Diaper Diaper Incontinent Incontinent Incontinent # Voids 3 3 # Bowel Movements 0 - Exam GENERAL: The patient is alert and oriented x3, not in any acute distress. Well developed, well nourished. HEENT: Pupils are round and equally reacting to light. EOMI. No scleral icterus. No conjunctival pallor. Normocephalic, atraumatic. No pharyngeal erythema. No thyromegaly. CARDIOVASCULAR: S1 and S2 present. No murmurs, rubs, or gallops. -PULMONARY: Chest is clear to auscultation, no wheezing . Bilateral crepitation ABDOMEN: Soft, nontender, nondistended, normoactive bowel sounds. No palpable organomegaly. MUSCULOSKELETAL: No joint swelling or deformity. EXTREMITIES: No cyanosis, clubbing, or pedal edema. NEUROLOGICAL: Gross neurological examination did not reveal any focal deficits. SKIN: No rashes. no petechiae. - Labs CBC & Chem 7: 08/29/21 07:43 08/30/21 09:58 Labs: Abnormal Lab Results - Last 24 Hours (Table) 08/29/21 08/29/21 08/29/21 Range/Units 11:57 16:55 20:28 Sodium (137-145) mmol/L Chloride (98-107) mmol/L Carbon Dioxide (22-30) mmol/L BUN (9-20) mg/dL Creatinine (0.66-1.25) mg/dL Glucose (74-99) mg/dL POC Glucose (mg/dL) 322 H 411 H >600 H (75-99) mg/dL 08/29/21 08/29/21 08/30/21 Range/Units 20:30 21:16 06:53 Sodium (137-145) mmol/L Chloride (98-107) mmol/L Carbon Dioxide (22-30) mmol/L BUN (9-20) mg/dL Creatinine (0.66-1.25) mg/dL Glucose 344 H (74-99) mg/dL POC Glucose (mg/dL) 377 H 252 H (75-99) mg/dL 08/30/21 08/30/21 Range/Units 09:58 11:49 Sodium 148 H (137-145) mmol/L Chloride 120 H (98-107) mmol/L Carbon Dioxide 19 L (22-30) mmol/L BUN 85 H (9-20) mg/dL Creatinine 1.75 H (0.66-1.25) mg/dL Glucose 300 H (74-99) mg/dL POC Glucose (mg/dL) 269 H (75-99) mg/dL Assessment and Plan Assessment: Acute hypoxic respiratory failure secondary to covid 19 pneumonia. Acute Covid 19 pneumonia Metabolic encephalopathy due to infection Hypernatremia due to dehydration and volume depletion. Improved Elevated inflammatory markers Acute kidney injury likely prerenal. improving Elevated liver enzymes, mild. Secondary to Covid infection Bilateral lower extremity weakness and generalized weakness. MRI of the lumbar spine recently showed L4-L5 spinal stenosis. Was seen by orthopedic surgery Diabetes type 2 [id number] History of CVA/TIA with no residual weakness History of prostate cancer Peripheral vascular disease status post left femoral stent placement Coronary artery disease with history of CABG Plan: This is a pleasant 85 years old male who presents with cold pneumonia. Continue with vitamin C, vitamin D and zinc. Ulcers on dexamethasone. Continue with home dose of liquids 2.5 mg twice a day Continue with Levemir and insulin sliding scale while monitoring glucose closely. Labs and medication were reviewed.. Continue same treatment. Continue with symptomatic treatment. Resume home medication. Monitor lytes and vitals. DVT and GI prophylaxis. Further recommendationsas per clinical course of the julia ent DVT prophylaxis: Eliquis GI Prophylaxis: Ppi PT/OT: Pending Prognosis is guarded
[2021-08-30] MEDS: SODIUM CHLORIDE 0.45% 1,000 ML IV SCH (15:53)
[2021-08-30 16:19] LABS: Glucose,Whole Blood 292 mg/dL (75-99)
--- NOTE | 2021-08-30 18:13 | P.PN ---
Subjective Progress Note Date: 08/30/21 Principal diagnosis: COVID-19 pneumonia 85-year-old white male patient with multiple chronic medical problems including diabetes mellitus type 2, hypertension, peripheral vascular disease with previous history of intervention in November 2019, previous history of CVA with slight left-sided residual weakness, history of prostate cancer who was recently hospitalized for generalized weakness, falls, and at that time patient was found to have an acute COVID-19 infection. However chest x-ray during that admission showed no evidence of pneumonia, patient was on room air, he had a mild cough, and it was felt that the COVID 19 infection was more of a incidental finding. Patient was treated supportively, he was not given any Decadron or Remdesivir. He was given IV hydration, he was found to be encephalopathic during that admission, he was seen by neurology in consultation who felt that this was related to toxic metabolic encephalopathy. CT of the brain showed moderate to severe chronic small vessel ischemic changes with evidence of old infarct in the right frontal and high posterior right frontal infarcts. EEG showed slowing of moderate degree but no evidence of seizure. Patient had MRI of the lumbar spine showing severe spinal stenosis at L4 and L5. He was seen in consultation by orthopedic surgery and pain services. Please refer to their consultation notes. Patient continued to be weak, and continued to have difficulty walking, and he was discharged to subacute rehab on 08/22/2021. Patient was brought back to the emergency department per EMS on 08/26/2021 from the senior care for evaluation of hypoxia. His initial diagnosis of COVID-19 was established on 08/17/2021. He was on 4 L of oxygen at the [facility] on the [facility]. Normally patient is not on any oxygen. The nurses at the [facility] noted that his extremities or looking mottled, and patient was having more trouble breathing. No documented fever or chills, patient has a congested cough, he remained confused, he is only oriented to person. No documented fevers, no complaints of chest pain, no nausea vomiting, no headaches. EKG showed sinus tachycardia with PACs, it was felt that patient was dehydrated, there was evidence of acute kidney injury on his labs, chest x-ray showed new bilateral reticular increased opacities greatest in the lower lungs and in the periphery consistent with COVID-19 infection. His admission labs reveal white blood cell, 12.5, hemoglobin of 14.8, INR is 1.4, sodium was 151, potassium was 4.4, chloride was 117, CO2 was 20, BUN was 90, and creatinine is 2.9 to significantly increased since his discharge, lactic acid was 3.1, ferritin level was 3203, AST was 205, ALT was 67, his LDH was 2096, CRP was 21.3, pro-calcitonin level was 0.36. Patient has been afebrile while in the hospital, he is currently on 10 L of oxygen pulse ox is 88%. He has a congested cough, he was felt to be intermittently aspirating, he was seen by speech therapy who recommended pured diet. Patient was given IV hydration, he has 0.9 at 75 which will be switched over to 0.45 at 75. Lactiq acid has improved with IV hydration and is currently at 1.7. On 08/28/2021 patient seen in follow-up on medical surgical floor. He is resting comfortably in bed, he remains on 10 L of oxygen, does not appear to be in any distress, no evidence of worsening dyspnea, no cough, overall he seems much more awake, more conversant, and more appropriate today. he is still confused, and at times he is restless and removes his oxygen off. On 10 L of oxygen his pulse ox is 95%, his been afebrile, hemodynamically has been stable, lung sounds reveal a few scattered rales, no rhonchi or wheezing, no complaints of chest pain. He is currently receiving Decadron 6 mg daily, he is on Eliquis 2.5 mg for history of PVD, and previous history of stroke, he is on 0.9 normal saline at a rate of 75 ML per hour, his lower extremity Dopplers were negative for DVT. Today's labs have been reviewed, his white blood cell count is 13, hemoglobin is 10.3, his serum sodium slightly improved however still elevated at 150, potassium is 4.1, chloride is 117, CO2 is 18, BUN of 94, creatinine is 2.0, improving, his inflammatory markers were improving on yesterday's labs, today's levels are pending. On 08/29/2021 patient seen in follow-up on medical surgical floor, he is pleasantly confused, she repeatedly removes his oxygen, he is currently on 8 L of oxygen his pulse ox is 88-95%, his been afebrile overnight, vital signs have been stable, he does not appear to be in any acute distress, she does have occasional dry cough, lung sounds reveal diffuse coarse crackles bilaterally, his mentation seems to be more awake and alert, interactive, he denies any specific complaints. No nausea vomiting or diarrhea. Today's labs have been reviewed, his white count is relatively stable at 14.7, hemoglobin is 14.8, his platelet count is 225, his serum sodium is 145, potassium is 4.6, his BUN is 87, creatinine is 1.68, his D5W infusion has been turned down to KVO, patient is tolerating oral intake, his renal function is improving. LDH has significantly increased and is up to 3089, and CRP is improved and is down to 5.8. Patient continues on Decadron 6 mg daily, she is on home dose Eliquis 2.5 mg, his lower extremity Dopplers were negative for DVT, follow-up d-dimer is pending. He is on COVID-19 vitamins. Patient is seen today 08/30/2021 in follow-up on the regular medical floor. He is currently requiring 15 L high flow nasal cannula to maintain O2 saturations in the low to mid 90s. He's been afebrile. Hemodynamically stable. He remains confused. He is currently denying any worsening shortness of breath, cough or congestion. Sodium 148. Potassium 4.4. Creatinine 1.75. Glucose 300. He is continued on Eliquis, Decadron, vitamin supplements. Levemir and NovoLog for glucose control. Objective - Vital Signs Vital signs: Vital Signs Temp 96.7 F L 08/30/21 16:52 Pulse 78 08/30/21 16:52 Resp 18 08/30/21 16:52 BP 143/89 08/30/21 16:52 Pulse Ox 94 L 08/30/21 16:52 Intake & Output 08/29/21 08/30/21 08/30/21 18:59 06:59 18:59 Weight 99.79 kg Other: Voiding Method Diaper Diaper Diaper Incontinent Incontinent Incontinent # Voids 3 3 1 # Bowel Movements 0 - Exam GENERAL EXAM: Alert, confused, 85-year-old male patient, oriented only to person, disoriented to time and place, currently on 15 L of oxygen. His cough has improved, HEAD: Normocephalic/atraumatic. EYES: Normal reaction of pupils, equal size. Conjunctiva pink, sclera white. NOSE: Clear with pink turbinates. THROAT: No erythema or exudates. NECK: No masses, no JVD, no thyroid enlargement, no adenopathy. CHEST: No chest wall deformity. Symmetrical expansion. LUNGS: Equal air entry with diffuse crackles CVS: Regular rate and rhythm, normal S1 and S2, no gallops, no murmurs, no rubs ABDOMEN: Soft, nontender. No hepatosplenomegaly, normal bowel sounds, no guarding or rigidity. EXTREMITIES: No clubbing, no edema, no cyanosis, 2+ pulses and upper and lower extremities. MUSCULOSKELETAL: Muscle strength and tone normal. SPINE: No scoliosis or deformity SKIN: No rashes CENTRAL NERVOUS SYSTEM: No focal deficits, tone is normal in all 4 extremities. PSYCHIATRIC: Alert and oriented -. Confused - Labs CBC & Chem 7: 08/29/21 07:43 08/30/21 09:58 Labs: Abnormal Lab Results - Last 24 Hours (Table) 08/29/21 08/29/21 08/29/21 Range/Units 20:28 20:30 21:16 Sodium (137-145) mmol/L Chloride (98-107) mmol/L Carbon Dioxide (22-30) mmol/L BUN (9-20) mg/dL Creatinine (0.66-1.25) mg/dL Glucose 344 H (74-99) mg/dL POC Glucose (mg/dL) >600 H 377 H (75-99) mg/dL 08/30/21 08/30/21 08/30/21 Range/Units 06:53 09:58 11:49 Sodium 148 H (137-145) mmol/L Chloride 120 H (98-107) mmol/L Carbon Dioxide 19 L (22-30) mmol/L BUN 85 H (9-20) mg/dL Creatinine 1.75 H (0.66-1.25) mg/dL Glucose 300 H (74-99) mg/dL POC Glucose (mg/dL) 252 H 269 H (75-99) mg/dL 08/30/21 Range/Units 16:16 Sodium (137-145) mmol/L Chloride (98-107) mmol/L Carbon Dioxide (22-30) mmol/L BUN (9-20) mg/dL Creatinine (0.66-1.25) mg/dL Glucose (74-99) mg/dL POC Glucose (mg/dL) 292 H (75-99) mg/dL Assessment and Plan Assessment: 1 Acute hypoxic respiratory failure related to acute COVID-19 pneumonia, with initial diagnosis on 08/17/2021, patient is outside the window for Remdesivir, he is being treated with Decadron, Eliquis 2.5 mg at bedtime for previous history of CVA and severe PVD. 2 Recent hospitalization for altered mental status, toxic metabolic encephalopathy, COVID-19 infection without pneumonia, and patient was discharged to the [facility] on the [place] on 08/22/2021 3 Acute kidney injury related to dehydration, improving 4 Lactic acidosis related to dehydration, improved with IV hydration 5 Acute hypernatremia related to free water deficit, and dehydration, improving with IV hydration 6 Elevated inflammatory markers related to COVID-19 7 Previous history of CVA 10 years ago with mild left-sided weakness 8 Acute metabolic encephalopathy, ongoing, multifactorial, related to hypoxic encephalopathy, in addition to metabolic encephalopathy 9 Diabetes mellitus type 2 10 History of prostate cancer 11 History of peripheral vascular disease with previous history of left femoral stent 12 L4-L5 spinal stenosis with bilateral leg weakness and bilateral hip pain, patient was seen by orthopedic surgery and pain services during his last admission 13 No evidence of CVA on the CT had from previous admission 14 Coronary artery disease status post coronary artery bypass grafting Plan: Currently on 2 L high flow nasal cannula Titrate the FiO2 as tolerated Continue Eliquis, Decadron, vitamin supplements Continue bronchodilators Follow-up chest x-ray and inflammatory markers in the a.m. We will continue to follow I, the cosigning physician, performed a history & physical examination of the patient. Lungs sounds are coarse bibasilar crackles. Maintaining O2 saturations in the 90s on 15 L high flow nasal cannula I discussed the assessment and plan of care with my nurse practitioner, Phylicia aGnn. I attest to the above note as dictated by her.
[2021-08-30 20:27] LABS: Glucose,Whole Blood 247 mg/dL (75-99)
[2021-08-30] MEDS: APIXABAN 2.5 MG TABLET PO SCH (20:59)
[2021-08-30] MEDS: ATORVASTATIN 80 MG TAB PO SCH (20:59)
[2021-08-31] MEDS ORDERED: METOPROLOL TARTRATE 25 MG TAB PO STA (03:17)
[2021-08-31] MEDS: SODIUM CHLORIDE 0.45% 1,000 ML IV SCH ×2 (03:58→08:58)
[2021-08-31] MEDS: PANTOPRAZOLE 40 MG TABLET PO SCH (06:05)
[2021-08-31 07:03] LABS: Glucose,Whole Blood 273 mg/dL (75-99)
--- NOTE | 2021-08-31 07:28 | XR ---
EXAMINATION TYPE: XR chest 1V DATE OF EXAM: 08/31/2021 6:53 AM COMPARISON:Chest radiographs from August 26, 2021 CLINICAL INDICATION:Male, 85 years old with history of sob; TECHNIQUE: Portable AP radiograph of the chest.. FINDINGS: Lungs/Pleura: Increased airspace opacities within the left lung base. No evidence of pneumothorax or pleural effusion. Pulmonary vascularity: Unremarkable. Heart/mediastinum: Cardiomediastinal silhouette is unremarkable. Musculoskeletal: No acute osseous pathology. Other findings: Midline sternotomy wires are noted and stable. IMPRESSION: Interval increase in left basilar airspace disease.
[2021-08-31] MEDS: INSULIN DETEMIR (LEVEMIR) 100 UNIT/ML SYR SQ SCH (08:56)
[2021-08-31] MEDS: DEXAMETHASONE SOD PHOSPHATE 10 MG/ML 1 ML VIAL IVP SCH (08:56)
[2021-08-31] MEDS: INSULIN ASPART (NovoLOG) 100 UNIT/ML VIAL SQ SCH ×4 (08:56→21:55)
[2021-08-31] MEDS: LOSARTAN 50 MG TAB PO SCH (08:57)
[2021-08-31] MEDS: FOLIC ACID 1 MG TAB PO SCH (08:57)
[2021-08-31] MEDS: amLODIPine 10 MG TAB PO SCH (08:57)
[2021-08-31] MEDS: ASCORBIC ACID 500 MG TAB PO SCH (08:57)
[2021-08-31] MEDS: ASPIRIN 81 MG PO SCH (08:57)
[2021-08-31] MEDS: ZINC SULFATE 220 MG CAP PO SCH (08:57)
[2021-08-31] MEDS: CHOLECALCIFEROL 25 MCG (1000 IU) TABLET PO SCH (08:58)
[2021-08-31 10:24] LABS: Basophils # (A) 0.04 X 10*3/uL (0.00-0.10); Basophils % (A) 0.3 %; Eosinophils # (A) 0 X 10*3/uL (0.04-0.35); Eosinophils % (A) 0 %; HCT 38.2 % (39.6-50.0); Lymphocytes # (A) 0.58 X 10*3/uL (0.90-5.00); Lymphocytes % (A) 4.1 %; MCH 31.5 pg (27.0-32.0); MCHC 31.4 g/dL (32.0-37.0); MCV 100.3 fL (80.0-97.0); Mean Platelet Volume 12.6 fL (9.5-12.2); Monocytes # (A) 0.38 X 10*3/uL (0.20-1.00); Monocytes % (A) 2.7 %; Neutrophils # (A) 12.87 X 10*3/uL (1.80-7.70); Neutrophils % (A) 91.3 %; Platelet Count 278 X 10*3/uL (140-440); RBC 3.81 X 10*6/uL (4.40-5.60); RDW 14.3 % (11.5-14.5); WBC 14.09 X 10*3/uL (4.50-10.00)
[2021-08-31 10:57] LABS: Magnesium 2.7 mg/dL (1.5-2.4)
[2021-08-31 10:58] LABS: C Reactive Protein 6.6 mg/dL (0.00-0.80)
[2021-08-31 11:13] LABS: Glucose,Whole Blood 388 mg/dL (75-99)
[2021-08-31 11:22] LABS: African American GFR (CKD) 43.8 (60.0-200.0); Albumin 2.7 g/dL (3.8-4.9); Albumin/Globulin Ratio 0.78 (1.60-3.17); Anion Gap 14.6 mmol/L (10.00-18.00); Blood Urea Nitrogen 85.8 mg/dL (9.0-27.0); Calcium 8.6 mg/dL (8.7-10.3); Carbon Dioxide 16.4 mmol/L (20.0-27.5); Globulin 3.4 g/dL (1.6-3.3); Non-African American GFR(CKD) 37.8 (60.0-200.0); Potassium 5.2 mmol/L (3.5-5.5); Total Bilirubin 0.4 mg/dL (0.30-1.20); Total Protein 6.1 g/dL (6.2-8.2)
--- NOTE | 2021-08-31 13:28 | P.PN ---
Subjective Progress Note Date: 08/31/21 Principal diagnosis: Dyspnea, hypoxia, altered mental status 85-year-old white male patient with multiple chronic medical problems including diabetes mellitus type 2, hypertension, peripheral vascular disease with previous history of intervention in November 2019, previous history of CVA with slight left-sided residual weakness, history of prostate cancer who was recently hospitalized for generalized weakness, falls, and at that time patient was found to have an acute COVID-19 infection. However chest x-ray during that admission showed no evidence of pneumonia, patient was on room air, he had a mild cough, and it was felt that the COVID 19 infection was more of a incidental finding. Patient was treated supportively, he was not given any Decadron or Remdesivir. He was given IV hydration, he was found to be encephalopathic during that admission, he was seen by neurology in consultation who felt that this was related to toxic metabolic encephalopathy. CT of the brain showed moderate to severe chronic small vessel ischemic changes with evidence of old infarct in the right frontal and high posterior right frontal infarcts. EEG showed slowing of moderate degree but no evidence of seizure. Patient had MRI of the lumbar spine showing severe spinal stenosis at L4 and L5. He was seen in consultation by orthopedic surgery and pain services. Please refer to their consultation notes. Patient continued to be weak, and continued to have difficulty walking, and he was discharged to subacute rehab on 08/22/2021. Patient was brought back to the emergency department per EMS on 08/26/2021 from the shelter for evaluation of hypoxia. His initial diagnosis of COVID-19 was established on 08/17/2021. He was on 4 L of oxygen at the [facility] on the [facility]. Normally patient is not on any oxygen. The nurses at the [facility] noted that his extremities or looking mo ttled, and patient was having more trouble breathing. No documented fever or chills, patient has a congested cough, he remained confused, he is only oriented to person. No documented fevers, no complaints of chest pain, no nausea vomiting, no headaches. EKG showed sinus tachycardia with PACs, it was felt that patient was dehydrated, there was evidence of acute kidney injury on his labs, chest x-ray showed new bilateral reticular increased opacities greatest in the lower lungs and in the periphery consistent with COVID-19 infection. His admission labs reveal white blood cell, 12.5, hemoglobin of 14.8, INR is 1.4, sodium was 151, potassium was 4.4, chloride was 117, CO2 was 20, BUN was 90, and creatinine is 2.9 to significantly increased since his discharge, lactic acid was 3.1, ferritin level was 3203, AST was 205, ALT was 67, his LDH was 2096, CRP was 21.3, pro-calcitonin level was 0.36. Patient has been afebrile while in the hospital, he is currently on 10 L of oxygen pulse ox is 88%. He has a congested cough, he was felt to be intermittently aspirating, he was seen by speech therapy who recommended pured diet. Patient was given IV hydration, he has 0.9 at 75 which will be switched over to 0.45 at 75. Lactiq acid has improved with IV hydration and is currently at 1.7. On 08/28/2021 patient seen in follow-up on medical surgical floor. He is resting comfortably in bed, he remains on 10 L of oxygen, does not appear to be in any distress, no evidence of worsening dyspnea, no cough, overall he seems much more awake, more conversant, and more appropriate today. he is still confused, and at times he is restless and removes his oxygen off. On 10 L of oxygen his pulse ox is 95%, his been afebrile, hemodynamically has been stable, lung sounds reveal a few scattered rales, no rhonchi or wheezing, no complaints of chest pain. He is currently receiving Decadron 6 mg daily, he is on Eliquis 2.5 mg for history of PVD, and previous history of stroke, he is on 0.9 normal saline at a rate of 75 ML per hour, his lower extremity Dopplers were negative for DVT. Today's labs have been reviewed, his white blood cell count is 13, hemoglobin is 10.3, his serum sodium slightly improved however still elevated at 150, potassium is 4.1, chloride is 117, CO2 is 18, BUN of 94, creatinine is 2.0, improving, his inflammatory markers were improving on yesterday's labs, today's levels are pending. On 08/29/2021 patient seen in follow-up on medical surgical floor, he is plea santly confused, she repeatedly removes his oxygen, he is currently on 8 L of oxygen his pulse ox is 88-95%, his been afebrile overnight, vital signs have been stable, he does not appear to be in any acute distress, she does have occasional dry cough, lung sounds reveal diffuse coarse crackles bilaterally, his mentation seems to be more awake and alert, interactive, he denies any specific complaints. No nausea vomiting or diarrhea. Today's labs have been reviewed, his white count is relatively stable at 14.7, hemoglobin is 14.8, his platelet count is 225, his serum sodium is 145, potassium is 4.6, his BUN is 87, creatinine is 1.68, his D5W infusion has been turned down to KVO, patient is t olerating oral intake, his renal function is improving. LDH has significantly increased and is up to 3089, and CRP is improved and is down to 5.8. Patient continues on Decadron 6 mg daily, she is on home dose Eliquis 2.5 mg, his lower extremity Dopplers were negative for DVT, follow-up d-dimer is pending. He is on COVID-19 vitamins. On 08/31/2021 patient seen in follow-up on medical surgical floor, patient is sleepy, but arousable, he is on 15 L of oxygen his pulse ox is 90%, his oxygenation has been marginal, but he appears to be in no acute distress, he did not sleep all night per nursing report, and now he is tired. He could remains confused, but not agitated. He has bilateral mid some bilateral hands to keep him from removing his oxygen. Blood pressure is been stable he's had no fevers overnight. Today's chest x-ray shows interval increase in the left basilar airspace disease. His labs have been reviewed, his white blood cell count 14, hemoglobin is 12, his d-dimer is 1.90, his sodium has further increased to 153, patient's appetite has been poor, potassium is 5.2, his chloride has increased to 122, B1 is 85 and creatinine is 1.7, however his inflammatory markers have improved and LDH is down to 819, and CRP is 6.6. Patient is currently on a combination of Decadron 6 mg daily, he is on Eliquis 2 and half milligrams at bedtime which he chronically takes for history of severe PVD, he is on COVID-19 multivitamins. Is on half-normal saline at a rate of 75 ML per hour. Objective - Vital Signs Vital signs: Vital Signs Temp 99.1 F 08/31/21 09:09 Pulse 104 H 08/31/21 09:09 Resp 17 08/31/21 09:09 BP 168/78 08/31/21 09:09 Pulse Ox 90 L 08/31/21 09:09 Intake & Output 08/30/21 08/31/21 08/31/21 18:59 06:59 18:59 Other: Voiding Method Diaper Diaper Diaper Incontinent Incontinent Incontinent # Voids 1 1 - Exam GENERAL EXAM: Sleepy, and confused, oriented only to person, disoriented to time and place, currently on 15 L of oxygen with a pulse ox of 88-9%. His cough has improved, HEAD: Normocephalic/atraumatic. EYES: Normal reaction of pupils, equal size. Conjunctiva pink, sclera white. NOSE: Clear with pink turbinates. THROAT: No erythema or exudates. NECK: No masses, no JVD, no thyroid enlargement, no adenopathy. CHEST: No chest wall deformity. Symmetrical expansion. LUNGS: Equal air entry with diffuse crackles CVS: Regular rate and rhythm, normal S1 and S2, no gallops, no murmurs, no rubs ABDOMEN: Soft, nontender. No hepatosplenomegaly, normal bowel sounds, no guarding or rigidity. EXTREMITIES: No clubbing, no edema, no cyanosis, 2+ pulses and upper and lower extremities. MUSCULOSKELETAL: Muscle strength and tone normal. SPINE: No scoliosis or deformity SKIN: No rashes CENTRAL NERVOUS SYSTEM: Somnolent and oriented -1 No focal deficits, tone is normal in all 4 extremities. - Labs CBC & Chem 7: 08/31/21 06:00 08/31/21 06:00 Labs: Abnormal Lab Results - Last 24 Hours (Table) 08/30/21 08/30/21 08/31/21 Range/Units 16:16 20:25 06:00 WBC (4.50-10.00) X 10*3/uL RBC (4.40-5.60) X 10*6/uL Hgb (13.0-17.0) g/dL Hct (39.6-50.0) % MCV (80.0-97.0) fL MCHC (32.0-37.0) g/dL MPV (9.5-12.2) fL Absolute Nucleated RBC (0.00-0.00) X 10*3/uL Immature Gran # (0.00-0.04) X 10*3/uL Neutrophils # (1.80-7.70) X 10*3/uL Lymphocytes # (0.90-5.00) X 10*3/uL Eosinophils # (0.04-0.35) X 10*3/uL NRBC/100 WBC Diff (0.0-0.0) /100 WBCS D-Dimer 1.98 H (<0.60) mg/L FEU Sodium (135-145) mmol/L Chloride (96-109) mmol/L Carbon Dioxide (20.0-27.5) mmol/L BUN (9.0-27.0) mg/dL Creatinine (0.6-1.5) mg/dL Est GFR (CKD-EPI)AfAm (60.0-200.0) Est GFR (CKD-EPI)NonAf (60.0-200.0) BUN/Creatinine Ratio (12.00-20.00) Ratio Glucose (70-110) mg/dL POC Glucose (mg/dL) 292 H 247 H (75-99) mg/dL Calcium (8.7-10.3) mg/dL Magnesium (1.5-2.4) mg/dL AST (14-35) U/L ALT (10-49) U/L Lactate Dehydrogenase (120-246) U/L C-Reactive Protein (0.00-0.80) mg/dL Total Protein (6.2-8.2) g/dL Albumin (3.8-4.9) g/dL Globulin (1.6-3.3) g/dL Albumin/Globulin Ratio (1.60-3.17) g/dL 08/31/21 08/31/21 08/31/21 Range/Units 06:00 06:00 06:57 WBC 14.09 H (4.50-10.00) X 10*3/uL RBC 3.81 L (4.40-5.60) X 10*6/uL Hgb 12.0 L (13.0-17.0) g/dL Hct 38.2 L (39.6-50.0) % MCV 100.3 H (80.0-97.0) fL MCHC 31.4 L (32.0-37.0) g/dL MPV 12.6 H (9.5-12.2) fL Absolute Nucleated RBC 0.02 H (0.00-0.00) X 10*3/uL Immature Gran # 0.22 H (0.00-0.04) X 10*3/uL Neutrophils # 12.87 H (1.80-7.70) X 10*3/uL Lymphocytes # 0.58 L (0.90-5.00) X 10*3/uL Eosinophils # 0 L (0.04-0.35) X 10*3/uL NRBC/100 WBC Diff 0.1 H (0.0-0.0) /100 WBCS D-Dimer (<0.60) mg/L FEU Sodium 153 H (135-145) mmol/L Chloride 122 H (96-109) mmol/L Carbon Dioxide 16.4 L (20.0-27.5) mmol/L BUN 85.8 H (9.0-27.0) mg/dL Creatinine 1.7 H (0.6-1.5) mg/dL Est GFR (CKD-EPI)AfAm 43.8 L (60.0-200.0) Est GFR (CKD-EPI)NonAf 37.8 L (60.0-200.0) BUN/Creatinine Ratio 52.00 H (12.00-20.00) Ratio Glucose 354 H (70-110) mg/dL POC Glucose (mg/dL) 273 H (75-99) mg/dL Calcium 8.6 L (8.7-10.3) mg/dL Magnesium 2.7 H (1.5-2.4) mg/dL AST 69 H (14-35) U/L ALT 66 H (10-49) U/L Lactate Dehydrogenase 819 H (120-246) U/L C-Reactive Protein 6.60 H (0.00-0.80) mg/dL Total Protein 6.1 L (6.2-8.2) g/dL Albumin 2.7 L (3.8-4.9) g/dL Globulin 3.4 H (1.6-3.3) g/dL Albumin/Globulin Ratio 0.78 L (1.60-3.17) g/dL 08/31/21 Range/Units 11:11 WBC (4.50-10.00) X 10*3/uL RBC (4.40-5.60) X 10*6/uL Hgb (13.0-17.0) g/dL Hct (39.6-50.0) % MCV (80.0-97.0) fL MCHC (32.0-37.0) g/dL MPV (9.5-12.2) fL Absolute Nucleated RBC (0.00-0.00) X 10*3/uL Immature Gran # (0.00-0.04) X 10*3/uL Neutrophils # (1.80-7.70) X 10*3/uL Lymphocytes # (0.90-5.00) X 10*3/uL Eosinophils # (0.04-0.35) X 10*3/uL NRBC/100 WBC Diff (0.0-0.0) /100 WBCS D-Dimer (<0.60) mg/L FEU Sodium (135-145) mmol/L Chloride (96-109) mmol/L Carbon Dioxide (20.0-27.5) mmol/L BUN (9.0-27.0) mg/dL Creatinine (0.6-1.5) mg/dL Est GFR (CKD-EPI)AfAm (60.0-200.0) Est GFR (CKD-EPI)NonAf (60.0-200.0) BUN/Creatinine Ratio (12.00-20.00) Ratio Glucose (70-110) mg/dL POC Glucose (mg/dL) 388 H (75-99) mg/dL Calcium (8.7-10.3) mg/dL Magnesium (1.5-2.4) mg/dL AST (14-35) U/L ALT (10-49) U/L Lactate Dehydrogenase (120-246) U/L C-Reactive Protein (0.00-0.80) mg/dL Total Protein (6.2-8.2) g/dL Albumin (3.8-4.9) g/dL Globulin (1.6-3.3) g/dL Albumin/Globulin Ratio (1.60-3.17) g/dL Assessment and Plan Plan: Assessment: #1. Acute hypoxic respiratory failure related to acute COVID-19 pneumonia, with initial diagnosis on 08/17/2021, patient is outside the window for Remdesivir, s he is being treated supportively with Decadron, he is on Eliquis 2.5 mg at bedtime for previous history of CVA and severe PVD. On today's exam his FiO2 requirement is up to 15 L #2. Altered mental status, multifactorial, related to hypoxic encephalopathy, and metabolic encephalopathy #3. Recent hospitalization for altered mental status, toxic metabolic encephalopathy, COVID-19 infection without pneumonia, and patient was discharged to the [facility] on the [place] on 08/22/2021 #4. Acute kidney injury related to dehydration, improving #5. Lactic acidosis related to dehydration, improved with IV hydration #6. Acute hypernatremia related to free water deficit, and dehydration, on IV hydration #7. Elevated inflammatory markers related to COVID-19 #8. Previous history of CVA 10 years ago with mild left-sided weakness #9. Acute metabolic encephalopathy, ongoing, multifactorial, related to hypoxic encephalopathy, in addition to metabolic encephalopathy #10. Diabetes mellitus type 2 #11. History of prostate cancer #12. History of peripheral vascular disease with previous history of left femoral stent #13. L4-L5 spinal stenosis with bilateral leg weakness and bilateral hip pain, patient was seen by orthopedic surgery and pain services during his last admission #14. No evidence of CVA on the CT had from previous admission #15. Coronary artery disease status post coronary artery bypass grafting Plan: Maintain aspiration precautions Patient is on 15 L of oxygen, he is sleepy he remains a risk for aspiration Switch IV fluids to D5W at 125 ML per hour Continue with Decadron, continue with oral anticoagulation, continue with supportive treatment Overall prognosis is poor, would recommend discussing with his family his CODE STATUS I performed a history & physical examination of the patient and discussed their management with my nurse practitioner, Ciarra Lloyd. I reviewed the nurse practitioner's note and agree with the documented findings and plan of care. Lung sounds are positive for diffuse crackles throughout the lung reyes. The findings and the impression was discussed with the patient. I attest to the documentation by the nurse practitioner. Time with Patient: Less than 30
[2021-08-31] MEDS: DEXTROSE 5% IN WATER 1,000 ML IV SCH ×2 (13:44→22:49)
[2021-08-31] MEDS ORDERED: INSULIN DETEMIR (LEVEMIR) 100 UNIT/ML SYR SQ ONE (15:32)
--- NOTE | 2021-08-31 15:39 | P.PN ---
Subjective Patient is a 85-year-old male with a known history of recently diagnosed covid 19 infection on 08/17/2021, history of CVA/TIA, prostate cancer, peripheral vascular disease status post left femoral stent, coronary artery disease with history of CABG Patient was sent to Hospital from [facility] due to hypoxia requiring 4 L via nasal cannula. Pulse ox was 92% on 4 L. EMS was called. Staph was also concerned about his legs look monitored. Patient otherwise very weak and cannot provide much history. Denied any complaints of chest pain or shortness of breath. No nausea vomiting or diarrhea. No abdominal pain. Patient was admitted to the hospital recently due to bilateral lower extremity weakness and generalized weakness. Patient was also found have elevated troponin level. 2-D echocardiogram showed normal ejection fraction and mild pulmonary hypertension. Neurology has seen the patient due to metabolic encephalopathy and bilateral lower extremity weakness. Patient underwent CT head which showed moderate diffuse age-related cerebral atrophy and chronic severe small resid ischemic changes. Patient had MRI of the lumbar spine due to bilateral lower extremity weakness. MRI of the lumbar spine showed central stenosis L4-L5 region. Orthopedic surgery recommends pain management and epidural injection. Epidural injection could not be done due to Covid 19 infection also patient being on Eliquis for stroke prophylaxis. Patient was continued on pain management and was sent to [facility] on 08/22/2021 During previous admission patient was not hypoxic and did not require dexamethasone. Patient was also seen by pulmonary at the time. Chest x-ray showed new bilateral reticular increased opacities greatest in the lower lungs and in the periphery consistent with Covid 19 infection. EKG showed sinus tachycardia with PACs. Laboratory data showed WBC 12.5, hemoglobin 14.8, platelets 278 INR 1.4 Sodium 151 potassium 4.4 chloride 117 bicarb is 20 BUN 90 and creatinine 2.92. Baseline creatinine around 1.2 Lactic acid level was 3.1 admission Ferritin 3203, AST 205 ALT 67, alk phos 94 CRP 21.3 and LDH 2096 Pro calcitonin level 0.66 08/27/2021 Patient is currently resting in the bed. Patient is awake alert but seems to be mildly confused. No complaints of chest pain. Generalized weakness. Currently on oxygen at 10 L high flow via nasal cannula. Patient has been afebrile. Laboratory data showed D-dimer level is 1.46, WBC 14.1 hemoglobin 11.7 and platelets 252 sodium 151 potassium 4.09 BUN 100 and creatinine 2.8 blood sugar is 277, LDH 830 and CRP 15.7 Patient is being current dexamethasone and Eliquis and multivitamins. Pulmonary has seen the patient. 08/28/2021 Patient is on the medical floor. Lying in the bed comfortably. Seems to be more awake and oriented today. Able to tolerate oral diet minimally. Otherwise patient is 10 L oxygen high flow. Denies any complaints of cough or worsening shortness of breath. Hemodynamically stable. Patient is being continued on dexamethasone, Eliquis and IV fluids changed to D5 water due to hypernatremia. Laboratory showed WBC 13.0 hemoglobin 10.3 and platelets 238 Sodium 150 potassium 4.1 chloride 117 bicarb is 18.0 BUN 94.8 creatinine 2.0 blood sugar is 158 Subjective: 08/29/2021 Patient is awake but is lethargic and tired. Distal hypoxic on telemetry to her oxygen with saturation of 90%. Hypernatremia improved with sodium 145 daily and D5W was discontinued. Patient is able to eat and drink well today. Creatinine improved down to 1.6. Baseline creatinine 1.1-1.4 Leukocytosis of 14.7 while on steroids. Increased inflammatory markers with LDH 3089 and CRP 5.8. He still on dexamethasone, multiple vitamins, Eliquis, Levemir. His dose increased 10 units up to 20 units tomorrow because of high glucose at 411 08/30/2021 Patient is awake but slightly confused today, he denies any chest pain. Also he denies any back pain. He is able to tolerate diet well and he is eating 100% of his diet, even better than yesterday However he still tachypnea which is mild while at rest but oxygen requirement went up to 15 L/m compared to 10 yesterday. His sodium is 148 which is slightly elevated, also creatinine is slightly elevated 1.7 compared to baseline of 1.1- 1.4. We will order labs tomorrow. Also we will check chest x-ray 08/31/2021 Patient still confused today. His breathing is slightly worse, he is currently on 15 L per minute of oxygen via nasal cannula with saturation of 87%. Blood pressure is stable. Labs showing WBC 14.9 K, sodium went up to 153. Creatinine is stable 1.7. Inflammatory markers actually improving with LDH down to 819 and CRP at 6.6. Glucose today is more elevated, ranging between 217-388, his Levemir dose was in creased 20 up to 30 units. And continued on insulin sliding scale Patient remains on multiple vitamin C, D and zinc. Also he is on dexamethasone, home dose of Eliquis 2.5 mg twice a day. And patient is on D5W at 125 restarted today. Objective - Vital Signs Vital signs: Vital Signs Temp 99.1 F 08/31/21 09:09 Pulse 104 H 08/31/21 09:09 Resp 17 08/31/21 09:09 BP 168/78 08/31/21 09:09 Pulse Ox 90 L 08/31/21 09:09 Intake & Output 08/30/21 08/31/21 08/31/21 18:59 06:59 18:59 Other: Voiding Method Diaper Diaper Diaper Incontinent Incontinent Incontinent # Voids 1 1 - Exam GENERAL: The patient is alert and oriented x3, not in any acute distress. Well developed, well nourished. HEENT: Pupils are round and equally reacting to light. EOMI. No scleral icterus. No conjunctival pallor. Normocephalic, atraumatic. No pharyngeal erythema. No thyromegaly. CARDIOVASCULAR: S1 and S2 present. No murmurs, rubs, or gallops. -PULMONARY: Chest is clear to auscultation, no wheezing . Bilateral crepitation ABDOMEN: Soft, nontender, nondistended, normoactive bowel sounds. No palpable organomegaly. MUSCULOSKELETAL: No joint swelling or deformity. EXTREMITIES: No cyanosis, clubbing, or pedal edema. NEUROLOGICAL: Gross neurological examination did not reveal any focal deficits. SKIN: No rashes. no petechiae. - Labs CBC & Chem 7: 08/31/21 06:00 08/31/21 06:00 Labs: Abnormal Lab Results - Last 24 Hours (Table) 08/30/21 08/30/21 08/30/21 Range/Units 09:58 11:49 16:16 WBC (4.50-10.00) X 10*3/uL RBC (4.40-5.60) X 10*6/uL Hgb (13.0-17.0) g/dL Hct (39.6-50.0) % MCV (80.0-97.0) fL MCHC (32.0-37.0) g/dL MPV (9.5-12.2) fL Absolute Nucleated RBC (0.00-0.00) X 10*3/uL Immature Gran # (0.00-0.04) X 10*3/uL Neutrophils # (1.80-7.70) X 10*3/uL Lymphocytes # (0.90-5.00) X 10*3/uL Eosinophils # (0.04-0.35) X 10*3/uL NRBC/100 WBC Diff (0.0-0.0) /100 WBCS D-Dimer (<0.60) mg/L FEU Sodium 148 H (137-145) mmol/L Chloride 120 H (98-107) mmol/L Carbon Dioxide 19 L (22-30) mmol/L BUN 85 H (9-20) mg/dL Creatinine 1.75 H (0.66-1.25) mg/dL Glucose 300 H (74-99) mg/dL POC Glucose (mg/dL) 269 H 292 H (75-99) mg/dL Magnesium (1.5-2.4) mg/dL C-Reactive Protein (0.00-0.80) mg/dL 08/30/21 08/31/21 08/31/21 Range/Units 20:25 06:00 06:00 WBC 14.09 H (4.50-10.00) X 10*3/uL RBC 3.81 L (4.40-5.60) X 10*6/uL Hgb 12.0 L (13.0-17.0) g/dL Hct 38.2 L (39.6-50.0) % MCV 100.3 H (80.0-97.0) fL MCHC 31.4 L (32.0-37.0) g/dL MPV 12.6 H (9.5-12.2) fL Absolute Nucleated RBC 0.02 H (0.00-0.00) X 10*3/uL Immature Gran # 0.22 H (0.00-0.04) X 10*3/uL Neutrophils # 12.87 H (1.80-7.70) X 10*3/uL Lymphocytes # 0.58 L (0.90-5.00) X 10*3/uL Eosinophils # 0 L (0.04-0.35) X 10*3/uL NRBC/100 WBC Diff 0.1 H (0.0-0.0) /100 WBCS D-Dimer 1.98 H (<0.60) mg/L FEU Sodium (137-145) mmol/L Chloride (98-107) mmol/L Carbon Dioxide (22-30) mmol/L BUN (9-20) mg/dL Creatinine (0.66-1.25) mg/dL Glucose (74-99) mg/dL POC Glucose (mg/dL) 247 H (75-99) mg/dL Magnesium (1.5-2.4) mg/dL C-Reactive Protein (0.00-0.80) mg/dL 08/31/21 08/31/21 Range/Units 06:00 06:57 WBC (4.50-10.00) X 10*3/uL RBC (4.40-5.60) X 10*6/uL Hgb (13.0-17.0) g/dL Hct (39.6-50.0) % MCV (80.0-97.0) fL MCHC (32.0-37.0) g/dL MPV (9.5-12.2) fL Absolute Nucleated RBC (0.00-0.00) X 10*3/uL Immature Gran # (0.00-0.04) X 10*3/uL Neutrophils # (1.80-7.70) X 10*3/uL Lymphocytes # (0.90-5.00) X 10*3/uL Eosinophils # (0.04-0.35) X 10*3/uL NRBC/100 WBC Diff (0.0-0.0) /100 WBCS D-Dimer (<0.60) mg/L FEU Sodium (137-145) mmol/L Chloride (98-107) mmol/L Carbon Dioxide (22-30) mmol/L BUN (9-20) mg/dL Creatinine (0.66-1.25) mg/dL Glucose (74-99) mg/dL POC Glucose (mg/dL) 273 H (75-99) mg/dL Magnesium 2.7 H (1.5-2.4) mg/dL C-Reactive Protein 6.60 H (0.00-0.80) mg/dL Assessment and Plan Assessment: Acute hypoxic respiratory failure secondary to covid 19 pneumonia. Acute Covid 19 pneumonia Metabolic encephalopathy due to infection Hypernatremia due to dehydration and volume depletion. Elevated inflammatory markers Acute kidney injury likely prerenal. improving Elevated liver enzymes, mild. Secondary to Covid infection Bilateral lower extremity weakness and generalized weakness. MRI of the lumbar spine recently showed L4-L5 spinal stenosis. Was seen by orthopedic surgery Diabetes type 2 [id number] History of CVA/TIA with no residual weakness History of prostate cancer Peripheral vascular disease status post left femoral stent placement Coronary artery disease with history of CABG Plan: This is a pleasant 85 years old male who presents with cold pneumonia. Continue with vitamin C, vitamin D and zinc. Continue on dexamethasone. Continue with home dose of liquids 2.5 mg twice a day Continue with Levemir and insulin sliding scale while monitoring glucose closely. Labs and medication were reviewed.. Continue same treatment. Continue with symptomatic treatment. Resume home medication. Monitor lytes and vitals. DVT and GI prophylaxis. Further recommendationsas per clinical course of the patient DVT prophylaxis: Eliquis GI Prophylaxis: Ppi PT/OT: Pending Prognosis is guarded
[2021-08-31 16:30] LABS: Glucose,Whole Blood 204 mg/dL (75-99)
[2021-08-31 20:09] LABS: Glucose,Whole Blood 231 mg/dL (75-99)
[2021-08-31] MEDS: ATORVASTATIN 80 MG TAB PO SCH (21:55)
[2021-08-31] MEDS: APIXABAN 2.5 MG TABLET PO SCH (21:56)
[2021-08-31] MEDS: METOPROLOL TARTRATE 25 MG TAB PO SCH (21:56)
[2021-09-01] MEDS: ALPRAZolam 0.5 MG TAB PO PRN (00:03)
[2021-09-01] MEDS: PANTOPRAZOLE 40 MG TABLET PO SCH (06:07)
[2021-09-01] MEDS: DEXTROSE 5% IN WATER 1,000 ML IV SCH ×3 (06:07→21:00)
[2021-09-01 07:04] LABS: Glucose,Whole Blood 166 mg/dL (75-99)
[2021-09-01] MEDS: INSULIN DETEMIR (LEVEMIR) 100 UNIT/ML SYR SQ SCH ×2 (07:15→11:54)
--- NOTE | 2021-09-01 07:54 | XR ---
EXAMINATION TYPE: XR chest 1V portable DATE OF EXAM: 09/01/2021 COMPARISON: 08/31/2021 INDICATION: Covid TECHNIQUE: Single frontal view of the chest is obtained. FINDINGS: The heart size is normal. The pulmonary vasculature is normal. There is a consolidation left lower lobe. This is worsening over the interval. IMPRESSION: 1. Worsening left lower lobe consolidation. Follow-up is recommended
[2021-09-01] MEDS: LOSARTAN 50 MG TAB PO SCH (08:28)
[2021-09-01] MEDS: amLODIPine 10 MG TAB PO SCH (08:29)
[2021-09-01] MEDS: DEXAMETHASONE SOD PHOSPHATE 10 MG/ML 1 ML VIAL IVP SCH (08:29)
[2021-09-01] MEDS: METOPROLOL TARTRATE 25 MG TAB PO SCH ×2 (08:29→20:59)
[2021-09-01] MEDS: INSULIN ASPART (NovoLOG) 100 UNIT/ML VIAL SQ SCH ×4 (08:29→20:59)
[2021-09-01] MEDS: ASCORBIC ACID 500 MG TAB PO SCH (10:44)
[2021-09-01] MEDS: FOLIC ACID 1 MG TAB PO SCH (10:44)
[2021-09-01] MEDS: CHOLECALCIFEROL 25 MCG (1000 IU) TABLET PO SCH (10:44)
[2021-09-01] MEDS: ASPIRIN 81 MG PO SCH (10:45)
[2021-09-01] MEDS: ZINC SULFATE 220 MG CAP PO SCH (10:45)
[2021-09-01 11:13] LABS: Basophils # (A) 0.05 X 10*3/uL (0.00-0.10); Basophils % (A) 0.3 %; Eosinophils # (A) 0 X 10*3/uL (0.04-0.35); Eosinophils % (A) 0 %; HCT 41.7 % (39.6-50.0); HGB 12.6 g/dL (13.0-17.0); Lymphocytes # (A) 0.92 X 10*3/uL (0.90-5.00); Lymphocytes % (A) 5.6 %; MCH 30.9 pg (27.0-32.0); MCHC 30.2 g/dL (32.0-37.0); MCV 102.2 fL (80.0-97.0); Mean Platelet Volume 12.7 fL (9.5-12.2); Monocytes # (A) 0.38 X 10*3/uL (0.20-1.00); Monocytes % (A) 2.3 %; Neutrophils # (A) 14.89 X 10*3/uL (1.80-7.70); Neutrophils % (A) 90.8 %; Platelet Count 245 X 10*3/uL (140-440); RBC 4.08 X 10*6/uL (4.40-5.60); RDW 14.4 % (11.5-14.5); WBC 16.41 X 10*3/uL (4.50-10.00)
[2021-09-01 11:44] LABS: Glucose,Whole Blood 158 mg/dL (75-99)
[2021-09-01 12:05] LABS: African American GFR (CKD) 53.5 (60.0-200.0); Albumin 2.8 g/dL (3.8-4.9); Albumin/Globulin Ratio 0.82 (1.60-3.17); Anion Gap 14.5 mmol/L (10.00-18.00); BUN/Creat Ratio 49.93 Ratio (12.00-20.00); Blood Urea Nitrogen 69.9 mg/dL (9.0-27.0); Calcium 8.6 mg/dL (8.7-10.3); Carbon Dioxide 16.5 mmol/L (20.0-27.5); Globulin 3.4 g/dL (1.6-3.3); Non-African American GFR(CKD) 46.1 (60.0-200.0); Potassium 4.7 mmol/L (3.5-5.5); Total Bilirubin 0.5 mg/dL (0.30-1.20); Total Protein 6.2 g/dL (6.2-8.2)
[2021-09-01 16:38] LABS: Glucose,Whole Blood 236 mg/dL (75-99)
--- NOTE | 2021-09-01 16:44 | P.PN ---
Subjective Progress Note Date: 09/01/21 Principal diagnosis: Dyspnea, hypoxia, altered mental status 85-year-old white male patient with multiple chronic medical problems including diabetes mellitus type 2, hypertension, peripheral vascular disease with previous history of intervention in November 2019, previous history of CVA with slight left-sided residual weakness, history of prostate cancer who was recently hospitalized for generalized weakness, falls, and at that time patient was found to have an acute COVID-19 infection. However chest x-ray during that admission showed no evidence of pneumonia, patient was on room air, he had a mild cough, and it was felt that the COVID 19 infection was more of a incidental finding. Patient was treated supportively, he was not given any Decadron or Remdesivir. He was given IV hydration, he was found to be encephalopathic during that admission, he was seen by neurology in consultation who felt that this was related to toxic metabolic encephalopathy. CT of the brain showed moderate to severe chronic small vessel ischemic changes with evidence of old infarct in the right frontal and high posterior right frontal infarcts. EEG showed slowing of moderate degree but no evidence of seizure. Patient had MRI of the lumbar spine showing severe spinal stenosis at L4 and L5. He was seen in consultation by orthopedic surgery and pain services. Please refer to their consultation notes. Patient continued to be weak, and continued to have difficulty walking, and he was discharged to subacute rehab on 08/22/2021. Patient was brought back to the emergency department per EMS on 08/26/2021 from the senior care for evaluation of hypoxia. His initial diagnosis of COVID-19 was established on 08/17/2021. He was on 4 L of oxygen at the [facility] on the [facility]. Normally patient is not on any oxygen. The nurses at the [facility] noted that his extremities or looking mo ttled, and patient was having more trouble breathing. No documented fever or chills, patient has a congested cough, he remained confused, he is only oriented to person. No documented fevers, no complaints of chest pain, no nausea vomiting, no headaches. EKG showed sinus tachycardia with PACs, it was felt that patient was dehydrated, there was evidence of acute kidney injury on his labs, chest x-ray showed new bilateral reticular increased opacities greatest in the lower lungs and in the periphery consistent with COVID-19 infection. His admission labs reveal white blood cell, 12.5, hemoglobin of 14.8, INR is 1.4, sodium was 151, potassium was 4.4, chloride was 117, CO2 was 20, BUN was 90, and creatinine is 2.9 to significantly increased since his discharge, lactic acid was 3.1, ferritin level was 3203, AST was 205, ALT was 67, his LDH was 2096, CRP was 21.3, pro-calcitonin level was 0.36. Patient has been afebrile while in the hospital, he is currently on 10 L of oxygen pulse ox is 88%. He has a congested cough, he was felt to be intermittently aspirating, he was seen by speech therapy who recommended pured diet. Patient was given IV hydration, he has 0.9 at 75 which will be switched over to 0.45 at 75. Lactiq acid has improved with IV hydration and is currently at 1.7. On 08/28/2021 patient seen in follow-up on medical surgical floor. He is resting comfortably in bed, he remains on 10 L of oxygen, does not appear to be in any distress, no evidence of worsening dyspnea, no cough, overall he seems much more awake, more conversant, and more appropriate today. he is still confused, and at times he is restless and removes his oxygen off. On 10 L of oxygen his pulse ox is 95%, his been afebrile, hemodynamically has been stable, lung sounds reveal a few scattered rales, no rhonchi or wheezing, no complaints of chest pain. He is currently receiving Decadron 6 mg daily, he is on Eliquis 2.5 mg for history of PVD, and previous history of stroke, he is on 0.9 normal saline at a rate of 75 ML per hour, his lower extremity Dopplers were negative for DVT. Today's labs have been reviewed, his white blood cell count is 13, hemoglobin is 10.3, his serum sodium slightly improved however still elevated at 150, potassium is 4.1, chloride is 117, CO2 is 18, BUN of 94, creatinine is 2.0, improving, his inflammatory markers were improving on yesterday's labs, today's levels are pending. On 08/29/2021 patient seen in follow-up on medical surgical floor, he is plea santly confused, she repeatedly removes his oxygen, he is currently on 8 L of oxygen his pulse ox is 88-95%, his been afebrile overnight, vital signs have been stable, he does not appear to be in any acute distress, she does have occasional dry cough, lung sounds reveal diffuse coarse crackles bilaterally, his mentation seems to be more awake and alert, interactive, he denies any specific complaints. No nausea vomiting or diarrhea. Today's labs have been reviewed, his white count is relatively stable at 14.7, hemoglobin is 14.8, his platelet count is 225, his serum sodium is 145, potassium is 4.6, his BUN is 87, creatinine is 1.68, his D5W infusion has been turned down to KVO, patient is t olerating oral intake, his renal function is improving. LDH has significantly increased and is up to 3089, and CRP is improved and is down to 5.8. Patient continues on Decadron 6 mg daily, she is on home dose Eliquis 2.5 mg, his lower extremity Dopplers were negative for DVT, follow-up d-dimer is pending. He is on COVID-19 vitamins. On 08/31/2021 patient seen in follow-up on medical surgical floor, patient is sleepy, but arousable, he is on 15 L of oxygen his pulse ox is 90%, his oxygenation has been marginal, but he appears to be in no acute distress, he did not sleep all night per nursing report, and now he is tired. He could remains confused, but not agitated. He has bilateral mid some bilateral hands to keep him from removing his oxygen. Blood pressure is been stable he's had no fevers overnight. Today's chest x-ray shows interval increase in the left basilar airspace disease. His labs have been reviewed, his white blood cell count 14, hemoglobin is 12, his d-dimer is 1.90, his sodium has further increased to 153, patient's appetite has been poor, potassium is 5.2, his chloride has increased to 122, B1 is 85 and creatinine is 1.7, however his inflammatory markers have improved and LDH is down to 819, and CRP is 6.6. Patient is currently on a combination of Decadron 6 mg daily, he is on Eliquis 2 and half milligrams at bedtime which he chronically takes for history of severe PVD, he is on COVID-19 multivitamins. Is on half-normal saline at a rate of 75 ML per hour. On 09/01/2021 patient seen in follow-up on medical surgical floor, he is currently on 15 L per high flow nasal cannula and 100% nonrebreather mask, his pulse ox is 90%, afebrile, his been confused, when asked if he knew where he was, he stated that he is [place]. His oral intake has been poor, he has been on D5W at 125 ML per hour. He remains on Decadron 6 mg daily, COVID-19 vitamins, and request 2.5 mg daily. Reveal diffuse rhonchi, patient has a weak cough. His labs have been reviewed showing white blood cell count of 16.4, his hemoglobin is 12.6, his platelet count is 245, potassium sodium has further increased and is up to 154, chloride is 123, potassium is 4.7, BUN is 69, creat inine is improved and is down to 1.4. Inflammatory markers are still pending on today's labs, LDH improved on yesterday's labs, and CRP was up slightly at 6.6. Today's chest x-ray doing worsening left lower lobe consolidation. Objective - Vital Signs Vital signs: Vital Signs Temp 97.9 F 09/01/21 14:00 Pulse 74 09/01/21 14:00 Resp 17 09/01/21 14:00 BP 149/79 09/01/21 14:00 Pulse Ox 90 L 09/01/21 14:00 Intake & Output 08/31/21 09/01/21 09/01/21 18:59 06:59 18:59 Output Total 2 Balance -2 Output: Urine 2 Other: Voiding Method Diaper Diaper Diaper Incontinent Incontinent Incontinent # Voids 2 2 # Bowel Movements 0 - Exam GENERAL EXAM: Sleepy, and confused, oriented only to person, disoriented to time and place, currently on 15 L of oxygen with a nonrebreather mask with a pulse ox of 88-90%. HEAD: Normocephalic/atraumatic. EYES: Normal reaction of pupils, equal size. Conjunctiva pink, sclera white. NOSE: Clear with pink turbinates. THROAT: No erythema or exudates. NECK: No masses, no JVD, no thyroid enlargement, no adenopathy. CHEST: No chest wall deformity. Symmetrical expansion. LUNGS: Equal air entry with diffuse crackles CVS: Regular rate and rhythm, normal S1 and S2, no gallops, no murmurs, no rubs ABDOMEN: Soft, nontender. No hepatosplenomegaly, normal bowel sounds, no guarding or rigidity. EXTREMITIES: No clubbing, no edema, no cyanosis, 2+ pulses and upper and lower extremities. MUSCULOSKELETAL: Muscle strength and tone normal. SPINE: No scoliosis or deformity SKIN: No rashes CENTRAL NERVOUS SYSTEM: Somnolent and oriented -1 No focal deficits, tone is normal in all 4 extremities. - Labs CBC & Chem 7: 09/01/21 06:45 09/01/21 06:45 Labs: Abnormal Lab Results - Last 24 Hours (Table) 08/31/21 09/01/21 09/01/21 Range/Units 20:08 06:45 06:45 WBC 16.41 H (4.50-10.00) X 10*3/uL RBC 4.08 L (4.40-5.60) X 10*6/uL Hgb 12.6 L (13.0-17.0) g/dL MCV 102.2 H (80.0-97.0) fL MCHC 30.2 L (32.0-37.0) g/dL MPV 12.7 H (9.5-12.2) fL Immature Gran # 0.17 H (0.00-0.04) X 10*3/uL Neutrophils # 14.89 H (1.80-7.70) X 10*3/uL Eosinophils # 0 L (0.04-0.35) X 10*3/uL Sodium 154 H (135-145) mmol/L Chloride 123 H (96-109) mmol/L Carbon Dioxide 16.5 L (20.0-27.5) mmol/L BUN 69.9 H (9.0-27.0) mg/dL Est GFR (CKD-EPI)AfAm 53.5 L (60.0-200.0) Est GFR (CKD-EPI)NonAf 46.1 L (60.0-200.0) BUN/Creatinine Ratio 49.93 H (12.00-20.00) Ratio Glucose 149 H (70-110) mg/dL POC Glucose (mg/dL) 231 H (75-99) mg/dL Calcium 8.6 L (8.7-10.3) mg/dL AST 66 H (14-35) U/L ALT 63 H (10-49) U/L Alkaline Phosphatase 127 H (41-126) U/L Albumin 2.8 L (3.8-4.9) g/dL Globulin 3.4 H (1.6-3.3) g/dL Albumin/Globulin Ratio 0.82 L (1.60-3.17) g/dL 09/01/21 09/01/21 09/01/21 Range/Units 07:02 11:43 16:36 WBC (4.50-10.00) X 10*3/uL RBC (4.40-5.60) X 10*6/uL Hgb (13.0-17.0) g/dL MCV (80.0-97.0) fL MCHC (32.0-37.0) g/dL MPV (9.5-12.2) fL Immature Gran # (0.00-0.04) X 10*3/uL Neutrophils # (1.80-7.70) X 10*3/uL Eosinophils # (0.04-0.35) X 10*3/uL Sodium (135-145) mmol/L Chloride (96-109) mmol/L Carbon Dioxide (20.0-27.5) mmol/L BUN (9.0-27.0) mg/dL Est GFR (CKD-EPI)AfAm (60.0-200.0) Est GFR (CKD-EPI)NonAf (60.0-200.0) BUN/Creatinine Ratio (12.00-20.00) Ratio Glucose (70-110) mg/dL POC Glucose (mg/dL) 166 H 158 H 236 H (75-99) mg/dL Calcium (8.7-10.3) mg/dL AST (14-35) U/L ALT (10-49) U/L Alkaline Phosphatase (41-126) U/L Albumin (3.8-4.9) g/dL Globulin (1.6-3.3) g/dL Albumin/Globulin Ratio (1.60-3.17) g/dL Assessment and Plan Plan: Assessment: #1. Acute hypoxic respiratory failure related to acute COVID-19 pneumonia, with initial diagnosis on 08/17/2021, patient is outside the window for Remdesivir, she is being treated supportively with Decadron, he is on Eliquis 2.5 mg at bedtime for previous history of CVA and severe PVD. On today's exam his FiO2 requirement is up to 15 L #2. Altered mental status, multifactorial, related to hypoxic encephalopathy, and metabolic encephalopathy #3. Recent hospitalization for altered mental status, toxic metabolic encephalopathy, COVID-19 infection without pneumonia, and patient was discharged to the [facility] on the [place] on 08/22/2021 #4. Acute kidney injury related to dehydration, improving #5. Lactic acidosis related to dehydration, improved with IV hydration #6. Acute hypernatremia related to free water deficit, and dehydration, on IV hydration #7. Elevated inflammatory markers related to COVID-19 #8. Previous history of CVA 10 years ago with mild left-sided weakness #9. Acute metabolic encephalopathy, ongoing, multifactorial, related to hypoxic encephalopathy, in addition to metabolic encephalopathy #10. Diabetes mellitus type 2 #11. History of prostate cancer #12. History of peripheral vascular disease with previous history of left femoral stent #13. L4-L5 spinal stenosis with bilateral leg weakness and bilateral hip pain, patient was seen by orthopedic surgery and pain services during his last admission #14. No evidence of CVA on the CT had from previous admission #15. Coronary artery disease status post coronary artery bypass grafting Plan: Maintain aspiration precautions Patient is on 15 L of oxygen, and 100 % nrb, Remains confused,oral intake is poor Obtain Procalcitonin, continue decadron, and Eliquis Patient is a high risk for aspiration Increase D%W to 150 ml/hr Overall prognosis is poor, would recommend discussing with his family his CODE STATUS I performed a history & physical examination of the patient and discussed their management with my nurse practitioner, Ciarra Lloyd. I reviewed the nurse practitioner's note and agree with the documented findings and plan of care. Lung sounds are positive for diffuse crackles throughout the lung reyes. The findings and the impression was discussed with the patient. I attest to the documentation by the nurse practitioner. Time with Patient: Less than 30
--- NOTE | 2021-09-01 20:23 | P.PN ---
Subjective Patient is a 85-year-old male with a known history of recently diagnosed covid 19 infection on 08/17/2021, history of CVA/TIA, prostate cancer, peripheral vascular disease status post left femoral stent, coronary artery disease with history of CABG Patient was sent to Hospital from [facility] due to hypoxia requiring 4 L via nasal cannula. Pulse ox was 92% on 4 L. EMS was called. Staph was also concerned about his legs look monitored. Patient otherwise very weak and cannot provide much history. Denied any complaints of chest pain or shortness of breath. No nausea vomiting or diarrhea. No abdominal pain. Patient was admitted to the hospital recently due to bilateral lower extremity weakness and generalized weakness. Patient was also found have elevated troponin level. 2-D echocardiogram showed normal ejection fraction and mild pulmonary hypertension. Neurology has seen the patient due to metabolic encephalopathy and bilateral lower extremity weakness. Patient underwent CT head which showed moderate diffuse age-related cerebral atrophy and chronic severe small resid ischemic changes. Patient had MRI of the lumbar spine due to bilateral lower extremity weakness. MRI of the lumbar spine showed central stenosis L4-L5 region. Orthopedic surgery recommends pain management and epidural injection. Epidural injection could not be done due to Covid 19 infection also patient being on Eliquis for stroke prophylaxis. Patient was continued on pain management and was sent to [facility] on 08/22/2021 During previous admission patient was not hypoxic and did not require dexamethasone. Patient was also seen by pulmonary at the time. Chest x-ray showed new bilateral reticular increased opacities greatest in the lower lungs and in the periphery consistent with Covid 19 infection. EKG showed sinus tachycardia with PACs. Laboratory data showed WBC 12.5, hemoglobin 14.8, platelets 278 INR 1.4 Sodium 151 potassium 4.4 chloride 117 bicarb is 20 BUN 90 and creatinine 2.92. Baseline creatinine around 1.2 Lactic acid level was 3.1 admission Ferritin 3203, AST 205 ALT 67, alk phos 94 CRP 21.3 and LDH 2096 Pro calcitonin level 0.66 08/27/2021 Patient is currently resting in the bed. Patient is awake alert but seems to be mildly confused. No complaints of chest pain. Generalized weakness. Currently on oxygen at 10 L high flow via nasal cannula. Patient has been afebrile. Laboratory data showed D-dimer level is 1.46, WBC 14.1 hemoglobin 11.7 and platelets 252 sodium 151 potassium 4.09 BUN 100 and creatinine 2.8 blood sugar is 277, LDH 830 and CRP 15.7 Patient is being current dexamethasone and Eliquis and multivitamins. Pulmonary has seen the patient. 08/28/2021 Patient is on the medical floor. Lying in the bed comfortably. Seems to be more awake and oriented today. Able to tolerate oral diet minimally. Otherwise patient is 10 L oxygen high flow. Denies any complaints of cough or worsening shortness of breath. Hemodynamically stable. Patient is being continued on dexamethasone, Eliquis and IV fluids changed to D5 water due to hypernatremia. Laboratory showed WBC 13.0 hemoglobin 10.3 and platelets 238 Sodium 150 potassium 4.1 chloride 117 bicarb is 18.0 BUN 94.8 creatinine 2.0 blood sugar is 158 Subjective: 08/29/2021 Patient is awake but is lethargic and tired. Distal hypoxic on telemetry to her oxygen with saturation of 90%. Hypernatremia improved with sodium 145 daily and D5W was discontinued. Patient is able to eat and drink well today. Creatinine improved down to 1.6. Baseline creatinine 1.1-1.4 Leukocytosis of 14.7 while on steroids. Increased inflammatory markers with LDH 3089 and CRP 5.8. He still on dexamethasone, multiple vitamins, Eliquis, Levemir. His dose increased 10 units up to 20 units tomorrow because of high glucose at 411 08/30/2021 Patient is awake but slightly confused today, he denies any chest pain. Also he denies any back pain. He is able to tolerate diet well and he is eating 100% of his diet, even better than yesterday However he still tachypnea which is mild while at rest but oxygen requirement went up to 15 L/m compared to 10 yesterday. His sodium is 148 which is slightly elevated, also creatinine is slightly elevated 1.7 compared to baseline of 1.1- 1.4. We will order labs tomorrow. Also we will check chest x-ray 08/31/2021 Patient still confused today. His breathing is slightly worse, he is currently on 15 L per minute of oxygen via nasal cannula with saturation of 87%. Blood pressure is stable. Labs showing WBC 14.9 K, sodium went up to 153. Creatinine is stable 1.7. Inflammatory markers actually improving with LDH down to 819 and CRP at 6.6. Glucose today is more elevated, ranging between 217-388, his Levemir dose was in creased 20 up to 30 units. And continued on insulin sliding scale Patient remains on multiple vitamin C, D and zinc. Also he is on dexamethasone, home dose of Eliquis 2.5 mg twice a day. And patient is on D5W at 125 restarted today. 09/03/2021 Patient remains confused secondary to his Covid infection and hypernatremia. He remains on 15 L/m of oxygen via nonrebreather, his oxygen saturation is a slightly better than yesterday from 87 up to 90%. However his chest x-ray showing worsening left lower lobe infiltrate. We will check for Dr. vasques to rule out aspiration possibility. Patient remains on D5 W at 1 50 mL/h to help his hypernatremia, also his Levemir increased today 20 up to 30 units with better glucose control around 160 which might help his hypernatremia. Expecting his sodium to start improving tomorrow. Check inflammatory markers tomorrow as well Objective - Vital Signs Vital signs: Vital Signs Temp 98.5 F 09/01/21 10:00 Pulse 96 09/01/21 10:00 Resp 16 09/01/21 05:20 BP 169/75 09/01/21 10:00 Pulse Ox 90 L 09/01/21 10:00 Intake & Output 08/31/21 09/01/21 09/01/21 18:59 06:59 18:59 Output Total 2 Balance -2 Output: Urine 2 Other: Voiding Method Diaper Diaper Diaper Incontinent Incontinent Incontinent # Voids 2 2 # Bowel Movements 0 - Exam GENERAL: The patient is alert and oriented x3, not in any acute distress. Well developed, well nourished. HEENT: Pupils are round and equally reacting to light. EOMI. No scleral icterus. No conjunctival pallor. Normocephalic, atraumatic. No pharyngeal erythema. No thyromegaly. CARDIOVASCULAR: S1 and S2 present. No murmurs, rubs, or gallops. -PULMONARY: Chest is clear to auscultation, no wheezing . Bilateral crepitation ABDOMEN: Soft, nontender, nondistended, normoactive bowel sounds. No palpable organomegaly. MUSCULOSKELETAL: No joint swelling or deformity. EXTREMITIES: No cyanosis, clubbing, or pedal edema. NEUROLOGICAL: Gross neurological examination did not reveal any focal deficits. SKIN: No rashes. no petechiae. - Labs CBC & Chem 7: 09/01/21 06:45 09/01/21 06:45 Labs: Abnormal Lab Results - Last 24 Hours (Table) 08/31/21 08/31/21 09/01/21 Range/Units 16:29 20:08 06:45 WBC 16.41 H (4.50-10.00) X 10*3/uL RBC 4.08 L (4.40-5.60) X 10*6/uL Hgb 12.6 L (13.0-17.0) g/dL MCV 102.2 H (80.0-97.0) fL MCHC 30.2 L (32.0-37.0) g/dL MPV 12.7 H (9.5-12.2) fL Immature Gran # 0.17 H (0.00-0.04) X 10*3/uL Neutrophils # 14.89 H (1.80-7.70) X 10*3/uL Eosinophils # 0 L (0.04-0.35) X 10*3/uL POC Glucose (mg/dL) 204 H 231 H (75-99) mg/dL 09/01/21 09/01/21 Range/Units 07:02 11:43 WBC (4.50-10.00) X 10*3/uL RBC (4.40-5.60) X 10*6/uL Hgb (13.0-17.0) g/dL MCV (80.0-97.0) fL MCHC (32.0-37.0) g/dL MPV (9.5-12.2) fL Immature Gran # (0.00-0.04) X 10*3/uL Neutrophils # (1.80-7.70) X 10*3/uL Eosinophils # (0.04-0.35) X 10*3/uL POC Glucose (mg/dL) 166 H 158 H (75-99) mg/dL Assessment and Plan Assessment: Acute hypoxic respiratory failure secondary to covid 19 pneumonia. Acute Covid 19 pneumonia Metabolic encephalopathy due to infection Hypernatremia due to dehydration and volume depletion. Elevated inflammatory markers Acute kidney injury likely prerenal. improving Elevated liver enzymes, mild. Secondary to Covid infection Bilateral lower extremity weakness and generalized weakness. MRI of the lumbar spine recently showed L4-L5 spinal stenosis. Was seen by orthopedic surgery Diabetes type 2 [id number] History of CVA/TIA with no residual weakness History of prostate cancer Peripheral vascular disease status post left femoral stent placement Coronary artery disease with history of CABG Plan: This is a pleasant 85 years old male who presents with covid pneumonia. Continue with vitamin C, vitamin D and zinc. Continue on dexamethasone. Continue with home dose of Eliquis 2.5 mg twice a day Continue with Levemir and insulin sliding scale while monitoring glucose closely. Pulmonary consult on the case Labs and medication were reviewed.. Continue same treatment. Continue with symptomatic treatment. Resume home medication. Monitor lytes and vitals. DVT and GI prophylaxis. Further recommendations as per clinical course of the patient DVT prophylaxis: Eliquis GI Prophylaxis: Ppi PT/OT: Pending Prognosis is guarded
[2021-09-01 20:33] LABS: Glucose,Whole Blood 262 mg/dL (75-99)
[2021-09-01] MEDS: APIXABAN 2.5 MG TABLET PO SCH (20:59)
[2021-09-01] MEDS: ATORVASTATIN 80 MG TAB PO SCH (21:00)
[2021-09-02] MEDS: ALPRAZolam 0.5 MG TAB PO PRN (01:04)
[2021-09-02] MEDS: ACETAMINOPHEN TAB 325 MG TAB PO PRN ×2 (01:04→21:42)
[2021-09-02] MEDS: DEXTROSE 5% IN WATER 1,000 ML IV SCH ×4 (04:52→20:17)
[2021-09-02] MEDS: PANTOPRAZOLE 40 MG TABLET PO SCH (05:02)
[2021-09-02 06:57] LABS: Glucose,Whole Blood 367 mg/dL (75-99)
[2021-09-02] MEDS ORDERED: INSULIN DETEMIR (LEVEMIR) 100 UNIT/ML SYR SQ SCH (07:00)
[2021-09-02] MEDS: INSULIN ASPART (NovoLOG) 100 UNIT/ML VIAL SQ SCH ×4 (07:38→20:16)
[2021-09-02] MEDS: DEXAMETHASONE SOD PHOSPHATE 10 MG/ML 1 ML VIAL IVP SCH (07:44)
[2021-09-02] MEDS: amLODIPine 10 MG TAB PO SCH (09:47)
[2021-09-02] MEDS: ASCORBIC ACID 500 MG TAB PO SCH (09:47)
[2021-09-02] MEDS: ASPIRIN 81 MG PO SCH (09:48)
[2021-09-02] MEDS: METOPROLOL TARTRATE 25 MG TAB PO SCH ×2 (09:48→21:42)
[2021-09-02] MEDS: CHOLECALCIFEROL 25 MCG (1000 IU) TABLET PO SCH (09:48)
[2021-09-02] MEDS: FOLIC ACID 1 MG TAB PO SCH (09:48)
[2021-09-02] MEDS: LOSARTAN 50 MG TAB PO SCH (09:48)
[2021-09-02] MEDS: ZINC SULFATE 220 MG CAP PO SCH (09:49)
[2021-09-02 10:54] LABS: Basophils # (A) 0.04 X 10*3/uL (0.00-0.10); Basophils % (A) 0.2 %; Eosinophils # (A) 0 X 10*3/uL (0.04-0.35); Eosinophils % (A) 0 %; HCT 43.9 % (39.6-50.0); Lymphocytes % (A) 5.1 %; MCH 30.6 pg (27.0-32.0); MCHC 29.6 g/dL (32.0-37.0); MCV 103.3 fL (80.0-97.0); Mean Platelet Volume 12.9 fL (9.5-12.2); Monocytes # (A) 0.38 X 10*3/uL (0.20-1.00); Monocytes % (A) 2.2 %; Neutrophils # (A) 16.09 X 10*3/uL (1.80-7.70); Neutrophils % (A) 91.2 %; Platelet Count 209 X 10*3/uL (140-440); RBC 4.25 X 10*6/uL (4.40-5.60); RDW 14.4 % (11.5-14.5); WBC 17.64 X 10*3/uL (4.50-10.00)
[2021-09-02 11:23] LABS: C Reactive Protein 14.9 mg/dL (0.00-0.80)
[2021-09-02 11:30] LABS: Glucose,Whole Blood 334 mg/dL (75-99)
[2021-09-02 12:00] LABS: African American GFR (CKD) 49.6 (60.0-200.0); Albumin 2.6 g/dL (3.8-4.9); Albumin/Globulin Ratio 0.68 (1.60-3.17); Anion Gap 17.8 mmol/L (10.00-18.00); BUN/Creat Ratio 42.55 Ratio (12.00-20.00); Blood Urea Nitrogen 63.4 mg/dL (9.0-27.0); Calcium 8.5 mg/dL (8.7-10.3); Carbon Dioxide 13.2 mmol/L (20.0-27.5); Globulin 3.7 g/dL (1.6-3.3); Non-African American GFR(CKD) 42.8 (60.0-200.0); Potassium 5.4 mmol/L (3.5-5.5); Total Bilirubin 0.7 mg/dL (0.30-1.20); Total Protein 6.3 g/dL (6.2-8.2)
[2021-09-02] MEDS: AZITHROMYCIN 500 MG in SODIUM CHLORIDE 0.9% 250 ML IVPB SCH (13:07)
--- NOTE | 2021-09-02 13:17 | P.PN ---
Subjective Progress Note Date: 09/02/21 Principal diagnosis: Dyspnea, hypoxia, altered mental status 85-year-old white male patient with multiple chronic medical problems including diabetes mellitus type 2, hypertension, peripheral vascular disease with previous history of intervention in November 2019, previous history of CVA with slight left-sided residual weakness, history of prostate cancer who was recently hospitalized for generalized weakness, falls, and at that time patient was found to have an acute COVID-19 infection. However chest x-ray during that admission showed no evidence of pneumonia, patient was on room air, he had a mild cough, and it was felt that the COVID 19 infection was more of a incidental finding. Patient was treated supportively, he was not given any Decadron or Remdesivir. He was given IV hydration, he was found to be encephalopathic during that admission, he was seen by neurology in consultation who felt that this was related to toxic metabolic encephalopathy. CT of the brain showed moderate to severe chronic small vessel ischemic changes with evidence of old infarct in the right frontal and high posterior right frontal infarcts. EEG showed slowing of moderate degree but no evidence of seizure. Patient had MRI of the lumbar spine showing severe spinal stenosis at L4 and L5. He was seen in consultation by orthopedic surgery and pain services. Please refer to their consultation notes. Patient continued to be weak, and continued to have difficulty walking, and he was discharged to subacute rehab on 08/22/2021. Patient was brought back to the emergency department per EMS on 08/26/2021 from the longterm for evaluation of hypoxia. His initial diagnosis of COVID-19 was established on 08/17/2021. He was on 4 L of oxygen [address] the [facility] on the [facility]. Normally patient is not on any oxygen. The nurses at the [id number] noted that his extremities or looking mo ttled, and patient was having more trouble breathing. No documented fever or chills, patient has a congested cough, he remained confused, he is only oriented to person. No documented fevers, no complaints of chest pain, no nausea vomiting, no headaches. EKG showed sinus tachycardia with PACs, it was felt that patient was dehydrated, there was evidence of acute kidney injury on his labs, chest x-ray showed new bilateral reticular increased opacities greatest in the lower lungs and in the periphery consistent with COVID-19 infection. His admission labs reveal white blood cell, 12.5, hemoglobin of 14.8, INR is 1.4, sodium was 151, potassium was 4.4, chloride was 117, CO2 was 20, BUN was 90, and creatinine is 2.9 to significantly increased since his discharge, lactic acid was 3.1, ferritin level was 3203, AST was 205, ALT was 67, his LDH was 2096, CRP was 21.3, pro-calcitonin level was 0.36. Patient has been afebrile while in the hospital, he is currently on 10 L of oxygen pulse ox is 88%. He has a congested cough, he was felt to be intermittently aspirating, he was seen by speech therapy who recommended pured diet. Patient was given IV hydration, he has 0.9 at 75 which will be switched over to 0.45 at 75. Lactiq acid has improved with IV hydration and is currently at 1.7. On 08/28/2021 patient seen in follow-up on medical surgical floor. He is resting comfortably in bed, he remains on 10 L of oxygen, does not appear to be in any distress, no evidence of worsening dyspnea, no cough, overall he seems much more awake, more conversant, and more appropriate today. he is still confused, and at times he is restless and removes his oxygen off. On 10 L of oxygen his pulse ox is 95%, his been afebrile, hemodynamically has been stable, lung sounds reveal a few scattered rales, no rhonchi or wheezing, no complaints of chest pain. He is currently receiving Decadron 6 mg daily, he is on Eliquis 2.5 mg for history of PVD, and previous history of stroke, he is on 0.9 normal saline at a rate of 75 ML per hour, his lower extremity Dopplers were negative for DVT. Today's labs have been reviewed, his white blood cell count is 13, hemoglobin is 10.3, his serum sodium slightly improved however still elevated at 150, potassium is 4.1, chloride is 117, CO2 is 18, BUN of 94, creatinine is 2.0, improving, his inflammatory markers were improving on yesterday's labs, today's levels are pending. On 08/29/2021 patient seen in follow-up on medical surgical floor, he is plea santly confused, she repeatedly removes his oxygen, he is currently on 8 L of oxygen his pulse ox is 88-95%, his been afebrile overnight, vital signs have been stable, he does not appear to be in any acute distress, she does have occasional dry cough, lung sounds reveal diffuse coarse crackles bilaterally, his mentation seems to be more awake and alert, interactive, he denies any specific complaints. No nausea vomiting or diarrhea. Today's labs have been reviewed, his white count is relatively stable at 14.7, hemoglobin is 14.8, his platelet count is 225, his serum sodium is 145, potassium is 4.6, his BUN is 87, creatinine is 1.68, his D5W infusion has been turned down to KVO, patient is t olerating oral intake, his renal function is improving. LDH has significantly increased and is up to 3089, and CRP is improved and is down to 5.8. Patient continues on Decadron 6 mg daily, she is on home dose Eliquis 2.5 mg, his lower extremity Dopplers were negative for DVT, follow-up d-dimer is pending. He is on COVID-19 vitamins. On 08/31/2021 patient seen in follow-up on medical surgical floor, patient is sleepy, but arousable, he is on 15 L of oxygen his pulse ox is 90%, his oxygenation has been marginal, but he appears to be in no acute distress, he did not sleep all night per nursing report, and now he is tired. He could remains confused, but not agitated. He has bilateral mid some bilateral hands to keep him from removing his oxygen. Blood pressure is been stable he's had no fevers overnight. Today's chest x-ray shows interval increase in the left basilar airspace disease. His labs have been reviewed, his white blood cell count 14, hemoglobin is 12, his d-dimer is 1.90, his sodium has further increased to 153, patient's appetite has been poor, potassium is 5.2, his chloride has increased to 122, B1 is 85 and creatinine is 1.7, however his inflammatory markers have improved and LDH is down to 819, and CRP is 6.6. Patient is currently on a combination of Decadron 6 mg daily, he is on Eliquis 2 and half milligrams at bedtime which he chronically takes for history of severe PVD, he is on COVID-19 multivitamins. Is on half-normal saline at a rate of 75 ML per hour. On 09/01/2021 patient seen in follow-up on medical surgical floor, he is currently on 15 L per high flow nasal cannula and 100% nonrebreather mask, his pulse ox is 90%, afebrile, his been confused, when asked if he knew where he was, he stated that he is [place]. His oral intake has been poor, he has been on D5W at 125 ML per hour. He remains on Decadron 6 mg daily, COVID-19 vitamins, and request 2.5 mg daily. Reveal diffuse rhonchi, patient has a weak cough. His labs have been reviewed showing white blood cell count of 16.4, his hemoglobin is 12.6, his platelet count is 245, potassium sodium has further increased and is up to 154, chloride is 123, potassium is 4.7, BUN is 69, creat inine is improved and is down to 1.4. Inflammatory markers are still pending on today's labs, LDH improved on yesterday's labs, and CRP was up slightly at 6.6. Today's chest x-ray doing worsening left lower lobe consolidation. On 09/02/2021 patient seen in follow-up on medical surgical floor, patient's hypoxia and dyspnea have progressed, he was satting in the low 80s on 15 L per high flow nasal cannula and a nonrebreather mask, and subsequently was switched to BiPAP with pressures of 12 and 6 and 100%. He is poorly responsive, but he sitting better on BiPAP, and his pulse ox is 93%, afebrile, hemodynamically his been stable. Yesterday's chest x-ray was showing worsening left lower lobe consolidation. Patient was suspected to be a high risk for aspiration related to altered mental status. He has not been eating much by mouth. He is on D5W at a rate of 100 ML per hour, his serum sodium on today's labs is improving and is down to 146, his blood blood cell count is fairly stable at 17.6, hemoglobin is 13, potassium is 5.4, chloride is 1:15, CO2 is 13, his BUN is 63 and creatinine is 1.5. His glucose has significantly decreased and is up to 433 his liver enzymes are relatively stable, his pro-calcitonin level was 0.61 increased from 0.36 on previous lab draw from 08/26/2021. Pancreatic antibiotics in the form of azithromycin and Rocephin have been added. Patient continues on Eliquis however because of his altered mental status he was unable to take anything by mouth including his oral medications. We'll his condition seems to have significantly declined in the last 48 hours. Patient is chronically debilitated, his multiple comorbidities, his hypoxia has progressed from his COVID-19 pneumonia. The recommendation is to address his CODE STATUS and discuss goals of treatment with the recommendation of making the patient DO NOT RESUSCITATE and possibly progress to hospice care if does not show improvement in the next 24 hours Objective - Vital Signs Vital signs: Vital Signs Temp 99.9 F H 09/02/21 06:00 Pulse 95 09/02/21 10:24 Resp 22 09/02/21 10:24 BP 161/71 09/02/21 10:24 Pulse Ox 93 L 09/02/21 10:24 Intake & Output 09/01/21 09/02/21 09/02/21 18:59 06:59 18:59 Intake Total 1800 Balance 1800 Intake: Intake, IV Titration 1800 Amount Dextrose 5% in Water 1, 1800 000 ml @ 150 mls/hr IV . Q6H40M [facility] Rx#:[id number] Other: Voiding Method Diaper Diaper Diaper Incontinent # Voids 2 - Exam GENERAL EXAM: Poorly responsive, 85-year-old elderly male currently on BiPAP support with pressures of 12 and 6 and FiO2 of 100%, with a pulse ox of 93% HEAD: Normocephalic/atraumatic. EYES: Normal reaction of pupils, equal size. Conjunctiva pink, sclera white. NOSE: Clear with pink turbinates. THROAT: No erythema or exudates. NECK: No masses, no JVD, no thyroid enlargement, no adenopathy. CHEST: No chest wall deformity. Symmetrical expansion. LUNGS: Equal air entry with diffuse rhonchi CVS: Regular rate and rhythm, normal S1 and S2, no gallops, no murmurs, no rubs ABDOMEN: Soft, nontender. No hepatosplenomegaly, normal bowel sounds, no guarding or rigidity. EXTREMITIES: No clubbing, no edema, no cyanosis, 2+ pulses and upper and lower extremities. MUSCULOSKELETAL: Muscle strength and tone normal. SPINE: No scoliosis or deformity SKIN: No rashes CENTRAL NERVOUS SYSTEM: Somnolent and poorly responsive No focal deficits, tone is normal in all 4 extremities. - Labs CBC & Chem 7: 09/02/21 06:59 09/02/21 06:59 Labs: Abnormal Lab Results - Last 24 Hours (Table) 09/01/21 09/01/21 09/01/21 Range/Units 06:45 16:36 20:30 WBC (4.50-10.00) X 10*3/uL RBC (4.40-5.60) X 10*6/uL MCV (80.0-97.0) fL MCHC (32.0-37.0) g/dL MPV (9.5-12.2) fL Immature Gran # (0.00-0.04) X 10*3/uL Neutrophils # (1.80-7.70) X 10*3/uL Eosinophils # (0.04-0.35) X 10*3/uL Sodium (135-145) mmol/L Chloride (96-109) mmol/L Carbon Dioxide (20.0-27.5) mmol/L BUN (9.0-27.0) mg/dL Est GFR (CKD-EPI)AfAm (60.0-200.0) Est GFR (CKD-EPI)NonAf (60.0-200.0) BUN/Creatinine Ratio (12.00-20.00) Ratio Glucose (70-110) mg/dL POC Glucose (mg/dL) 236 H 262 H (75-99) mg/dL Calcium (8.7-10.3) mg/dL AST (14-35) U/L ALT (10-49) U/L Alkaline Phosphatase (41-126) U/L Lactate Dehydrogenase (120-246) U/L C-Reactive Protein (0.00-0.80) mg/dL Albumin (3.8-4.9) g/dL Globulin (1.6-3.3) g/dL Albumin/Globulin Ratio (1.60-3.17) g/dL Procalcitonin 0.61 H (0.02-0.09) ng/mL 09/02/21 09/02/21 09/02/21 Range/Units 06:55 06:59 06:59 WBC 17.64 H (4.50-10.00) X 10*3/uL RBC 4.25 L (4.40-5.60) X 10*6/uL MCV 103.3 H (80.0-97.0) fL MCHC 29.6 L (32.0-37.0) g/dL MPV 12.9 H (9.5-12.2) fL Immature Gran # 0.23 H (0.00-0.04) X 10*3/uL Neutrophils # 16.09 H (1.80-7.70) X 10*3/uL Eosinophils # 0 L (0.04-0.35) X 10*3/uL Sodium 146 H (135-145) mmol/L Chloride 115 H (96-109) mmol/L Carbon Dioxide 13.2 L (20.0-27.5) mmol/L BUN 63.4 H (9.0-27.0) mg/dL Est GFR (CKD-EPI)AfAm 49.6 L (60.0-200.0) Est GFR (CKD-EPI)NonAf 42.8 L (60.0-200.0) BUN/Creatinine Ratio 42.55 H (12.00-20.00) Ratio Glucose 433 H (70-110) mg/dL POC Glucose (mg/dL) 367 H (75-99) mg/dL Calcium 8.5 L (8.7-10.3) mg/dL AST 70 H (14-35) U/L ALT 58 H (10-49) U/L Alkaline Phosphatase 148 H (41-126) U/L Lactate Dehydrogenase 1153 H (120-246) U/L C-Reactive Protein 14.90 H (0.00-0.80) mg/dL Albumin 2.6 L (3.8-4.9) g/dL Globulin 3.7 H (1.6-3.3) g/dL Albumin/Globulin Ratio 0.68 L (1.60-3.17) g/dL Procalcitonin (0.02-0.09) ng/mL 09/02/21 Range/Units 11:29 WBC (4.50-10.00) X 10*3/uL RBC (4.40-5.60) X 10*6/uL MCV (80.0-97.0) fL MCHC (32.0-37.0) g/dL MPV (9.5-12.2) fL Immature Gran # (0.00-0.04) X 10*3/uL Neutrophils # (1.80-7.70) X 10*3/uL Eosinophils # (0.04-0.35) X 10*3/uL Sodium (135-145) mmol/L Chloride (96-109) mmol/L Carbon Dioxide (20.0-27.5) mmol/L BUN (9.0-27.0) mg/dL Est GFR (CKD-EPI)AfAm (60.0-200.0) Est GFR (CKD-EPI)NonAf (60.0-200.0) BUN/Creatinine Ratio (12.00-20.00) Ratio Glucose (70-110) mg/dL POC Glucose (mg/dL) 334 H (75-99) mg/dL Calcium (8.7-10.3) mg/dL AST (14-35) U/L ALT (10-49) U/L Alkaline Phosphatase (41-126) U/L Lactate Dehydrogenase (120-246) U/L C-Reactive Protein (0.00-0.80) mg/dL Albumin (3.8-4.9) g/dL Globulin (1.6-3.3) g/dL Albumin/Globulin Ratio (1.60-3.17) g/dL Procalcitonin (0.02-0.09) ng/mL Assessment and Plan Plan: Assessment: #1. Acute hypoxic respiratory failure related to acute COVID-19 pneumonia, with initial diagnosis on 08/17/2021, patient is outside the window for Remdesivir, she is being treated supportively with Decadron, he is on Eliquis 2.5 mg at bedtime for previous history of CVA and severe PVD. On today's exam his FiO2 requirement is up to 15 L #2. Altered mental status, multifactorial, related to hypoxic encephalopathy, and metabolic encephalopathy #3. Recent hospitalization for altered mental status, toxic metabolic encephalopathy, COVID-19 infection without pneumonia, and patient was discharged to the [facility] on the [place] on 08/22/2021 #4. Acute kidney injury related to dehydration, improving #5. Lactic acidosis related to dehydration, improved with IV hydration #6. Acute hypernatremia related to free water deficit, and dehydration, on IV hydration #7. Elevated inflammatory markers related to COVID-19 #8. Previous history of CVA 10 years ago with mild left-sided weakness #9. Acute metabolic encephalopathy, ongoing, multifactorial, related to hypoxic encephalopathy, in addition to metabolic encephalopathy #10. Diabetes mellitus type 2 #11. History of prostate cancer #12. History of peripheral vascular disease with previous history of left femoral stent #13. L4-L5 spinal stenosis with bilateral leg weakness and bilateral hip pain, patient was seen by orthopedic surgery and pain services during his last admission #14. No evidence of CVA on the CT had from previous admission #15. Coronary artery disease status post coronary artery bypass grafting #16. Mildly elevated pro calcitonin with possibility of bacterial infection, possibly related to aspiration pneumonia Plan: Patient's condition is continuing to decline he is poorly responsive, he was placed on BiPAP support in view of worsening hypoxia He has been placed on empiric antibiotics for possibility of underlying bacterial infection He is a high risk for aspiration His mentation and level of consciousness have continued to deteriorate He has not taken much by mouth He is maximized in terms of medical treatment His multiple comorbidities, and his general condition has been steadily declining over the last 2 hospitalizations CODE STATUS is now DO NOT RESUSCITATE We'll continue with supportive treatment for now If fails to show improvement in the next 24 hours, we recommend hospice consultation I performed a history & physical examination of the patient and discussed their management with my nurse practitioner, Ciarra Lloyd. I reviewed the nurse practitioner's note and agree with the documented findings and plan of care. Lung sounds are positive for diffuse crackles throughout the lung reyes. The findings and the impression was discussed with the patient. I attest to the documentation by the nurse practitioner. Time with Patient: Less than 30
[2021-09-02 16:33] LABS: Glucose,Whole Blood 315 mg/dL (75-99)
--- NOTE | 2021-09-02 19:48 | P.PN ---
Subjective Patient is a 85-year-old male with a known history of recently diagnosed covid 19 infection on 08/17/2021, history of CVA/TIA, prostate cancer, peripheral vascular disease status post left femoral stent, coronary artery disease with history of CABG Patient was sent to Hospital from [facility] due to hypoxia requiring 4 L via nasal cannula. Pulse ox was 92% on 4 L. EMS was called. Staph was also concerned about his legs look monitored. Patient otherwise very weak and cannot provide much history. Denied any complaints of chest pain or shortness of breath. No nausea vomiting or diarrhea. No abdominal pain. Patient was admitted to the hospital recently due to bilateral lower extremity weakness and generalized weakness. Patient was also found have elevated troponin level. 2-D echocardiogram showed normal ejection fraction and mild pulmonary hypertension. Neurology has seen the patient due to metabolic encephalopathy and bilateral lower extremity weakness. Patient underwent CT head which showed moderate diffuse age-related cerebral atrophy and chronic severe small resid ischemic changes. Patient had MRI of the lumbar spine due to bilateral lower extremity weakness. MRI of the lumbar spine showed central stenosis L4-L5 region. Orthopedic surgery recommends pain management and epidural injection. Epidural injection could not be done due to Covid 19 infection also patient being on Eliquis for stroke prophylaxis. Patient was continued on pain management and was sent to [facility] on 08/22/2021 During previous admission patient was not hypoxic and did not require dexamethasone. Patient was also seen by pulmonary at the time. Chest x-ray showed new bilateral reticular increased opacities greatest in the lower lungs and in the periphery consistent with Covid 19 infection. EKG showed sinus tachycardia with PACs. Laboratory data showed WBC 12.5, hemoglobin 14.8, platelets 278 INR 1.4 Sodium 151 potassium 4.4 chloride 117 bicarb is 20 BUN 90 and creatinine 2.92. Baseline creatinine around 1.2 Lactic acid level was 3.1 admission Ferritin 3203, AST 205 ALT 67, alk phos 94 CRP 21.3 and LDH 2096 Pro calcitonin level 0.66 08/27/2021 Patient is currently resting in the bed. Patient is awake alert but seems to be mildly confused. No complaints of chest pain. Generalized weakness. Currently on oxygen at 10 L high flow via nasal cannula. Patient has been afebrile. Laboratory data showed D-dimer level is 1.46, WBC 14.1 hemoglobin 11.7 and platelets 252 sodium 151 potassium 4.09 BUN 100 and creatinine 2.8 blood sugar is 277, LDH 830 and CRP 15.7 Patient is being current dexamethasone and Eliquis and multivitamins. Pulmonary has seen the patient. 08/28/2021 Patient is on the medical floor. Lying in the bed comfortably. Seems to be more awake and oriented today. Able to tolerate oral diet minimally. Otherwise patient is 10 L oxygen high flow. Denies any complaints of cough or worsening shortness of breath. Hemodynamically stable. Patient is being continued on dexamethasone, Eliquis and IV fluids changed to D5 water due to hypernatremia. Laboratory showed WBC 13.0 hemoglobin 10.3 and platelets 238 Sodium 150 potassium 4.1 chloride 117 bicarb is 18.0 BUN 94.8 creatinine 2.0 blood sugar is 158 Subjective: 08/29/2021 Patient is awake but is lethargic and tired. Distal hypoxic on telemetry to her oxygen with saturation of 90%. Hypernatremia improved with sodium 145 daily and D5W was discontinued. Patient is able to eat and drink well today. Creatinine improved down to 1.6. Baseline creatinine 1.1-1.4 Leukocytosis of 14.7 while on steroids. Increased inflammatory markers with LDH 3089 and CRP 5.8. He still on dexamethasone, multiple vitamins, Eliquis, Levemir. His dose increased 10 units up to 20 units tomorrow because of high glucose at 411 08/30/2021 Patient is awake but slightly confused today, he denies any chest pain. Also he denies any back pain. He is able to tolerate diet well and he is eating 100% of his diet, even better than yesterday However he still tachypnea which is mild while at rest but oxygen requirement went up to 15 L/m compared to 10 yesterday. His sodium is 148 which is slightly elevated, also creatinine is slightly elevated 1.7 compared to baseline of 1.1- 1.4. We will order labs tomorrow. Also we will check chest x-ray 08/31/2021 Patient still confused today. His breathing is slightly worse, he is currently on 15 L per minute of oxygen via nasal cannula with saturation of 87%. Blood pressure is stable. Labs showing WBC 14.9 K, sodium went up to 153. Creatinine is stable 1.7. Inflammatory markers actually improving with LDH down to 819 and CRP at 6.6. Glucose today is more elevated, ranging between 217-388, his Levemir dose was in creased 20 up to 30 units. And continued on insulin sliding scale Patient remains on multiple vitamin C, D and zinc. Also he is on dexamethasone, home dose of Eliquis 2.5 mg twice a day. And patient is on D5W at 125 restarted today. 09/01/2021 Patient remains confused secondary to his Covid infection and hypernatremia. He remains on 15 L/m of oxygen via nonrebreather, his oxygen saturation is a slightly better than yesterday from 87 up to 90%. However his chest x-ray showing worsening left lower lobe infiltrate. We will check for Dr. vasques to rule out aspiration possibility. Patient remains on D5 W at 1 50 mL/h to help his hypernatremia, also his Levemir increased today 20 up to 30 units with better glucose control around 160 which might help his hypernatremia. Expecting his sodium to start improving tomorrow. Check inflammatory markers tomorrow as well 09/02/2021 Patient's condition continued to deteriorate and he is currently on BiPAP. His supportcalcitonin is slightly increased at 0.3 up to 0.6 and therefore he was placed on empiric antibiotics of Rocephin and Zithromax for possible bacterial superinfection. He still have leukocytosis of 17 K, sodium improved to 146, creatinine to 1.5 but inflammatory markers worsened with LDH 1153 and CRP 14.5. His Levemir was increased to 38 units because of sugar are around 250-300 I talked to the son Anthony sandoval at [phone], and I discussed the case with him in details, and he opted for no code for his father, no resuscitation, and definitely no intubation and no life support Objective - Vital Signs Vital signs: Vital Signs Temp 99.9 F H 09/02/21 06:00 Pulse 95 09/02/21 10:24 Resp 22 09/02/21 10:24 BP 161/71 09/02/21 10:24 Pulse Ox 93 L 09/02/21 10:24 Intake & Output 09/01/21 09/02/21 09/02/21 18:59 06:59 18:59 Intake Total 1800 Balance 1800 Intake: Intake, IV Titration 1800 Amount Dextrose 5% in Water 1, 1800 000 ml @ 150 mls/hr IV . Q6H40M [facility] Rx#:[id number] Other: Voiding Method Diaper Diaper Diaper Incontinent # Voids 2 - Exam GENERAL: The patient is alert and oriented x3, not in any acute distress. Well developed, well nourished. HEENT: Pupils are round and equally reacting to light. EOMI. No scleral icterus. No conjunctival pallor. Normocephalic, atraumatic. No pharyngeal erythema. No thyromegaly. CARDIOVASCULAR: S1 and S2 present. No murmurs, rubs, or gallops. -PULMONARY: Chest is clear to auscultation, no wheezing . Bilateral crepitation ABDOMEN: Soft, nontender, nondistended, normoactive bowel sounds. No palpable organomegaly. MUSCULOSKELETAL: No joint swelling or deformity. EXTREMITIES: No cyanosis, clubbing, or pedal edema. NEUROLOGICAL: Gross neurological examination did not reveal any focal deficits. SKIN: No rashes. no petechiae. - Labs CBC & Chem 7: 09/02/21 06:59 09/02/21 06:59 Labs: Abnormal Lab Results - Last 24 Hours (Table) 09/01/21 09/01/21 09/01/21 Range/Units 06:45 06:45 06:45 WBC 16.41 H (4.50-10.00) X 10*3/uL RBC 4.08 L (4.40-5.60) X 10*6/uL Hgb 12.6 L (13.0-17.0) g/dL MCV 102.2 H (80.0-97.0) fL MCHC 30.2 L (32.0-37.0) g/dL MPV 12.7 H (9.5-12.2) fL Immature Gran # 0.17 H (0.00-0.04) X 10*3/uL Neutrophils # 14.89 H (1.80-7.70) X 10*3/uL Eosinophils # 0 L (0.04-0.35) X 10*3/uL Sodium 154 H (135-145) mmol/L Chloride 123 H (96-109) mmol/L Carbon Dioxide 16.5 L (20.0-27.5) mmol/L BUN 69.9 H (9.0-27.0) mg/dL Est GFR (CKD-EPI)AfAm 53.5 L (60.0-200.0) Est GFR (CKD-EPI)NonAf 46.1 L (60.0-200.0) BUN/Creatinine Ratio 49.93 H (12.00-20.00) Ratio Glucose 149 H (70-110) mg/dL POC Glucose (mg/dL) (75-99) mg/dL Calcium 8.6 L (8.7-10.3) mg/dL AST 66 H (14-35) U/L ALT 63 H (10-49) U/L Alkaline Phosphatase 127 H (41-126) U/L Albumin 2.8 L (3.8-4.9) g/dL Globulin 3.4 H (1.6-3.3) g/dL Albumin/Globulin Ratio 0.82 L (1.60-3.17) g/dL Procalcitonin 0.61 H (0.02-0.09) ng/mL 09/01/21 09/01/21 09/01/21 Range/Units 11:43 16:36 20:30 WBC (4.50-10.00) X 10*3/uL RBC (4.40-5.60) X 10*6/uL Hgb (13.0-17.0) g/dL MCV (80.0-97.0) fL MCHC (32.0-37.0) g/dL MPV (9.5-12.2) fL Immature Gran # (0.00-0.04) X 10*3/uL Neutrophils # (1.80-7.70) X 10*3/uL Eosinophils # (0.04-0.35) X 10*3/uL Sodium (135-145) mmol/L Chloride (96-109) mmol/L Carbon Dioxide (20.0-27.5) mmol/L BUN (9.0-27.0) mg/dL Est GFR (CKD-EPI)AfAm (60.0-200.0) Est GFR (CKD-EPI)NonAf (60.0-200.0) BUN/Creatinine Ratio (12.00-20.00) Ratio Glucose (70-110) mg/dL POC Glucose (mg/dL) 158 H 236 H 262 H (75-99) mg/dL Calcium (8.7-10.3) mg/dL AST (14-35) U/L ALT (10-49) U/L Alkaline Phosphatase (41-126) U/L Albumin (3.8-4.9) g/dL Globulin (1.6-3.3) g/dL Albumin/Globulin Ratio (1.60-3.17) g/dL Procalcitonin (0.02-0.09) ng/mL 09/02/21 Range/Units 06:55 WBC (4.50-10.00) X 10*3/uL RBC (4.40-5.60) X 10*6/uL Hgb (13.0-17.0) g/dL MCV (80.0-97.0) fL MCHC (32.0-37.0) g/dL MPV (9.5-12.2) fL Immature Gran # (0.00-0.04) X 10*3/uL Neutrophils # (1.80-7.70) X 10*3/uL Eosinophils # (0.04-0.35) X 10*3/uL Sodium (135-145) mmol/L Chloride (96-109) mmol/L Carbon Dioxide (20.0-27.5) mmol/L BUN (9.0-27.0) mg/dL Est GFR (CKD-EPI)AfAm (60.0-200.0) Est GFR (CKD-EPI)NonAf (60.0-200.0) BUN/Creatinine Ratio (12.00-20.00) Ratio Glucose (70-110) mg/dL POC Glucose (mg/dL) 367 H (75-99) mg/dL Calcium (8.7-10.3) mg/dL AST (14-35) U/L ALT (10-49) U/L Alkaline Phosphatase (41-126) U/L Albumin (3.8-4.9) g/dL Globulin (1.6-3.3) g/dL Albumin/Globulin Ratio (1.60-3.17) g/dL Procalcitonin (0.02-0.09) ng/mL Assessment and Plan Assessment: Acute hypoxic respiratory failure secondary to covid 19 pneumonia. Acute Covid 19 pneumonia. Possible bacterial superinfection Metabolic encephalopathy due to infection Hypernatremia due to dehydration and volume depletion. Elevated inflammatory markers Acute kidney injury likely prerenal. improving Elevated liver enzymes, mild. Secondary to Covid infection Bilateral lower extremity weakness and generalized weakness. MRI of the lumbar spine recently showed L4-L5 spinal stenosis. Was seen by orthopedic surgery Diabetes type 2 [id number] History of CVA/TIA with no residual weakness History of prostate cancer Peripheral vascular disease status post left femoral stent placement Coronary artery disease with history of CABG Plan: This is a pleasant 85 years old male who presents with covid pneumonia. Continue with vitamin C, vitamin D and zinc. Continue on dexamethasone. Continue with home dose of Eliquis 2.5 mg twice a day Continue with Levemir and insulin sliding scale while monitoring glucose closely. Pulmonary consult on the case Continue with antibiotic ceftriaxone and Zithromax Labs and medication were reviewed.. Continue same treatment. Continue with symptomatic treatment. Resume home medication. Monitor lytes and vitals. DVT and GI prophylaxis. Further recommendations as per clinical course of the patient DVT prophylaxis: Eliquis GI Prophylaxis: Ppi Prognosis is guarded
[2021-09-02 19:49] LABS: Glucose,Whole Blood 262 mg/dL (75-99)
[2021-09-02] MEDS ORDERED: INSULIN DETEMIR (LEVEMIR) 100 UNIT/ML SYR SQ ONE (20:15)
[2021-09-02] MEDS: ATORVASTATIN 80 MG TAB PO SCH (21:42)
[2021-09-02] MEDS: APIXABAN 2.5 MG TABLET PO SCH (21:42)
[2021-09-03] MEDS: PANTOPRAZOLE 40 MG TABLET PO SCH (04:13)
[2021-09-03] MEDS ORDERED: INSULIN DETEMIR (LEVEMIR) 100 UNIT/ML SYR SQ SCH (07:00)
[2021-09-03 07:03] LABS: Glucose,Whole Blood 120 mg/dL (75-99)
[2021-09-03] MEDS: ALPRAZolam 0.5 MG TAB PO PRN (07:10)
[2021-09-03] MEDS ORDERED: MORPHINE SULFATE 2 MG/ML SYRINGE IVP STA (07:42)
--- NOTE | 2021-09-03 07:45 | P.EN ---
i called son Mr. Anthony Gillis at [phone] and left a message to call back
[2021-09-03] MEDS: ASCORBIC ACID 500 MG TAB PO SCH (08:00)
[2021-09-03] MEDS: amLODIPine 10 MG TAB PO SCH (08:00)
[2021-09-03] MEDS: ASPIRIN 81 MG PO SCH (08:01)
[2021-09-03] MEDS: LOSARTAN 50 MG TAB PO SCH (08:01)
[2021-09-03] MEDS: METOPROLOL TARTRATE 25 MG TAB PO SCH (08:01)
[2021-09-03] MEDS: FOLIC ACID 1 MG TAB PO SCH (08:01)
[2021-09-03] MEDS: CHOLECALCIFEROL 25 MCG (1000 IU) TABLET PO SCH (08:01)
[2021-09-03] MEDS: ZINC SULFATE 220 MG CAP PO SCH (08:01)
[2021-09-03] MEDS: AZITHROMYCIN 500 MG in SODIUM CHLORIDE 0.9% 250 ML IVPB SCH (08:01)
[2021-09-03] MEDS: INSULIN ASPART (NovoLOG) 100 UNIT/ML VIAL SQ SCH ×2 (08:13→12:26)
[2021-09-03] MEDS ORDERED: MORPHINE SULFATE 2 MG/ML SYRINGE IVP PRN (09:10)
[2021-09-03] MEDS: DEXAMETHASONE SOD PHOSPHATE 10 MG/ML 1 ML VIAL IVP SCH (09:32)
[2021-09-03 11:58] LABS: Glucose,Whole Blood 158 mg/dL (75-99)
--- NOTE | 2021-09-03 12:59 | P.PN ---
Subjective Patient is a 85-year-old male with a known history of recently diagnosed covid 19 infection on 08/17/2021, history of CVA/TIA, prostate cancer, peripheral vascular disease status post left femoral stent, coronary artery disease with history of CABG Patient was sent to Hospital from [facility] due to hypoxia requiring 4 L via nasal cannula. Pulse ox was 92% on 4 L. EMS was called. Staph was also concerned about his legs look monitored. Patient otherwise very weak and cannot provide much history. Denied any complaints of chest pain or shortness of breath. No nausea vomiting or diarrhea. No abdominal pain. Patient was admitted to the hospital recently due to bilateral lower extremity weakness and generalized weakness. Patient was also found have elevated troponin level. 2-D echocardiogram showed normal ejection fraction and mild pulmonary hypertension. Neurology has seen the patient due to metabolic encephalopathy and bilateral lower extremity weakness. Patient underwent CT head which showed moderate diffuse age-related cerebral atrophy and chronic severe small resid ischemic changes. Patient had MRI of the lumbar spine due to bilateral lower extremity weakness. MRI of the lumbar spine showed central stenosis L4-L5 region. Orthopedic surgery recommends pain management and epidural injection. Epidural injection could not be done due to Covid 19 infection also patient being on Eliquis for stroke prophylaxis. Patient was continued on pain management and was sent to [facility] on 08/22/2021 During previous admission patient was not hypoxic and did not require dexamethasone. Patient was also seen by pulmonary at the time. Chest x-ray showed new bilateral reticular increased opacities greatest in the lower lungs and in the periphery consistent with Covid 19 infection. EKG showed sinus tachycardia with PACs. Laboratory data showed WBC 12.5, hemoglobin 14.8, platelets 278 INR 1.4 Sodium 151 potassium 4.4 chloride 117 bicarb is 20 BUN 90 and creatinine 2.92. Baseline creatinine around 1.2 Lactic acid level was 3.1 admission Ferritin 3203, AST 205 ALT 67, alk phos 94 CRP 21.3 and LDH 2096 Pro calcitonin level 0.66 08/27/2021 Patient is currently resting in the bed. Patient is awake alert but seems to be mildly confused. No complaints of chest pain. Generalized weakness. Currently on oxygen at 10 L high flow via nasal cannula. Patient has been afebrile. Laboratory data showed D-dimer level is 1.46, WBC 14.1 hemoglobin 11.7 and platelets 252 sodium 151 potassium 4.09 BUN 100 and creatinine 2.8 blood sugar is 277, LDH 830 and CRP 15.7 Patient is being current dexamethasone and Eliquis and multivitamins. Pulmonary has seen the patient. 08/28/2021 Patient is on the medical floor. Lying in the bed comfortably. Seems to be more awake and oriented today. Able to tolerate oral diet minimally. Otherwise patient is 10 L oxygen high flow. Denies any complaints of cough or worsening shortness of breath. Hemodynamically stable. Patient is being continued on dexamethasone, Eliquis and IV fluids changed to D5 water due to hypernatremia. Laboratory showed WBC 13.0 hemoglobin 10.3 and platelets 238 Sodium 150 potassium 4.1 chloride 117 bicarb is 18.0 BUN 94.8 creatinine 2.0 blood sugar is 158 Subjective: 08/29/2021 Patient is awake but is lethargic and tired. Distal hypoxic on telemetry to her oxygen with saturation of 90%. Hypernatremia improved with sodium 145 daily and D5W was discontinued. Patient is able to eat and drink well today. Creatinine improved down to 1.6. Baseline creatinine 1.1-1.4 Leukocytosis of 14.7 while on steroids. Increased inflammatory markers with LDH 3089 and CRP 5.8. He still on dexamethasone, multiple vitamins, Eliquis, Levemir. His dose increased 10 units up to 20 units tomorrow because of high glucose at 411 08/30/2021 Patient is awake but slightly confused today, he denies any chest pain. Also he denies any back pain. He is able to tolerate diet well and he is eating 100% of his diet, even better than yesterday However he still tachypnea which is mild while at rest but oxygen requirement went up to 15 L/m compared to 10 yesterday. His sodium is 148 which is slightly elevated, also creatinine is slightly elevated 1.7 compared to baseline of 1.1- 1.4. We will order labs tomorrow. Also we will check chest x-ray 08/31/2021 Patient still confused today. His breathing is slightly worse, he is currently on 15 L per minute of oxygen via nasal cannula with saturation of 87%. Blood pressure is stable. Labs showing WBC 14.9 K, sodium went up to 153. Creatinine is stable 1.7. Inflammatory markers actually improving with LDH down to 819 and CRP at 6.6. Glucose today is more elevated, ranging between 217-388, his Levemir dose was in creased 20 up to 30 units. And continued on insulin sliding scale Patient remains on multiple vitamin C, D and zinc. Also he is on dexamethasone, home dose of Eliquis 2.5 mg twice a day. And patient is on D5W at 125 restarted today. 09/01/2021 Patient remains confused secondary to his Covid infection and hypernatremia. He remains on 15 L/m of oxygen via nonrebreather, his oxygen saturation is a slightly better than yesterday from 87 up to 90%. However his chest x-ray showing worsening left lower lobe infiltrate. We will check for Dr. vasques to rule out aspiration possibility. Patient remains on D5 W at 1 50 mL/h to help his hypernatremia, also his Levemir increased today 20 up to 30 units with better glucose control around 160 which might help his hypernatremia. Expecting his sodium to start improving tomorrow. Check inflammatory markers tomorrow as well 09/02/2021 Patient's condition continued to deteriorate and he is currently on BiPAP. His supportcalcitonin is slightly increased at 0.3 up to 0.6 and therefore he was placed on empiric antibiotics of Rocephin and Zithromax for possible bacterial superinfection. He still have leukocytosis of 17 K, sodium improved to 146, creatinine to 1.5 but inflammatory markers worsened with LDH 1153 and CRP 14.5. His Levemir was increased to 38 units because of sugar are around 250-300 I talked to the son Anthony sandoval at [phone], and I discussed the case with him in details, and he opted for no code for his father, no resuscitation, and definitely no intubation and no life support 09/03/2021 This morning patient was placed on BiPAP, he was more agitated and pulling out to its and mask, he was prepped decubitus saturation 70 to 80s, he received 1 time dose of Xanax with no much help, I called the son to update him on the left a message, however patient calmed down after 2 mg of morphine provided for him this morning. And he looks like now he feels better,, still no much response. However he had fever yesterday of 99.9. Glucose today is 120-158 bouts patient is not eating for the last 24 hours and continue to D5W at 100 mL per hour. Therefore we lowered his the primary to 30 minutes tomorrow and keep monitoring of her glucose. Still on dexamethasone, multiple vitamins, and Antibiotics started yesterday with ceftriaxone and Zithromax. He is on Eliquis 5 mg twice a day, Objective - Vital Signs Vital signs: Vital Signs Temp 99.2 F 09/03/21 10:12 Pulse 105 H 09/03/21 10:12 Resp 18 09/03/21 10:12 BP 153/76 09/03/21 10:12 Pulse Ox 95 09/03/21 10:12 Intake & Output 09/02/21 09/03/21 09/03/21 18:59 06:59 18:59 Intake Total 1400 Balance 1400 Weight 99.79 kg Intake: Intake, IV Titration 1400 Amount Dextrose 5% in Water 1, 1400 000 ml @ 100 mls/hr IV . Q10H COUNTS INCLUDE 234 BEDS AT THE [facility] Rx#:[id number] Other: Voiding Method Diaper Diaper # Voids 2 - Exam GENERAL: The patient is alert and oriented x3, not in any acute distress. Well developed, well nourished. HEENT: Pupils are round and equally reacting to light. EOMI. No scleral icterus. No conjunctival pallor. Normocephalic, atraumatic. No pharyngeal erythema. No t hyromegaly. CARDIOVASCULAR: S1 and S2 present. No murmurs, rubs, or gallops. -PULMONARY: Chest is clear to auscultation, no wheezing . Bilateral crepitation ABDOMEN: Soft, nontender, nondistended, normoactive bowel sounds. No palpable organomegaly. MUSCULOSKELETAL: No joint swelling or deformity. EXTREMITIES: No cyanosis, clubbing, or pedal edema. NEUROLOGICAL: Gross neurological examination did not reveal any focal deficits. SKIN: No rashes. no petechiae. - Labs CBC & Chem 7: 09/02/21 06:59 09/02/21 06:59 Labs: Abnormal Lab Results - Last 24 Hours (Table) 09/02/21 09/02/21 09/03/21 Range/Units 16:31 19:46 07:01 POC Glucose (mg/dL) 315 H 262 H 120 H (75-99) mg/dL 12/15/21 Range/Units 11:52 POC Glucose (mg/dL) 158 H (75-99) mg/dL Assessment and Plan Assessment: Acute hypoxic respiratory failure secondary to covid 19 pneumonia. Acute Covid 19 pneumonia. Possible bacterial superinfection Metabolic encephalopathy due to infection Hypernatremia due to dehydration and volume depletion. Elevated inflammatory markers Acute kidney injury likely prerenal. improving Elevated liver enzymes, mild. Secondary to Covid infection Bilateral lower extremity weakness and generalized weakness. MRI of the lumbar spine recently showed L4-L5 spinal stenosis. Was seen by orthopedic surgery Diabetes type 2 [id number] History of CVA/TIA with no residual weakness History of prostate cancer Peripheral vascular disease status post left femoral stent placement Coronary artery disease with history of CABG Plan: This is a pleasant 85 years old male who presents with covid pneumonia. Continue with BiPAP Continue with vitamin C, vitamin D and zinc. Continue on dexamethasone. Continue with home dose of Eliquis 2.5 mg twice a day Continue with Levemir and insulin sliding scale while monitoring glucose fede sely. Pulmonary consult on the case Continue with antibiotic ceftriaxone and Zithromax Labs and medication were reviewed.. Continue same treatment. Continue with symptomatic treatment. Resume home medication. Monitor lytes and vitals. DVT and GI prophylaxis. Further recommendations as per clinical course of the patient DVT prophylaxis: Eliquis GI Prophylaxis: Ppi Prognosis is guarded No code
[2021-09-03] MEDS: LORazepam 2 MG/ML INJ IV PRN (14:44)
[2021-09-03] MEDS: DEXTROSE 5% IN WATER 1,000 ML IV SCH (14:44)
[2021-09-03 14:51] VITALS: BP 123/65
--- NOTE | 2021-09-03 14:55 | P.PN ---
Subjective Progress Note Date: 09/03/21 Principal diagnosis: Dyspnea, hypoxia, altered mental status 85-year-old white male patient with multiple chronic medical problems including diabetes mellitus type 2, hypertension, peripheral vascular disease with previous history of intervention in November 2019, previous history of CVA with slight left-sided residual weakness, history of prostate cancer who was recently hospitalized for generalized weakness, falls, and at that time patient was found to have an acute COVID-19 infection. However chest x-ray during that admission showed no evidence of pneumonia, patient was on room air, he had a mild cough, and it was felt that the COVID 19 infection was more of a incidental finding. Patient was treated supportively, he was not given any Decadron or Remdesivir. He was given IV hydration, he was found to be encephalopathic during that admission, he was seen by neurology in consultation who felt that this was related to toxic metabolic encephalopathy. CT of the brain showed moderate to severe chronic small vessel ischemic changes with evidence of old infarct in the right frontal and high posterior right frontal infarcts. EEG showed slowing of moderate degree but no evidence of seizure. Patient had MRI of the lumbar spine showing severe spinal stenosis at L4 and L5. He was seen in consultation by orthopedic surgery and pain services. Please refer to their consultation notes. Patient continued to be weak, and continued to have difficulty walking, and he was discharged to subacute rehab on 08/22/2021. Patient was brought back to the emergency department per EMS on 08/26/2021 from the [place] [facility] for evaluation of hypoxia. His initial diagnosis of COVID-19 was established on 08/17/2021. He was on 4 L of oxygen at the [facility] on the [facility]. Normally patient is not on any oxygen. The nurses at the [facility] noted that his extremities or looking mo ttled, and patient was having more trouble breathing. No documented fever or chills, patient has a congested cough, he remained confused, he is only oriented to person. No documented fevers, no complaints of chest pain, no nausea vomiting, no headaches. EKG showed sinus tachycardia with PACs, it was felt that patient was dehydrated, there was evidence of acute kidney injury on his labs, chest x-ray showed new bilateral reticular increased opacities greatest in the lower lungs and in the periphery consistent with COVID-19 infection. His admission labs reveal white blood cell, 12.5, hemoglobin of 14.8, INR is 1.4, sodium was 151, potassium was 4.4, chloride was 117, CO2 was 20, BUN was 90, and creatinine is 2.9 to significantly increased since his discharge, lactic acid was 3.1, ferritin level was 3203, AST was 205, ALT was 67, his LDH was 2096, CRP was 21.3, pro-calcitonin level was 0.36. Patient has been afebrile while in the hospital, he is currently on 10 L of oxygen pulse ox is 88%. He has a congested cough, he was felt to be intermittently aspirating, he was seen by speech therapy who recommended pured diet. Patient was given IV hydration, he has 0.9 at 75 which will be switched over to 0.45 at 75. Lactiq acid has improved with IV hydration and is currently at 1.7. On 08/28/2021 patient seen in follow-up on medical surgical floor. He is resting comfortably in bed, he remains on 10 L of oxygen, does not appear to be in any distress, no evidence of worsening dyspnea, no cough, overall he seems much more awake, more conversant, and more appropriate today. he is still confused, and at times he is restless and removes his oxygen off. On 10 L of oxygen his pulse ox is 95%, his been afebrile, hemodynamically has been stable, lung sounds reveal a few scattered rales, no rhonchi or wheezing, no complaints of chest pain. He is currently receiving Decadron 6 mg daily, he is on Eliquis 2.5 mg for history of PVD, and previous history of stroke, he is on 0.9 normal saline at a rate of 75 ML per hour, his lower extremity Dopplers were negative for DVT. Today's labs have been reviewed, his white blood cell count is 13, hemoglobin is 10.3, his serum sodium slightly improved however still elevated at 150, potassium is 4.1, chloride is 117, CO2 is 18, BUN of 94, creatinine is 2.0, improving, his inflammatory markers were improving on yesterday's labs, today's levels are pending. On 08/29/2021 patient seen in follow-up on medical surgical floor, he is plea santly confused, she repeatedly removes his oxygen, he is currently on 8 L of oxygen his pulse ox is 88-95%, his been afebrile overnight, vital signs have been stable, he does not appear to be in any acute distress, she does have occasional dry cough, lung sounds reveal diffuse coarse crackles bilaterally, his mentation seems to be more awake and alert, interactive, he denies any specific complaints. No nausea vomiting or diarrhea. Today's labs have been reviewed, his white count is relatively stable at 14.7, hemoglobin is 14.8, his platelet count is 225, his serum sodium is 145, potassium is 4.6, his BUN is 87, creatinine is 1.68, his D5W infusion has been turned down to KVO, patient is t olerating oral intake, his renal function is improving. LDH has significantly increased and is up to 3089, and CRP is improved and is down to 5.8. Patient continues on Decadron 6 mg daily, she is on home dose Eliquis 2.5 mg, his lower extremity Dopplers were negative for DVT, follow-up d-dimer is pending. He is on COVID-19 vitamins. On 08/31/2021 patient seen in follow-up on medical surgical floor, patient is sleepy, but arousable, he is on 15 L of oxygen his pulse ox is 90%, his oxygenation has been marginal, but he appears to be in no acute distress, he did not sleep all night per nursing report, and now he is tired. He could remains confused, but not agitated. He has bilateral mid some bilateral hands to keep him from removing his oxygen. Blood pressure is been stable he's had no fevers overnight. Today's chest x-ray shows interval increase in the left basilar airspace disease. His labs have been reviewed, his white blood cell count 14, hemoglobin is 12, his d-dimer is 1.90, his sodium has further increased to 153, patient's appetite has been poor, potassium is 5.2, his chloride has increased to 122, B1 is 85 and creatinine is 1.7, however his inflammatory markers have improved and LDH is down to 819, and CRP is 6.6. Patient is currently on a combination of Decadron 6 mg daily, he is on Eliquis 2 and half milligrams at bedtime which he chronically takes for history of severe PVD, he is on COVID-19 multivitamins. Is on half-normal saline at a rate of 75 ML per hour. On 09/01/2021 patient seen in follow-up on medical surgical floor, he is currently on 15 L per high flow nasal cannula and 100% nonrebreather mask, his pulse ox is 90%, afebrile, his been confused, when asked if he knew where he was, he stated that he is [place]. His oral intake has been poor, he has been on D5W at 125 ML per hour. He remains on Decadron 6 mg daily, COVID-19 vitamins, and request 2.5 mg daily. Reveal diffuse rhonchi, patient has a weak cough. His labs have been reviewed showing white blood cell count of 16.4, his hemoglobin is 12.6, his platelet count is 245, potassium sodium has further increased and is up to 154, chloride is 123, potassium is 4.7, BUN is 69, creat inine is improved and is down to 1.4. Inflammatory markers are still pending on today's labs, LDH improved on yesterday's labs, and CRP was up slightly at 6.6. Today's chest x-ray doing worsening left lower lobe consolidation. On 09/02/2021 patient seen in follow-up on medical surgical floor, patient's hypoxia and dyspnea have progressed, he was satting in the low 80s on 15 L per high flow nasal cannula and a nonrebreather mask, and subsequently was switched to BiPAP with pressures of 12 and 6 and 100%. He is poorly responsive, but he sitting better on BiPAP, and his pulse ox is 93%, afebrile, hemodynamically his been stable. Yesterday's chest x-ray was showing worsening left lower lobe consolidation. Patient was suspected to be a high risk for aspiration related to altered mental status. He has not been eating much by mouth. He is on D5W at a rate of 100 ML per hour, his serum sodium on today's labs is improving and is down to 146, his blood blood cell count is fairly stable at 17.6, hemoglobin is 13, potassium is 5.4, chloride is 1:15, CO2 is 13, his BUN is 63 and creatinine is 1.5. His glucose has significantly decreased and is up to 433 his liver enzymes are relatively stable, his pro-calcitonin level was 0.61 increased from 0.36 on previous lab draw from 08/26/2021. Pancreatic antibiotics in the form of azithromycin and Rocephin have been added. Patient continues on Eliquis however because of his altered mental status he was unable to take anything by mouth including his oral medications. We'll his condition seems to have significantly declined in the last 48 hours. Patient is chronically debilitated, his multiple comorbidities, his hypoxia has progressed from his COVID-19 pneumonia. The recommendation is to address his CODE STATUS and discuss goals of treatment with the recommendation of making the patient DO NOT RESUSCITATE and possibly progress to hospice care if does not show improvement in the next 24 hours On 09/03/2021 patient seen in follow-up on medical surgical floor. He continues to be BiPAP dependent, he is increasingly more agitated, confused, he has been trying to remove his mask, safety grooving machine operator is at the bedside to help keep the mask on, he is dyspneic, he is tachypneic, he is tearful. Patient has been maximized in terms of medical treatment, he failed to improve, and in fact his noted to be more dyspneic and struggling on today's exam. The attending physician has reached out to the son this morning and left a message about his dad's condition. Clinically he has been gradually declining, he has had very little oral intake. His last chest x-ray on 09/01/2021 she was showing worsening left lower lobe consolidation. His oxygen requirement has significantly increased and patient is essentially BiPAP dependent. His labs are still pending for today, but his inflammatory markers were increasing on most recent set of labs from 09/02/2021. I had reached out to the patient's son Anthony Joyce who is on his way to the hospital and discussed the patient's condition and his declining overall state. Patient code is DO NOT RESUSCITATE CODE STATUS at this time, and our recommendation is to make the patient comfortable at this time. The son is agreeable to open the patient to hospice/comfort care measures. In the meantime we'll give the patient a dose of Ativan for restlessness, breathlessness and remove the BiPAP mask place the patient on 100% nonrebreather mask Objective - Vital Signs Vital signs: Vital Signs Temp 98.1 F 09/03/21 14:00 Pulse 77 09/03/21 14:00 Resp 24 09/03/21 14:00 BP 123/65 09/03/21 14:00 Pulse Ox 94 L 09/03/21 14:00 Intake & Output 09/02/21 09/03/21 09/03/21 18:59 06:59 18:59 Intake Total 1400 Balance 1400 Weight 99.79 kg Intake: Intake, IV Titration 1400 Amount Dextrose 5% in Water 1, 1400 000 ml @ 100 mls/hr IV . Q10H PEEWEE Rx#:[id number] Other: Voiding Method Diaper Diaper # Voids 2 - Exam GENERAL EXAM:restless, dyspneic, tachypneic 85-year-old elderly male currently on BiPAP support with pressures of 12 and 6 and FiO2 of 100%, with a pulse ox of 93% HEAD: Normocephalic/atraumatic. EYES: Normal reaction of pupils, equal size. Conjunctiva pink, sclera white. NOSE: Clear with pink turbinates. THROAT: No erythema or exudates. NECK: No masses, no JVD, no thyroid enlargement, no adenopathy. CHEST: No chest wall deformity. Symmetrical expansion. LUNGS: Equal air entry with diffuse rhonchi CVS: Regular rate and rhythm, normal S1 and S2, no gallops, no murmurs, no rubs ABDOMEN: Soft, nontender. No hepatosplenomegaly, normal bowel sounds, no guarding or rigidity. EXTREMITIES: No clubbing, no edema, no cyanosis, 2+ pulses and upper and lower extremities. MUSCULOSKELETAL: Muscle strength and tone normal. SPINE: No scoliosis or deformity SKIN: No rashes CENTRAL NERVOUS SYSTEM: Somnolent, restless, moans No focal deficits, tone is normal in all 4 extremities. - Labs CBC & Chem 7: 09/02/21 06:59 09/02/21 06:59 Labs: Abnormal Lab Results - Last 24 Hours (Table) 09/02/21 09/02/21 09/03/21 Range/Units 16:31 19:46 07:01 POC Glucose (mg/dL) 315 H 262 H 120 H (75-99) mg/dL 09/03/21 Range/Units 11:52 POC Glucose (mg/dL) 158 H (75-99) mg/dL Assessment and Plan Plan: Assessment: #1. Acute hypoxic respiratory failure related to acute COVID-19 pneumonia, with initial diagnosis on 08/17/2021, patient is outside the window for Remdesivir, she is being treated supportively with Decadron, he is on Eliquis 2.5 mg at be dtime for previous history of CVA and severe PVD. On today's exam his FiO2 requirement is up to 15 L #2. Altered mental status, multifactorial, related to hypoxic encephalopathy, and metabolic encephalopathy #3. Recent hospitalization for altered mental status, toxic metabolic encephalopathy, COVID-19 infection without pneumonia, and patient was discharged to the [facility] on the [facility] on 08/22/2021 #4. Acute kidney injury related to dehydration, improving #5. Lactic acidosis related to dehydration, improved with IV hydration #6. Acute hypernatremia related to free water deficit, and dehydration, on IV hydration #7. Elevated inflammatory markers related to COVID-19 #8. Previous history of CVA 10 years ago with mild left-sided weakness #9. Acute metabolic encephalopathy, ongoing, multifactorial, related to hypoxic encephalopathy, in addition to metabolic encephalopathy #10. Diabetes mellitus type 2 #11. History of prostate cancer #12. History of peripheral vascular disease with previous history of left femoral stent #13. L4-L5 spinal stenosis with bilateral leg weakness and bilateral hip pain, patient was seen by orthopedic surgery and pain services during his last admission #14. No evidence of CVA on the CT had from previous admission #15. Coronary artery disease status post coronary artery bypass grafting #16. Mildly elevated pro calcitonin with possibility of bacterial infection, possibly related to aspiration pneumonia Plan: In the last 24 hours patient's condition continued to decline Patient is dyspneic, tachypneic, he is moaning, tearful Continues to be BiPAP dependent at 100% FiO2 He has been maximized in terms of medical treatment Unfortunately he has failed to show improvement I have discussed his condition with his son Anthony Gillis OUr recommendation is to proceed with comfort care and the son is agreeable to comfort care His family is coming in to see their father We'll proceed with comfort care protocol when the son is here in ready to proceed We'll give the patient 0.5 mg of IV push Ativan and place him on 100% nonrebre ather mask IV push morphine as needed for breathlessness, and discomfort Prognosis is extremely poor I performed a history & physical examination of the patient and discussed their management with my nurse practitioner, Ciarra Gabino. I reviewed the nurse practitioner's note and agree with the documented findings and plan of care. Lung sounds are positive for diffuse crackles throughout the lung reyes. The findings and the impression was discussed with the patient. I attest to the documentation by the nurse practitioner. Time with Patient: Less than 30
[2021-09-03 16:45] LABS: Glucose,Whole Blood 234 mg/dL (75-99)
[2021-09-03] MEDS: MORPHINE SULFATE 2 MG/ML SYRINGE IVP PRN ×2 (16:58→22:31)
[2021-09-04] MEDS: LORazepam 2 MG/ML INJ IV PRN ×2 (02:49→16:09)
[2021-09-04] MEDS: MORPHINE SULFATE 2 MG/ML SYRINGE IVP PRN ×4 (05:31→15:19)
[2021-09-04] MEDS ORDERED: INSULIN DETEMIR (LEVEMIR) 100 UNIT/ML SYR SQ SCH (07:00)
[2021-09-04 10:23] VITALS: TEMP 97.9
--- NOTE | 2021-09-04 14:12 | P.PN ---
Subjective Progress Note Date: 09/04/21 Principal diagnosis: Dyspnea, hypoxia, altered mental status 85-year-old white male patient with multiple chronic medical problems including diabetes mellitus type 2, hypertension, peripheral vascular disease with previous history of intervention in November 2019, previous history of CVA with slight left-sided residual weakness, history of prostate cancer who was recently hospitalized for generalized weakness, falls, and at that time patient was found to have an acute COVID-19 infection. However chest x-ray during that admission showed no evidence of pneumonia, patient was on room air, he had a mild cough, and it was felt that the COVID 19 infection was more of a incidental finding. Patient was treated supportively, he was not given any Decadron or Remdesivir. He was given IV hydration, he was found to be encephalopathic during that admission, he was seen by neurology in consultation who felt that this was related to toxic metabolic encephalopathy. CT of the brain showed moderate to severe chronic small vessel ischemic changes with evidence of old infarct in the right frontal and high posterior right frontal infarcts. EEG showed slowing of moderate degree but no evidence of seizure. Patient had MRI of the lumbar spine showing severe spinal stenosis at L4 and L5. He was seen in consultation by orthopedic surgery and pain services. Please refer to their consultation notes. Patient continued to be weak, and continued to have difficulty walking, and he was discharged to subacute rehab on 08/22/2021. Patient was brought back to the emergency department per EMS on 08/26/2021 from the retirement for evaluation of hypoxia. His initial diagnosis of COVID-19 was established on 08/17/2021. He was on 4 L of oxygen at the [facility] on the [facility]. Normally patient is not on any oxygen. The nurses at the [facility] noted that his extremities or looking mo ttled, and patient was having more trouble breathing. No documented fever or chills, patient has a congested cough, he remained confused, he is only oriented to person. No documented fevers, no complaints of chest pain, no nausea vomiting, no headaches. EKG showed sinus tachycardia with PACs, it was felt that patient was dehydrated, there was evidence of acute kidney injury on his labs, chest x-ray showed new bilateral reticular increased opacities greatest in the lower lungs and in the periphery consistent with COVID-19 infection. His admission labs reveal white blood cell, 12.5, hemoglobin of 14.8, INR is 1.4, sodium was 151, potassium was 4.4, chloride was 117, CO2 was 20, BUN was 90, and creatinine is 2.9 to significantly increased since his discharge, lactic acid was 3.1, ferritin level was 3203, AST was 205, ALT was 67, his LDH was 2096, CRP was 21.3, pro-calcitonin level was 0.36. Patient has been afebrile while in the hospital, he is currently on 10 L of oxygen pulse ox is 88%. He has a congested cough, he was felt to be intermittently aspirating, he was seen by speech therapy who recommended pured diet. Patient was given IV hydration, he has 0.9 at 75 which will be switched over to 0.45 at 75. Lactiq acid has improved with IV hydration and is currently at 1.7. On 08/28/2021 patient seen in follow-up on medical surgical floor. He is resting comfortably in bed, he remains on 10 L of oxygen, does not appear to be in any distress, no evidence of worsening dyspnea, no cough, overall he seems much more awake, more conversant, and more appropriate today. he is still confused, and at times he is restless and removes his oxygen off. On 10 L of oxygen his pulse ox is 95%, his been afebrile, hemodynamically has been stable, lung sounds reveal a few scattered rales, no rhonchi or wheezing, no complaints of chest pain. He is currently receiving Decadron 6 mg daily, he is on Eliquis 2.5 mg for history of PVD, and previous history of stroke, he is on 0.9 normal saline at a rate of 75 ML per hour, his lower extremity Dopplers were negative for DVT. Today's labs have been reviewed, his white blood cell count is 13, hemoglobin is 10.3, his serum sodium slightly improved however still elevated at 150, potassium is 4.1, chloride is 117, CO2 is 18, BUN of 94, creatinine is 2.0, improving, his inflammatory markers were improving on yesterday's labs, today's levels are pending. On 08/29/2021 patient seen in follow-up on medical surgical floor, he is plea santly confused, she repeatedly removes his oxygen, he is currently on 8 L of oxygen his pulse ox is 88-95%, his been afebrile overnight, vital signs have been stable, he does not appear to be in any acute distress, she does have occasional dry cough, lung sounds reveal diffuse coarse crackles bilaterally, his mentation seems to be more awake and alert, interactive, he denies any specific complaints. No nausea vomiting or diarrhea. Today's labs have been reviewed, his white count is relatively stable at 14.7, hemoglobin is 14.8, his platelet count is 225, his serum sodium is 145, potassium is 4.6, his BUN is 87, creatinine is 1.68, his D5W infusion has been turned down to KVO, patient is t olerating oral intake, his renal function is improving. LDH has significantly increased and is up to 3089, and CRP is improved and is down to 5.8. Patient continues on Decadron 6 mg daily, she is on home dose Eliquis 2.5 mg, his lower extremity Dopplers were negative for DVT, follow-up d-dimer is pending. He is on COVID-19 vitamins. On 08/31/2021 patient seen in follow-up on medical surgical floor, patient is sleepy, but arousable, he is on 15 L of oxygen his pulse ox is 90%, his oxygenation has been marginal, but he appears to be in no acute distress, he did not sleep all night per nursing report, and now he is tired. He could remains confused, but not agitated. He has bilateral mid some bilateral hands to keep him from removing his oxygen. Blood pressure is been stable he's had no fevers overnight. Today's chest x-ray shows interval increase in the left basilar airspace disease. His labs have been reviewed, his white blood cell count 14, hemoglobin is 12, his d-dimer is 1.90, his sodium has further increased to 153, patient's appetite has been poor, potassium is 5.2, his chloride has increased to 122, B1 is 85 and creatinine is 1.7, however his inflammatory markers have improved and LDH is down to 819, and CRP is 6.6. Patient is currently on a combination of Decadron 6 mg daily, he is on Eliquis 2 and half milligrams at bedtime which he chronically takes for history of severe PVD, he is on COVID-19 multivitamins. Is on half-normal saline at a rate of 75 ML per hour. On 09/01/2021 patient seen in follow-up on medical surgical floor, he is currently on 15 L per high flow nasal cannula and 100% nonrebreather mask, his pulse ox is 90%, afebrile, his been confused, when asked if he knew where he was, he stated that he is [place]. His oral intake has been poor, he has been on D5W at 125 ML per hour. He remains on Decadron 6 mg daily, COVID-19 vitamins, and request 2.5 mg daily. Reveal diffuse rhonchi, patient has a weak cough. His labs have been reviewed showing white blood cell count of 16.4, his hemoglobin is 12.6, his platelet count is 245, potassium sodium has further increased and is up to 154, chloride is 123, potassium is 4.7, BUN is 69, creat inine is improved and is down to 1.4. Inflammatory markers are still pending on today's labs, LDH improved on yesterday's labs, and CRP was up slightly at 6.6. Today's chest x-ray doing worsening left lower lobe consolidation. On 09/02/2021 patient seen in follow-up on medical surgical floor, patient's hypoxia and dyspnea have progressed, he was satting in the low 80s on 15 L per high flow nasal cannula and a nonrebreather mask, and subsequently was switched to BiPAP with pressures of 12 and 6 and 100%. He is poorly responsive, but he sitting better on BiPAP, and his pulse ox is 93%, afebrile, hemodynamically his been stable. Yesterday's chest x-ray was showing worsening left lower lobe consolidation. Patient was suspected to be a high risk for aspiration related to altered mental status. He has not been eating much by mouth. He is on D5W at a rate of 100 ML per hour, his serum sodium on today's labs is improving and is down to 146, his blood blood cell count is fairly stable at 17.6, hemoglobin is 13, potassium is 5.4, chloride is 1:15, CO2 is 13, his BUN is 63 and creatinine is 1.5. His glucose has significantly decreased and is up to 433 his liver enzymes are relatively stable, his pro-calcitonin level was 0.61 increased from 0.36 on previous lab draw from 08/26/2021. Pancreatic antibiotics in the form of azithromycin and Rocephin have been added. Patient continues on Eliquis however because of his altered mental status he was unable to take anything by mouth including his oral medications. We'll his condition seems to have significantly declined in the last 48 hours. Patient is chronically debilitated, his multiple comorbidities, his hypoxia has progressed from his COVID-19 pneumonia. The recommendation is to address his CODE STATUS and discuss goals of treatment with the recommendation of making the patient DO NOT RESUSCITATE and possibly progress to hospice care if does not show improvement in the next 24 hours On 09/03/2021 patient seen in follow-up on medical surgical floor. He continues to be BiPAP dependent, he is increasingly more agitated, confused, he has been trying to remove his mask, product safety specialist is at the bedside to help keep the mask on, he is dyspneic, he is tachypneic, he is tearful. Patient has been maximized in terms of medical treatment, he failed to improve, and in fact his noted to be more dyspneic and struggling on today's exam. The attending physician has reached out to the son this morning and left a message about his dad's condition. Clinically he has been gradually declining, he has had very little oral intake. His last chest x-ray on 09/01/2021 she was showing worsening left lower lobe consolidation. His oxygen requirement has significantly increased and patient is essentially BiPAP dependent. His labs are still pending for today, but his inflammatory markers were increasing on most recent set of labs from 09/02/2021. I had reached out to the patient's son Anthony Joyce who is on his way to the hospital and discussed the patient's condition and his declining overall state. Patient code is DO NOT RESUSCITATE CODE STATUS at this time, and our recommendation is to make the patient comfortable at this time. The son is agreeable to open the patient to hospice/comfort care measures. In the meantime we'll give the patient a dose of Ativan for restlessness, breathlessness and remove the BiPAP mask place the patient on 100% nonrebreather mask On 09/04/2021 patient seen in follow-up on medical surgical floor. Yesterday we updated his family about his continued clinical decline, and patient has decided to proceed with comfort care measures. Hospice was initially consulted however discharge planning recommended comfort care inpatient, as patient was not anticipated to last very long. This morning he is very lethargic, is currently on 6 L per high flow nasal cannula, seems to be breathing comfortably, he is currently on IV push morphine 2 mg every 2 hours, and lorazepam 0.5 mg every 6 hours as needed. His son did come in last night to see his father. Currently no family is at the bedside. Objective - Vital Signs Vital signs: Vital Signs Temp 97.9 F 09/04/21 10:00 Pulse 64 09/04/21 10:00 Resp 20 09/04/21 10:00 BP 123/65 09/03/21 14:00 Pulse Ox 87 L 09/04/21 10:00 Intake & Output 09/03/21 09/04/21 09/04/21 18:59 06:59 18:59 Intake Total 0 0 Balance 0 0 Intake: Oral 0 0 Other: Voiding Method Diaper Diaper - Exam GENERAL EXAM: Obtunded 85-year-old elderly male currently on 6 L of oxygen, breathing comfortable, with pulse ox is 87% HEAD: Normocephalic/atraumatic. EYES: Normal reaction of pupils, equal size. Conjunctiva pink, sclera white. NOSE: Clear with pink turbinates. THROAT: No erythema or exudates. NECK: No masses, no JVD, no thyroid enlargement, no adenopathy. CHEST: No chest wall deformity. Symmetrical expansion. LUNGS: Equal air entry with diffuse rhonchi CVS: Regular rate and rhythm, normal S1 and S2, no gallops, no murmurs, no rubs ABDOMEN: Soft, nontender. No hepatosplenomegaly, normal bowel sounds, no guarding or rigidity. EXTREMITIES: No clubbing, no edema, no cyanosis, 2+ pulses and upper and lower extremities. MUSCULOSKELETAL: Muscle strength and tone normal. SPINE: No scoliosis or deformity SKIN: No rashes CENTRAL NERVOUS SYSTEM: Somnolent, arousable to voice No focal deficits, tone is normal in all 4 extremities. - Labs CBC & Chem 7: 09/02/21 06:59 09/02/21 06:59 Labs: Abnormal Lab Results - Last 24 Hours (Table) 09/03/21 Range/Units 16:39 POC Glucose (mg/dL) 234 H (75-99) mg/dL Assessment and Plan Plan: Assessment: #1. Acute hypoxic respiratory failure related to acute COVID-19 pneumonia, with initial diagnosis on 08/17/2021, patient is outside the window for Remdesivir, she is being treated supportively with Decadron, he is on Eliquis 2.5 mg at bedtime for previous history of CVA and severe PVD. On today's exam his FiO2 re quirement is up to 15 L #2. Altered mental status, multifactorial, related to hypoxic encephalopathy, and metabolic encephalopathy #3. Recent hospitalization for altered mental status, toxic metabolic encephalopathy, COVID-19 infection without pneumonia, and patient was discharged to the [facility] on the [place] on 08/22/2021 #4. Acute kidney injury related to dehydration, improving #5. Lactic acidosis related to dehydration, improved with IV hydration #6. Acute hypernatremia related to free water deficit, and dehydration, on IV hydration #7. Elevated inflammatory markers related to COVID-19 #8. Previous history of CVA 10 years ago with mild left-sided weakness #9. Acute metabolic encephalopathy, ongoing, multifactorial, related to hypoxic encephalopathy, in addition to metabolic encephalopathy #10. Diabetes mellitus type 2 #11. History of prostate cancer #12. History of peripheral vascular disease with previous history of left femoral stent #13. L4-L5 spinal stenosis with bilateral leg weakness and bilateral hip pain, patient was seen by orthopedic surgery and pain services during his last admission #14. No evidence of CVA on the CT had from previous admission #15. Coronary artery disease status post coronary artery bypass grafting #16. Mildly elevated pro calcitonin with possibility of bacterial infection, possibly related to aspiration pneumonia Plan: Patient is currently on comfort care He is breathing comfortably, Continue care and morphine, and Ativan Continue oxygen for comfort No dyspnea, no tachypnea, he is resting quietly in bed, he is lethargic Allow visitation by his family Pulmonary service will sign of in follow-up on as-needed basis only I performed a history & physical examination of the patient and discussed their management with my nurse practitioner, Ciarra Lloyd. I reviewed the nurse practitioner's note and agree with the documented findings and plan of care. Lung sounds are positive for diffuse crackles throughout the lung reyes. The findings and the impression was discussed with the patient. I attest to the documentation by the nurse practitioner. Time with Patient: Less than 30
[2021-09-04] MEDS: MORPHINE SULFATE 4 MG/ML SYRINGE IVP PRN ×2 (17:10→19:47)
--- NOTE | 2021-09-04 19:23 | P.PN ---
Subjective Patient is a 85-year-old male with a known history of recently diagnosed covid 19 infection on 08/17/2021, history of CVA/TIA, prostate cancer, peripheral vascular disease status post left femoral stent, coronary artery disease with history of CABG Patient was sent to Hospital from [facility] due to hypoxia requiring 4 L via nasal cannula. Pulse ox was 92% on 4 L. EMS was called. Staph was also concerned about his legs look monitored. Patient otherwise very weak and cannot provide much history. Denied any complaints of chest pain or shortness of breath. No nausea vomiting or diarrhea. No abdominal pain. Patient was admitted to the hospital recently due to bilateral lower extremity weakness and generalized weakness. Patient was also found have elevated troponin level. 2-D echocardiogram showed normal ejection fraction and mild pulmonary hypertension. Neurology has seen the patient due to metabolic encephalopathy and bilateral lower extremity weakness. Patient underwent CT head which showed moderate diffuse age-related cerebral atrophy and chronic severe small resid ischemic changes. Patient had MRI of the lumbar spine due to bilateral lower extremity weakness. MRI of the lumbar spine showed central stenosis L4-L5 region. Orthopedic surgery recommends pain management and epidural injection. Epidural injection could not be done due to Covid 19 infection also patient being on Eliquis for stroke prophylaxis. Patient was continued on pain management and was sent to [facility] on 08/22/2021 During previous admission patient was not hypoxic and did not require dexamethasone. Patient was also seen by pulmonary at the time. Chest x-ray showed new bilateral reticular increased opacities greatest in the lower lungs and in the periphery consistent with Covid 19 infection. EKG showed sinus tachycardia with PACs. Laboratory data showed WBC 12.5, hemoglobin 14.8, platelets 278 INR 1.4 Sodium 151 potassium 4.4 chloride 117 bicarb is 20 BUN 90 and creatinine 2.92. Baseline creatinine around 1.2 Lactic acid level was 3.1 admission Ferritin 3203, AST 205 ALT 67, alk phos 94 CRP 21.3 and LDH 2096 Pro calcitonin level 0.66 08/27/2021 Patient is currently resting in the bed. Patient is awake alert but seems to be mildly confused. No complaints of chest pain. Generalized weakness. Currently on oxygen at 10 L high flow via nasal cannula. Patient has been afebrile. Laboratory data showed D-dimer level is 1.46, WBC 14.1 hemoglobin 11.7 and platelets 252 sodium 151 potassium 4.09 BUN 100 and creatinine 2.8 blood sugar is 277, LDH 830 and CRP 15.7 Patient is being current dexamethasone and Eliquis and multivitamins. Pulmonary has seen the patient. 08/28/2021 Patient is on the medical floor. Lying in the bed comfortably. Seems to be more awake and oriented today. Able to tolerate oral diet minimally. Otherwise patient is 10 L oxygen high flow. Denies any complaints of cough or worsening shortness of breath. Hemodynamically stable. Patient is being continued on dexamethasone, Eliquis and IV fluids changed to D5 water due to hypernatremia. Laboratory showed WBC 13.0 hemoglobin 10.3 and platelets 238 Sodium 150 potassium 4.1 chloride 117 bicarb is 18.0 BUN 94.8 creatinine 2.0 blood sugar is 158 Subjective: 08/29/2021 Patient is awake but is lethargic and tired. Distal hypoxic on telemetry to her oxygen with saturation of 90%. Hypernatremia improved with sodium 145 daily and D5W was discontinued. Patient is able to eat and drink well today. Creatinine improved down to 1.6. Baseline creatinine 1.1-1.4 Leukocytosis of 14.7 while on steroids. Increased inflammatory markers with LDH 3089 and CRP 5.8. He still on dexamethasone, multiple vitamins, Eliquis, Levemir. His dose increased 10 units up to 20 units tomorrow because of high glucose at 411 08/30/2021 Patient is awake but slightly confused today, he denies any chest pain. Also he denies any back pain. He is able to tolerate diet well and he is eating 100% of his diet, even better than yesterday However he still tachypnea which is mild while at rest but oxygen requirement went up to 15 L/m compared to 10 yesterday. His sodium is 148 which is slightly elevated, also creatinine is slightly elevated 1.7 compared to baseline of 1.1- 1.4. We will order labs tomorrow. Also we will check chest x-ray 08/31/2021 Patient still confused today. His breathing is slightly worse, he is currently on 15 L per minute of oxygen via nasal cannula with saturation of 87%. Blood pressure is stable. Labs showing WBC 14.9 K, sodium went up to 153. Creatinine is stable 1.7. Inflammatory markers actually improving with LDH down to 819 and CRP at 6.6. Glucose today is more elevated, ranging between 217-388, his Levemir dose was in creased 20 up to 30 units. And continued on insulin sliding scale Patient remains on multiple vitamin C, D and zinc. Also he is on dexamethasone, home dose of Eliquis 2.5 mg twice a day. And patient is on D5W at 125 restarted today. 09/01/2021 Patient remains confused secondary to his Covid infection and hypernatremia. He remains on 15 L/m of oxygen via nonrebreather, his oxygen saturation is a slightly better than yesterday from 87 up to 90%. However his chest x-ray showing worsening left lower lobe infiltrate. We will check for Dr. vasques to rule out aspiration possibility. Patient remains on D5 W at 1 50 mL/h to help his hypernatremia, also his Levemir increased today 20 up to 30 units with better glucose control around 160 which might help his hypernatremia. Expecting his sodium to start improving tomorrow. Check inflammatory markers tomorrow as well 09/02/2021 Patient's condition continued to deteriorate and he is currently on BiPAP. His supportcalcitonin is slightly increased at 0.3 up to 0.6 and therefore he was placed on empiric antibiotics of Rocephin and Zithromax for possible bacterial superinfection. He still have leukocytosis of 17 K, sodium improved to 146, creatinine to 1.5 but inflammatory markers worsened with LDH 1153 and CRP 14.5. His Levemir was increased to 38 units because of sugar are around 250-300 I talked to the son Anthony sandoval at [phone], and I discussed the case with him in details, and he opted for no code for his father, no resuscitation, and definitely no intubation and no life support 09/03/2021 This morning patient was placed on BiPAP, he was more agitated and pulling out to its and mask, he was prepped decubitus saturation 70 to 80s, he received 1 time dose of Xanax with no much help, I called the son to update him on the left a message, however patient calmed down after 2 mg of morphine provided for him this morning. And he looks like now he feels better,, still no much response. However he had fever yesterday of 99.9. Glucose today is 120-158 bouts patient is not eating for the last 24 hours and continue to D5W at 100 mL per hour. Therefore we lowered his the primary to 30 minutes tomorrow and keep monitoring of her glucose. Still on dexamethasone, multiple vitamins, and Antibiotics started yesterday with ceftriaxone and Zithromax. He is on Eliquis 5 mg twice a day, 09/04/2021 Despite all the treatment unfortunately patient did not respond well to therapy and he kept worsening requiring her oxygen supplementation. I called the son yesterday and left a message to update him with his worsening father condition Neck her on pulmonary team talked to his son and patient was made comfort care. Comfort care measures initiated yesterday after rounding. In the morning patient was looking comfortable however in the evening he needed more pain medication and his morphine increased 2 mg up to 4 mg every 4 hours as needed. Hospital hospice consult was placed as well Objective - Vital Signs Vital signs: Vital Signs Temp 97.9 F 09/04/21 10:00 Pulse 64 09/04/21 10:00 Resp 20 09/04/21 10:00 BP 123/65 09/03/21 14:00 Pulse Ox 87 L 09/04/21 10:00 Intake & Output 09/03/21 09/04/21 09/04/21 18:59 06:59 18:59 Intake Total 0 0 Balance 0 0 Intake: Oral 0 0 Other: Voiding Method Diaper Diaper - Exam -GENERAL: The patient is very tired and lethargic, looks comfortable now after receiving morphine HEENT: Pupils are round and equally reacting to light. EOMI. No scleral icterus. No conjunctival pallor. Normocephalic, atraumatic. No pharyngeal erythema. No thyromegaly. CARDIOVASCULAR: S1 and S2 present. No murmurs, rubs, or gallops. -PULMONARY: Chest is clear to auscultation. Bilateral crepitation and diffuse rhonchi ABDOMEN: Soft, nontender, nondistended, normoactive bowel sounds. No palpable organomegaly. MUSCULOSKELETAL: No joint swelling or deformity. EXTREMITIES: No cyanosis, clubbing, or pedal edema. NEUROLOGICAL: Gross neurological examination did not reveal any focal deficits. SKIN: No rashes. no petechiae. - Labs CBC & Chem 7: 09/02/21 06:59 09/02/21 06:59 Labs: Abnormal Lab Results - Last 24 Hours (Table) 09/03/21 09/03/21 Range/Units 11:52 16:39 POC Glucose (mg/dL) 158 H 234 H (75-99) mg/dL Assessment and Plan Assessment: End of life measures, comfort care measures per Request Which Looks Appropriate Acute hypoxic respiratory failure secondary to covid 19 pneumonia. Acute Covid 19 pneumonia. Possible bacterial superinfection Metabolic encephalopathy due to infection Hypernatremia due to dehydration and volume depletion. Elevated inflammatory markers Acute kidney injury likely prerenal. improving Elevated liver enzymes, mild. Secondary to Covid infection Bilateral lower extremity weakness and generalized weakness. MRI of the lumbar spine recently showed L4-L5 spinal stenosis. Was seen by orthopedic surgery Diabetes type 2 [id number] History of CVA/TIA with no residual weakness History of prostate cancer Peripheral vascular disease status post left femoral stent placement Coronary artery disease with history of CABG Plan: This is a pleasant 85 years old male who presents with covid pneumonia. Continue oxygen for comfort care Continue morphine and increase as needed to keep the patient comfortable and relaxed Discontinue all unnecessary medication Patient made DO NOT RESUSCITATE Prognosis is extremely poor
[2021-09-05] MEDS: LORazepam 2 MG/ML INJ IV PRN ×3 (02:31→22:57)
[2021-09-05 05:35] VITALS: PULSE 90
[2021-09-05] MEDS: MORPHINE SULFATE 4 MG/ML SYRINGE IVP PRN ×6 (05:42→21:57)
[2021-09-05 11:46] VITALS: RESP 26
[2021-09-06] MEDS: MORPHINE SULFATE 4 MG/ML SYRINGE IVP PRN (00:05)
--- NOTE | 2021-09-06 06:10 | P.PN ---
Subjective Patient is a 85-year-old male with a known history of recently diagnosed covid 19 infection on 08/17/2021, history of CVA/TIA, prostate cancer, peripheral vascular disease status post left femoral stent, coronary artery disease with history of CABG Patient was sent to Hospital from [facility] due to hypoxia requiring 4 L via nasal cannula. Pulse ox was 92% on 4 L. EMS was called. Staph was also concerned about his legs look monitored. Patient otherwise very weak and cannot provide much history. Denied any complaints of chest pain or shortness of breath. No nausea vomiting or diarrhea. No abdominal pain. Patient was admitted to the hospital recently due to bilateral lower extremity weakness and generalized weakness. Patient was also found have elevated troponin level. 2-D echocardiogram showed normal ejection fraction and mild pulmonary hypertension. Neurology has seen the patient due to metabolic encephalopathy and bilateral lower extremity weakness. Patient underwent CT head which showed moderate diffuse age-related cerebral atrophy and chronic severe small resid ischemic changes. Patient had MRI of the lumbar spine due to bilateral lower extremity weakness. MRI of the lumbar spine showed central stenosis L4-L5 region. Orthopedic surgery recommends pain management and epidural injection. Epidural injection could not be done due to Covid 19 infection also patient being on Eliquis for stroke prophylaxis. Patient was continued on pain management and was sent to [facility] on 08/22/2021 During previous admission patient was not hypoxic and did not require dexamethasone. Patient was also seen by pulmonary at the time. Chest x-ray showed new bilateral reticular increased opacities greatest in the lower lungs and in the periphery consistent with Covid 19 infection. EKG showed sinus tachycardia with PACs. Laboratory data showed WBC 12.5, hemoglobin 14.8, platelets 278 INR 1.4 Sodium 151 potassium 4.4 chloride 117 bicarb is 20 BUN 90 and creatinine 2.92. Baseline creatinine around 1.2 Lactic acid level was 3.1 admission Ferritin 3203, AST 205 ALT 67, alk phos 94 CRP 21.3 and LDH 2096 Pro calcitonin level 0.66 08/27/2021 Patient is currently resting in the bed. Patient is awake alert but seems to be mildly confused. No complaints of chest pain. Generalized weakness. Currently on oxygen at 10 L high flow via nasal cannula. Patient has been afebrile. Laboratory data showed D-dimer level is 1.46, WBC 14.1 hemoglobin 11.7 and platelets 252 sodium 151 potassium 4.09 BUN 100 and creatinine 2.8 blood sugar is 277, LDH 830 and CRP 15.7 Patient is being current dexamethasone and Eliquis and multivitamins. Pulmonary has seen the patient. 08/28/2021 Patient is on the medical floor. Lying in the bed comfortably. Seems to be more awake and oriented today. Able to tolerate oral diet minimally. Otherwise patient is 10 L oxygen high flow. Denies any complaints of cough or worsening shortness of breath. Hemodynamically stable. Patient is being continued on dexamethasone, Eliquis and IV fluids changed to D5 water due to hypernatremia. Laboratory showed WBC 13.0 hemoglobin 10.3 and platelets 238 Sodium 150 potassium 4.1 chloride 117 bicarb is 18.0 BUN 94.8 creatinine 2.0 blood sugar is 158 Subjective: 08/29/2021 Patient is awake but is lethargic and tired. Distal hypoxic on telemetry to her oxygen with saturation of 90%. Hypernatremia improved with sodium 145 daily and D5W was discontinued. Patient is able to eat and drink well today. Creatinine improved down to 1.6. Baseline creatinine 1.1-1.4 Leukocytosis of 14.7 while on steroids. Increased inflammatory markers with LDH 3089 and CRP 5.8. He still on dexamethasone, multiple vitamins, Eliquis, Levemir. His dose increased 10 units up to 20 units tomorrow because of high glucose at 411 08/30/2021 Patient is awake but slightly confused today, he denies any chest pain. Also he denies any back pain. He is able to tolerate diet well and he is eating 100% of his diet, even better than yesterday However he still tachypnea which is mild while at rest but oxygen requirement went up to 15 L/m compared to 10 yesterday. His sodium is 148 which is slightly elevated, also creatinine is slightly elevated 1.7 compared to baseline of 1.1- 1.4. We will order labs tomorrow. Also we will check chest x-ray 08/31/2021 Patient still confused today. His breathing is slightly worse, he is currently on 15 L per minute of oxygen via nasal cannula with saturation of 87%. Blood pressure is stable. Labs showing WBC 14.9 K, sodium went up to 153. Creatinine is stable 1.7. Inflammatory markers actually improving with LDH down to 819 and CRP at 6.6. Glucose today is more elevated, ranging between 217-388, his Levemir dose was in creased 20 up to 30 units. And continued on insulin sliding scale Patient remains on multiple vitamin C, D and zinc. Also he is on dexamethasone, home dose of Eliquis 2.5 mg twice a day. And patient is on D5W at 125 restarted today. 09/01/2021 Patient remains confused secondary to his Covid infection and hypernatremia. He remains on 15 L/m of oxygen via nonrebreather, his oxygen saturation is a slightly better than yesterday from 87 up to 90%. However his chest x-ray showing worsening left lower lobe infiltrate. We will check for Dr. vasques to rule out aspiration possibility. Patient remains on D5 W at 1 50 mL/h to help his hypernatremia, also his Levemir increased today 20 up to 30 units with better glucose control around 160 which might help his hypernatremia. Expecting his sodium to start improving tomorrow. Check inflammatory markers tomorrow as well 09/02/2021 Patient's condition continued to deteriorate and he is currently on BiPAP. His supportcalcitonin is slightly increased at 0.3 up to 0.6 and therefore he was placed on empiric antibiotics of Rocephin and Zithromax for possible bacterial superinfection. He still have leukocytosis of 17 K, sodium improved to 146, creatinine to 1.5 but inflammatory markers worsened with LDH 1153 and CRP 14.5. His Levemir was increased to 38 units because of sugar are around 250-300 I talked to the son Anthony sandoval at [phone], and I discussed the case with him in details, and he opted for no code for his father, no resuscitation, and definitely no intubation and no life support 09/03/2021 This morning patient was placed on BiPAP, he was more agitated and pulling out to its and mask, he was prepped decubitus saturation 70 to 80s, he received 1 time dose of Xanax with no much help, I called the son to update him on the left a message, however patient calmed down after 2 mg of morphine provided for him this morning. And he looks like now he feels better,, still no much response. However he had fever yesterday of 99.9. Glucose today is 120-158 bouts patient is not eating for the last 24 hours and continue to D5W at 100 mL per hour. Therefore we lowered his the primary to 30 minutes tomorrow and keep monitoring of her glucose. Still on dexamethasone, multiple vitamins, and Antibiotics started yesterday with ceftriaxone and Zithromax. He is on Eliquis 5 mg twice a day, 09/04/2021 Despite all the treatment unfortunately patient did not respond well to therapy and he kept worsening requiring her oxygen supplementation. I called the son yesterday and left a message to update him with his worsening father condition Neck her on pulmonary team talked to his son and patient was made comfort care. Comfort care measures initiated yesterday after rounding. In the morning patient was looking comfortable however in the evening he needed more pain medication and his morphine increased 2 mg up to 4 mg every 4 hours as needed. Hospital hospice consult was placed as well 09/05/2021 Patient looks comfortable. Continue with comfort care measures Objective - Vital Signs Vital signs: Vital Signs Temp 97.9 F 09/04/21 14:00 Pulse 90 09/05/21 05:35 Resp 26 H 09/05/21 11:46 BP 123/65 09/03/21 14:00 Pulse Ox 73 L 09/05/21 05:35 Intake & Output 09/04/21 09/05/21 09/05/21 18:59 06:59 18:59 Intake Total 0 0 Balance 0 0 Weight 99.79 kg Intake: Oral 0 0 Other: Voiding Method Diaper Diaper Diaper # Voids 3 3 - Exam -GENERAL: The patient is very tired and lethargic, looks comfortable now after receiving morphine HEENT: Pupils are round and equally reacting to light. EOMI. No scleral icterus. No conjunctival pallor. Normocephalic, atraumatic. No pharyngeal erythema. No thyromegaly. CARDIOVASCULAR: S1 and S2 present. No murmurs, rubs, or gallops. -PULMONARY: Chest is clear to auscultation. Bilateral crepitation and diffuse rhonchi ABDOMEN: Soft, nontender, nondistended, normoactive bowel sounds. No palpable organomegaly. MUSCULOSKELETAL: No joint swelling or deformity. EXTREMITIES: No cyanosis, clubbing, or pedal edema. NEUROLOGICAL: Gross neurological examination did not reveal any focal deficits. SKIN: No rashes. no petechiae. - Labs CBC & Chem 7: 09/02/21 06:59 09/02/21 06:59 Assessment and Plan Assessment: End of life measures, comfort care measures per Request Which Looks Appropriate Acute hypoxic respiratory failure secondary to covid 19 pneumonia. Acute Covid 19 pneumonia. Possible bacterial superinfection Metabolic encephalopathy due to infection Hypernatremia due to dehydration and volume depletion. Elevated inflammatory markers Acute kidney injury likely prerenal. improving Elevated liver enzymes, mild. Secondary to Covid infection Bilateral lower extremity weakness and generalized weakness. MRI of the lumbar spine recently showed L4-L5 spinal stenosis. Was seen by orthopedic surgery Diabetes type 2 [id number] History of CVA/TIA with no residual weakness History of prostate cancer Peripheral vascular disease status post left femoral stent placement Coronary artery disease with history of CABG Plan: This is a pleasant 85 years old male who presents with covid pneumonia. Continue oxygen for comfort care Continue morphine and increase as needed to keep the patient comfortable and relaxed Discontinue all unnecessary medication Patient made DO NOT RESUSCITATE Prognosis is extremely poor
--- NOTE | 2021-09-06 06:12 | P.DS ---
Providers Date of admission: 08/26/21 08:00 Attending physician: Joyce Shore Consults: 08/26/21 14:15 Consult Physician Routine Consulting Provider: Lisbeth Tyler Reason/Comments: Covid 19 pneumonia Do you want consulting provider notified?: Yes Primary care physician: Leatha Henao Hospital Course: Diagnoses: Acute hypoxic respiratory failure secondary to COVID-19 pneumonia. Patient is vaccinated with moderate and received booster dose on 08/13/2021. Symptoms started on 08/14/2021. Elevated inflammatory markers secondary to COVID-19 pneumonia Paroxysmal atrial fibrillation on anticoagulation with Eliquis History of DVT s/p IVC filter placement Worsening d-dimer with no evidence of PE on CTA of the chest or DVT on Doppler of the legs History of prostate cancer status post radiation History of closed head injury and history of seizure disorder Hypertension Macular degeneration and legally blind Hospital course: Patient is a 76-year-old male with a known history of atrial fibrillation, history of PE/DVT status post IVC filter placement, hypertension, hyperlipidemia, hearing disorder/deafness and history of seizures, prostate cancer status post radiation chronic low back pain and other multiple medical problems presents to ER with complaints of generalized weakness and worsening shortness of breath and cough and congestion just before ,.. In the ER patient was found to be hypoxic with pulse ox in the 80s. Denied any complaints of fever or chills. No nausea vomiting or abdominal pain or diarrhea. Patient is fully vaccinated with booster dose on 08/13/2021. Patient was admitted to the hospital and evaluated by pulmonary services were following him closely and he was started on multiple medications including steroids, vitamins, IV fluids, antibiotics and despite all the treatment besides the oxygen he continued to decline. I called the son who made DO NOT RESUSCITATE AND EVENTUALLY UNDER RECOMMENDATION OF PULMONARY TEAM HE WAS MADE COMFORT CARE MEASURES. Eventually patient in the morning of 09/06, please refer to nurses note for more details Plan - Discharge Summary Discharge Rx Participant: No New Discharge Prescriptions: No Action Atorvastatin [Lipitor] 80 mg PO HS@2100 Aspirin EC [Ecotrin Low Dose] 81 mg PO DAILY@0900 Apixaban [Eliquis] 2.5 mg PO HS@2100 amLODIPine [Norvasc] 10 mg PO DAILY@0900 Insulin Glargine,Hum.rec.anlog [Lantus Solostar Pen] 18 unit SQ DAILY@09 Pioglitazone [Actos] 15 mg PO DAILY@09 Pantoprazole [Protonix] 40 mg PO DAILY@06 Losartan Potassium 100 mg PO DAILY@09 Folic Acid 1 mg PO DAILY@09 [place]-3 Fatty Acids/Fish Oil [Fish Oil 1,000 mg Softgel] 1 tab PO DAILY@09 HYDROcodone/APAP 5-325MG [[place] 5-325] 1 tab PO DAILY PRN #6 tab PRN Reason: Severe Pain Ascorbic Acid [Vitamin C] 1,000 mg PO DAILY@09 Cholecalciferol [Vitamin D3 (25 Mcg = 1000 Iu)] 50 mcg PO DAILY@09 Zinc 50 mg PO DAILY@09 Discharge Medication List Atorvastatin [Lipitor] 80 mg PO HS@209912/04/19 [History] Aspirin EC [Ecotrin Low Dose] 81 mg PO DAILY@89903/12/20 [History] Apixaban [Eliquis] 2.5 mg PO HS@209908/17/21 [History] Folic Acid 1 mg PO DAILY@89908/17/21 [History] Losartan Potassium 100 mg PO DAILY@89908/17/21 [History] [place]-3 Fatty Acids/Fish Oil [Fish Oil 1,000 mg Softgel] 1 tab PO DAILY@89908/17/21 [History] Pantoprazole [Protonix] 40 mg PO DAILY@0608/17/21 [History] Pioglitazone [Actos] 15 mg PO DAILY@89908/17/21 [History] HYDROcodone/APAP 5-325MG [[place] 5-325] 1 tab PO DAILY PRN #6 tab 08/22/21 [Rx] Ascorbic Acid [Vitamin C] 1,000 mg PO DAILY@89908/26/21 [History] Cholecalciferol [Vitamin D3 (25 Mcg = 1000 Iu)] 50 mcg PO DAILY@89908/26/21 [History] Insulin Glargine,Hum.rec.anlog [Lantus Solostar Pen] 18 unit SQ DAILY@89908/26/21 [History] Zinc 50 mg PO DAILY@0908/26/21 [History] amLODIPine [Norvasc] 10 mg PO DAILY@89908/26/21 [History] Follow up Appointment(s)/Referral(s): [facility], [NON-STAFF] - As Needed Leatha Henao MD [Primary Care Provider] - 1-2 days
== END 2021-09-06 01:00 | disposition expired | DRG 177 ==
LOC: EC 06:13 → 4SSUR 08:00
PROVIDERS: ADMIT Internal Medicine; ATTEND Internal Medicine
PROC: 3E0333Z Introduction of Anti-inflammatory into Peripheral Vein, Percutaneous Approach (ICD-10-PCS; 2021-08-26)
PROC: 5A0955A Assistance with Respiratory Ventilation, Greater than 96 Consecutive Hours, High Flow/Velocity Cannula (ICD-10-PCS; principal; 2021-08-27)
PROC: 5A09457 Assistance with Respiratory Ventilation, 24-96 Consecutive Hours, Continuous Positive Airway Pressure (ICD-10-PCS; 2021-09-02)
DX: U07.1 COVID-19 (principal); J12.82 Pneumonia due to coronavirus disease 2019; G93.41 Metabolic encephalopathy; J96.01 Acute respiratory failure with hypoxia; E87.0 Hyperosmolality and hypernatremia; E87.2 Acidosis; G93.1 Anoxic brain damage, not elsewhere classified; N17.9 Acute kidney failure, unspecified; I69.354 Hemiplegia and hemiparesis following cerebral infarction affecting left non-dominant side; E11.51 Type 2 diabetes mellitus with diabetic peripheral angiopathy without gangrene; E11.65 Type 2 diabetes mellitus with hyperglycemia; E78.5 Hyperlipidemia, unspecified; E86.0 Dehydration; G40.909 Epilepsy, unspecified, not intractable, without status epilepticus; H35.30 Unspecified macular degeneration; Z66 Do not resuscitate; Z51.5 Encounter for palliative care; H54.8 Legal blindness, as defined in USA; H91.90 Unspecified hearing loss, unspecified ear; I10 Essential (primary) hypertension; I25.10 Atherosclerotic heart disease of native coronary artery without angina pectoris; I27.20 Pulmonary hypertension, unspecified; I48.0 Paroxysmal atrial fibrillation; I49.3 Ventricular premature depolarization; M48.061 Spinal stenosis, lumbar region without neurogenic claudication; Z79.01 Long term (current) use of anticoagulants; Z79.4 Long term (current) use of insulin; Z79.82 Long term (current) use of aspirin; Z79.899 Other long term (current) drug therapy; Z83.3 Family history of diabetes mellitus; Z85.46 Personal history of malignant neoplasm of prostate; Z86.711 Personal history of pulmonary embolism; Z86.718 Personal history of other venous thrombosis and embolism; Z87.891 Personal history of nicotine dependence; Z92.3 Personal history of irradiation; Z95.1 Presence of aortocoronary bypass graft; Z95.820 Peripheral vascular angioplasty status with implants and grafts; Z95.828 Presence of other vascular implants and grafts; Z87.820 Personal history of traumatic brain injury
CPT/HCPCS: 36415; 71045; 80048; 80053; 82728; 82947; 83605; 83615; 83735; 84145; 85025; 85379; 85610; 85730; 86140; 93005; 93970; 94660; 94760; 99285